=== PATIENT | male | born 1945 | race Caucasian/White ===

== ENCOUNTER 2016-05-05 16:33 | Emergency (ER) | payer MEDICARE ==
[2016-05-05 17:32] VITALS: RESP 18
[2016-05-05] MEDS ORDERED: HYDROcodone/APAP 5-325MG 1 EACH TAB PO STA (18:10)
--- NOTE | 2016-05-05 18:41 | ED ---
General Adult HPI - General Chief complaint: Recheck/Abnormal Lab/Rx Stated complaint: Fall - Rib Pain Time Seen by Provider: 05/05/16 17:38 Source: patient, RN notes reviewed Mode of arrival: wheelchair Limitations: no limitations - History of Present Illness Initial comments: Patient is a 70-year-old male presents emergency room for evaluation of right- sided rib pain. Patient states last night he tripped and fell into a table landing on right anterior lateral ribs. Patient states pain is worse today. Patient states pain is worse in her take a deep breath. Patient denies shortness of breath. Patient states he notes a little bit of bruising on the area where he is having pain. Patient denies smoking. Patient denies headache , dizziness. Patient denies any other injuries during incident. Patient does admit he is taking blood thinners. - Related Data Home Medications Medication Instructions Recorded Confirmed Allopurinol [Zyloprim] 100 mg PO DAILY 06/27/14 06/27/14 Aspirin 81 mg PO DAILY 06/27/14 06/27/14 Atorvastatin [Lipitor] 40 mg PO DAILY 06/27/14 06/27/14 Furosemide [Lasix] 20 mg PO DAILY 06/27/14 06/27/14 Ipratropium-Albuterol Nebulize 3 ml IH 06/27/14 06/27/14 [Duoneb 0.5 mg-3 mg/3 ml Soln] Lisinopril [Zestril] 5 mg PO DAILY 06/27/14 06/27/14 Metoprolol Tartrate [Lopressor] 50 mg PO BID 06/27/14 06/27/14 Nitroglycerin Sl Tabs [Nitrostat] 0.4 mg SUBLINGUAL DAILY 06/27/14 06/27/14 Potassium Chloride [K-Tab ER] 10 meq PO 06/27/14 06/27/14 glipiZIDE [Glucotrol] 10 mg PO BID 06/27/14 06/27/14 Apixaban [Eliquis] 5 mg PO BID 05/05/16 05/05/16 Previous Rx's Medication Instructions Recorded Colchicine 0.6 mg PO TID #3 capsule 06/27/14 Indomethacin [Indocin] 50 mg PO TID PRN #30 capsule 06/27/14 Colchicine 0.6 mg PO TID #3 tablet 07/26/14 Naproxen Sodium [Anaprox DS] 550 mg PO Q12HR #20 tab 07/26/14 HYDROcodone/APAP 5-325MG [[place] 1 tab PO Q6HR PRN #12 tab 05/05/16 5-325] Allergies Allergy/AdvReac Type Severity Reaction Status Date / Time erythromycin base Allergy Unknown Verified 05/05/16 19:10 silver sulfadiazine Allergy Unknown Verified 05/05/16 19:10 [From Silvadene] sulfamethoxazole Allergy Unknown Verified 05/05/16 19:10 [From Bactrim] Tetracyclines Allergy Unknown Verified 05/05/16 19:10 trimethoprim [From Bactrim] Allergy Unknown Verified 05/05/16 19:10 Review of Systems ROS Statement: Those systems with pertinent positive or pertinent negative responses have been documented in the HPI. ROS Other: All systems not noted in ROS Statement are negative. Past Medical History Past Medical History: Coronary Artery Disease (CAD), COPD, Hyperlipidemia, Hypertension, Myocardial Infarction ([place]) Additional Past Medical History / Comment(s): mi x 38 gout History of Any Multi-Drug Resistant Organisms: None Reported Past Surgical History: Coronary Bypass/CABG, Heart Catheterization, Heart Catheterization With Stent Past Psychological History: No Psychological Hx Reported Smoking Status: Former smoker Past Alcohol Use History: None Reported Past Drug Use History: None Reported General Exam - General Exam Comments Initial Comments: Sitting in exam room in no acute distress. Limitations: no limitations General appearance: alert, in no apparent distress Head exam: Present: atraumatic, normocephalic, normal inspection Eye exam: Present: normal appearance ENT exam: Present: normal exam Neck exam: Present: normal inspection Respiratory exam: Present: normal lung sounds bilaterally, chest wall tenderness (Tenderness on right anterior lateral ribs with ecchymosis noted). Absent: respiratory distress Cardiovascular Exam: Present: normal rhythm, tachycardia, normal heart sounds GI/Abdominal exam: Present: soft, normal bowel sounds. Absent: distended, tenderness, guarding, rebound, rigid Extremities exam: Present: normal inspection Back exam: Present: normal inspection Neurological exam: Present: alert, oriented X3, CN II-XII intact, normal gait Psychiatric exam: Present: normal affect, normal mood Skin exam: Present: warm, dry, intact, normal color. Absent: rash Course Vital Signs 05/05/16 17:26 Temperature 98.8 F Pulse Rate 121 H Respiratory 18 Rate Blood Pressure 114/65 O2 Sat by Pulse 96 Oximetry Medical Decision Making - Medical Decision Making Patient is 70-year-old male presents emergency room for evaluation of right- sided rib pain. Right rib/chest x-ray significant for a minimally displaced right anterior lateral eighth rib fracture. Results discussed with patient. Patient given education for incentive spirometer and sent home with pain medications. Advised patient to follow-up with his primary care provider for reevaluation in 24-48 hours. Patient states he understands everything that was discussed with him. Return parameters discussed. Case discussed with Dr. Rodríguez. - Radiology Data Radiology results: report reviewed, image reviewed Disposition Clinical Impression: Right rib fracture, Fall Disposition: HOME SELF-CARE Condition: Good Instructions: Rib Fracture (ED) Additional Instructions: Take ibuprofen as needed for pain. Take [place] as needed for severe pain. Apply ice over the area. Use incentive spirometer once every hour. Please follow-up with primary care provider in 24-48 hours for reevaluation. If any new symptom arises or symptoms worsen, return to ER as soon as possible. Prescriptions: HYDROcodone/APAP 5-325MG [[place] 5-325] 1 tab PO Q6HR PRN #12 tab PRN Reason: Pain Referrals: Bernabe Adamson DO [Primary Care Provider] - 1-2 days Time of Disposition: 19:00
--- NOTE | 2016-05-05 18:52 | XR ---
EXAMINATION TYPE: XR ribs RT w pa chest xray - total 5 views DATE OF EXAM: 05/05/2016 6:19 PM COMPARISON: July 26, 2014 HISTORY: Right-sided chest pain since fall TECHNIQUE: 5 views FINDINGS: There is no pneumothorax. No pleural effusion. However, there is a linear lucency consisten t with minimally displaced anterolateral right eighth rib fracture. There are scattered chronic appearing pleural parenchymal changes noted. Sternal sutures and mediasti nal clips noted. Cardiac silhouette is not enlarged. The lungs and soft tissues are unremarkable. IMPRESSION: Acute/subacute minimally-displaced right anterolateral eighth rib fracture.
[2016-05-05 19:38] VITALS: BP 110/71; PULSE 108; TEMP 98.2
== END 2016-05-05 19:38 | disposition home or self-care (01) ==
LOC: EC 16:33
DX: S22.31XA Fracture of one rib, right side, initial encounter for closed fracture (principal); I25.10 Atherosclerotic heart disease of native coronary artery without angina pectoris; J44.9 Chronic obstructive pulmonary disease, unspecified; E78.5 Hyperlipidemia, unspecified; I10 Essential (primary) hypertension; I25.2 Old myocardial infarction; Z87.891 Personal history of nicotine dependence; Z79.82 Long term (current) use of aspirin; Z79.84 Long term (current) use of oral hypoglycemic drugs; Z79.899 Other long term (current) drug therapy; Z88.1 Allergy status to other antibiotic agents; Z88.2 Allergy status to sulfonamides; Z88.8 Allergy status to other drugs, medicaments and biological substances; Z95.1 Presence of aortocoronary bypass graft; W18.09XA Striking against other object with subsequent fall, initial encounter; Y92.89 Other specified places as the place of occurrence of the external cause
CPT/HCPCS: 99284

== ENCOUNTER → 2016-05-27 | Outpatient (CLI) | payer MEDICARE ==
[2016-05-27 16:28] LABS: Anisocytosis Slight; CH 30.3; CHCM 33.4; HCT 34.7 % (39.0-53.0); HDW 3.24; HGB 11.8 gm/dL (13.0-17.5); MCH 31.1 pg (25.0-35.0); MCV 91.4 fL (80.0-100.0); Mean Platelet Volume 8.3; RDW 16.3 % (11.5-15.5); WBC 6.9 k/uL (3.8-10.6)
[2016-05-27 16:32] LABS: Calcium 8.8 mg/dL (8.4-10.2); Magnesium 1.9 mg/dL (1.6-2.3); Phosphorous 3.7 mg/dL (2.5-4.5); Potassium 5.2 mmol/L (3.5-5.1); Total Bilirubin 1.3 mg/dL (0.2-1.3); Total Protein 6.7 g/dL (6.3-8.2); Uric Acid 8.3 mg/dL (3.5-8.5)
[2016-05-27 16:41] LABS: % Iron Saturation 23.2 % (20-50)
[2016-05-27 17:14] LABS: Appearance,Urine Clear (Clear); Bilirubin,Urine Negative (Negative); Glucose,Urine (UA) Negative (Negative); Ketones,Urine Negative (Negative); Leukocyte Esterase,Urine Negative (Negative); Nitrite,Urine Negative (Negative); PH, Urine 7.5 (5.0-8.0); Protein,Urine Negative (Negative); Specific Gravity,Urine 1.009 (1.001-1.035); UA Billing (MACRO vs. MICRO) CHEM; Urobilinogen,Urine <2.0 mg/dL (<2.0)
== END | disposition home or self-care (01) ==
LOC: LABWHC1 15:48
PROVIDERS: ATTEND Internal Medicine
DX: N17.9 Acute kidney failure, unspecified (principal); D64.9 Anemia, unspecified; N39.0 Urinary tract infection, site not specified; R80.9 Proteinuria, unspecified; E21.3 Hyperparathyroidism, unspecified; E55.9 Vitamin D deficiency, unspecified; M10.9 Gout, unspecified
CPT/HCPCS: 36415; 80053; 81003; 82043; 82306; 82728; 83540; 83550; 83735; 83970; 84100; 84550; 85027

== ENCOUNTER → 2016-06-16 | Outpatient (CLI) | payer MEDICARE ==
--- NOTE | 2016-06-16 18:09 | US ---
EXAMINATION TYPE: US kidneys/renal and bladder DATE OF EXAM: 06/16/2016 4:47 PM COMPARISON: 07/27/2011 CLINICAL HISTORY: N18.3 CKD STAGE III. EXAM MEASUREMENTS: Right Kidney: 9.6 x 4.8 x 4.5 cm Left Kidney: 11.4 x 5.3 x 5.6 cm Right Kidney: No hydronephrosis or masses seen Left Kidney: No hydronephrosis or masses seen Bladder: wnl Bilateral Jets seen: YesThere is no evidence for hydronephrosis at this point in time. No nephroli thiasis is seen. No masses are identified. The urinary bladder is anechoic. Bilateral ureteral jet s are seen. IMPRESSION: There is no evidence of renal stone or obstruction. Kidneys show no significant change in size compar ed to last exam.
== END | disposition home or self-care (01) ==
LOC: RADUSWWP 15:42
PROVIDERS: ATTEND Internal Medicine
DX: N18.3 Chronic kidney disease, stage 3 (moderate) (principal)
CPT/HCPCS: 76770

== ENCOUNTER 2017-08-29 18:38 | Emergency (ER) | payer MEDICARE ==
[2017-08-29 18:53] LABS: Glucose,Whole Blood 91 mg/dL (75-99)
[2017-08-29] MEDS ORDERED: IPRATROPIUM-ALBUTEROL 3 ML NEB INHALATION STA (18:59)
--- NOTE | 2017-08-29 19:05 | ED ---
General Adult HPI - General Chief complaint: Shortness of Breath Stated complaint: Low blood sugar Time Seen by Provider: 08/29/17 18:47 Source: patient, EMS Mode of arrival: EMS Limitations: no limitations - History of Present Illness Initial comments: Boaz is a 71-year-old in sling dependent diabetic male was brought to the ED via EMS for evaluation of altered mental status and hypoglycemia. Patient reports that he's been in his usual state of health, he does have a chronic cough but this is unchanged recently. He states that he is an insulin- dependent diabetic. He takes long-acting insulin once daily with his supper meal. He states that he no longer checks his home blood glucose because he has developed calluses on his fingers and it hurts to check his blood glucose. He states that he took his usual dose of insulin today after eating and he feels somewhat weak. He then states that he walked to the restroom and became very weak, at which time his called the ambulance. EMS reports that they were initially dispatched for altered mental status and concern for strokelike symptoms. They found the patient in the restroom at his home and [id number] glucose revealed that his sugar was in the 50s. IV access was obtained and he was given an amp of D50 and subsequently had improvement in his mental status he was then transported to the ER for further management. - Related Data Home Medications Medication Instructions Recorded Confirmed Aspirin 81 mg PO DAILY 06/27/14 05/05/16 Atorvastatin [Lipitor] 40 mg PO DAILY 06/27/14 05/05/16 Ipratropium-Albuterol Nebulize 3 ml INHALATION RT-QID 06/27/14 05/05/16 [Duoneb 0.5 mg-3 mg/3 ml Soln] Lisinopril [Zestril] 5 mg PO DAILY 06/27/14 05/05/16 Metoprolol Tartrate [Lopressor] 50 mg PO BID 06/27/14 05/05/16 Nitroglycerin Sl Tabs [Nitrostat] 0.4 mg SUBLINGUAL Q5M PRN 06/27/14 05/05/16 Potassium Chloride [K-Tab ER] 10 meq PO BID 06/27/14 05/05/16 Apixaban [Eliquis] 5 mg PO BID 05/05/16 05/05/16 Clopidogrel Bisulfate [Plavix] 75 mg PO DAILY 05/05/16 05/05/16 Colchicine 0.6 mg PO DAILY 05/05/16 05/05/16 Furosemide [Lasix] 40 mg PO DAILY 05/05/16 05/05/16 Insulin Detemir [Levemir Flextouch] 12 unit SQ HS 05/05/16 05/05/16 glipiZIDE [Glipizide ER] 10 mg PO TID 05/05/16 05/05/16 Previous Rx's Medication Instructions Recorded HYDROcodone/APAP 5-325MG [[place] 1 tab PO Q6HR PRN #12 tab 05/05/16 5-325] Allergies Allergy/AdvReac Type Severity Reaction Status Date / Time erythromycin base Allergy Unknown Verified 08/29/17 18:47 silver sulfadiazine Allergy Unknown Verified 08/29/17 18:47 [From Silvadene] sulfamethoxazole Allergy Unknown Verified 08/29/17 18:47 [From Bactrim] Tetracyclines Allergy Unknown Verified 08/29/17 18:47 trimethoprim [From Bactrim] Allergy Unknown Verified 08/29/17 18:47 Review of Systems ROS Statement: Those systems with pertinent positive or pertinent negative responses have been documented in the HPI. ROS Other: All systems not noted in ROS Statement are negative. Constitutional: Denies: fever Respiratory: Reports: cough Cardiovascular: Denies: chest pain, palpitations Endocrine: Denies: fatigue Gastrointestinal: Denies: abdominal pain, nausea, vomiting Genitourinary: Denies: dysuria Neurological: Reports: weakness Psychiatric: Denies: anxiety, depression Hematological/Lymphatic: Denies: easy bleeding, easy bruising Past Medical History Past Medical History: Coronary Artery Disease (CAD), COPD, Hyperlipidemia, Hypertension, Myocardial Infarction ([place]) Additional Past Medical History / Comment(s): mi x 38 gout History of Any Multi-Drug Resistant Organisms: None Reported Past Surgical History: Coronary Bypass/CABG, Heart Catheterization, Heart Catheterization With Stent Past Psychological History: No Psychological Hx Reported Smoking Status: Former smoker Past Alcohol Use History: None Reported Past Drug Use History: None Reported General Exam Limitations: no limitations General appearance: alert, in no apparent distress Head exam: Present: atraumatic, normocephalic Eye exam: Present: normal appearance, PERRL ENT exam: Present: normal exam Neck exam: Present: normal inspection Respiratory exam: Present: wheezes Cardiovascular Exam: Present: regular rate, normal rhythm GI/Abdominal exam: Present: soft. Absent: distended Rectal exam: Present: deferred Extremities exam: Present: full ROM Back exam: Present: normal inspection, full ROM Neurological exam: Present: alert, oriented X3 Psychiatric exam: Present: normal affect, normal mood Skin exam: Present: warm, dry Course Vital Signs 08/29/17 08/29/17 08/29/17 18:43 19:24 19:31 Temperature 96.9 F L Pulse Rate 69 60 59 L Respiratory 22 Rate Blood Pressure 140/68 O2 Sat by Pulse 91 L Oximetry 08/29/17 08/29/17 19:36 21:48 Temperature 97.1 F L Pulse Rate 59 L 73 Respiratory 16 16 Rate Blood Pressure 131/63 119/56 O2 Sat by Pulse 99 95 Oximetry - Reevaluation(s) Reevaluation #1: reevaluated, at bedside. Patient resting comfortably. Advised the patient that if he is able to eat a sandwich and drink some juice he can be discharged home with his . is agreeable to this plan. 08/29/17 21:18 Medical Decision Making - Medical Decision Making Patient was seen and evaluated, history was obtained from the patient and EMS The arrived to bedside to provide further history Insulin-dependent diabetic male who does not check his glucose at home, he is on a long-acting insulin and reports that he used it this evening and subsequently developed some weakness and was noted to be hypoglycemic. He received D5 in route with resolution of his weakness. Reports he is feeling well. A basic workup was ordered and revealed chronic lab findings of recurrent kidney disease as well as anemia. There are no significant findings on evaluation. His EKG had no significant change from previous. At this time the patient feels he is stable for discharge home. I had a long conversation with the patient is regarding the importance of checking his blood glucose to prevent episodes like this. Patient admits that he does not check his blood glucose due to the pain it causes in his fingertips. Patient also expresses frustration that different doctors advise him differently on what to do. He states that some of his doctors told he can eat whatever he wants as long as he doesn't have excessive amounts of anything all other doctors tell him he needs to have a rather limited diet. I advised patient to follow with his primary care physician to discuss this. Patient was given a sandwich and juice which she tolerated. At this time the patient is blood glucose has been stable. He is resting comfortably. He is eating complex carbohydrates and would like to be discharged home. All questions pertaining to care were answered best my ability patient's discharged home in stable condition. - Lab Data Result diagrams: 08/29/17 18:55 08/29/17 18:55 Lab Results 08/29/17 08/29/17 08/29/17 Range/Units 18:42 18:55 18:55 WBC 6.3 (3.8-10.6) k/uL RBC 4.02 L (4.30-5.90) m/uL Hgb 12.3 L (13.0-17.5) gm/dL Hct 38.1 L (39.0-53.0) % MCV 94.8 (80.0-100.0) fL MCH 30.5 (25.0-35.0) pg MCHC 32.2 (31.0-37.0) g/dL RDW 17.4 H (11.5-15.5) % Plt Count 154 (150-450) k/uL Neutrophils % 79 % Lymphocytes % 11 % Monocytes % 7 % Eosinophils % 1 % Basophils % 0 % Neutrophils # 4.9 (1.3-7.7) k/uL Lymphocytes # 0.7 L (1.0-4.8) k/uL Monocytes # 0.5 (0-1.0) k/uL Eosinophils # 0.1 (0-0.7) k/uL Basophils # 0.0 (0-0.2) k/uL Manual Slide Review Performed Hypochromasia Slight Anisocytosis Slight PT (9.0-12.0) sec INR (<1.2) APTT (22.0-30.0) sec Sodium 139 (137-145) mmol/L Potassium 4.2 (3.5-5.1) mmol/L Chloride 104 (98-107) mmol/L Carbon Dioxide 27 (22-30) mmol/L Anion Gap 8 mmol/L BUN 40 H (9-20) mg/dL Creatinine 2.05 H (0.66-1.25) mg/dL Est GFR (CKD-EPI)AfAm 37 (>60 ml/min/1.73 sqM) Est GFR (CKD-EPI)NonAf 32 (>60 ml/min/1.73 sqM) Glucose 86 (74-99) mg/dL POC Glucose (mg/dL) 91 (75-99) mg/dL POC Glu [employer] ID Calcium 8.6 (8.4-10.2) mg/dL Magnesium 2.1 (1.6-2.3) mg/dL Total Bilirubin 2.3 H (0.2-1.3) mg/dL AST 33 (17-59) U/L ALT 27 (21-72) U/L Alkaline Phosphatase 215 H (38-126) U/L Troponin I (0.000-0.034) ng/mL NT-Pro-B Natriuret Pep pg/mL Total Protein 6.2 L (6.3-8.2) g/dL Albumin 3.3 L (3.5-5.0) g/dL 08/29/17 08/29/17 08/29/17 Range/Units 18:55 18:55 18:55 WBC (3.8-10.6) k/uL RBC (4.30-5.90) m/uL Hgb (13.0-17.5) gm/dL Hct (39.0-53.0) % MCV (80.0-100.0) fL MCH (25.0-35.0) pg MCHC (31.0-37.0) g/dL RDW (11.5-15.5) % Plt Count (150-450) k/uL Neutrophils % % Lymphocytes % % Monocytes % % Eosinophils % % Basophils % % Neutrophils # (1.3-7.7) k/uL Lymphocytes # (1.0-4.8) k/uL Monocytes # (0-1.0) k/uL Eosinophils # (0-0.7) k/uL Basophils # (0-0.2) k/uL Manual Slide Review Hypochromasia Anisocytosis PT 11.5 (9.0-12.0) sec INR 1.2 H (<1.2) APTT 26.8 (22.0-30.0) sec Sodium (137-145) mmol/L Potassium (3.5-5.1) mmol/L Chloride (98-107) mmol/L Carbon Dioxide (22-30) mmol/L Anion Gap mmol/L BUN (9-20) mg/dL Creatinine (0.66-1.25) mg/dL Est GFR (CKD-EPI)AfAm (>60 ml/min/1.73 sqM) Est GFR (CKD-EPI)NonAf (>60 ml/min/1.73 sqM) Glucose (74-99) mg/dL POC Glucose (mg/dL) (75-99) mg/dL POC Glu [employer] ID Calcium (8.4-10.2) mg/dL Magnesium (1.6-2.3) mg/dL Total Bilirubin (0.2-1.3) mg/dL AST (17-59) U/L ALT (21-72) U/L Alkaline Phosphatase (38-126) U/L Troponin I <0.012 (0.000-0.034) ng/mL NT-Pro-B Natriuret Pep 8870 pg/mL Total Protein (6.3-8.2) g/dL Albumin (3.5-5.0) g/dL 08/29/17 Range/Units 20:45 WBC (3.8-10.6) k/uL RBC (4.30-5.90) m/uL Hgb (13.0-17.5) gm/dL Hct (39.0-53.0) % MCV (80.0-100.0) fL MCH (25.0-35.0) pg MCHC (31.0-37.0) g/dL RDW (11.5-15.5) % Plt Count (150-450) k/uL Neutrophils % % Lymphocytes % % Monocytes % % Eosinophils % % Basophils % % Neutrophils # (1.3-7.7) k/uL Lymphocytes # (1.0-4.8) k/uL Monocytes # (0-1.0) k/uL Eosinophils # (0-0.7) k/uL Basophils # (0-0.2) k/uL Manual Slide Review Hypochromasia Anisocytosis PT (9.0-12.0) sec INR (<1.2) APTT (22.0-30.0) sec Sodium (137-145) mmol/L Potassium (3.5-5.1) mmol/L Chloride (98-107) mmol/L Carbon Dioxide (22-30) mmol/L Anion Gap mmol/L BUN (9-20) mg/dL Creatinine (0.66-1.25) mg/dL Est GFR (CKD-EPI)AfAm (>60 ml/min/1.73 sqM) Est GFR (CKD-EPI)NonAf (>60 ml/min/1.73 sqM) Glucose (74-99) mg/dL POC Glucose (mg/dL) 152 H (75-99) mg/dL POC Glu [employer] ID Ana Grayson Calcium (8.4-10.2) mg/dL Magnesium (1.6-2.3) mg/dL Total Bilirubin (0.2-1.3) mg/dL AST (17-59) U/L ALT (21-72) U/L Alkaline Phosphatase (38-126) U/L Troponin I (0.000-0.034) ng/mL NT-Pro-B Natriuret Pep pg/mL Total Protein (6.3-8.2) g/dL Albumin (3.5-5.0) g/dL Disposition Clinical Impression: Hypoglycemia Disposition: HOME SELF-CARE Condition: Fair Instructions: Hypoglycemia in a Person with Diabetes (ED) Is patient prescribed a controlled substance at d/c from ED?: No Referrals: Bernabe Adamson DO [Primary Care Provider] - 1-2 days Time of Disposition: 21:22
--- NOTE | 2017-08-29 19:24 | XR ---
EXAMINATION TYPE: XR chest 2V DATE OF EXAM: 08/29/2017 COMPARISON: 07/26/2014 HISTORY: Difficulty breathing TECHNIQUE: Frontal and lateral views of the chest are obtained. FINDINGS: There is moderate right pleural effusion. There are sternal wires. Left lung is clear. The re is mild pulmonary congestion.. Bony thorax is intact. IMPRESSION: Consolidation and pleural fluid on the right side. Small left posterior pleural effusion . Abnormalities are new compared to old exam. This could relate to mild chronic congestive heart fail ure. Right lower lobe pneumonia is possible.
[2017-08-29 19:29] LABS: Anisocytosis Slight; Hypochromasia Slight; MCV 94.8 fL (80.0-100.0)
[2017-08-29 19:30] LABS: Albumin 3.3 g/dL (3.5-5.0); Calcium 8.6 mg/dL (8.4-10.2); Magnesium 2.1 mg/dL (1.6-2.3); Potassium 4.2 mmol/L (3.5-5.1); Total Bilirubin 2.3 mg/dL (0.2-1.3); Total Protein 6.2 g/dL (6.3-8.2)
[2017-08-29 19:32] LABS: Basophils % (A) 0 %; Eosinophils # (A) 0.1 k/uL (0-0.7); Eosinophils % (A) 1 %; HCT 38.1 % (39.0-53.0); HGB 12.3 gm/dL (13.0-17.5); Lymphocytes # (A) 0.7 k/uL (1.0-4.8); Lymphocytes % (A) 11 %; MCH 30.5 pg (25.0-35.0); MCHC 32.2 g/dL (31.0-37.0); Mean Platelet Volume 8.1; Monocytes # (A) 0.5 k/uL (0-1.0); Monocytes % (A) 7 %; Neutrophils # (A) 4.9 k/uL (1.3-7.7); Neutrophils % (A) 79 %; Platelet Count 154 k/uL (150-450); RBC 4.02 m/uL (4.30-5.90); RDW 17.4 % (11.5-15.5); WBC 6.3 k/uL (3.8-10.6)
[2017-08-29 19:34] LABS: INR 1.2 (<1.2); Partial Thromboplastin Time 26.8 sec (22.0-30.0); Prothrombin Time 11.5 sec (9.0-12.0)
[2017-08-29 19:37] VITALS: RESP 16
[2017-08-29 19:39] VITALS: TEMP 97.1
[2017-08-29 20:49] LABS: Glucose,Whole Blood 152 mg/dL (75-99)
[2017-08-29 21:49] VITALS: BP 119/56; PULSE 73
== END 2017-08-29 21:49 | disposition home or self-care (01) ==
LOC: EC 18:38
DX: E11.649 Type 2 diabetes mellitus with hypoglycemia without coma (principal); D64.9 Anemia, unspecified; N28.9 Disorder of kidney and ureter, unspecified; R06.2 Wheezing; R05 Cough; R41.82 Altered mental status, unspecified; J44.9 Chronic obstructive pulmonary disease, unspecified; E78.5 Hyperlipidemia, unspecified; I10 Essential (primary) hypertension; I25.10 Atherosclerotic heart disease of native coronary artery without angina pectoris; M10.9 Gout, unspecified; I25.2 Old myocardial infarction; Z87.891 Personal history of nicotine dependence; Z79.01 Long term (current) use of anticoagulants; Z79.02 Long term (current) use of antithrombotics/antiplatelets; Z79.4 Long term (current) use of insulin; Z79.82 Long term (current) use of aspirin; Z79.899 Other long term (current) drug therapy; Z88.1 Allergy status to other antibiotic agents; Z88.8 Allergy status to other drugs, medicaments and biological substances
CPT/HCPCS: 36415; 71046; 80053; 83735; 83880; 84484; 85025; 85610; 85730; 93005; 94640; 99285

== ENCOUNTER 2017-12-09 13:24 | Inpatient (IN) | payer MEDICARE ==
--- NOTE | 2017-12-09 14:26 | ED ---
General Adult HPI - General Chief complaint: Wound/Laceration Stated complaint: left leg pain Time Seen by Provider: 12/09/17 13:35 Source: patient, RN notes reviewed Mode of arrival: wheelchair Limitations: no limitations - History of Present Illness Initial comments: This is a 72-year-old male who presents emergency department with past medical history significant for diabetes hypertension and chronic cellulitis on both legs. Patient states he comes in today because he has pain in the left posterior leg. Patient states that areas become more tender and he has had some open wounds over the last couple of weeks. Patient states there is also become more red. Patient states the pain is gotten to the point where he cannot stand it anymore so he decided come in to be evaluated. Patient states he has had similar symptoms in the past but they seemed to resolve on the road but this has not been resolving. Patient denies any difficulty breathing [place] of breath patient denies any chest pain. Patient denies any fever chills per patient denies any injury or trauma. Patient denies any abdominal pain patient denies nausea vomiting diarrhea. - Related Data Home Medications Medication Instructions Recorded Confirmed Ipratropium-Albuterol Nebulize 3 ml INHALATION RT-QID 06/27/14 12/09/17 [Duoneb 0.5 mg-3 mg/3 ml Soln] Lisinopril [Zestril] 5 mg PO BID 06/27/14 12/09/17 Metoprolol Tartrate [Lopressor] 50 mg PO BID 06/27/14 12/09/17 Nitroglycerin Sl Tabs [Nitrostat] 0.4 mg SUBLINGUAL Q5M PRN 06/27/14 12/09/17 Apixaban [Eliquis] 2.5 mg PO BID 05/05/16 12/09/17 Furosemide [Lasix] 40 mg PO BID 05/05/16 12/09/17 Insulin Detemir [Levemir Flextouch] 12 unit SQ HS 05/05/16 12/09/17 Albuterol Nebulized [Ventolin 2.5 mg INHALATION RT-Q6H PRN 12/09/17 12/09/17 Nebulized] Allopurinol [Zyloprim] 100 mg PO BID 12/09/17 12/09/17 Calcitriol 0.25 mcg PO DAILY 12/09/17 12/09/17 Cholecalciferol [Vitamin D3] 1,000 unit PO BID 12/09/17 12/09/17 Ferrous Sulfate [Feosol] 325 mg PO Q7D 12/09/17 12/09/17 Spironolactone 25 mg PO DAILY 12/09/17 12/09/17 Allergies Allergy/AdvReac Type Severity Reaction Status Date / Time erythromycin base Allergy Unknown Verified 12/09/17 14:51 silver sulfadiazine Allergy Unknown Verified 12/09/17 14:51 [From Silvadene] sulfamethoxazole Allergy Unknown Verified 12/09/17 14:51 [From Bactrim] Tetracyclines Allergy Unknown Verified 12/09/17 14:51 trimethoprim [From Bactrim] Allergy Unknown Verified 12/09/17 14:51 Review of Systems ROS Statement: Those systems with pertinent positive or pertinent negative responses have been documented in the HPI. ROS Other: All systems not noted in ROS Statement are negative. Past Medical History Past Medical History: Coronary Artery Disease (CAD), COPD, Hyperlipidemia, Hypertension, Myocardial Infarction ([place]) Additional Past Medical History / Comment(s): mi x 38 gout History of Any Multi-Drug Resistant Organisms: None Reported Past Surgical History: Cholecystectomy, Coronary Bypass/CABG, Heart Catheterization, Heart Catheterization With Stent Additional Past Surgical History / Comment(s): Angiography Past Psychological History: No Psychological Hx Reported Smoking Status: Former smoker Past Alcohol Use History: None Reported Past Drug Use History: None Reported General Exam - General Exam Comments Initial Comments: GENERAL: Patient is well-developed and well-nourished. Patient is nontoxic and well- hydrated and is in mild distress. ENT: Neck is soft and supple. No significant lymphadenopathy is noted. Oropharynx is clear. Moist mucous membranes. Neck has full range of motion without eliciting any pain. EYES: The sclera were anicteric and conjunctiva were pink and moist. Extraocular movements were intact and pupils were equal round and reactive to light. Eyelids were unremarkable. PULMONARY: Unlabored respirations. Good breath sounds bilaterally. No audible rales rhonchi or wheezing was noted. CARDIOVASCULAR: There is a regular rate and rhythm without any murmurs gallops or rubs. ABDOMEN: Soft and nontender with normal bowel sounds. No palpable organomegaly was noted. There is no palpable pulsatile mass. SKIN: Skin is clear with no lesions or rashes and otherwise unremarkable. NEUROLOGIC: Patient is alert and oriented x3. Cranial nerves II through XII are grossly intact. Motor and sensory are also intact. Normal speech, volume and content. Symmetrical smile. MUSCULOSKELETAL: Right leg has chronic cellulitis on the distal aspect of the right leg there is no areas of acute erythema. However the left leg in the posterior aspect has a large open wound on the back of the calf. Patient also has what appears to be acute erythema of the posterior leg it is very warm and tender to touch. LYMPHATICS: No significant lymphadenopathy is noted PSYCHIATRIC: Normal psychiatric evaluation. Limitations: no limitations Course Vital Signs 12/09/17 13:35 Temperature 98.2 F Pulse Rate 59 L Respiratory 18 Rate Blood Pressure 114/52 O2 Sat by Pulse 94 L Oximetry Medical Decision Making - Medical Decision Making EKG shows a junctional rhythm at 57 bpm QRS is under QT intervals 506 QTC is 492. Patient has some slight ST segment depression in precordial leads V3 45 and V6 these changes however were seen on an old EKG. Chest x-ray shows a right-sided pleural effusion that was seen in the past but increased venous congestion. I spoke with Dr. Adamson and I will admit the patient wrote admitting orders. I will start the patient antibiotics. - Lab Data Result diagrams: 12/09/17 14:40 12/09/17 14:40 Lab Results 12/09/17 12/09/17 12/09/17 Range/Units 14:40 14:40 14:40 WBC 8.2 (3.8-10.6) k/uL RBC 3.73 L (4.30-5.90) m/uL Hgb 11.7 L (13.0-17.5) gm/dL Hct 38.1 L (39.0-53.0) % MCV 102.1 H (80.0-100.0) fL MCH 31.4 (25.0-35.0) pg MCHC 30.7 L (31.0-37.0) g/dL RDW 17.3 H (11.5-15.5) % Plt Count 211 (150-450) k/uL Neutrophils % 81 % Lymphocytes % 11 % Monocytes % 5 % Eosinophils % 2 % Basophils % 0 % Neutrophils # 6.6 (1.3-7.7) k/uL Lymphocytes # 0.9 L (1.0-4.8) k/uL Monocytes # 0.4 (0-1.0) k/uL Eosinophils # 0.2 (0-0.7) k/uL Basophils # 0.0 (0-0.2) k/uL Hypochromasia Slight Anisocytosis Slight Macrocytosis Moderate Sodium 136 L (137-145) mmol/L Potassium 5.1 (3.5-5.1) mmol/L Chloride 101 (98-107) mmol/L Carbon Dioxide 24 (22-30) mmol/L Anion Gap 11 mmol/L BUN 90 H (9-20) mg/dL Creatinine 3.05 H (0.66-1.25) mg/dL Est GFR (CKD-EPI)AfAm 23 (>60 ml/min/1.73 sqM) Est GFR (CKD-EPI)NonAf 20 (>60 ml/min/1.73 sqM) Glucose 281 H (74-99) mg/dL Plasma Lactic Acid Carloz 1.4 (0.7-2.0) mmol/L Calcium 9.0 (8.4-10.2) mg/dL Total Bilirubin 1.9 H (0.2-1.3) mg/dL AST 68 H (17-59) U/L ALT 83 H (21-72) U/L Alkaline Phosphatase 209 H (38-126) U/L Troponin I (0.000-0.034) ng/mL NT-Pro-B Natriuret Pep pg/mL Total Protein 7.2 (6.3-8.2) g/dL Albumin 3.7 (3.5-5.0) g/dL 12/09/17 12/09/17 Range/Units 14:40 14:40 WBC (3.8-10.6) k/uL RBC (4.30-5.90) m/uL Hgb (13.0-17.5) gm/dL Hct (39.0-53.0) % MCV (80.0-100.0) fL MCH (25.0-35.0) pg MCHC (31.0-37.0) g/dL RDW (11.5-15.5) % Plt Count (150-450) k/uL Neutrophils % % Lymphocytes % % Monocytes % % Eosinophils % % Basophils % % Neutrophils # (1.3-7.7) k/uL Lymphocytes # (1.0-4.8) k/uL Monocytes # (0-1.0) k/uL Eosinophils # (0-0.7) k/uL Basophils # (0-0.2) k/uL Hypochromasia Anisocytosis Macrocytosis Sodium (137-145) mmol/L Potassium (3.5-5.1) mmol/L Chloride (98-107) mmol/L Carbon Dioxide (22-30) mmol/L Anion Gap mmol/L BUN (9-20) mg/dL Creatinine (0.66-1.25) mg/dL Est GFR (CKD-EPI)AfAm (>60 ml/min/1.73 sqM) Est GFR (CKD-EPI)NonAf (>60 ml/min/1.73 sqM) Glucose (74-99) mg/dL Plasma Lactic Acid Carloz (0.7-2.0) mmol/L Calcium (8.4-10.2) mg/dL Total Bilirubin (0.2-1.3) mg/dL AST (17-59) U/L ALT (21-72) U/L Alkaline Phosphatase (38-126) U/L Troponin I 0.014 (0.000-0.034) ng/mL NT-Pro-B Natriuret Pep 38343 pg/mL Total Protein (6.3-8.2) g/dL Albumin (3.5-5.0) g/dL Disposition Clinical Impression: Pulmonary edema, Pleural effusion, Pedal edema, Cellulitis of left leg Disposition: ADMITTED IP TO THIS HOSP Referrals: Bernabe Adamson DO [Primary Care Provider] - 1-2 days Time of Disposition: 16:31
[2017-12-09 15:06] LABS: Anisocytosis Slight; Basophils % (A) 0 %; Eosinophils # (A) 0.2 k/uL (0-0.7); Eosinophils % (A) 2 %; HCT 38.1 % (39.0-53.0); HGB 11.7 gm/dL (13.0-17.5); Hypochromasia Slight; Lymphocytes # (A) 0.9 k/uL (1.0-4.8); Lymphocytes % (A) 11 %; MCH 31.4 pg (25.0-35.0); MCHC 30.7 g/dL (31.0-37.0); MCV 102.1 fL (80.0-100.0); Macrocytosis Moderate; Mean Platelet Volume 8.5; Monocytes # (A) 0.4 k/uL (0-1.0); Monocytes % (A) 5 %; Neutrophils # (A) 6.6 k/uL (1.3-7.7); Neutrophils % (A) 81 %; Platelet Count 211 k/uL (150-450); RBC 3.73 m/uL (4.30-5.90); RDW 17.3 % (11.5-15.5); WBC 8.2 k/uL (3.8-10.6)
[2017-12-09 15:21] LABS: Albumin 3.7 g/dL (3.5-5.0); Potassium 5.1 mmol/L (3.5-5.1); Total Bilirubin 1.9 mg/dL (0.2-1.3); Total Protein 7.2 g/dL (6.3-8.2)
--- NOTE | 2017-12-09 16:07 | XR ---
EXAMINATION TYPE: XR chest 2V DATE OF EXAM: 12/09/2017 COMPARISON: 08/29/2017 INDICATION: Difficulty breathing, multiple MIs TECHNIQUE: Frontal and lateral views of the chest are obtained. FINDINGS: The heart size is normal. The pulmonary vasculature is prominent. There is a right lower lobe infiltrate. Small right pleural effusion may also be present. Sternotomy wires are present from prior CABG.. IMPRESSION: 1. Right middle lobe and right lower lobe infiltrate with small right pleural effusion. 2. Pulmonary vascular prominence. Correlate for failure.
[2017-12-09] MEDS ORDERED: AMPICILLIN-SULBACTAM 3 GM in SODIUM CHLORIDE 0.9% 100 ML IVPB STA (16:30)
[2017-12-09] MEDS ORDERED: FUROSEMIDE 10 MG/ML 4 ML VIAL IV STA (16:50)
[2017-12-10] MEDS: AMPICILLIN-SULBACTAM 3 GM in SODIUM CHLORIDE 0.9% 100 ML IVPB SCH ×4 (00:26→23:54)
[2017-12-10] MEDS: FUROSEMIDE 10 MG/ML 4 ML VIAL IV SCH ×3 (00:26→21:23)
[2017-12-10 05:34] LABS: Glucose,Whole Blood 149 mg/dL (75-99)
[2017-12-10 06:19] LABS: Glucose,Whole Blood 132 mg/dL (75-99)
[2017-12-10] MEDS ORDERED: NITROGLYCERIN SL TABS 0.4 MG TAB SUBLINGUAL PRN (09:35)
[2017-12-10 10:36] LABS: Anisocytosis Slight; Basophils % (A) 0 %; Eosinophils # (A) 0.2 k/uL (0-0.7); Eosinophils % (A) 3 %; HCT 35.2 % (39.0-53.0); HGB 10.9 gm/dL (13.0-17.5); Hypochromasia Slight; Lymphocytes # (A) 0.8 k/uL (1.0-4.8); Lymphocytes % (A) 12 %; MCH 31.3 pg (25.0-35.0); MCHC 31.1 g/dL (31.0-37.0); MCV 100.8 fL (80.0-100.0); Macrocytosis Slight; Mean Platelet Volume 9.4; Monocytes # (A) 0.4 k/uL (0-1.0); Monocytes % (A) 6 %; Neutrophils # (A) 5.2 k/uL (1.3-7.7); Neutrophils % (A) 77 %; Platelet Count 175 k/uL (150-450); RBC 3.49 m/uL (4.30-5.90); WBC 6.7 k/uL (3.8-10.6)
[2017-12-10 11:00] LABS: Calcium 8.8 mg/dL (8.4-10.2); Magnesium 2.5 mg/dL (1.6-2.3)
[2017-12-10] MEDS: IPRATROPIUM-ALBUTEROL 3 ML NEB INHALATION SCH ×3 (11:20→19:24)
[2017-12-10 11:25] LABS: Glucose,Whole Blood 270 mg/dL (75-99)
--- NOTE | 2017-12-10 11:45 | ECHOF ---
Referral Reason:lv function MEASUREMENTS -------- HEIGHT: 170.2 cm WEIGHT: 72.1 kg BP: 104/55 RVIDd: 3.0 cm (< 3.3) IVSd: 1.0 cm (0.6 - 1.1) LVIDd: 3.7 cm (3.9 - 5.3) LVPWd: 1.0 cm (0.6 - 1.1) IVSs: 1.3 cm LVIDs: 3.0 cm LVPWs: 1.3 cm LAESV Index (A-L): 43.44 ml/m Ao Diam: 3.2 cm (2.0 - 3.7) LA Diam: 3.9 cm (2.7 - 3.8) EPSS: 1.0 cm MV E Riaz: 1.21 m/s MV DecT: 123 ms MV A Riaz: 0.34 m/s MV E/A Ratio: 3.54 AV maxP.94 mmHg AV meanP.03 mmHg RAP: 15.00 mmHg RVSP: 40.43 mmHg MV EF SLOPE: 156.23 mm/s (70 - 150) MV EXCURSION: 1.87 cm (> 18.000) FINDINGS -------- Resting bradycardia (HR<60bpm). This was a technically adequate study. The left ventricular size is normal. Left ventricular wall thickness is normal. There is mild calli bal hypokinesis of LV . Overall left ventricular systolic function is mildly impaired with, an EF b etween 45 - 50 %. The right ventricle is normal in size and function. LA is severely dilated >40 ml/m2 RA appears enlarged. There is no evidence of aortic regurgitation. There is mild stenosis of the bioprosthetic aortic va lve. The mitral valve leaflets are mildly thickened. Moderate mitral regurgitation is present. Mitral ring annulloplasty is in place. Mild tricuspid regurgitation present. There is mild pulmonary hypertension. The right ventricular systolic pressure, as measured by Doppler, is 40.43mmHg. Trace/mild (physiologic) pulmonic regurgitation. The aortic root size is normal. The inferior vena cava is dilated with poor inspiratory collapse which is consistent with estimated r ight atrial pressure of 20 mmHg. There is no pericardial effusion. CONCLUSIONS -------- 1. Resting bradycardia (HR<60bpm). 2. This was a technically adequate study. 3. The left ventricular size is normal. 4. Left ventricular wall thickness is normal. 5. There is mild global hypokinesis of LV . 6. Overall left ventricular systolic function is mildly impaired with, an EF between 45 - 50 %. 7. LA is severely dilated >40 ml/m2 8. RA appears enlarged. 9. There is no evidence of aortic regurgitation. 10. 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 11. The mitral valve leaflets are mildly thickened. 12. Moderate mitral regurgitation is present. 13. Mitral ring annulloplasty is in place. 14. Mild tricuspid regurgitation present. 15. There is mild pulmonary hypertension. 16. The right ventricular systolic pressure, as measured by Doppler, is 40.43mmHg. 17. Trace/mild (physiologic) pulmonic regurgitation. 18. The aortic root size is normal. 19. The inferior vena cava is dilated with poor inspiratory collapse which is consistent with estimat ed right atrial pressure of 20 mmHg. 20. There is no pericardial effusion. WET [employer] BLOCKING OPERATOR: Won Silvestre RDCS
[2017-12-10] MEDS: CALCITRIOL 0.25 MCG CAP PO SCH (12:11)
[2017-12-10] MEDS: ALLOPURINOL 100 MG TAB PO SCH ×2 (12:11→21:28)
[2017-12-10] MEDS: APIXABAN 2.5 MG TABLET PO SCH ×2 (12:11→21:23)
[2017-12-10] MEDS: SPIRONOLACTONE 25 MG TAB PO SCH (12:11)
[2017-12-10] MEDS: CHOLECALCIFEROL 1,000 UNIT TAB PO SCH ×2 (12:11→21:28)
[2017-12-10] MEDS: INSULIN ASPART 100 UNIT/ML 1 ML 10 ML VIAL SQ SCH ×3 (12:12→21:24)
--- NOTE | 2017-12-10 15:31 | CONS ---
CONSULTATION Mr. Velasco is a 72-year-old male who is followed on a regular basis by Dr. Mar Perez. He presented to the emergency room with progressive weakness as well as worsening edema and discomfort in the lower extremities. He reports a history of prior myocardial infarction, most recently about 8 years ago. He has history of peripheral disease. He has peripheral edema, but much worse recently with worsening discomfort and appearance of his legs. He underwent percutaneous revascularization of his lower extremities over 10 years ago, but it does not appear that he had any recent workup. He has a history of chronic kidney disease, followed by Dr. Caputo, and he has lost quite a bit of weight recently. He has no clear PND or orthopnea. He has chronic dyspnea on exertion. No chest discomfort. No dizziness. No palpitation. No syncope. His coronary risk factors are remarkable for history of diabetes and hypertension. His lipid profile is not available. MEDICATIONS: Her medications at home include: 1. Eliquis 2.5 mg twice a day. 2. Lasix 40 mg twice a day. 3. Zestril 5 mg twice a day. 4. Lopressor 50 mg twice a day. 5. Spironolactone 25 mg daily. 6. Iron. 7. Levemir. He has a prior history of congestive heart failure, although his ejection fraction is not available to me. REVIEW OF SYSTEMS: RESPIRATORY SYSTEM: He has dyspnea on exertion, occasional cough. He has history of chronic obstructive lung disease. GI SYSTEM: No recent GI bleeding. No peptic ulcer disease. SYSTEM: He has a history of chronic kidney disease. No recent hematuria. NERVOUS SYSTEM: No history of stroke or seizure. PHYSICAL EXAMINATION: He is a 72-year-old male, alert, oriented, in no apparent distress. Appears older than stated age. Blood pressure 130/60 with a heart rate in the 60s. HEAD: Normocephalic. Eyes: Sclerae nonicteric. NECK: Good carotid upstroke. No bruit. LUNGS: Decreased air exchange. No wheezes. HEART: S1, S2. No S3, with systolic murmur 2/6, mid to late peaking. No diastolic murmur. No rub. ABDOMEN: Soft, nontender. Positive bowel sounds. No organomegaly. EXTREMITIES: Decreased distal pulses. Dressing noted on the lower extremities with erythema and chronic skin changes. EKG revealed poor baseline but what appears to be a junctional rhythm with right axis deviation, nonspecific ST-T wave changes. His chest x-ray raised the possibility of infiltrate. LABS: BUN and creatinine are 92 and 3.04, potassium 5.0. His NT proBNP is 13,500. ALT of 83, AST of 68. Troponin 0.014. Hemoglobin of 10.9, white blood cell count 6.7. IMPRESSION: 1. Cellulitis of lower extremities. 2. Elevated NT proBNP in a patient with known history of congestive heart failure. His breathing status according to him is unchanged. Some of the abnormalities and the BNP could be related to his renal functions. 3. History of coronary artery disease. 4. History of peripheral vascular disease. 5. Chronic kidney disease. 6. Hypertension. 7. Diabetes mellitus. 8. Junctional rhythm. Patient is anticoagulated. The possibility of atrial fibrillation cannot be totally excluded. I will try to obtain prior workup. RECOMMENDATIONS: From the cardiac standpoint, I will review the records from Dr. Perez. I will continue the rest of his medical regimen. I will obtain echocardiogram with Doppler. Will follow his lab data. Depending on his progress, further recommendations will be made. Thank you for this consult. Will follow with you. MMMOHAMUDL / TIPN: [id number] / [email or web address]
[2017-12-10 16:55] LABS: Glucose,Whole Blood 178 mg/dL (75-99)
[2017-12-10 17:35] LABS: Hemoglobin A1C 7.3 % (4.0-6.0)
--- NOTE | 2017-12-10 17:37 | CONS ---
CONSULTATION DATE OF SERVICE: 12/10/2017 REASON FOR CONSULTATION: Left leg wound and cellulitis. HISTORY OF PRESENT ILLNESS: The patient is a 72-year-old male presenting to the ER at [facility] yesterday afternoon with chief complaints of pain in his left leg. The patient apparently did have multiple wounds on his left leg that he has had for more than a week now. Apparently the patient has more swelling in the leg that has led to some blister formation that has opened up, ending up with these superficial ulcerations. Patient has been complaining of pain into the leg. The pain has been mostly throbbing, 6 to 7 out of 10, for the same duration with no radiation. There is no significant drainage from it. The patient did have some chills at home but no high- grade fever. With these symptoms, the patient was evaluated by the ER physician. On arrival in the ER, the patient was afebrile. His white count now is significantly elevated. He has slightly elevated liver enzymes and a creatinine of 3.05. The patient has been started on Unasyn. Infectious Disease was consulted for further recommendations regarding antibiotic therapy. The patient also had a chest x-ray showing right middle and lower lobe infiltrate with small right pleural effusion. Patient denies significant cough or sputum production, though. No nausea, vomiting or any diarrhea. REVIEW OF SYSTEMS: CONSTITUTIONAL: Positive for weakness and some chills. EYES: No complaint. ENT: No complaint. RESPIRATORY: As per HPI. CARDIOVASCULAR: No complaint. GENITOURINARY: No complaint. GASTROINTESTINAL: No complaint. MUSCULOSKELETAL: No complaint. INTEGUMENTARY: As per HPI. PSYCHOLOGICAL: No complaint. ENDOCRINE: No complaint. NEUROLOGICAL: No complaint. PAST MEDICAL HISTORY: 1. Coronary artery disease. 2. COPD. 3. Hyperlipidemia. 4. Hypertension. 5. AL. 6. Gout. PAST SURGICAL HISTORY: 1. Cholecystectomy. 2. Coronary artery bypass grafting. 3. Heart catheterization with stent. SOCIAL HISTORY: Remote history of smoking. No drinking or drug use. FAMILY HISTORY: No pertinent findings noticed. ALLERGIES: TO MULTIPLE MEDICATIONS, includin. TRIMETHOPRIM. 2. SULFAMETHOXAZOLE. 3. TETRACYCLINE. 4. SILVADENE. 5. ERYTHROMYCIN. MEDICATIONS: The patient is currently on: 1. Ventolin. 2. DuoNeb. 3. Zyloprim. 4. Unasyn 3 grams q.12 hours. 5. Eliquis. 6. Calcitriol. 7. Vitamin D3. 8. Iron sulfate. 9. Lasix. 10.NovoLog. 11.Levemir. 12.Nitrostat. 13.Protonix. 14.Aldactone. PHYSICAL EXAMINATION: Blood pressure is 126/58 with a pulse of 59, temperature 98. He is 98% on room air. General description is an elderly male lying in bed in no distress. No tachypnea or accessory muscle of respiration use. HEENT examination shows slight pallor. No scleral icterus. Oral mucosa membrane is dry. No pharyngeal erythema or thrush. NECK: Trachea is central. No thyromegaly. LUNGS: Unlabored breathing with decreased breath sounds in the bases. No wheeze or crackle. HEART: S1, S2. Regular rate and rhythm. No added sound. ABDOMEN: Soft. No tenderness. No guarding or rigidity. EXAMINATION OF THE LEFT LEG: The patient did have multiple superficial ulcerations. The one on the anterior leg did have some slough tissue; however, posterior leg wound is clean with no slough tissue. Minimal surrounding erythema. No foul-smelling drainage. Neurologically patient is awake, alert, oriented x3. Mood and affect normal. LABS: Hemoglobin is 10.9, white count 6.7, BUN of 92, creatinine 3.04. Electrolytes have been normal. Liver enzymes are slightly elevated. Blood culture was obtained which is currently pending. DIAGNOSTIC IMPRESSION AND PLAN: Patient with acute left lower extremity superficial wound from a ruptured blister with secondary cellulitis. The likely organism we need to cover will be the gram-positive skin enio and less likely a gram-negative infection, with no evidence of any abscess formation. PLAN: 1. Local wound care to the anterior leg wound with slough tissue with TheraHoney to be changed daily; however, for the wound on the posterior leg which is clean we will apply Aquacel Silver dressing followed by light Isacc wrap from just above wound to below the knee. These dressings should be changed daily. 2. Unasyn 3 grams q.12 to continue to cover for cellulitis. 3. We will follow on his clinical condition and culture to further adjust medication if needed. Thank you for this consultation. Will follow this patient along with you. MMODL / IJN: [id number] /
[2017-12-10 20:56] LABS: Glucose,Whole Blood 225 mg/dL (75-99)
[2017-12-10] MEDS: INSULIN DETEMIR 100 UNIT/ML 10 ML VIAL SQ SCH (21:24)
[2017-12-11 05:43] LABS: Glucose,Whole Blood 146 mg/dL (75-99)
[2017-12-11 06:34] LABS: Anisocytosis Slight; Basophils % (A) 0 %; Eosinophils # (A) 0.2 k/uL (0-0.7); Eosinophils % (A) 3 %; HCT 33.1 % (39.0-53.0); HGB 10.6 gm/dL (13.0-17.5); Lymphocytes # (A) 0.8 k/uL (1.0-4.8); Lymphocytes % (A) 11 %; MCH 31.7 pg (25.0-35.0); MCHC 31.9 g/dL (31.0-37.0); MCV 99.2 fL (80.0-100.0); Macrocytosis Slight; Mean Platelet Volume 8.3; Monocytes # (A) 0.5 k/uL (0-1.0); Monocytes % (A) 7 %; Neutrophils # (A) 5.5 k/uL (1.3-7.7); Neutrophils % (A) 77 %; Platelet Count 180 k/uL (150-450); RBC 3.34 m/uL (4.30-5.90); RDW 16.8 % (11.5-15.5); WBC 7.2 k/uL (3.8-10.6)
[2017-12-11 07:01] LABS: Calcium 8.8 mg/dL (8.4-10.2); Magnesium 2.5 mg/dL (1.6-2.3); Potassium 4.1 mmol/L (3.5-5.1)
[2017-12-11] MEDS: INSULIN ASPART 100 UNIT/ML 1 ML 10 ML VIAL SQ SCH ×4 (07:13→20:48)
[2017-12-11] MEDS ORDERED: PANTOPRAZOLE 40 MG TABLET PO SCH (07:30)
[2017-12-11] MEDS: CALCITRIOL 0.25 MCG CAP PO SCH (08:07)
[2017-12-11] MEDS: APIXABAN 2.5 MG TABLET PO SCH ×2 (08:07→20:48)
[2017-12-11] MEDS: ALLOPURINOL 100 MG TAB PO SCH ×2 (08:07→20:48)
[2017-12-11] MEDS: FUROSEMIDE 10 MG/ML 4 ML VIAL IV SCH (08:07)
[2017-12-11] MEDS: CHOLECALCIFEROL 1,000 UNIT TAB PO SCH ×2 (08:07→20:48)
[2017-12-11] MEDS: SPIRONOLACTONE 25 MG TAB PO SCH (08:07)
[2017-12-11] MEDS: IPRATROPIUM-ALBUTEROL 3 ML NEB INHALATION SCH ×4 (09:20→20:53)
--- NOTE | 2017-12-11 09:32 | P.HPIM ---
History of Present Illness H&P Date: 12/10/17 Chief Complaint: Left lower extremity wound and increased pain 72-year-old male with a past medical history significant for coronary artery disease, heart failure, COPD, diabetes, hypertension and hyperlipidemia who presented to the emergency room with a chief complaint of increased pain to the right lower extremities. The patient is somewhat of a poor historian. No family present at the bedside. The patient has had chronic chronic cellulitis to the bilateral lower extremities along with a wound to the posterior aspect of the left lower extremity. The patient states his legs were starting to improve but recently he has been experiencing more pain to the left leg. He decided to come to the emergency room for further evaluation. He patient states he has occasional shortness of breath, but states that is not the main reason he came to the emergency room. He denies chest pain or pressure. Denies nausea or vomiting. He denies fever or chills. Denies difficulty urinating or change in bowel habits. Chest x-ray completed in the emergency room reveals right middle lobe and right lower lobe infiltrates with small right pleural effusion. Pulmonary vascular prominence. Correlate for failure. Laboratory data upon admission reveals white count 8.2. Hemoglobin 11.7. Platelet count 211. Sodium 136. Potassium 5.1. BUN 90. Crit and 3.05. Glucose 281. Lactic acid 1.4. AST 60. ALT 83. Alkaline phosphatase 109. Troponin 0.014. BNP 13,500. The patient was started on IV diuretics and antibiotics and admitted to the hospital under the care of Dr. Adamson. Review of Systems Those systems with pertinent positive or pertinent negative responses have been documented in the HPI Past Medical History Past Medical History: Coronary Artery Disease (CAD), Heart Failure, COPD, Diabetes Mellitus, Hyperlipidemia, Hypertension, Myocardial Infarction (SD) Additional Past Medical History / Comment(s): "i lost track of how many heart attacks i've had i thinks it was like 38", gout, took meds for gerd in the past.cataracts, cellulitis elizabeth legs,"i was told 20 years ago i had parkinsons coming onn and was placed on meds,which i stopped taking after 3-4 months" Last Myocardial Infarction Date:: unk History of Any Multi-Drug Resistant Organisms: None Reported Past Surgical History: Cholecystectomy, Coronary Bypass/CABG, Heart Catheterization, Heart Catheterization With Stent Additional Past Surgical History / Comment(s): Angiography Past Anesthesia/Blood Transfusion Reactions: Previous Problems w/ Anesthesia Additional Past Anesthesia/Blood Transfusion Reaction / Comment(s): difficulty waking up after sx. pt stated he's not sure if ever recevied blood or not during his sx. Date of Last Stent Placement:: unk Smoking Status: Former smoker - Past Family History Mother History Unknown: Yes Additional Family Medical History / Comment(s): mom at age 60 unsure of the cause. Father Family Medical History: Myocardial Infarction (SD) Son(s) Family Medical History: AFIB Additional Family Medical History / Comment(s): aicd implanted Medications and Allergies Home Medications Medication Instructions Recorded Confirmed Type Ipratropium-Albuterol Nebulize 3 ml INHALATION RT-QID 06/27/14 12/09/17 History [Duoneb 0.5 mg-3 mg/3 ml Soln] Lisinopril [Zestril] 5 mg PO BID 06/27/14 12/09/17 History Metoprolol Tartrate [Lopressor] 50 mg PO BID 06/27/14 12/09/17 History Nitroglycerin Sl Tabs [Nitrostat] 0.4 mg SUBLINGUAL Q5M PRN 06/27/14 12/09/17 History Apixaban [Eliquis] 2.5 mg PO BID 05/05/16 12/09/17 History Furosemide [Lasix] 40 mg PO BID 05/05/16 12/09/17 History Insulin Detemir [Levemir Flextouch] 12 unit SQ HS 05/05/16 12/09/17 History Albuterol Nebulized [Ventolin 2.5 mg INHALATION RT-Q6H PRN 12/09/17 12/09/17 History Nebulized] Allopurinol [Zyloprim] 100 mg PO BID 12/09/17 12/09/17 History Calcitriol 0.25 mcg PO DAILY 12/09/17 12/09/17 History Cholecalciferol [Vitamin D3] 1,000 unit PO BID 12/09/17 12/09/17 History Ferrous Sulfate [Feosol] 325 mg PO Q7D 12/09/17 12/09/17 History Spironolactone 25 mg PO DAILY 12/09/17 12/09/17 History Allergies Allergy/AdvReac Type Severity Reaction Status Date / Time erythromycin base Allergy Unknown Verified 12/09/17 14:51 silver sulfadiazine Allergy Unknown Verified 12/09/17 14:51 [From Silvadene] sulfamethoxazole Allergy Unknown Verified 12/09/17 14:51 [From Bactrim] Tetracyclines Allergy Unknown Verified 12/09/17 14:51 trimethoprim [From Bactrim] Allergy Unknown Verified 12/09/17 14:51 Physical Exam Vitals: Vital Signs Temp Pulse Pulse Resp BP BP Pulse Ox 12/10/17 11:31 68 12/10/17 11:21 60 12/10/17 08:00 97.4 F L 56 L 16 130/60 99 12/10/17 04:00 56 L 20 104/55 97 12/10/17 00:00 97.8 F 57 L 20 118/55 98 12/09/17 21:48 98.0 F 75 16 119/55 97 12/09/17 17:36 98.3 F 51 L 18 127/52 99 12/09/17 13:35 98.2 F 59 L 18 114/52 94 L Intake and Output 12/09/17 12/10/17 12/10/17 22:59 06:59 14:59 Intake Total 130 Output Total 580 475 Balance -580 -475 130 Intake: IV 10 Invasive Line 1 10 Oral 120 Output: Urine 580 475 Other: Voiding Method Urinal # Voids 3 Weight 72.2 kg GENERAL: This is a 72-year-old male in no apparent distress at the time of examination. Pleasant and cooperative. HEENT: Head is atraumatic, normocephalic. Pupils are equal, round, and reactive to light. Sclerae anicteric. Conjunctivae are clear. Mucus membranes of the mouth are moist. Neck is supple. RESPIRATORY: Diminished with rales to bilateral bases. No wheezing or rhonchi auscultated. No use of accessory muscles. Patient maintaining oxygen saturation greater than 92%. No chest wall tenderness is noted on palpation or with deep breathing. CARDIOVASCULAR: Regular rate and rhythm. S1 and S2 noted. No JVD noted. No S3 or S4 noted. GASTROINTESTINAL: No distention noted. Abdomen soft and round. Normal active bowel sounds auscultated x 4 quadrants. No pain or tenderness noted upon palpation. INTEGUMENTARY: No cyanosis. No jaundice. Chronic discoloration noted to bilateral lower extremities. Large dressing noted to left lower extremity. Will defer wound assessment to infectious disease. EXTREMITIES: 1+ peripheral pulses. NEUROLOGIC: Cranial nerves II-XII intact. PSYCHIATRIC: Awake, alert, and oriented X 3. Appropriate affect. Intact judgement and insight. Results CBC & Chem 7: 12/11/17 05:46 12/11/17 05:46 Labs: Abnormal Lab Results - Last 24 Hours (Table) 12/09/17 12/09/17 12/10/17 Range/Units 14:40 14:40 05:32 RBC 3.73 L (4.30-5.90) m/uL Hgb 11.7 L (13.0-17.5) gm/dL Hct 38.1 L (39.0-53.0) % MCV 102.1 H (80.0-100.0) fL MCHC 30.7 L (31.0-37.0) g/dL RDW 17.3 H (11.5-15.5) % Lymphocytes # 0.9 L (1.0-4.8) k/uL Sodium 136 L (137-145) mmol/L BUN 90 H (9-20) mg/dL Creatinine 3.05 H (0.66-1.25) mg/dL Glucose 281 H (74-99) mg/dL POC Glucose (mg/dL) 149 H (75-99) mg/dL Magnesium (1.6-2.3) mg/dL Total Bilirubin 1.9 H (0.2-1.3) mg/dL AST 68 H (17-59) U/L ALT 83 H (21-72) U/L Alkaline Phosphatase 209 H (38-126) U/L 12/10/17 12/10/17 12/10/17 Range/Units 06:18 10:23 10:23 RBC 3.49 L (4.30-5.90) m/uL Hgb 10.9 L (13.0-17.5) gm/dL Hct 35.2 L (39.0-53.0) % MCV 100.8 H (80.0-100.0) fL MCHC (31.0-37.0) g/dL RDW 17.0 H (11.5-15.5) % Lymphocytes # 0.8 L (1.0-4.8) k/uL Sodium (137-145) mmol/L BUN 92 H (9-20) mg/dL Creatinine 3.04 H (0.66-1.25) mg/dL Glucose 224 H (74-99) mg/dL POC Glucose (mg/dL) 132 H (75-99) mg/dL Magnesium 2.5 H (1.6-2.3) mg/dL Total Bilirubin (0.2-1.3) mg/dL AST (17-59) U/L ALT (21-72) U/L Alkaline Phosphatase (38-126) U/L 12/10/17 Range/Units 11:23 RBC (4.30-5.90) m/uL Hgb (13.0-17.5) gm/dL Hct (39.0-53.0) % MCV (80.0-100.0) fL MCHC (31.0-37.0) g/dL RDW (11.5-15.5) % Lymphocytes # (1.0-4.8) k/uL Sodium (137-145) mmol/L BUN (9-20) mg/dL Creatinine (0.66-1.25) mg/dL Glucose (74-99) mg/dL POC Glucose (mg/dL) 270 H (75-99) mg/dL Magnesium (1.6-2.3) mg/dL Total Bilirubin (0.2-1.3) mg/dL AST (17-59) U/L ALT (21-72) U/L Alkaline Phosphatase (38-126) U/L Thrombosis Risk Factor Assmnt - Choose All That Apply Any of the Below Risk Factors Present?: Yes Each Factor Represents 1 point: Medical pt on bed rest, Swollen legs (current) Other Risk Factors: Yes Each Risk Factor Represents 2 Points: Age 61-74 years Other congenital or acquired thrombophilia - If yes, enter type in comment: No Thrombosis Risk Factor Assessment Total Risk Factor Score: 4 Thrombosis Risk Factor Assessment Level: Moderate Risk Assessment and Plan Plan: ASSESSMENT: Acute exacerbation of congestive heart failure, type unknown, BNP 13,500 Right middle and right lower lobe infiltrates, cannot rule out pneumonia Small right pleural effusion Cellulitis of left lower extremity, present on admission, with chronic wounds History of coronary artery disease with previous stent placement COPD, no evidence of acute exacerbation Chronic kidney disease, stage IV Diabetes mellitus, type II Hyperlipidemia Hypertension PLAN: Consult cardiology for evaluation Obtain echocardiogram Continue IV Lasix Daily weights. Monitor electrolytes. Accurate I&O Consult infectious disease for evaluation Antibiotics per ID. Wound care per ID. Home meds as appropriate Monitor labs GI prophylaxis: Protonix 40 mg PO Daily DVT prophylaxis: Eliquis 2.5mg BID Monitor vital signs and address as appropriate Further recommendations pending patient's course Nurse practitioner note has been reviewed by physician. Signing provider agrees with the documented findings, assessment, and plan of care.
--- NOTE | 2017-12-11 10:42 | P.PN ---
Subjective On-year-old admitted with infected ulcers of the right leg and patient is presently on Unasyn infectious disease evaluated the patient patient also has an pulmonary edema with right-sided pleural effusion patient is on IV Lasix will repeat the chest x-ray tomorrow if there is no significant improvement in pleural effusion patient may need the pleural fluid drainage patient clinically does not appear to have pneumonia. 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 Constitutional: Denied any fatigue denied any fever. Cardio vascular: denied any chest pain, palpitations Gastrointestinal denied any nausea vomiting Pulmonary: Denied any shortness of breath cough Neurologic denied any new focal deficits Objective - Vital Signs Vital signs: Vital Signs Temp 98.5 F 12/11/17 07:36 Pulse 67 12/11/17 09:32 Resp 17 12/11/17 08:00 BP 118/57 12/11/17 07:36 Pulse Ox 90 L 12/11/17 07:36 Intake & Output 12/10/17 12/11/17 12/11/17 18:59 06:59 18:59 Intake Total 650 360 Output Total 500 225 300 Balance 150 -225 60 Weight 72 kg Intake: IV 30 Invasive Line 1 30 Oral 620 360 Output: Urine 500 225 300 Other: Voiding Method Urinal Urinal Urinal - Exam PHYSICAL EXAMINATION: GENERAL: The patient is alert and oriented x3, not in any acute distress. Well developed, well nourished. HEENT: Pupils are round and equally reacting to light. EOMI. No scleral icterus. No conjunctival pallor. Normocephalic, atraumatic. No pharyngeal erythema. No thyromegaly. CARDIOVASCULAR: S1 and S2 present. No murmurs, rubs, or gallops. PULMONARY: Chest is clear to auscultation, no wheezing or crackles. ABDOMEN: Soft, nontender, nondistended, normoactive bowel sounds. No palpable organomegaly. MUSCULOSKELETAL: No joint swelling or deformity. EXTREMITIES: No cyanosis, clubbing, does have bilateral pedal edema, left leg covered with Isacc bandage and cellulitis of the left leg. NEUROLOGICAL: Gross neurological examination did not reveal any focal deficits. SKIN: No rashes. - Labs CBC & Chem 7: 12/11/17 05:46 12/11/17 05:46 Labs: Abnormal Lab Results - Last 24 Hours (Table) 12/10/17 12/10/17 12/10/17 Range/Units 10:23 10:23 10:23 RBC 3.49 L (4.30-5.90) m/uL Hgb 10.9 L (13.0-17.5) gm/dL Hct 35.2 L (39.0-53.0) % MCV 100.8 H (80.0-100.0) fL RDW 17.0 H (11.5-15.5) % Lymphocytes # 0.8 L (1.0-4.8) k/uL BUN 92 H (9-20) mg/dL Creatinine 3.04 H (0.66-1.25) mg/dL Glucose 224 H (74-99) mg/dL POC Glucose (mg/dL) (75-99) mg/dL Hemoglobin A1c 7.3 H (4.0-6.0) % Magnesium 2.5 H (1.6-2.3) mg/dL 12/10/17 12/10/17 12/10/17 Range/Units 11:23 16:53 20:53 RBC (4.30-5.90) m/uL Hgb (13.0-17.5) gm/dL Hct (39.0-53.0) % MCV (80.0-100.0) fL RDW (11.5-15.5) % Lymphocytes # (1.0-4.8) k/uL BUN (9-20) mg/dL Creatinine (0.66-1.25) mg/dL Glucose (74-99) mg/dL POC Glucose (mg/dL) 270 H 178 H 225 H (75-99) mg/dL Hemoglobin A1c (4.0-6.0) % Magnesium (1.6-2.3) mg/dL 12/11/17 12/11/17 12/11/17 Range/Units 05:41 05:46 05:46 RBC 3.34 L (4.30-5.90) m/uL Hgb 10.6 L (13.0-17.5) gm/dL Hct 33.1 L (39.0-53.0) % MCV (80.0-100.0) fL RDW 16.8 H (11.5-15.5) % Lymphocytes # 0.8 L (1.0-4.8) k/uL BUN 92 H (9-20) mg/dL Creatinine 3.29 H (0.66-1.25) mg/dL Glucose 119 H (74-99) mg/dL POC Glucose (mg/dL) 146 H (75-99) mg/dL Hemoglobin A1c (4.0-6.0) % Magnesium 2.5 H (1.6-2.3) mg/dL Microbiology - Last 24 Hours (Table) 12/09/17 14:40 Blood Culture - Preliminary Blood No Growth after 24 hours Assessment and Plan Plan: -Cellulitis of the left leg with infected ulcers which need to bride meant and patient is on Unasyn which will continued awaiting wound cultures. -Right-sided pleural effusion most probably secondary to congestive heart failure exacerbation. 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
[2017-12-11 10:46] LABS: Glucose,Whole Blood 159 mg/dL (75-99)
[2017-12-11] MEDS: AMPICILLIN-SULBACTAM 3 GM in SODIUM CHLORIDE 0.9% 100 ML IVPB SCH ×2 (11:14→23:09)
[2017-12-11] MEDS: FAMOTIDINE 20 MG TAB PO SCH (11:18)
--- NOTE | 2017-12-11 12:44 | PN ---
PROGRESS NOTE Mr. Velasco is a 72-year-old male who presented with symptoms of progressive weakness in the legs, edema as well as evidence of cellulitis. He has a known history coronary artery disease, peripheral artery disease, chronic kidney disease. He also has a history of atrial fibrillation. He is feeling better today. His breathing is better. He denies symptoms of chest pain. He denies any dizziness or palpitation. He is feeling stronger this morning. He has underwent an echocardiogram with Doppler revealed ejection fraction 45% to 50% with moderate mitral and mild tricuspid regurgitation. Patient has a prior history of coronary artery bypass grafting with occluded graft and percutaneous revascularization. He continues to be at this time on Eliquis 2.5 mg twice a day, iron, Lasix 40 mg IV q.12 hours, spironolactone 25 mg daily. PHYSICAL EXAMINATION: Blood pressure 135/60 with a heart rate in the 70s. LUNGS: Clear. Heart S1, S2. No S3 with systolic murmur. No diastolic murmur. ABDOMEN: Soft, nontender. Extremities: Dressing over the left lower extremity noted. Chronic skin changes on the left side. LAB DATA: BUN and creatinine 92, 3.29, potassium 4.1, hemoglobin of 10.6. On the telemetry, his heart rate is stable. Full with no significant pauses noted. IMPRESSION: 1. Peripheral edema with cellulitis, being treated. 2. History of cardiomyopathy. 3. History of coronary artery disease. 4. History of valvular disease. 5. History of peripheral vascular disease. 6. Chronic kidney disease. 7. Atrial fibrillation. RECOMMENDATION: From the cardiac standpoint, I will re-initiate treatment with low-dose beta manpreet. I will cut down the dose of his diuretic in view of the worsening renal function. We will hold the ROSELYN inhibitor at this time. Follow his blood pressure and depending on the trend, the patient may be a candidate for the use of hydralazine. MMODL / IJN: [id number] /
--- NOTE | 2017-12-11 13:57 | P.CNPUL ---
History of Present Illness Consult date: 12/11/17 Requesting physician: Herber Beasley Reason for consult: pleural effusion Chief complaint: Left lower extremity swelling and pain. History of present illness: This is a 72-year-old white male with history of multiple medical problems including chronic congestive heart failure, coronary artery disease, COPD, diabetes, previous [place], hypertension, patient presented to the ER with mostly increased swelling and pain in both lower extremities. However pain and swelling seems to be more in the left lower extremity. Patient is known to have history of chronic cellulitis of both lower extremities. Apparently the cellulitis has been getting worse, patient was admitted for IV antibiotics. Chest x-ray on admission showed good sized right-sided pleural effusion and pulmonary vasculature prominence, consistent with mild pulmonary edema. Considering the pleural effusion, I was asked to see him on consultation. His BNP level is over 13,000. Patient is already on diuretics, and he is already and antibiotics. I reviewed the chest x-ray, patient has no active pulmonary symptoms at present, hence I recommended we continue with diuretics, the pleural effusion is most likely cardiac in nature unless for otherwise, should respond to diuretics, however if it does not and it gets any larger, or if the patient becomes symptomatic, right-sided thoracentesis could be considered. Patient denies any shortness of breath at present, no chest pain. Denies any headaches, no blurred vision no dizziness, no nausea no vomiting no abdominal pain no melena no hematemesis. Patient used to see Dr. العراقي our office for his COPD, however his COPD presently seems to be stable Review of Systems 14 point review of systems were obtained, please refer to pertinent positives in HPI. Otherwise remaining systems are negative Past Medical History Past Medical History: Coronary Artery Disease (CAD), Heart Failure, COPD, Diabetes Mellitus, Hyperlipidemia, Hypertension, Myocardial Infarction ([place]) Additional Past Medical History / Comment(s): "i lost track of how many heart attacks i've had i thinks it was like 38", gout, took meds for gerd in the past.cataracts, cellulitis elizabeth legs,"i was told 20 years ago i had parkinsons coming onn and was placed on meds,which i stopped taking after 3-4 months" Last Myocardial Infarction Date:: unk History of Any Multi-Drug Resistant Organisms: None Reported Past Surgical History: Cholecystectomy, Coronary Bypass/CABG, Heart Catheterization, Heart Catheterization With Stent Additional Past Surgical History / Comment(s): Angiography Past Anesthesia/Blood Transfusion Reactions: Previous Problems w/ Anesthesia Additional Past Anesthesia/Blood Transfusion Reaction / Comment(s): difficulty waking up after sx. pt stated he's not sure if ever recevied blood or not during his sx. Date of Last Stent Placement:: unk Smoking Status: Former smoker - Past Family History Mother History Unknown: Yes Additional Family Medical History / Comment(s): mom at age 60 unsure of the cause. Father Family Medical History: Myocardial Infarction ([place]) Son(s) Family Medical History: AFIB Additional Family Medical History / Comment(s): aicd implanted Medications and Allergies Home Medications Medication Instructions Recorded Confirmed Type Ipratropium-Albuterol Nebulize 3 ml INHALATION RT-QID 06/27/14 12/09/17 History [Duoneb 0.5 mg-3 mg/3 ml Soln] Lisinopril [Zestril] 5 mg PO BID 06/27/14 12/09/17 History Metoprolol Tartrate [Lopressor] 50 mg PO BID 06/27/14 12/09/17 History Nitroglycerin Sl Tabs [Nitrostat] 0.4 mg SUBLINGUAL Q5M PRN 06/27/14 12/09/17 History Apixaban [Eliquis] 2.5 mg PO BID 05/05/16 12/09/17 History Furosemide [Lasix] 40 mg PO BID 05/05/16 12/09/17 History Insulin Detemir [Levemir Flextouch] 12 unit SQ HS 05/05/16 12/09/17 History Albuterol Nebulized [Ventolin 2.5 mg INHALATION RT-Q6H PRN 12/09/17 12/09/17 History Nebulized] Allopurinol [Zyloprim] 100 mg PO BID 12/09/17 12/09/17 History Calcitriol 0.25 mcg PO DAILY 12/09/17 12/09/17 History Cholecalciferol [Vitamin D3] 1,000 unit PO BID 12/09/17 12/09/17 History Ferrous Sulfate [Feosol] 325 mg PO Q7D 12/09/17 12/09/17 History Spironolactone 25 mg PO DAILY 12/09/17 12/09/17 History Allergies Allergy/AdvReac Type Severity Reaction Status Date / Time erythromycin base Allergy Unknown Verified 12/09/17 14:51 silver sulfadiazine Allergy Unknown Verified 12/09/17 14:51 [From Silvadene] sulfamethoxazole Allergy Unknown Verified 12/09/17 14:51 [From Bactrim] Tetracyclines Allergy Unknown Verified 12/09/17 14:51 trimethoprim [From Bactrim] Allergy Unknown Verified 12/09/17 14:51 Physical Exam Vitals: Vital Signs Temp Pulse Pulse Resp BP Pulse Ox 12/11/17 12:00 73 16 12/11/17 11:23 98.5 F 73 16 135/62 93 L 12/11/17 09:32 67 12/11/17 09:20 68 12/11/17 08:00 70 17 12/11/17 07:36 98.5 F 70 17 118/57 90 L 12/11/17 04:00 98.3 F 68 18 110/56 92 L 12/11/17 00:00 98.0 F 70 18 116/56 93 L 12/10/17 20:00 97.4 F L 60 18 144/62 95 12/10/17 19:35 64 12/10/17 19:26 60 12/10/17 16:36 66 12/10/17 16:23 60 12/10/17 16:00 59 L 17 12/10/17 15:08 98.0 F 59 L 17 126/58 98 Intake and Output 12/10/17 12/11/17 12/11/17 22:59 06:59 14:59 Intake Total 270 600 Output Total 125 100 300 Balance 145 -100 300 Intake: IV 10 Invasive Line 1 10 Oral 260 600 Output: Urine 125 100 300 Other: Voiding Method Urinal Urinal Urinal Weight 72 kg GENERAL: Revealed a 72-year-old white male, very pleasant, in no distress. HEENT: Head is atraumatic, normocephalic PERRLA, EOMI, neck is supple, no thyromegaly, no icterus. RESPIRATORY: Diminished breath sounds at the right base with dullness, minimal crackles at the left base, symmetrical chest expansion. CARDIOVASCULAR: Normal S1 and S2, no S3 gallop. 2/6 systolic murmur thought the precordium. GASTROINTESTINAL: Soft abdomen, nontender, no megaly, no rebound, no guarding. INTEGUMENTARY: No cyanosis. No jaundice. Chronic discoloration noted to bilateral lower extremities. Large dressing noted to left lower extremity. Will defer wound assessment to infectious disease. EXTREMITIES: 1+ peripheral pulses. NEUROLOGIC: Alert, oriented 3, no gross focal neurologic deficit. PSYCHIATRIC: Normal mood, affect, normal mental status examination. Lymphatics: No lymphadenopathy. Results - Laboratory Findings CBC and BMP: 12/11/17 05:46 12/11/17 05:46 Abnormal lab findings: Abnormal Labs 12/09/17 12/09/17 12/10/17 14:40 14:40 05:32 RBC 3.73 L Hgb 11.7 L Hct 38.1 L MCV 102.1 H MCHC 30.7 L RDW 17.3 H Lymphocytes # 0.9 L Sodium 136 L BUN 90 H Creatinine 3.05 H Glucose 281 H POC Glucose (mg/dL) 149 H Hemoglobin A1c Magnesium Total Bilirubin 1.9 H AST 68 H ALT 83 H Alkaline Phosphatase 209 H 12/10/17 12/10/17 12/10/17 06:18 10:23 10:23 RBC 3.49 L Hgb 10.9 L Hct 35.2 L MCV 100.8 H MCHC RDW 17.0 H Lymphocytes # 0.8 L Sodium BUN 92 H Creatinine 3.04 H Glucose 224 H POC Glucose (mg/dL) 132 H Hemoglobin A1c Magnesium 2.5 H Total Bilirubin AST ALT Alkaline Phosphatase 12/10/17 12/10/17 12/10/17 10:23 11:23 16:53 RBC Hgb Hct MCV MCHC RDW Lymphocytes # Sodium BUN Creatinine Glucose POC Glucose (mg/dL) 270 H 178 H Hemoglobin A1c 7.3 H Magnesium Total Bilirubin AST ALT Alkaline Phosphatase 12/10/17 12/11/17 12/11/17 20:53 05:41 05:46 RBC 3.34 L Hgb 10.6 L Hct 33.1 L MCV MCHC RDW 16.8 H Lymphocytes # 0.8 L Sodium BUN Creatinine Glucose POC Glucose (mg/dL) 225 H 146 H Hemoglobin A1c Magnesium Total Bilirubin AST ALT Alkaline Phosphatase 12/11/17 12/11/17 05:46 10:43 RBC Hgb Hct MCV MCHC RDW Lymphocytes # Sodium BUN 92 H Creatinine 3.29 H Glucose 119 H POC Glucose (mg/dL) 159 H Hemoglobin A1c Magnesium 2.5 H Total Bilirubin AST ALT Alkaline Phosphatase - Diagnostic Findings Chest x-ray: image reviewed (As noted in HPI) Assessment and Plan Assessment: Impression: 1 moderate sized right-sided pleural effusion, most likely cardiac in nature unless proven otherwise. 2 acute on chronic congestive heart failure, likely diastolic in nature considering his good LV function on the echocardiogram. 3 acute cellulitis of lower extremities, left more so than right. 4 history of underlying COPD, presently inactive. 5 multiple comorbidities including coronary artery disease and previous stent placement, chronic kidney disease stage IV, type 2 diabetes, hypertension, hyperlipidemia Recommendation: Clinically the patient does not have any clinical findings to suggest pneumonia, the findings on the chest x-ray are mostly cardiac in nature. Hence I would recommend continuing diuretics, and if the effusion does not improve right-sided thoracentesis could be considered. Continue antibiotics for cellulitis. Continue bronchodilators. We'll continue to follow. Ultrasound of the chest was ordered. Time with Patient: Greater than 30
[2017-12-11 16:24] LABS: Glucose,Whole Blood 138 mg/dL (75-99)
[2017-12-11] MEDS: METOPROLOL TARTRATE 25 MG TAB PO SCH ×2 (17:47→20:48)
[2017-12-11] MEDS: FUROSEMIDE 40 MG TAB PO SCH (17:47)
[2017-12-11 20:37] LABS: Glucose,Whole Blood 173 mg/dL (75-99)
[2017-12-11] MEDS: INSULIN DETEMIR 100 UNIT/ML 10 ML VIAL SQ SCH (20:48)
[2017-12-12] MEDS: INSULIN ASPART 100 UNIT/ML 1 ML 10 ML VIAL SQ SCH ×4 (06:23→21:13)
[2017-12-12 06:32] LABS: Glucose,Whole Blood 62 mg/dL (75-99)
[2017-12-12 06:35] LABS: Anisocytosis Slight; Basophils % (A) 0 %; Eosinophils # (A) 0.4 k/uL (0-0.7); Eosinophils % (A) 4 %; HCT 33.8 % (39.0-53.0); HGB 10.7 gm/dL (13.0-17.5); Lymphocytes # (A) 0.9 k/uL (1.0-4.8); Lymphocytes % (A) 10 %; MCH 31.6 pg (25.0-35.0); MCHC 31.7 g/dL (31.0-37.0); MCV 99.7 fL (80.0-100.0); Macrocytosis Slight; Mean Platelet Volume 8.5; Monocytes # (A) 0.6 k/uL (0-1.0); Monocytes % (A) 7 %; Neutrophils # (A) 6.8 k/uL (1.3-7.7); Neutrophils % (A) 78 %; Platelet Count 184 k/uL (150-450); RBC 3.39 m/uL (4.30-5.90); WBC 8.7 k/uL (3.8-10.6)
[2017-12-12 06:51] LABS: Potassium 4.5 mmol/L (3.5-5.1)
[2017-12-12 06:52] LABS: Glucose,Whole Blood 62 mg/dL (75-99)
[2017-12-12 07:01] LABS: Glucose,Whole Blood 95 mg/dL (75-99)
--- NOTE | 2017-12-12 07:29 | CONS ---
CONSULTATION REASON FOR CONSULT: Renal failure. HISTORY OF PRESENT ILLNESS: The patient is a 72-year-old male with a history of chronic kidney disease, who follows with us as outpatient. The patient has CKD stage IIIB with baseline creatinine around 1.7 to 2 mg/dL with previous creatinine at 2.0 on 08/27/2017. We also have a creatinine of 3.0 on 10/19/2017. Etiology is nephrosclerosis. The patient was admitted to the hospital with pain and open sores and wounds on left leg. The pain had become worse. The patient stated there was some drainage noted as well. He denied any fevers or chills. No history of trauma. PAST MEDICAL HISTORY: CKD stage IIIB, baseline creatinine about 1.7 to 2, coronary artery disease, COPD, hyperlipidemia, hypertension, history of CA. PAST SURGICAL HISTORY: Cholecystectomy, coronary artery bypass surgery. Cardiac catheterization, coronary stents. MEDICATIONS: Prior to admission included: Lisinopril, metoprolol, Nitrostat, Eliquis, Lasix, Zyloprim, calcitriol, vitamin D3, iron, spironolactone. ALLERGIES: Include ERYTHROMYCIN, BACTRIM, TETRACYCLINE, SILVADENE. REVIEW OF SYSTEMS: As per HPI. Other systems negative. EXAMINATION: Patient is currently comfortable, awake, not in any acute distress. [employer]IST exam is grossly intact. Examination of the heart: S1, S2. Examination of the lungs: Bilateral breath sounds are heard. Abdomen is soft, nontender. Examination lower extremities shows bilateral extremities to be currently wrapped. [employer]IST Exam: Patient is moving all 4 extremities. His vital signs show blood pressure 135/62, heart rate of 77 per minute. LABS: The lab reveals sodium 137, potassium 4.1, chloride 101, CO2 is 25, BUN 92, serum creatinine 3.29, hemoglobin 10.6 g/dL, magnesium 2.5. Echocardiogram shows on 12/10/2017, ejection fraction 45-50 percent with global hypokinesis. ASSESSMENT: 1. Acute kidney injury, mostly cardiorenal, currently maintained on Lasix, which was at 40 mg IV q.12 hours and has been changed to p.o. The patient states his shortness of breath has improved. 2. Chronic kidney disease secondary to nephrosclerosis, NKF stage IIIB with baseline creatinine 1.7-2 mg/dL. 3. CKD mineral bone disorder maintained on calcitriol. 4. Cardiomyopathy, ejection fraction 45-50 percent. 5. Congestive heart failure, acute on top of chronic mainly systolic. 6. Bilateral lower extremity wounds and cellulitis, maintained on antibiotics. 7. Chronic atrial fibrillation maintained on Eliquis and rate is controlled. PLAN: Continue to diurese the patient. Lasix was changed to p.o., which we can continue. Repeat labs in a.m. and check postvoid residual. I will also check a urinalysis. Patient was seen this morning at about 10:00 a.m. MMODL / IJN: [id number] /
[2017-12-12] MEDS: IPRATROPIUM-ALBUTEROL 3 ML NEB INHALATION SCH ×4 (07:49→21:13)
[2017-12-12] MEDS: FAMOTIDINE 20 MG TAB PO SCH (10:10)
[2017-12-12] MEDS: METOPROLOL TARTRATE 25 MG TAB PO SCH ×2 (10:10→20:30)
[2017-12-12] MEDS: CALCITRIOL 0.25 MCG CAP PO SCH (10:11)
[2017-12-12] MEDS: FERROUS SULFATE 325 MG TAB PO SCH (10:11)
[2017-12-12] MEDS: SPIRONOLACTONE 25 MG TAB PO SCH (10:11)
[2017-12-12] MEDS: CHOLECALCIFEROL 1,000 UNIT TAB PO SCH ×2 (10:11→20:30)
[2017-12-12] MEDS: ALLOPURINOL 100 MG TAB PO SCH ×2 (10:11→20:30)
[2017-12-12] MEDS: APIXABAN 2.5 MG TABLET PO SCH ×2 (10:11→20:30)
[2017-12-12] MEDS: FUROSEMIDE 40 MG TAB PO SCH (10:11)
--- NOTE | 2017-12-12 10:13 | P.PN ---
Subjective Progress Note Date: 12/12/17 Principal diagnosis: Moderate-sized right-sided pleural effusion, most likely cardiac in nature, acute on chronic congestive heart failure This is a 72-year-old white male with history of multiple medical problems including chronic congestive heart failure, coronary artery disease, COPD, diabetes, previous [place], hypertension, patient presented to the ER with mostly increased swelling and pain in both lower extremities. However pain and swelling seems to be more in the left lower extremity. Patient is known to have history of chronic cellulitis of both lower extremities. Apparently the cellulitis has been getting worse, patient was admitted for IV antibiotics. Chest x-ray on admission showed good sized right-sided pleural effusion and pulmonary vasculature prominence, consistent with mild pulmonary edema. Considering the pleural effusion, I was asked to see him on consultation. His BNP level is over 13,000. Patient is already on diuretics, and he is already and antibiotics. I reviewed the chest x-ray, patient has no active pulmonary symptoms at present, hence I recommended we continue with diuretics, the pleural effusion is most likely cardiac in nature unless for otherwise, should respond to diuretics, however if it does not and it gets any larger, or if the patient becomes symptomatic, right-sided thoracentesis could be considered. Patient denies any shortness of breath at present, no chest pain. Denies any headaches, no blurred vision no dizziness, no nausea no vomiting no abdominal pain no melena no hematemesis. Patient used to see Dr. العراقي our office for his COPD, however his COPD presently seems to be stable On 12/12/2017 patient seen in follow-up on selective care unit. He is awake and alert, oriented 3, denies any distress, no shortness of breath, no chest pain. Her pulse ox is 92%, he is afebrile, hemodynamically stable, he is diuresing, he is in negative 1240 ML balance over the last 24 hours, he is on oral Lasix, in view of his worsening renal function, lung sounds are positive for crackles at bilateral bases. Patient will have a chest ultrasound for evaluation of his right pleural effusion. The patient is asymptomatic, patient is ambulating in the room, and tolerating activity fairly well. Today's lab work has been noted, WBC is 8.7, hemoglobin is 10.7, sodium is 136, the rest of electrolytes are unremarkable, BUN is 96, creatinine is 3.53. No fever, no chills, blood cultures are negative. Left lower extremity is Isacc wrapped, patient is on Unasyn for his bilateral lower extremity cellulitis. Objective - Vital Signs Vital signs: Vital Signs Temp 98.3 F 12/12/17 04:00 Pulse 68 12/12/17 08:02 Resp 18 12/12/17 04:00 BP 125/59 12/12/17 04:00 Pulse Ox 92 L 12/12/17 04:00 Intake & Output 12/11/17 12/12/17 12/12/17 19:59 06:59 18:59 Intake Total 180 Output Total Balance 180 Weight Intake: Oral 180 Output: Urine Other: Voiding Method # Voids - Exam GENERAL: Revealed a 72-year-old white male, very pleasant, in no distress. HEENT: Head is atraumatic, normocephalic PERRLA, EOMI, neck is supple, no thyromegaly, no icterus. RESPIRATORY: Diminished breath sounds at the right base with dullness, minimal crackles at the left base, symmetrical chest expansion. CARDIOVASCULAR: Normal S1 and S2, no S3 gallop. 2/6 systolic murmur thought the precordium. GASTROINTESTINAL: Soft abdomen, nontender, no megaly, no rebound, no guarding. INTEGUMENTARY: No cyanosis. No jaundice. Chronic discoloration noted to bilateral lower extremities. Large dressing noted to left lower extremity. Will defer wound assessment to infectious disease. EXTREMITIES: 1+ peripheral pulses. NEUROLOGIC: Alert, oriented 3, no gross focal neurologic deficit. PSYCHIATRIC: Normal mood, affect, normal mental status examination. Lymphatics: No lymphadenopathy. - Labs CBC & Chem 7: 12/12/17 05:50 12/12/17 05:50 Labs: Abnormal Lab Results - Last 24 Hours (Table) 12/11/17 12/11/17 12/12/17 Range/Units 16:22 20:11 05:50 RBC 3.39 L (4.30-5.90) m/uL Hgb 10.7 L (13.0-17.5) gm/dL Hct 33.8 L (39.0-53.0) % RDW 17.0 H (11.5-15.5) % Lymphocytes # 0.9 L (1.0-4.8) k/uL Sodium (137-145) mmol/L BUN (9-20) mg/dL Creatinine (0.66-1.25) mg/dL Glucose (74-99) mg/dL POC Glucose (mg/dL) 138 H 173 H (75-99) mg/dL 12/12/17 12/12/17 12/12/17 Range/Units 05:50 06:15 06:32 RBC (4.30-5.90) m/uL Hgb (13.0-17.5) gm/dL Hct (39.0-53.0) % RDW (11.5-15.5) % Lymphocytes # (1.0-4.8) k/uL Sodium 136 L (137-145) mmol/L BUN 96 H (9-20) mg/dL Creatinine 3.53 H (0.66-1.25) mg/dL Glucose 53 L (74-99) mg/dL POC Glucose (mg/dL) 62 L 62 L (75-99) mg/dL Microbiology - Last 24 Hours (Table) 12/09/17 14:40 Blood Culture - Preliminary Blood No Growth after 48 hours Assessment and Plan Plan: 1 moderate sized right-sided pleural effusion, most likely cardiac in nature unless proven otherwise. 2 acute on chronic congestive heart failure, likely diastolic in nature considering his good LV function on the echocardiogram. 3 acute cellulitis of lower extremities, left more so than right. 4 history of underlying COPD, presently inactive. 5 multiple comorbidities including coronary artery disease and previous stent placement, chronic kidney disease stage IV, type 2 diabetes, hypertension, hyperlipidemia Plan: Continue current plan of treatment, continue to oral diuretics, patient is diuresing well, he is in negative fluid balance, clinically patient denies any shortness of breath, not requiring any supplemental oxygen, we'll review the results of the ultrasound of the chest. Continue with antibiotics for cellulitis, and bronchodilators. I performed a history & physical examination of the patient and discussed their management with my nurse practitioner, Steffanie Vera. I reviewed the nurse practitioner's note and agree with the documented findings and plan of care. Lung sounds are positive for crackles and bilateral bases. The findings and the impression was discussed with the patient. I attest to the documentation by the nurse practitioner. Time with Patient: Less than 30
--- NOTE | 2017-12-12 10:31 | US ---
EXAMINATION TYPE: US chest DATE OF EXAM: 12/12/2017 COMPARISON: NONE CLINICAL HISTORY: Markings for thoracentesis by pulmonary staff. sob TECHNIQUE: Targeted ultrasound of the posterior lower bilateral EXAM MEASUREMENTS: Right Pleural Effusion pocket size: 1.7 cm Left Pleural Effusion pocket size: 0 cm Right side NOT marked for possible thoracentesis outside the dept. Left side NOT marked for possible thoracentesis outside the dept. Pulmonologists are able to review the images in the patient?s EMR. IMPRESSIONS: RIGHT-SIDED PLEURAL EFFUSION.
--- NOTE | 2017-12-12 10:32 | US ---
EXAMINATION TYPE: US kidneys/renal and bladder DATE OF EXAM: 12/12/2017 COMPARISON: NONE CLINICAL HISTORY: RF. Increased urination last night, swelling, renal failure EXAM MEASUREMENTS: Right Kidney: 9.8 x 4.5 x 4.8 cm Left Kidney: 11.6 x 3.9 x 4.2 cm Right Kidney: No hydronephrosis or masses seen Left Kidney: No hydronephrosis or masses seen Bladder: not distended IMPRESSION: NORMAL RENAL ULTRASOUND.
--- NOTE | 2017-12-12 10:36 | P.PN ---
Subjective 72-year-old admitted with infected ulcers of the right leg and patient is presently on Unasyn infectious disease evaluated the patient patient also has an pulmonary edema with right-sided pleural effusion patient is on IV Lasix will repeat the chest x-ray tomorrow if there is no significant improvement in pleural effusion patient may need the pleural fluid drainage patient clinically does not appear to have pneumonia. 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 12/12/2017 Patient is doing much better and patient is on oral Lasix at this time creatinine mild worsening nephrology evaluated the patient patient is getting an ultrasound of the chest for pleural effusion for possible drainage. His blood sugars are bit low we'll cut down the Lantus as patient is on very low- dose of Lantus probably can be held just use sliding scale insulin. Constitutional: Denied any fatigue denied any fever. Cardio vascular: denied any chest pain, palpitations Gastrointestinal denied any nausea vomiting Pulmonary: Denied any shortness of breath cough Neurologic denied any new focal deficits Objective - Vital Signs Vital signs: Vital Signs Temp 97.2 F L 12/12/17 08:00 Pulse 68 12/12/17 08:02 Resp 20 12/12/17 08:00 BP 125/60 12/12/17 08:00 Pulse Ox 92 L 12/12/17 08:00 Intake & Output 12/11/17 12/12/17 12/12/17 19:59 06:59 18:59 Intake Total 180 Output Total Balance 180 Weight Intake: Oral 180 Output: Urine Other: Voiding Method # Voids - Exam PHYSICAL EXAMINATION: GENERAL: The patient is alert and oriented x3, not in any acute distress. Well developed, well nourished. HEENT: Pupils are round and equally reacting to light. EOMI. No scleral icterus. No conjunctival pallor. Normocephalic, atraumatic. No pharyngeal erythema. No thyromegaly. CARDIOVASCULAR: S1 and S2 present. No murmurs, rubs, or gallops. PULMONARY: Chest is clear to auscultation, no wheezing or crackles. ABDOMEN: Soft, nontender, nondistended, normoactive bowel sounds. No palpable organomegaly. MUSCULOSKELETAL: No joint swelling or deformity. EXTREMITIES: No cyanosis, clubbing, does have bilateral pedal edema, left leg covered with Isacc bandage and cellulitis of the left leg. NEUROLOGICAL: Gross neurological examination did not reveal any focal deficits. SKIN: No rashes. - Labs CBC & Chem 7: 12/12/17 05:50 12/12/17 05:50 Labs: Abnormal Lab Results - Last 24 Hours (Table) 12/11/17 12/11/17 12/12/17 Range/Units 16:22 20:11 05:50 RBC 3.39 L (4.30-5.90) m/uL Hgb 10.7 L (13.0-17.5) gm/dL Hct 33.8 L (39.0-53.0) % RDW 17.0 H (11.5-15.5) % Lymphocytes # 0.9 L (1.0-4.8) k/uL Sodium (137-145) mmol/L BUN (9-20) mg/dL Creatinine (0.66-1.25) mg/dL Glucose (74-99) mg/dL POC Glucose (mg/dL) 138 H 173 H (75-99) mg/dL 12/12/17 12/12/17 12/12/17 Range/Units 05:50 06:15 06:32 RBC (4.30-5.90) m/uL Hgb (13.0-17.5) gm/dL Hct (39.0-53.0) % RDW (11.5-15.5) % Lymphocytes # (1.0-4.8) k/uL Sodium 136 L (137-145) mmol/L BUN 96 H (9-20) mg/dL Creatinine 3.53 H (0.66-1.25) mg/dL Glucose 53 L (74-99) mg/dL POC Glucose (mg/dL) 62 L 62 L (75-99) mg/dL Microbiology - Last 24 Hours (Table) 12/09/17 14:40 Blood Culture - Preliminary Blood No Growth after 48 hours Assessment and Plan Plan: -Cellulitis of the left leg with infected ulcers which need to debridement and patient is on Unasyn which will continued awaiting wound cultures. -Right-sided pleural effusion most probably secondary to congestive heart failure exacerbation. 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
[2017-12-12 11:16] LABS: Glucose,Whole Blood 148 mg/dL (75-99)
[2017-12-12 12:38] LABS: Appearance,Urine Clear (Clear); Bilirubin,Urine Negative (Negative); Blood,Urine Negative (Negative); Color,Urine Yellow; Glucose,Urine (UA) Negative (Negative); Ketones,Urine Negative (Negative); Leukocyte Esterase,Urine Negative (Negative); Nitrite,Urine Negative (Negative); Protein,Urine Negative (Negative); Specific Gravity,Urine 1.012 (1.001-1.035); Urobilinogen,Urine <2.0 mg/dL (<2.0)
--- NOTE | 2017-12-12 12:51 | P.PN ---
Subjective Progress Note Date: 12/12/17 Physical pleasant 72-year-old gentleman who presented with symptoms of progressive weakness in his lower extremities, edema as well as evidence of cellulitis. He has a known history of CAD, peripheral artery disease, chronic kidney disease and atrial fibrillation. Echocardiogram with Doppler revealed ejection fraction of 45-50% with moderate mitral and mild tricuspid regurgitation. Upon examination, patient is feeling quite a bit better. Continues to complain of some discomfort in his lower extremities. He is feeling stronger this morning. He continues on Eliquis 2.5mg BID, Metoprolol tartrate 25mg BID, Aldactone 25mg daily, and Lasix 40mg PO BID. Laboratory values showed a BUN of 96 and creatinine of 3.53, up from 92 and 3.29 yesterday. Patient is being followed by nephrology. Ultrasound of the chest showed 1.7 cm right pleural effusion pocket. Ultrasound of the kidneys and bladder was normal. Objective - Vital Signs Vital signs: Vital Signs Temp 97.2 F L 12/12/17 11:58 Pulse 65 12/12/17 11:58 Resp 16 12/12/17 11:58 BP 127/56 12/12/17 11:58 Pulse Ox 95 12/12/17 11:58 Intake & Output 12/11/17 12/12/17 12/12/17 19:59 06:59 18:59 Intake Total 280 Output Total 250 Balance 30 Weight Intake: IV 100 Ampicillin-Sulbactam 3 gm 100 In Sodium Chloride 0.9% 100 ml @ 200 mls/hr IVPB Q12H [facility] Rx#:[id number] Oral 180 Output: Urine 250 Other: Voiding Method Urinal # Voids - Exam PHYSICAL EXAMINATION: HEENT: Head is atraumatic, normocephalic. Pupils equal, round. Neck is supple. There is no elevated jugular venous pressure. HEART EXAMINATION: Heart sounds regular, S1 and S2 with a systolic murmur. CHEST EXAMINATION: Lungs are clear to auscultation and precussion. No chest wall tenderness is noted on palpation or with deep breathing. ABDOMEN: Soft, nontender. Bowel sounds are heard. No organomegaly noted. EXTREMITIES: Left lower extremity with dressing and Isacc wrap, chronic skin changes noted on the right side. NEUROLOGIC patient is awake, alert and oriented x3. . - Labs CBC & Chem 7: 12/12/17 05:50 12/12/17 05:50 Labs: Abnormal Lab Results - Last 24 Hours (Table) 12/11/17 12/11/17 12/12/17 Range/Units 16:22 20:11 05:50 RBC 3.39 L (4.30-5.90) m/uL Hgb 10.7 L (13.0-17.5) gm/dL Hct 33.8 L (39.0-53.0) % RDW 17.0 H (11.5-15.5) % Lymphocytes # 0.9 L (1.0-4.8) k/uL Sodium (137-145) mmol/L BUN (9-20) mg/dL Creatinine (0.66-1.25) mg/dL Glucose (74-99) mg/dL POC Glucose (mg/dL) 138 H 173 H (75-99) mg/dL 12/12/17 12/12/17 12/12/17 Range/Units 05:50 06:15 06:32 RBC (4.30-5.90) m/uL Hgb (13.0-17.5) gm/dL Hct (39.0-53.0) % RDW (11.5-15.5) % Lymphocytes # (1.0-4.8) k/uL Sodium 136 L (137-145) mmol/L BUN 96 H (9-20) mg/dL Creatinine 3.53 H (0.66-1.25) mg/dL Glucose 53 L (74-99) mg/dL POC Glucose (mg/dL) 62 L 62 L (75-99) mg/dL 12/12/17 Range/Units 11:14 RBC (4.30-5.90) m/uL Hgb (13.0-17.5) gm/dL Hct (39.0-53.0) % RDW (11.5-15.5) % Lymphocytes # (1.0-4.8) k/uL Sodium (137-145) mmol/L BUN (9-20) mg/dL Creatinine (0.66-1.25) mg/dL Glucose (74-99) mg/dL POC Glucose (mg/dL) 148 H (75-99) mg/dL Microbiology - Last 24 Hours (Table) 11/01/18 14:40 Blood Culture - Preliminary Blood No Growth after 48 hours Assessment and Plan Assessment: #1 peripheral edema with cellulitis #2 history of cardiomyopathy #3 history of coronary artery disease #4 Mitral regurgitation #5 PVD #6 CKD #7 Paroxysmal Atrial Fibrillation Plan: From Cardiology's perspective, we will continue current medications. We will continue to follow the patient and provide further recommendations accordingly. 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 Patient was seen and examined.
--- NOTE | 2017-12-12 15:53 | PN ---
PROGRESS NOTE Patient is seen for followup for chronic kidney disease and acute kidney injury. He was being diuresed for volume overload. Serum creatinine has gone up to 3.5 mg/dL today. Lasix was switched to p.o. yesterday. Patient states he is feeling much better. He is not complaining of any shortness of breath currently. Blood pressure has not been low. Patient has been voiding well. He is not on any nephrotoxic medications currently. PHYSICAL EXAMINATION: Blood pressure was 127/56, heart rate 65 per minute. He is afebrile. Examination of the heart S1, S2. Examination of lungs bilateral breath sounds are heard. Abdomen is soft, nontender. Examination of lower extremities shows no evidence of edema. Erythema is noted. There is wrinkling of the skin noted suggesting recent diuresis as well. Left foot is currently wrapped. LABS: Revealed sodium 136, potassium 4.5, chloride 100, BUN 96, serum creatinine 3.53, hemoglobin of 10.7 g/dL. ASSESSMENT: 1. Acute kidney injury, currently worsening. This may be related to recent diuresis. I will decrease the Lasix further and we will hold the evening dose for now. Check urinalysis and check an ultrasound of the kidneys as well. 2. Cardiomyopathy, ejection fraction about 45-50 percent. 3. Chronic kidney disease and NKF stage IIIB secondary to nephrosclerosis with previous creatinine 1.7-2 mg/dL and another creatinine of about 3 in October of 2017. 4. CKD mineral bone disorder maintained on calcitriol. 5. Bilateral lower extremity wound and cellulitis, worse on left leg, maintained on antibiotics. 6. Chronic atrial fibrillation, currently on Eliquis with controlled rate. PLAN: Hold Lasix for now. Check UA and check ultrasound of the kidneys. Repeat labs in a.m. Avoid hypotension. MMODL / IJN: [id number] /
[2017-12-12] MEDS: AMPICILLIN-SULBACTAM 3 GM in SODIUM CHLORIDE 0.9% 100 ML IVPB SCH ×2 (16:02→23:23)
[2017-12-12 16:49] LABS: Glucose,Whole Blood 131 mg/dL (75-99)
[2017-12-12] MEDS ORDERED: SILVER NITRATE APPLICATOR 1 EACH STICK..EA. TOPICAL STA (19:42)
[2017-12-12 20:48] LABS: Glucose,Whole Blood 160 mg/dL (75-99)
[2017-12-12] MEDS: INSULIN DETEMIR 100 UNIT/ML 10 ML VIAL SQ SCH (21:13)
[2017-12-12] MEDS: HYDROcodone/APAP 5-325MG 1 EACH TAB PO PRN (21:14)
--- NOTE | 2017-12-12 23:31 | PN ---
PROGRESS NOTE DATE OF SERVICE: 12/12/2017. REASON FOR FOLLOWUP: Left leg venous stasis ulcers and secondary cellulitis. INTERVAL HISTORY: The patient is currently afebrile. He has been breathing comfortably. Denies having any chest pain, shortness of breath or cough. No abdominal pain or any worsening pain to the left leg area. EXAMINATION: Blood pressure 124/57 with a pulse of 64, temperature 97.5, he is 97% on room air. GENERAL DESCRIPTION: An elderly male lying in bed in no distress. RESPIRATORY SYSTEM: Unlabored breathing. Clear to auscultation anteriorly. HEART: S1, S2. Regular rate and rhythm. ABDOMEN: Soft, no tenderness. EXTREMITIES: Left leg wound clean. No slough tissue. Did have some bleeding on the lower end of the wound control with direct pressure. LABS: Hemoglobin is 10.7, white count 8.7, BUN of 96, creatinine 3.53. DIAGNOSTIC IMPRESSION AND PLAN: Patient with acute left leg venous stasis ulcer with secondary cellulitis. Plan at this time is to continue with Unasyn. Local wound care with Aquacel Silver dressing followed by Isacc wrap. Continue supportive care. MMODL / IJN: [id number] /
[2017-12-13 06:16] LABS: Glucose,Whole Blood 107 mg/dL (75-99)
[2017-12-13] MEDS: INSULIN ASPART 100 UNIT/ML 1 ML 10 ML VIAL SQ SCH ×4 (06:24→20:35)
[2017-12-13 07:12] LABS: Anisocytosis Slight; Basophils % (A) 0 %; Eosinophils # (A) 0.4 k/uL (0-0.7); Eosinophils % (A) 4 %; HGB 10.4 gm/dL (13.0-17.5); Lymphocytes # (A) 0.9 k/uL (1.0-4.8); Lymphocytes % (A) 10 %; MCH 30.7 pg (25.0-35.0); MCHC 30.6 g/dL (31.0-37.0); Macrocytosis Slight; Mean Platelet Volume 8.7; Monocytes # (A) 0.6 k/uL (0-1.0); Monocytes % (A) 6 %; Neutrophils # (A) 7.2 k/uL (1.3-7.7); Neutrophils % (A) 78 %; Platelet Count 185 k/uL (150-450); RDW 17.3 % (11.5-15.5); WBC 9.2 k/uL (3.8-10.6)
[2017-12-13 07:30] LABS: Calcium 8.8 mg/dL (8.4-10.2); Potassium 4.7 mmol/L (3.5-5.1)
[2017-12-13] MEDS: IPRATROPIUM-ALBUTEROL 3 ML NEB INHALATION SCH ×5 (07:55→20:21)
[2017-12-13] MEDS: ALLOPURINOL 100 MG TAB PO SCH ×2 (08:50→20:35)
[2017-12-13] MEDS: CALCITRIOL 0.25 MCG CAP PO SCH (08:50)
[2017-12-13] MEDS: APIXABAN 2.5 MG TABLET PO SCH ×2 (08:50→20:35)
[2017-12-13] MEDS: FAMOTIDINE 20 MG TAB PO SCH (08:50)
[2017-12-13] MEDS: METOPROLOL TARTRATE 25 MG TAB PO SCH ×2 (08:50→20:35)
[2017-12-13] MEDS: CHOLECALCIFEROL 1,000 UNIT TAB PO SCH ×2 (08:50→20:35)
[2017-12-13] MEDS: SPIRONOLACTONE 25 MG TAB PO SCH (08:50)
[2017-12-13] MEDS: HYDROcodone/APAP 5-325MG 1 EACH TAB PO PRN (08:54)
--- NOTE | 2017-12-13 10:41 | P.PN ---
Subjective Progress Note Date: 12/13/17 Elia is a pleasant 72-year-old gentleman who presented with symptoms of progressive weakness in his lower extremities, edema as well as evidence of cellulitis. He has a known history of CAD, peripheral artery disease, chronic kidney disease and atrial fibrillation. Echocardiogram with Doppler revealed ejection fraction of 45-50% with moderate mitral and mild tricuspid regurgitation. Patient was seen and examined this morning, he states that he did not sleep well through the night last night. He did have a repeat chest x- ray performed this morning which is yet pending. Blood pressure 115/60, heart rate in the 60s, 93% on room air. White blood cell count 9.2, hemoglobin 10.4, platelet count 185. Sodium 137, potassium 4.7, BUN 91 and creatinine 4.0. Objective - Vital Signs Vital signs: Vital Signs Temp 97.5 F L 12/12/17 20:00 Pulse 68 12/13/17 08:06 Resp 22 12/13/17 03:19 BP 115/59 12/13/17 03:18 Pulse Ox 93 L 12/13/17 03:18 Intake & Output 12/12/17 12/13/17 12/13/17 18:59 06:59 18:59 Intake Total 460 240 Output Total 250 675 Balance 210 -675 240 Weight 73.5 kg Intake: IV 100 Ampicillin-Sulbactam 3 gm 100 In Sodium Chloride 0.9% 100 ml @ 200 mls/hr IVPB Q12H [facility] Rx#:[id number] Oral 360 240 Output: Urine 250 675 Other: Voiding Method Urinal Urinal # Voids 3 - Exam PHYSICAL EXAMINATION: HEENT: Head is atraumatic, normocephalic. Pupils equal, round. Neck is supple. There is no elevated jugular venous pressure. HEART EXAMINATION: Heart sounds regular, S1 and S2 with a systolic murmur. CHEST EXAMINATION: Lungs are clear to auscultation and precussion. No chest wall tenderness is noted on palpation or with deep breathing. ABDOMEN: Soft, nontender. Bowel sounds are heard. No organomegaly noted. EXTREMITIES: Left lower extremity with dressing and Isacc wrap, chronic skin changes noted on the right side. NEUROLOGIC patient is awake, alert and oriented x3. - Labs CBC & Chem 7: 12/13/17 06:17 12/13/17 06:17 Labs: Abnormal Lab Results - Last 24 Hours (Table) 12/12/17 12/12/17 12/12/17 Range/Units 11:14 16:46 20:47 RBC (4.30-5.90) m/uL Hgb (13.0-17.5) gm/dL Hct (39.0-53.0) % MCHC (31.0-37.0) g/dL RDW (11.5-15.5) % Lymphocytes # (1.0-4.8) k/uL BUN (9-20) mg/dL Creatinine (0.66-1.25) mg/dL Glucose (74-99) mg/dL POC Glucose (mg/dL) 148 H 131 H 160 H (75-99) mg/dL 12/13/17 12/13/17 12/13/17 Range/Units 06:06 06:17 06:17 RBC 3.40 L (4.30-5.90) m/uL Hgb 10.4 L (13.0-17.5) gm/dL Hct 34.0 L (39.0-53.0) % MCHC 30.6 L (31.0-37.0) g/dL RDW 17.3 H (11.5-15.5) % Lymphocytes # 0.9 L (1.0-4.8) k/uL BUN 91 H (9-20) mg/dL Creatinine 4.05 H (0.66-1.25) mg/dL Glucose 108 H (74-99) mg/dL POC Glucose (mg/dL) 107 H (75-99) mg/dL Microbiology - Last 24 Hours (Table) 12/09/17 14:40 Blood Culture - Preliminary Blood No Growth after 72 hours Assessment and Plan Plan: Assessment: #1 peripheral edema with cellulitis #2 history of cardiomyopathy #3 history of coronary artery disease #4 Mitral regurgitation #5 PVD #6 CKD #7 Paroxysmal Atrial Fibrillation Plan From cardiology's perspective, we'll recommend to continue the patient on his current medications. We will follow the patient with you now on an as-needed basis only, please don't hesitate to call with any questions. DNP note has been reviewed, I agree with a documented findings and plan of care. Patient was seen and examined.
--- NOTE | 2017-12-13 10:54 | XR ---
EXAMINATION TYPE: XR chest 1V DATE OF EXAM: 12/13/2017 COMPARISON: Prior chest x-ray 12/09/2017 and 08/29/2017 HISTORY: Congestive heart failure TECHNIQUE: Single frontal view of the chest is obtained. FINDINGS: Patient is post median sternotomy. Heart is enlarged and stable. Basilar increased density persists on the right, right hemidiaphragm and heart border are obscured. No evident pneumothorax. I nterstitium is increased. There are overlying cardiac leads. IMPRESSION: Findings are similar to prior exams, chronic. There may be lower lobe pneumonia, effusio n, edema or atelectasis. Correlate to exclude interstitial edema. Follow-up suggested.
[2017-12-13] MEDS: AMPICILLIN-SULBACTAM 3 GM in SODIUM CHLORIDE 0.9% 100 ML IVPB SCH ×2 (11:01→23:07)
[2017-12-13 11:43] LABS: Glucose,Whole Blood 138 mg/dL (75-99)
--- NOTE | 2017-12-13 13:11 | PN ---
PROGRESS NOTE Patient is seen for followup for acute kidney injury on top of chronic kidney disease. His renal function has been slowly worsening. The patient was being diuresed. His Lasix was switched from IV to p.o. and yesterday I held his evening dose of Lasix. Serum creatinine has again risen to about 4.05 mg/dL from 3.5 yesterday. The patient states he has had good urine output. His UA was completely benign. An ultrasound of the kidneys did not reveal any significant abnormalities. Patient currently denies any shortness of breath. Overall, he states he is just feeling weak and wants to sleep. He had a lot of pain with I believe dressing change on his left foot. PHYSICAL EXAMINATION: On examination today, blood pressure 121/68, heart rate 80 per minute. He is afebrile. EXAMINATION OF THE HEART: S1 and S2. EXAMINATION OF THE LUNGS: Bilateral breath sounds are heard. No crackles or wheezing is heard. Abdomen is soft, nontender. Examination of lower extremities shows no evidence of edema. Erythema is noted in lower extremities. Left foot is currently wrapped. LABS: Labs show sodium 137, potassium 4.7, BUN 91, serum creatinine 4.05, calcium 8.8, hemoglobin 10.4 g/dL. ASSESSMENT: 1. Acute kidney injury mainly cardiorenal with renal function currently continuing to worsen. His diuretics are on hold. Patient is advised to maintain adequate oral intake. He has had good urine output and again the UA and ultrasound are normal. There are no nephrotoxic agents on board and patient is not significantly hypotensive. 2. Cardiomyopathy, ejection fraction about 45% to 50%. 3. Chronic kidney disease stage IIIB with baseline creatinine 1.7 to 2 mg/dL with serum creatinine of about 3 in October of 2017. 4. Chronic kidney disease mineral bone disorder maintained on calcitriol. 5. Chronic atrial fibrillation. 6. Bilateral lower extremity wounds and cellulitis, worse on the left leg, maintained on antibiotics. PLAN: Continue to hold off on Lasix. Repeat labs in a.m. and patient is advised to maintain good oral hydration. MMODL / IJN: [id number] /
--- NOTE | 2017-12-13 13:38 | P.PN ---
Subjective Progress Note Date: 12/13/17 Principal diagnosis: Moderate-sized right-sided pleural effusion, most likely cardiac in nature, acute on chronic congestive heart failure This is a 72-year-old white male with history of multiple medical problems including chronic congestive heart failure, coronary artery disease, COPD, diabetes, previous [place], hypertension, patient presented to the ER with mostly increased swelling and pain in both lower extremities. However pain and swelling seems to be more in the left lower extremity. Patient is known to have history of chronic cellulitis of both lower extremities. Apparently the cellulitis has been getting worse, patient was admitted for IV antibiotics. Chest x-ray on admission showed good sized right-sided pleural effusion and pulmonary vasculature prominence, consistent with mild pulmonary edema. Considering the pleural effusion, I was asked to see him on consultation. His BNP level is over 13,000. Patient is already on diuretics, and he is already and antibiotics. I reviewed the chest x-ray, patient has no active pulmonary symptoms at present, hence I recommended we continue with diuretics, the pleural effusion is most likely cardiac in nature unless for otherwise, should respond to diuretics, however if it does not and it gets any larger, or if the patient becomes symptomatic, right-sided thoracentesis could be considered. Patient denies any shortness of breath at present, no chest pain. Denies any headaches, no blurred vision no dizziness, no nausea no vomiting no abdominal pain no melena no hematemesis. Patient used to see Dr. العراقي our office for his COPD, however his COPD presently seems to be stable On 12/12/2017 patient seen in follow-up on selective care unit. He is awake and alert, oriented 3, denies any distress, no shortness of breath, no chest pain. Her pulse ox is 92%, he is afebrile, hemodynamically stable, he is diuresing, he is in negative 1240 ML balance over the last 24 hours, he is on oral Lasix, in view of his worsening renal function, lung sounds are positive for crackles at bilateral bases. Patient will have a chest ultrasound for evaluation of his right pleural effusion. The patient is asymptomatic, patient is ambulating in the room, and tolerating activity fairly well. Today's lab work has been noted, WBC is 8.7, hemoglobin is 10.7, sodium is 136, the rest of electrolytes are unremarkable, BUN is 96, creatinine is 3.53. No fever, no chills, blood cultures are negative. Left lower extremity is Isacc wrapped, patient is on Unasyn for his bilateral lower extremity cellulitis. On 12/13/2017 patient seen in follow-up on selective care unit. He is calm and comfortable, adhesive up in the chair, in no acute distress. Ultrasound of the chest did not reveal sizable pleural fluid pocket, 1.7 cm on the right, and nothing on the left. Room air pulse ox is 92%, patient is afebrile, lung sounds reveal coarse inspiratory crackles over right posterior mid and lower lung. Only a few crackles on the left base. No chest pain, no worsening dyspnea. No cough, no phlegm production. Patient is currently on Unasyn, primarily for cellulitis in his lower extremities. Chest x-ray has been reviewed by Dr. Bolanos, and shows increased density in the right, with obscuration of the right hemidiaphragm and heart border. Increased interstitium. Today's labs have been noted, WBCs 9.2, hemoglobin is 10.4, electrolytes are within normal limits, B1 is 91, creatinine is 4.05. Nephrology is following. Objective - Vital Signs Vital signs: Vital Signs Temp 98.0 F 12/13/17 11:22 Pulse 70 12/13/17 13:03 Resp 16 12/13/17 11:22 BP 121/68 12/13/17 11:22 Pulse Ox 92 L 12/13/17 11:22 Intake & Output 12/12/17 12/13/17 12/13/17 18:59 06:59 18:59 Intake Total 460 1020 Output Total 250 675 400 Balance 210 -675 620 Weight 73.5 kg Intake: IV 100 100 Ampicillin-Sulbactam 3 gm 100 100 In Sodium Chloride 0.9% 100 ml @ 200 mls/hr IVPB Q12H [facility] Rx#:[id number] Oral 360 920 Output: Urine 250 675 400 Other: Voiding Method Urinal Urinal Urinal # Voids 3 - Exam GENERAL: Revealed a 72-year-old white male, very pleasant, in no distress. HEENT: Head is atraumatic, normocephalic PERRLA, EOMI, neck is supple, no thyromegaly, no icterus. RESPIRATORY: Diminished breath sounds coarse inspiratory crackles over right mid and lower base, minimal crackles over left base symmetrical chest expansion. CARDIOVASCULAR: Normal S1 and S2, no S3 gallop. 2/6 systolic murmur thought the precordium. GASTROINTESTINAL: Soft abdomen, nontender, no megaly, no rebound, no guarding. INTEGUMENTARY: No cyanosis. No jaundice. Chronic discoloration noted to bilateral lower extremities. Large dressing noted to left lower extremity. Will defer wound assessment to infectious disease. EXTREMITIES: 1+ peripheral pulses. NEUROLOGIC: Alert, oriented 3, no gross focal neurologic deficit. PSYCHIATRIC: Normal mood, affect, normal mental status examination. Lymphatics: No lymphadenopathy. - Labs CBC & Chem 7: 12/13/17 06:17 12/13/17 06:17 Labs: Abnormal Lab Results - Last 24 Hours (Table) 12/12/17 12/12/17 12/13/17 Range/Units 16:46 20:47 06:06 RBC (4.30-5.90) m/uL Hgb (13.0-17.5) gm/dL Hct (39.0-53.0) % MCHC (31.0-37.0) g/dL RDW (11.5-15.5) % Lymphocytes # (1.0-4.8) k/uL BUN (9-20) mg/dL Creatinine (0.66-1.25) mg/dL Glucose (74-99) mg/dL POC Glucose (mg/dL) 131 H 160 H 107 H (75-99) mg/dL 12/13/17 12/13/17 12/13/17 Range/Units 06:17 06:17 11:29 RBC 3.40 L (4.30-5.90) m/uL Hgb 10.4 L (13.0-17.5) gm/dL Hct 34.0 L (39.0-53.0) % MCHC 30.6 L (31.0-37.0) g/dL RDW 17.3 H (11.5-15.5) % Lymphocytes # 0.9 L (1.0-4.8) k/uL BUN 91 H (9-20) mg/dL Creatinine 4.05 H (0.66-1.25) mg/dL Glucose 108 H (74-99) mg/dL POC Glucose (mg/dL) 138 H (75-99) mg/dL Microbiology - Last 24 Hours (Table) 12/09/17 14:40 Blood Culture - Preliminary Blood No Growth after 72 hours Assessment and Plan Plan: 1 moderate sized right-sided pleural effusion, most likely cardiac in nature unless proven otherwise. Today's chest x-ray on 12/13/2017 shows increased density in the right middle lower lobe, more consistent with pneumonia, community-acquired 2 acute on chronic congestive heart failure, likely diastolic in nature considering his good LV function on the echocardiogram. 3 acute cellulitis of lower extremities, left more so than right. 4 history of underlying COPD, presently inactive. 5 multiple comorbidities including coronary artery disease and previous stent placement, chronic kidney disease stage IV, type 2 diabetes, hypertension, hyperlipidemia Plan: We will continue current medical treatment, diuretics are on hold, there has been worsening of patient's renal status, nephrology is following, no fever, no chills, no worsening dyspnea, ultrasound the chest did not show ascites or pleural effusion pocket, the findings on the chest x-ray is more consistent with pneumonia in the right mid and lower lobe. We'll keep the current antibiotic coverage, patient is negative for any fever, chills, no cough, no chest congestion, collect a sputum specimen. Continue with nebulized bronchodilators. Continue to follow I performed a history & physical examination of the patient and discussed their management with my nurse practitioner, Steffanie Vera. I reviewed the nurse practitioner's note and agree with the documented findings and plan of care. Lung sounds are positive for coarse inspiratory crackles in the right lung. The findings and the impression was discussed with the patient. I attest to the documentation by the nurse practitioner. Time with Patient: Less than 30
--- NOTE | 2017-12-13 13:50 | P.PN ---
Subjective Progress Note Date: 12/13/17 12/10/2017 72-year-old male with a past medical history significant for coronary artery disease, heart failure, COPD, diabetes, hypertension and hyperlipidemia who presented to the emergency room with a chief complaint of increased pain to the right lower extremities. The patient is somewhat of a poor historian. No family present at the bedside. The patient has had chronic chronic cellulitis to the bilateral lower extremities along with a wound to the posterior aspect of the left lower extremity. The patient states his legs were starting to improve but recently he has been experiencing more pain to the left leg. He decided to come to the emergency room for further evaluation. He patient states he has occasional shortness of breath, but states that is not the main reason he came to the emergency room. He denies chest pain or pressure. Denies nausea or vomiting. He denies fever or chills. Denies difficulty urinating or change in bowel habits. Chest x-ray completed in the emergency room reveals right middle lobe and right lower lobe infiltrates with small right pleural effusion. Pulmonary vascular prominence. Correlate for failure. Laboratory data upon admission reveals white count 8.2. Hemoglobin 11.7. Platelet count 211. Sodium 136. Potassium 5.1. BUN 90. Crit and 3.05. Glucose 281. Lactic acid 1.4. AST 60. ALT 83. Alkaline phosphatase 109. Troponin 0.014. BNP 13,500. The patient was started on IV diuretics and antibiotics and admitted to the hospital under the care of Dr. Adamson. 12/11/2017-Note per Dr. Beasley On-year-old admitted with infected ulcers of the right leg and patient is presently on Unasyn infectious disease evaluated the patient patient also has an pulmonary edema with right-sided pleural effusion patient is on IV Lasix will repeat the chest x-ray tomorrow if there is no significant improvement in pleural effusion patient may need the pleural fluid drainage patient clinically does not appear to have pneumonia. 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 12/12/2017-Note per Dr. Beasley Patient is doing much better and patient is on oral Lasix at this time creatinine mild worsening nephrology evaluated the patient patient is getting an ultrasound of the chest for pleural effusion for possible drainage. His blood sugars are bit low we'll cut down the Lantus as patient is on very low- dose of Lantus probably can be held just use sliding scale insulin. 12/13/2017 Patient seen and examined at the bedside. Patient states he is having some pain in his left lower extremity, although improved. He denies shortness of breath or chest pain. He states he is tired and did not sleep well last night. Patient 's creatinine is 4.05 today up from 3.53 yesterday. His Lasix was discontinued per nephrology. Patient underwent an ultrasound of the kidneys which was unremarkable. Chest x-ray from this morning reveals findings similar to prior exams, chronic. There may be lower lobe pneumonia, effusion, edema or atelectasis. Correlate to exclude interstitial edema. Ultrasound of the chest was completed yesterday revealing right pleural effusion pocket size of 1.7 cm. Patient is being followed by pulmonary during hospitalization. Patient's blood pressure is stable with a recent reading of 121/68. He is afebrile. He is on room air with oxygen saturations greater than 92%. He is being followed by infectious disease. He is currently receiving Unasyn with wound care with Aquacel Silver dressing and ROSELYN bandage. Objective - Vital Signs Vital signs: Vital Signs Temp 98.0 F 12/13/17 11:22 Pulse 82 12/13/17 11:22 Resp 16 12/13/17 11:22 BP 121/68 12/13/17 11:22 Pulse Ox 92 L 12/13/17 11:22 Intake & Output 12/12/17 12/13/17 12/13/17 18:59 06:59 18:59 Intake Total 460 540 Output Total 250 675 400 Balance 210 -675 140 Weight 73.5 kg Intake: IV 100 100 Ampicillin-Sulbactam 3 gm 100 100 In Sodium Chloride 0.9% 100 ml @ 200 mls/hr IVPB Q12H [facility] Rx#:[id number] Oral 360 440 Output: Urine 250 675 400 Other: Voiding Method Urinal Urinal Urinal # Voids 3 - Exam GENERAL: This is a 72-year-old male in no apparent distress at the time of examination. Pleasant and cooperative. HEENT: Head is atraumatic, normocephalic. Pupils are equal, round, and reactive to light. Sclerae anicteric. Conjunctivae are clear. Mucus membranes of the mouth are moist. Neck is supple. RESPIRATORY: Diminished. No wheezing or rhonchi auscultated. No use of accessory muscles. Patient maintaining oxygen saturation greater than 92%. No chest wall tenderness is noted on palpation or with deep breathing. CARDIOVASCULAR: Regular rate and rhythm. S1 and S2 noted. No JVD noted. No S3 or S4 noted. GASTROINTESTINAL: No distention noted. Abdomen soft and round. Normal active bowel sounds auscultated x 4 quadrants. No pain or tenderness noted upon palpation. INTEGUMENTARY: No cyanosis. No jaundice. Chronic discoloration noted to bilateral lower extremities. Large dressing noted to left lower extremity. Will defer wound assessment to infectious disease. EXTREMITIES: 1+ peripheral pulses. NEUROLOGIC: Cranial nerves II-XII intact. PSYCHIATRIC: Awake, alert, and oriented X 3. Appropriate affect. Intact judgement and insight. - Labs CBC & Chem 7: 12/13/17 06:17 12/13/17 06:17 Labs: Abnormal Lab Results - Last 24 Hours (Table) 12/12/17 12/12/17 12/13/17 Range/Units 16:46 20:47 06:06 RBC (4.30-5.90) m/uL Hgb (13.0-17.5) gm/dL Hct (39.0-53.0) % MCHC (31.0-37.0) g/dL RDW (11.5-15.5) % Lymphocytes # (1.0-4.8) k/uL BUN (9-20) mg/dL Creatinine (0.66-1.25) mg/dL Glucose (74-99) mg/dL POC Glucose (mg/dL) 131 H 160 H 107 H (75-99) mg/dL 12/13/17 12/13/17 Range/Units 06:17 06:17 RBC 3.40 L (4.30-5.90) m/uL Hgb 10.4 L (13.0-17.5) gm/dL Hct 34.0 L (39.0-53.0) % MCHC 30.6 L (31.0-37.0) g/dL RDW 17.3 H (11.5-15.5) % Lymphocytes # 0.9 L (1.0-4.8) k/uL BUN 91 H (9-20) mg/dL Creatinine 4.05 H (0.66-1.25) mg/dL Glucose 108 H (74-99) mg/dL POC Glucose (mg/dL) (75-99) mg/dL Microbiology - Last 24 Hours (Table) 12/09/17 14:40 Blood Culture - Preliminary Blood No Growth after 72 hours Assessment and Plan Plan: ASSESSMENT: Acute exacerbation of congestive heart failure, diastolic, EF 45-50%, BNP 13,500 Right middle and right lower lobe infiltrates, pneumonia ruled out, patient without clinical s/s of pneumonia Right pleural effusion, suspect cardiac in nature Cellulitis of left lower extremity, present on admission, with chronic wounds History of coronary artery disease with previous stent placement COPD, no evidence of acute exacerbation Acute kidney injury, secondary to diuresis, worsening Chronic kidney disease, stage IV Diabetes mellitus, type II Hyperlipidemia Hypertension Paroxysmal atrial fibrillation, on long-term anticoagulation with Eliquis PLAN: Infectious disease, nephrology, cardiology, and pulmonary on consult. Appreciate recommendations and input Antibiotics per ID. Currently on Unasyn Continue wound care with Aquacel silver and roselyn wrap per ID recommendations Continue to hold Lasix due to worsening creatinine per nephrology. Home meds as appropriate Monitor labs GI prophylaxis: Protonix 40 mg PO Daily DVT prophylaxis: Eliquis 2.5mg BID Discharge plan: Patient to return home when stable with home care Monitor vital signs and address as appropriate Further recommendations pending patient's course Nurse practitioner note has been reviewed by physician. Signing provider agrees with the documented findings, assessment, and plan of care.
[2017-12-13 16:34] LABS: Glucose,Whole Blood 131 mg/dL (75-99)
[2017-12-13 19:51] LABS: Glucose,Whole Blood 135 mg/dL (75-99)
[2017-12-13] MEDS: INSULIN DETEMIR 100 UNIT/ML 10 ML VIAL SQ SCH (20:35)
--- NOTE | 2017-12-13 22:02 | PN ---
PROGRESS NOTE DATE OF SERVICE: 12/13/2017. REASON FOR FOLLOWUP: Left leg venous stasis ulcer with secondary cellulitis. INTERVAL HISTORY: The patient is currently afebrile, has been breathing comfortably denies significant chest pain, cough, no abdominal pain, no worsening pain in the left leg area. EXAMINATION: Blood pressure 118/55 with a pulse of 73, temperature 97.9. He is 93% on room air. General description is an elderly male lying in the bed in no distress. Respiratory system: Unlabored breathing. Clear to auscultation anteriorly. Heart S1, S2. Regular rate and rhythm. Abdomen soft. No tenderness. the dressing. LABS: Hemoglobin is 10.4, white count 9.2, BUN of 91, creatinine 4.05. Blood culture has been negative. DIAGNOSTIC IMPRESSION AND PLAN: Patient with left leg venous stasis ulcer with secondary cellulitis. Local wound care to continue with Aquacel dressing. Antibiotic in the form of Unasyn that will be transitioned to of oral antibiotic on discharge. Continue supportive care. MMODL / IJN: [id number] /
[2017-12-13] MEDS: ONDANSETRON 4 MG/2 ML VIAL IVP PRN (23:07)
[2017-12-14] MEDS: ONDANSETRON 4 MG/2 ML VIAL IVP PRN ×2 (04:55→10:49)
[2017-12-14 06:03] LABS: Glucose,Whole Blood 156 mg/dL (75-99)
[2017-12-14] MEDS: INSULIN ASPART 100 UNIT/ML 1 ML 10 ML VIAL SQ SCH ×4 (06:28→20:16)
[2017-12-14] MEDS: IPRATROPIUM-ALBUTEROL 3 ML NEB INHALATION SCH ×4 (10:22→20:13)
[2017-12-14] MEDS: AMPICILLIN-SULBACTAM 3 GM in SODIUM CHLORIDE 0.9% 100 ML IVPB SCH ×2 (10:55→22:27)
[2017-12-14 11:04] LABS: Glucose,Whole Blood 106 mg/dL (75-99)
[2017-12-14 11:25] LABS: Potassium 5.3 mmol/L (3.5-5.1)
[2017-12-14] MEDS: CHOLECALCIFEROL 1,000 UNIT TAB PO SCH ×2 (12:29→20:26)
[2017-12-14] MEDS: CALCITRIOL 0.25 MCG CAP PO SCH (12:29)
[2017-12-14] MEDS: APIXABAN 2.5 MG TABLET PO SCH ×2 (12:30→20:26)
[2017-12-14] MEDS: FAMOTIDINE 20 MG TAB PO SCH (12:30)
[2017-12-14] MEDS: METOPROLOL TARTRATE 25 MG TAB PO SCH ×2 (12:31→20:17)
[2017-12-14] MEDS: ALLOPURINOL 100 MG TAB PO SCH ×2 (12:31→20:26)
[2017-12-14] MEDS: SPIRONOLACTONE 25 MG TAB PO SCH (12:33)
--- NOTE | 2017-12-14 13:24 | P.PN ---
Subjective Progress Note Date: 12/14/17 Principal diagnosis: Moderate-sized right-sided pleural effusion, most likely cardiac in nature, acute on chronic congestive heart failure This is a 72-year-old white male with history of multiple medical problems including chronic congestive heart failure, coronary artery disease, COPD, diabetes, previous UT, hypertension, patient presented to the ER with mostly increased swelling and pain in both lower extremities. However pain and swelling seems to be more in the left lower extremity. Patient is known to have history of chronic cellulitis of both lower extremities. Apparently the cellulitis has been getting worse, patient was admitted for IV antibiotics. Chest x-ray on admission showed good sized right-sided pleural effusion and pulmonary vasculature prominence, consistent with mild pulmonary edema. Considering the pleural effusion, I was asked to see him on consultation. His BNP level is over 13,000. Patient is already on diuretics, and he is already and antibiotics. I reviewed the chest x-ray, patient has no active pulmonary symptoms at present, hence I recommended we continue with diuretics, the pleural effusion is most likely cardiac in nature unless for otherwise, should respond to diuretics, however if it does not and it gets any larger, or if the patient becomes symptomatic, right-sided thoracentesis could be considered. Patient denies any shortness of breath at present, no chest pain. Denies any headaches, no blurred vision no dizziness, no nausea no vomiting no abdominal pain no melena no hematemesis. Patient used to see Dr. العراقي our office for his COPD, however his COPD presently seems to be stable On 12/12/2017 patient seen in follow-up on selective care unit. He is awake and alert, oriented 3, denies any distress, no shortness of breath, no chest pain. Her pulse ox is 92%, he is afebrile, hemodynamically stable, he is diuresing, he is in negative 1240 ML balance over the last 24 hours, he is on oral Lasix, in view of his worsening renal function, lung sounds are positive for crackles at bilateral bases. Patient will have a chest ultrasound for evaluation of his right pleural effusion. The patient is asymptomatic, patient is ambulating in the room, and tolerating activity fairly well. Today's lab work has been noted, WBC is 8.7, hemoglobin is 10.7, sodium is 136, the rest of electrolytes are unremarkable, BUN is 96, creatinine is 3.53. No fever, no chills, blood cultures are negative. Left lower extremity is Isacc wrapped, patient is on Unasyn for his bilateral lower extremity cellulitis. On 12/13/2017 patient seen in follow-up on selective care unit. He is calm and comfortable, adhesive up in the chair, in no acute distress. Ultrasound of the chest did not reveal sizable pleural fluid pocket, 1.7 cm on the right, and nothing on the left. Room air pulse ox is 92%, patient is afebrile, lung sounds reveal coarse inspiratory crackles over right posterior mid and lower lung. Only a few crackles on the left base. No chest pain, no worsening dyspnea. No cough, no phlegm production. Patient is currently on Unasyn, primarily for cellulitis in his lower extremities. Chest x-ray has been reviewed by Dr. Bolanos, and shows increased density in the right, with obscuration of the right hemidiaphragm and heart border. Increased interstitium. Today's labs have been noted, WBCs 9.2, hemoglobin is 10.4, electrolytes are within normal limits, B1 is 91, creatinine is 4.05. Nephrology is following. On 12/14/2017 patient seen in follow-up on selective care unit. He is nauseated today, he is having episodes of vomiting. Denies denies any respiratory difficulty, he is 93% on room air, patient is afebrile, hemodynamically stable, lung sounds reveal coarse crackles over right mid and lower lung, relatively clear on the left. Blood cultures are negative, no fever , no chills, diuretics remain on hold, and patient's renal profile continues to worsen. Nephrology is following. Patient continues on Unasyn for his bilateral extremity cellulitis, and probable pneumonia in the right lung. No cough, no sputum production. Objective - Vital Signs Vital signs: Vital Signs Temp 97.8 F 12/14/17 12:00 Pulse 57 L 12/14/17 12:00 Resp 18 12/14/17 12:00 BP 102/54 12/14/17 12:00 Pulse Ox 93 L 12/14/17 12:00 Intake & Output 12/13/17 12/14/17 12/14/17 18:59 06:59 18:59 Intake Total 1020 300 Output Total 400 450 500 Balance 620 -450 -200 Weight 73.5 kg Intake: IV 100 100 Ampicillin-Sulbactam 3 gm 100 100 In Sodium Chloride 0.9% 100 ml @ 200 mls/hr IVPB Q12H [facility] Rx#:[id number] Oral 920 200 Output: Urine 400 450 100 Emesis 400 Other: Voiding Method Urinal Urinal Urinal # Voids 1 - Exam GENERAL: Revealed a 72-year-old white male, very pleasant, in no distress. HEENT: Head is atraumatic, normocephalic PERRLA, EOMI, neck is supple, no thyromegaly, no icterus. RESPIRATORY: Diminished breath sounds coarse inspiratory crackles over right mid and lower base, minimal crackles over left base symmetrical chest expansion. CARDIOVASCULAR: Normal S1 and S2, no S3 gallop. 2/6 systolic murmur thought the precordium. GASTROINTESTINAL: Soft abdomen, nontender, no megaly, no rebound, no guarding. INTEGUMENTARY: No cyanosis. No jaundice. Chronic discoloration noted to bilateral lower extremities. Large dressing noted to left lower extremity. Will defer wound assessment to infectious disease. EXTREMITIES: 1+ peripheral pulses. NEUROLOGIC: Alert, oriented 3, no gross focal neurologic deficit. PSYCHIATRIC: Normal mood, affect, normal mental status examination. Lymphatics: No lymphadenopathy. - Labs CBC & Chem 7: 12/13/17 06:17 12/14/17 10:29 Labs: Abnormal Lab Results - Last 24 Hours (Table) 12/13/17 12/13/17 12/14/17 Range/Units 16:30 19:21 06:00 Potassium (3.5-5.1) mmol/L BUN (9-20) mg/dL Creatinine (0.66-1.25) mg/dL POC Glucose (mg/dL) 131 H 135 H 156 H (75-99) mg/dL 12/14/17 12/14/17 Range/Units 10:29 11:01 Potassium 5.3 H (3.5-5.1) mmol/L BUN 108 H* (9-20) mg/dL Creatinine 4.41 H (0.66-1.25) mg/dL POC Glucose (mg/dL) 106 H (75-99) mg/dL Microbiology - Last 24 Hours (Table) 12/09/17 14:40 Blood Culture - Preliminary Blood No Growth after 96 hours Assessment and Plan Plan: 1 moderate sized right-sided pleural effusion, most likely cardiac in nature unless proven otherwise. Today's chest x-ray on 12/13/2017 shows increased density in the right middle lower lobe, more consistent with pneumonia, community-acquired 2 acute on chronic congestive heart failure, likely diastolic in nature considering his good LV function on the echocardiogram. 3 acute cellulitis of lower extremities, left more so than right. 4 history of underlying COPD, presently inactive. 5 multiple comorbidities including coronary artery disease and previous stent placement, chronic kidney disease stage IV, type 2 diabetes, hypertension, hyperlipidemia Plan: Continue current antibiotic coverage, continue advise bronchodilators, diuretics remain on hold, patient's kidney profile continues to worsen. No fever, no chills, no cough or sputum production. Blood cultures remain negative. We'll continue to follow I performed a history & physical examination of the patient and discussed their management with my nurse practitioner, Steffanie Vera. I reviewed the nurse practitioner's note and agree with the documented findings and plan of care. Lung sounds are positive for coarse inspiratory crackles in the right lung. The findings and the impression was discussed with the patient. I attest to the documentation by the nurse practitioner. Time with Patient: Less than 30
[2017-12-14] MEDS: HYDROcodone/APAP 5-325MG 1 EACH TAB PO PRN (15:37)
[2017-12-14 16:33] LABS: Glucose,Whole Blood 116 mg/dL (75-99)
[2017-12-14 20:11] LABS: Glucose,Whole Blood 130 mg/dL (75-99)
[2017-12-14] MEDS: INSULIN DETEMIR 100 UNIT/ML 10 ML VIAL SQ SCH (20:26)
[2017-12-14] MEDS: SODIUM CHLORIDE 0.9% 1,000 ML IV SCH (20:26)
--- NOTE | 2017-12-14 20:48 | PN ---
PROGRESS NOTE Patient states that he is not feeling well today. He continues to feel weak and wants to sleep. Renal function continues to worsen and diuretics are on hold and his creatinine today was up to 4.4 mg/dL. The patient states he has been voiding. We have a 24 hour urine output off about 925 mL. The UA was completely benign and there was no evidence of hydronephrosis noted on the ultrasound. PHYSICAL EXAMINATION: On examination today, blood pressure was 113/54, heart rate 58 per minute. Patient is afebrile. Examination of the heart: S1, S2. Examination of the lungs: Bilateral breath sounds are heard. Decreased breath sounds at bases. Abdomen is soft, nontender. Examination of the lower extremities shows no significant edema. There is some erythema noted and both feet are currently wrapped. LABS: Show sodium 137, potassium 5.3, BUN 108, serum creatinine at 4.4 mg/dL. ASSESSMENT: 1. Acute kidney injury with progressive worsening of renal function, currently off of all diuretics. I will start gentle IV hydration and repeat labs in a.m. The patient's UA is completely benign and there is no evidence of hydronephrosis noted on the ultrasound. We will check a postvoid residual as well tonight. The patient is not on any nephrotoxic medications. The this is most likely ATN. 2. Mild hyperkalemia associated with progressive renal failure. Maintain patient on low-potassium foods and control blood sugars, which are currently not high. 3. Chronic kidney disease and NKF stage III, with baseline creatinine about 1.7-2 mg/dL. 4. Cardiomyopathy, ejection fraction 45-50 percent. 5. Chronic atrial fibrillation. 6. Bilateral lower extremity wounds and cellulitis, worse on left leg, maintained on Unasyn. 7. Congestive heart failure, currently compensated, status post diuresis. PLAN: Start gentle IV hydration. Maintain patient on low-potassium diet. Repeat labs in a.m. MMODL / IJN: [id number] /
--- NOTE | 2017-12-14 22:54 | PN ---
PROGRESS NOTE DATE OF SERVICE: 12/14/2017. REASON FOR FOLLOWUP: Left leg venous stasis ulcer, skin cellulitis. INTERVAL HISTORY: The patient is currently afebrile. He is complaining of feeling slightly nauseous and complaining of not having any bowel movement since he has been here. He denies having any chest pain, shortness of breath, cough. No worsening pain in the left leg area. EXAMINATION: Blood pressure 106/56, pulse 55, temperature 98, he is 92% on room air. GENERAL DESCRIPTION: An elderly male, lying in bed in no distress. RESPIRATORY SYSTEM: Unlabored breathing. Clear to auscultation anteriorly. HEART: S1, S2. Regular rate and rhythm. EXTREMITIES: Left leg wounds are currently dressed up, no obvious drainage on the dressing. LABS: BUN 108, with creatinine 4.41. DIAGNOSTIC IMPRESSION AND PLAN: 1. Patient with left leg venous stasis ulcer with skin cellulitis. Patient currently on the Unasyn. Continue local wound care with Aquacel Silver dressing. Transition to oral Augmentin. Continue wound care. Follow [facility] with [facility]. 2. The patient is complaining of some constipation, requesting for stool softener. This has been ordered. MMODL / IJN: [id number] /
[2017-12-15 02:09] LABS: Glucose,Whole Blood 125 mg/dL (75-99)
[2017-12-15] MEDS: INSULIN ASPART 100 UNIT/ML 1 ML 10 ML VIAL SQ SCH ×4 (05:47→21:44)
[2017-12-15 05:51] LABS: Glucose,Whole Blood 126 mg/dL (75-99)
[2017-12-15 05:52] LABS: Glucose,Whole Blood 122 mg/dL (75-99)
[2017-12-15 06:45] LABS: Calcium 8.7 mg/dL (8.4-10.2)
[2017-12-15] MEDS: IPRATROPIUM-ALBUTEROL 3 ML NEB INHALATION SCH ×4 (07:52→20:23)
[2017-12-15] MEDS: CHOLECALCIFEROL 1,000 UNIT TAB PO SCH ×2 (08:09→21:29)
[2017-12-15] MEDS: APIXABAN 2.5 MG TABLET PO SCH ×2 (08:09→21:29)
[2017-12-15] MEDS: FAMOTIDINE 20 MG TAB PO SCH (08:09)
[2017-12-15] MEDS: DOCUSATE 100 MG CAP PO SCH ×2 (08:10→21:30)
[2017-12-15] MEDS: ALLOPURINOL 100 MG TAB PO SCH ×2 (08:10→21:29)
[2017-12-15] MEDS: CALCITRIOL 0.25 MCG CAP PO SCH (08:10)
[2017-12-15] MEDS: AMPICILLIN-SULBACTAM 3 GM in SODIUM CHLORIDE 0.9% 100 ML IVPB SCH (08:14)
[2017-12-15] MEDS: ONDANSETRON 4 MG/2 ML VIAL IVP PRN (08:23)
--- NOTE | 2017-12-15 09:25 | P.PN ---
Subjective Progress Note Date: 12/14/17 12/10/2017 72-year-old male with a past medical history significant for coronary artery disease, heart failure, COPD, diabetes, hypertension and hyperlipidemia who presented to the emergency room with a chief complaint of increased pain to the right lower extremities. The patient is somewhat of a poor historian. No family present at the bedside. The patient has had chronic chronic cellulitis to the bilateral lower extremities along with a wound to the posterior aspect of the left lower extremity. The patient states his legs were starting to improve but recently he has been experiencing more pain to the left leg. He decided to come to the emergency room for further evaluation. He patient states he has occasional shortness of breath, but states that is not the main reason he came to the emergency room. He denies chest pain or pressure. Denies nausea or vomiting. He denies fever or chills. Denies difficulty urinating or change in bowel habits. Chest x-ray completed in the emergency room reveals right middle lobe and right lower lobe infiltrates with small right pleural effusion. Pulmonary vascular prominence. Correlate for failure. Laboratory data upon admission reveals white count 8.2. Hemoglobin 11.7. Platelet count 211. Sodium 136. Potassium 5.1. BUN 90. Crit and 3.05. Glucose 281. Lactic acid 1.4. AST 60. ALT 83. Alkaline phosphatase 109. Troponin 0.014. BNP 13,500. The patient was started on IV diuretics and antibiotics and admitted to the hospital under the care of Dr. Adamson. 12/11/2017-Note per Dr. Beasley On-year-old admitted with infected ulcers of the right leg and patient is presently on Unasyn infectious disease evaluated the patient patient also has an pulmonary edema with right-sided pleural effusion patient is on IV Lasix will repeat the chest x-ray tomorrow if there is no significant improvement in pleural effusion patient may need the pleural fluid drainage patient clinically does not appear to have pneumonia. 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 12/12/2017-Note per Dr. Beasley Patient is doing much better and patient is on oral Lasix at this time creatinine mild worsening nephrology evaluated the patient patient is getting an ultrasound of the chest for pleural effusion for possible drainage. His blood sugars are bit low we'll cut down the Lantus as patient is on very low- dose of Lantus probably can be held just use sliding scale insulin. 12/13/2017 Patient seen and examined at the bedside. Patient states he is having some pain in his left lower extremity, although improved. He denies shortness of breath or chest pain. He states he is tired and did not sleep well last night. Patient 's creatinine is 4.05 today up from 3.53 yesterday. His Lasix was discontinued per nephrology. Patient underwent an ultrasound of the kidneys which was unremarkable. Chest x-ray from this morning reveals findings similar to prior exams, chronic. There may be lower lobe pneumonia, effusion, edema or atelectasis. Correlate to exclude interstitial edema. Ultrasound of the chest was completed yesterday revealing right pleural effusion pocket size of 1.7 cm. Patient is being followed by pulmonary during hospitalization. Patient's blood pressure is stable with a recent reading of 121/68. He is afebrile. He is on room air with oxygen saturations greater than 92%. He is being followed by infectious disease. He is currently receiving Unasyn with wound care with Aquacel Silver dressing and ROSELYN bandage. 12/14/2017 Patient seen and examined at the bedside with Dr. Adamson. Patient states he did not sleep well last night. He reports nausea overnight and an episode of emesis. Patient states he still has some nausea this morning, although improved. Potassium is 5.3. BUN 108. Creatinine 4.41, which is elevated from 4.05 yesterday. Lasix remains on hold per nephrology. Pulmonary believes xray is consistent with right mid and lower lobe pneumonia. Infectious disease is following. He remains on Unasyn. Objective - Vital Signs Vital signs: Vital Signs Temp 97.8 F 12/14/17 12:00 Pulse 57 L 12/14/17 12:00 Resp 18 12/14/17 12:00 BP 102/54 12/14/17 12:00 Pulse Ox 93 L 12/14/17 12:00 Intake & Output 12/13/17 12/14/17 12/14/17 18:59 06:59 18:59 Intake Total 1020 300 Output Total 400 450 500 Balance 620 -450 -200 Weight 73.5 kg Intake: IV 100 100 Ampicillin-Sulbactam 3 gm 100 100 In Sodium Chloride 0.9% 100 ml @ 200 mls/hr IVPB Q12H [facility] Rx#:[id number] Oral 920 200 Output: Urine 400 450 100 Emesis 400 Other: Voiding Method Urinal Urinal Urinal # Voids 1 - Exam GENERAL: This is a 72-year-old male in no apparent distress at the time of examination. Pleasant and cooperative. HEENT: Head is atraumatic, normocephalic. Pupils are equal, round, and reactive to light. Sclerae anicteric. Conjunctivae are clear. Mucus membranes of the mouth are moist. Neck is supple. RESPIRATORY: Diminished, some fine rales to right lower lobe. No wheezing or rhonchi auscultated. No use of accessory muscles. Patient maintaining oxygen saturation greater than 92%. No chest wall tenderness is noted on palpation or with deep breathing. CARDIOVASCULAR: Regular rate and rhythm. S1 and S2 noted. No JVD noted. No S3 or S4 noted. GASTROINTESTINAL: No distention noted. Abdomen soft and round. Normal active bowel sounds auscultated x 4 quadrants. No pain or tenderness noted upon palpation. INTEGUMENTARY: No cyanosis. No jaundice. Chronic discoloration noted to bilateral lower extremities. Large dressing noted to left lower extremity. Will defer wound assessment to infectious disease. EXTREMITIES: 1+ peripheral pulses. NEUROLOGIC: Cranial nerves II-XII intact. PSYCHIATRIC: Awake, alert, and oriented X 3. Appropriate affect. Intact judgement and insight. - Labs CBC & Chem 7: 12/13/17 06:17 12/14/17 10:29 Labs: Abnormal Lab Results - Last 24 Hours (Table) 12/13/17 12/13/17 12/14/17 Range/Units 16:30 19:21 06:00 Potassium (3.5-5.1) mmol/L BUN (9-20) mg/dL Creatinine (0.66-1.25) mg/dL POC Glucose (mg/dL) 131 H 135 H 156 H (75-99) mg/dL 12/14/17 12/14/17 Range/Units 10:29 11:01 Potassium 5.3 H (3.5-5.1) mmol/L BUN 108 H* (9-20) mg/dL Creatinine 4.41 H (0.66-1.25) mg/dL POC Glucose (mg/dL) 106 H (75-99) mg/dL Microbiology - Last 24 Hours (Table) 12/09/17 14:40 Blood Culture - Preliminary Blood No Growth after 96 hours Assessment and Plan Plan: ASSESSMENT: Acute exacerbation of congestive heart failure, diastolic, EF 45-50%, BNP 13,500 Right middle and right lower lobe infiltrates, pneumonia ruled in per pulmonary , community-acquired Right pleural effusion, suspect cardiac in nature Cellulitis of left lower extremity, present on admission, with chronic wounds History of coronary artery disease with previous stent placement COPD, no evidence of acute exacerbation Acute kidney injury, secondary to diuresis, worsening Chronic kidney disease, stage IV Diabetes mellitus, type II Hyperlipidemia Hypertension Paroxysmal atrial fibrillation, on long-term anticoagulation with Eliquis Nausea, etiology unclear, improving PLAN: Infectious disease, nephrology, cardiology, and pulmonary on consult. Appreciate recommendations and input Antibiotics per ID. Currently on Unasyn Continue wound care with Aquacel silver and roselyn wrap per ID recommendations Continue to hold Lasix due to worsening creatinine per nephrology Home meds as appropriate Monitor labs GI prophylaxis: Protonix 40 mg PO Daily DVT prophylaxis: Eliquis 2.5mg BID Discharge plan: Patient to return home when stable with home care Monitor vital signs and address as appropriate Further recommendations pending patient's course Nurse practitioner note has been reviewed by physician. Signing provider agrees with the documented findings, assessment, and plan of care.
[2017-12-15] MEDS: METOPROLOL TARTRATE 25 MG TAB PO SCH ×2 (10:26→21:30)
--- NOTE | 2017-12-15 11:07 | P.PN ---
Subjective Progress Note Date: 12/15/17 12/10/2017 72-year-old male with a past medical history significant for coronary artery disease, heart failure, COPD, diabetes, hypertension and hyperlipidemia who presented to the emergency room with a chief complaint of increased pain to the right lower extremities. The patient is somewhat of a poor historian. No family present at the bedside. The patient has had chronic chronic cellulitis to the bilateral lower extremities along with a wound to the posterior aspect of the left lower extremity. The patient states his legs were starting to improve but recently he has been experiencing more pain to the left leg. He decided to come to the emergency room for further evaluation. He patient states he has occasional shortness of breath, but states that is not the main reason he came to the emergency room. He denies chest pain or pressure. Denies nausea or vomiting. He denies fever or chills. Denies difficulty urinating or change in bowel habits. Chest x-ray completed in the emergency room reveals right middle lobe and right lower lobe infiltrates with small right pleural effusion. Pulmonary vascular prominence. Correlate for failure. Laboratory data upon admission reveals white count 8.2. Hemoglobin 11.7. Platelet count 211. Sodium 136. Potassium 5.1. BUN 90. Crit and 3.05. Glucose 281. Lactic acid 1.4. AST 60. ALT 83. Alkaline phosphatase 109. Troponin 0.014. BNP 13,500. The patient was started on IV diuretics and antibiotics and admitted to the hospital under the care of Dr. Adamson. 12/11/2017-Note per Dr. Beasley On-year-old admitted with infected ulcers of the right leg and patient is presently on Unasyn infectious disease evaluated the patient patient also has an pulmonary edema with right-sided pleural effusion patient is on IV Lasix will repeat the chest x-ray tomorrow if there is no significant improvement in pleural effusion patient may need the pleural fluid drainage patient clinically does not appear to have pneumonia. 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 12/12/2017-Note per Dr. Beasley Patient is doing much better and patient is on oral Lasix at this time creatinine mild worsening nephrology evaluated the patient patient is getting an ultrasound of the chest for pleural effusion for possible drainage. His blood sugars are bit low we'll cut down the Lantus as patient is on very low- dose of Lantus probably can be held just use sliding scale insulin. 12/13/2017 Patient seen and examined at the bedside. Patient states he is having some pain in his left lower extremity, although improved. He denies shortness of breath or chest pain. He states he is tired and did not sleep well last night. Patient 's creatinine is 4.05 today up from 3.53 yesterday. His Lasix was discontinued per nephrology. Patient underwent an ultrasound of the kidneys which was unremarkable. Chest x-ray from this morning reveals findings similar to prior exams, chronic. There may be lower lobe pneumonia, effusion, edema or atelectasis. Correlate to exclude interstitial edema. Ultrasound of the chest was completed yesterday revealing right pleural effusion pocket size of 1.7 cm. Patient is being followed by pulmonary during hospitalization. Patient's blood pressure is stable with a recent reading of 121/68. He is afebrile. He is on room air with oxygen saturations greater than 92%. He is being followed by infectious disease. He is currently receiving Unasyn with wound care with Aquacel Silver dressing and ISACC bandage. 12/14/2017 Patient seen and examined at the bedside with Dr. Adamson. Patient states he did not sleep well last night. He reports nausea overnight and an episode of emesis. Patient states he still has some nausea this morning, although improved. Potassium is 5.3. BUN 108. Creatinine 4.41, which is elevated from 4.05 yesterday. Lasix remains on hold per nephrology. Pulmonary believes xray is consistent with right mid and lower lobe pneumonia. Infectious disease is following. He remains on Unasyn. 12/15/2017 Patient seen and examined the bedside with Dr. Adamson. Patient was started on IV fluids yesterday for worsening kidney function. His creatinine today is 5.24. BUN 111. patient does report decreased urine output. Testing for influenza A and B was completed yesterday and was negative. Patient currently denies shortness of breath or chest pain. He reports some nausea still this morning, but no episodes of emesis. He is upset that he can not be discharged home today. Objective - Vital Signs Vital signs: Vital Signs Temp 97.7 F 12/15/17 08:00 Pulse 54 L 12/15/17 08:00 Resp 18 12/15/17 08:00 BP 94/53 12/15/17 08:00 Pulse Ox 94 L 12/15/17 08:00 Intake & Output 12/14/17 12/15/17 12/15/17 18:59 06:59 18:59 Intake Total 540 180 Output Total 500 90 50 Balance 40 -90 130 Weight 74.2 kg Intake: IV 100 Ampicillin-Sulbactam 3 gm 100 In Sodium Chloride 0.9% 100 ml @ 200 mls/hr IVPB Q12H [facility] Rx#:[id number] Oral 440 180 Output: Urine 100 90 50 Emesis 400 Other: Voiding Method Urinal Urinal Urinal - Exam GENERAL: This is a 72-year-old male in no apparent distress at the time of examination. Pleasant and cooperative. HEENT: Head is atraumatic, normocephalic. Pupils are equal, round, and reactive to light. Sclerae anicteric. Conjunctivae are clear. Mucus membranes of the mouth are moist. Neck is supple. RESPIRATORY: Diminished, some fine rales to right lower lobe. No wheezing or rhonchi auscultated. No use of accessory muscles. Patient maintaining oxygen saturation greater than 92%. No chest wall tenderness is noted on palpation or with deep breathing. CARDIOVASCULAR: Regular rate and rhythm. S1 and S2 noted. No JVD noted. No S3 or S4 noted. GASTROINTESTINAL: No distention noted. Abdomen soft and round. Normal active bowel sounds auscultated x 4 quadrants. No pain or tenderness noted upon palpation. INTEGUMENTARY: No cyanosis. No jaundice. Chronic discoloration noted to bilateral lower extremities. Isacc wrap with dressing to left lower extremity. Will defer wound assessment to infectious disease. EXTREMITIES: 1+ peripheral pulses. NEUROLOGIC: Cranial nerves II-XII intact. PSYCHIATRIC: Awake, alert, and oriented X 3. Appropriate affect. Intact judgement and insight. - Labs CBC & Chem 7: 12/13/17 06:17 12/15/17 05:40 Labs: Abnormal Lab Results - Last 24 Hours (Table) 12/14/17 12/14/17 12/14/17 Range/Units 10:29 11:01 16:31 Potassium 5.3 H (3.5-5.1) mmol/L BUN 108 H* (9-20) mg/dL Creatinine 4.41 H (0.66-1.25) mg/dL Glucose (74-99) mg/dL POC Glucose (mg/dL) 106 H 116 H (75-99) mg/dL 12/14/17 12/15/17 12/15/17 Range/Units 20:09 02:07 05:40 Potassium (3.5-5.1) mmol/L BUN 111 H* (9-20) mg/dL Creatinine 5.24 H (0.66-1.25) mg/dL Glucose 113 H (74-99) mg/dL POC Glucose (mg/dL) 130 H 125 H (75-99) mg/dL 12/15/17 12/15/17 Range/Units 05:47 05:49 Potassium (3.5-5.1) mmol/L BUN (9-20) mg/dL Creatinine (0.66-1.25) mg/dL Glucose (74-99) mg/dL POC Glucose (mg/dL) 126 H 122 H (75-99) mg/dL Microbiology - Last 24 Hours (Table) 12/09/17 14:40 Blood Culture - Preliminary Blood No Growth after 120 hours Assessment and Plan Plan: ASSESSMENT: Acute exacerbation of congestive heart failure, diastolic, EF 45-50%, BNP 13,500 Right middle and right lower lobe infiltrates, pneumonia ruled in per pulmonary , community-acquired Right pleural effusion, suspect cardiac in nature Cellulitis of left lower extremity, present on admission, with chronic wounds History of coronary artery disease with previous stent placement COPD, no evidence of acute exacerbation Acute kidney injury, secondary to diuresis, worsening Chronic kidney disease, stage IV Diabetes mellitus, type II Hyperlipidemia Hypertension Paroxysmal atrial fibrillation, on long-term anticoagulation with Eliquis Nausea due to worsening renal function PLAN: Patient may transfer to general medical floor Infectious disease, nephrology, cardiology, and pulmonary on consult. Appreciate recommendations and input Antibiotics per ID. Currently on Unasyn Continue wound care with Aquacel silver and isacc wrap per ID recommendations Continue to hold Lasix due to worsening creatinine per nephrology Recommend continuing IV fluids due to worsening DIA and nausea. Await further recommendations from Nephrology regarding worsening renal function. Continue Zofran PRN Home meds as appropriate Monitor labs GI prophylaxis: Protonix 40 mg PO Daily DVT prophylaxis: Eliquis 2.5mg BID Discharge plan: Patient to return home when stable with home care Monitor vital signs and address as appropriate Further recommendations pending patient's course Nurse practitioner note has been reviewed by physician. Signing provider agrees with the documented findings, assessment, and plan of care.
[2017-12-15 11:17] LABS: Glucose,Whole Blood 121 mg/dL (75-99)
[2017-12-15] MEDS: POLYETHYLENE GLYCOL 3350 17 GM POWD.PACK PO SCH (12:08)
[2017-12-15 12:15] LABS: INR 1.6 (<1.2); Prothrombin Time 14.5 sec (9.0-12.0)
--- NOTE | 2017-12-15 14:12 | P.PN ---
Subjective Progress Note Date: 12/15/17 Principal diagnosis: Moderate-sized right-sided pleural effusion, most likely cardiac in nature, acute on chronic congestive heart failure This is a 72-year-old white male with history of multiple medical problems including chronic congestive heart failure, coronary artery disease, COPD, diabetes, previous [place], hypertension, patient presented to the ER with mostly increased swelling and pain in both lower extremities. However pain and swelling seems to be more in the left lower extremity. Patient is known to have history of chronic cellulitis of both lower extremities. Apparently the cellulitis has been getting worse, patient was admitted for IV antibiotics. Chest x-ray on admission showed good sized right-sided pleural effusion and pulmonary vasculature prominence, consistent with mild pulmonary edema. Considering the pleural effusion, I was asked to see him on consultation. His BNP level is over 13,000. Patient is already on diuretics, and he is already and antibiotics. I reviewed the chest x-ray, patient has no active pulmonary symptoms at present, hence I recommended we continue with diuretics, the pleural effusion is most likely cardiac in nature unless for otherwise, should respond to diuretics, however if it does not and it gets any larger, or if the patient becomes symptomatic, right-sided thoracentesis could be considered. Patient denies any shortness of breath at present, no chest pain. Denies any headaches, no blurred vision no dizziness, no nausea no vomiting no abdominal pain no melena no hematemesis. Patient used to see Dr. العراقي our office for his COPD, however his COPD presently seems to be stable On 12/12/2017 patient seen in follow-up on selective care unit. He is awake and alert, oriented 3, denies any distress, no shortness of breath, no chest pain. Her pulse ox is 92%, he is afebrile, hemodynamically stable, he is diuresing, he is in negative 1240 ML balance over the last 24 hours, he is on oral Lasix, in view of his worsening renal function, lung sounds are positive for crackles at bilateral bases. Patient will have a chest ultrasound for evaluation of his right pleural effusion. The patient is asymptomatic, patient is ambulating in the room, and tolerating activity fairly well. Today's lab work has been noted, WBC is 8.7, hemoglobin is 10.7, sodium is 136, the rest of electrolytes are unremarkable, BUN is 96, creatinine is 3.53. No fever, no chills, blood cultures are negative. Left lower extremity is Isacc wrapped, patient is on Unasyn for his bilateral lower extremity cellulitis. On 12/13/2017 patient seen in follow-up on selective care unit. He is calm and comfortable, adhesive up in the chair, in no acute distress. Ultrasound of the chest did not reveal sizable pleural fluid pocket, 1.7 cm on the right, and nothing on the left. Room air pulse ox is 92%, patient is afebrile, lung sounds reveal coarse inspiratory crackles over right posterior mid and lower lung. Only a few crackles on the left base. No chest pain, no worsening dyspnea. No cough, no phlegm production. Patient is currently on Unasyn, primarily for cellulitis in his lower extremities. Chest x-ray has been reviewed by Dr. Bolanos, and shows increased density in the right, with obscuration of the right hemidiaphragm and heart border. Increased interstitium. Today's labs have been noted, WBCs 9.2, hemoglobin is 10.4, electrolytes are within normal limits, B1 is 91, creatinine is 4.05. Nephrology is following. On 12/14/2017 patient seen in follow-up on selective care unit. He is nauseated today, he is having episodes of vomiting. Denies denies any respiratory difficulty, he is 93% on room air, patient is afebrile, hemodynamically stable, lung sounds reveal coarse crackles over right mid and lower lung, relatively clear on the left. Blood cultures are negative, no fever , no chills, diuretics remain on hold, and patient's renal profile continues to worsen. Nephrology is following. Patient continues on Unasyn for his bilateral extremity cellulitis, and probable pneumonia in the right lung. No cough, no sputum production. On 12/15/2017 patient seen in follow-up on the selective care unit. Today he still feels nauseous, he has been dry heaving, but he denies any shortness of breath, denies any cough or phlegm production. There has been further worsening of his renal function, his BUN is 111, and creatinine is 5.24. CBC electrolytes are within normal limits, potassium is 5.0. Patient is afebrile, hemodynamically stable, on 2 L his pulse ox is 95%, lung sounds positive for some crackles over right mid and lower lung. Remains on Unasyn, he is on nebulized bronchodilators. Nephrology is following the patient in regards to his acute kidney injury, his diuretics remain on hold, patient has been receiving gentle IV hydration. From pulmonary perspective no acute complaints. Objective - Vital Signs Vital signs: Vital Signs Temp 98.1 F 12/15/17 12:00 Pulse 55 L 12/15/17 12:00 Resp 18 12/15/17 12:00 BP 96/49 12/15/17 12:00 Pulse Ox 95 12/15/17 12:00 Intake & Output 12/14/17 12/15/17 12/15/17 18:59 06:59 18:59 Intake Total 540 420 Output Total 500 90 50 Balance 40 -90 370 Weight 74.2 kg Intake: IV 100 Ampicillin-Sulbactam 3 gm 100 In Sodium Chloride 0.9% 100 ml @ 200 mls/hr IVPB Q12H [facility] Rx#:[id number] Oral 440 420 Output: Urine 100 90 50 Emesis 400 Other: Voiding Method Urinal Urinal Urinal - Exam GENERAL: Revealed a 72-year-old white male, very pleasant, in no distress. HEENT: Head is atraumatic, normocephalic PERRLA, EOMI, neck is supple, no thyromegaly, no icterus. RESPIRATORY: Diminished breath sounds coarse inspiratory crackles over right mid and lower base, minimal crackles over left base symmetrical chest expansion. CARDIOVASCULAR: Normal S1 and S2, no S3 gallop. 2/6 systolic murmur thought the precordium. GASTROINTESTINAL: Soft abdomen, nontender, no megaly, no rebound, no guarding. INTEGUMENTARY: No cyanosis. No jaundice. Chronic discoloration noted to bilateral lower extremities. Large dressing noted to left lower extremity. Will defer wound assessment to infectious disease. EXTREMITIES: 1+ peripheral pulses. NEUROLOGIC: Alert, oriented 3, no gross focal neurologic deficit. PSYCHIATRIC: Normal mood, affect, normal mental status examination. Lymphatics: No lymphadenopathy. - Labs CBC & Chem 7: 12/13/17 06:17 12/15/17 05:40 Labs: Abnormal Lab Results - Last 24 Hours (Table) 12/14/17 12/14/17 12/15/17 Range/Units 16:31 20:09 02:07 PT (9.0-12.0) sec INR (<1.2) BUN (9-20) mg/dL Creatinine (0.66-1.25) mg/dL Glucose (74-99) mg/dL POC Glucose (mg/dL) 116 H 130 H 125 H (75-99) mg/dL 12/15/17 12/15/17 12/15/17 Range/Units 05:40 05:47 05:49 PT (9.0-12.0) sec INR (<1.2) BUN 111 H* (9-20) mg/dL Creatinine 5.24 H (0.66-1.25) mg/dL Glucose 113 H (74-99) mg/dL POC Glucose (mg/dL) 126 H 122 H (75-99) mg/dL 12/15/17 12/15/17 Range/Units 11:15 11:44 PT 14.5 H (9.0-12.0) sec INR 1.6 H (<1.2) BUN (9-20) mg/dL Creatinine (0.66-1.25) mg/dL Glucose (74-99) mg/dL POC Glucose (mg/dL) 121 H (75-99) mg/dL Microbiology - Last 24 Hours (Table) 12/09/17 14:40 Blood Culture - Preliminary Blood No Growth after 120 hours Assessment and Plan Plan: 1 moderate sized right-sided pleural effusion, most likely cardiac in nature unless proven otherwise. Today's chest x-ray on 12/13/2017 shows increased density in the right middle lower lobe, more consistent with pneumonia, community-acquired 2 acute on chronic congestive heart failure, likely diastolic in nature considering his good LV function on the echocardiogram. 3 acute cellulitis of lower extremities, left more so than right. 4 history of underlying COPD, presently inactive. 5 multiple comorbidities including coronary artery disease and previous stent placement, chronic kidney disease stage IV, type 2 diabetes, hypertension, hyperlipidemia Plan: From pulmonary perspective patient denies any shortness of breath, cough, wheezing, or phlegm production, no chest pain, no hemoptysis. He is afebrile, continue with current antibiotics, there has been progressively worsening of patient's renal profile, and nephrology is following, diuretics remain on hold, patient is receiving gentle hydration. We'll continue current medical treatment , and continue nebulized bronchodilators. We'll continue to follow I performed a history & physical examination of the patient and discussed their management with my nurse practitioner, Steffanie Vera. I reviewed the nurse practitioner's note and agree with the documented findings and plan of care. Lung sounds are positive for coarse inspiratory crackles in the right lung. The findings and the impression was discussed with the patient. I attest to the documentation by the nurse practitioner. Time with Patient: Less than 30
[2017-12-15] MEDS: SODIUM CHLORIDE 0.9% 1,000 ML IV SCH (14:55)
--- NOTE | 2017-12-15 15:06 | PN ---
PROGRESS NOTE Patient is seen for followup for acute kidney injury. His renal function continues to worsen. Patient is also feeling poorly. He is complaining of nausea. He denies any significant shortness of breath. However, he feels weak and fatigued. Creatinine is up to 5.2 mg/dL today. Patient has been advised regarding possibility of needing renal replacement therapy given his worsening renal function. His is present at bedside and at this time they are agreeable to start dialysis. Urine output seems to have dropped as well. For 24 hours, the patient had about 850 mL of urine output. He is maintained on normal saline at about 50 mL an hour. Patient has not been eating much. PHYSICAL EXAMINATION: Blood pressure is 96/49, heart rate 55 per minute. He is afebrile. Examination of the, heart S1, S2. Examination of the lungs, bilateral breath sounds are heard. Abdomen is soft, nontender. Examination of the lower extremities shows both feet currently rapped. There is mild edema noted in the right leg. There is 1+ edema noted bilaterally. LABS: Show sodium 137, potassium 5.0, chloride 100, BUN of 111, serum creatinine 5.2, INR was 1.6. ASSESSMENT: 1. Acute kidney injury with progressive renal failure. The UA remains benign with no evidence of blood, protein, or cells and there is no evidence of obstruction on the ultrasound. Patient has uremic symptoms and he also has asterixis and therefore we will proceed with dialysis. At this time patient and his are agreeable. 2. Anemia. Expect improvement with renal replacement therapy. 3. Congestive heart failure, currently not in significant heart failure. Continue with the normal saline for now. 4. Cardiomyopathy, ejection fraction 45%-50%. 5. Chronic kidney disease stage III with baseline creatinine about 1.7-2 mg/dL. 6. Bilateral lower extremity wound and cellulitis, worse on the left leg, maintained on Unasyn. 7. Chronic atrial fibrillation. PLAN: Consult Vascular Surgery for dialysis catheter placement. Patient is on Eliquis. We will check an INR and we may need to place a temporary dialysis catheter given his coagulopathy and this could be switched to the PermCath down the road. MMODL / IJN: [id number] /
[2017-12-15] MEDS ORDERED: fentaNYL (PF) 50 MCG/ML 2 ML AMP IVP ONE (15:40)
[2017-12-15] MEDS ORDERED: LIDOCAINE 1% (PF) 10MG/ML VIAL SQ ONE (15:44)
[2017-12-15] MEDS ORDERED: IV FLUID CONTINUATION 1,000 ML IV ONE (15:52)
--- NOTE | 2017-12-15 16:16 | PCN ---
PROCEDURE NOTE PREOP DIAGNOSE: Acute on chronic renal failure. DESCRIPTION OF PROCEDURE: Under local and IV sedation, ultrasound-guided 20 cm dialysis catheter placed right femoral approach. The patient brought to the label designer with IV sedation 15 minutes sedation time and 1% lidocaine for the groin area. Micropuncture introduced into the right femoral vein micropuncture guidewire was passed and 4 German dilator advanced on top of the guidewire. Then we passed a regular guidewire and the dilator and sheath were advanced on top of the guidewire. Then we place a 20 cm dialysis catheter on the top of the guidewire. The guidewire was removed, flushed with heparin saline and hep- locked, secured with 3-0 nylon. Patient tolerated the procedure well. MMODL / IJN: [id number] /
[2017-12-15 17:08] LABS: Glucose,Whole Blood 110 mg/dL (75-99)
[2017-12-15 20:22] LABS: Glucose,Whole Blood 111 mg/dL (75-99)
[2017-12-15] MEDS: HYDROcodone/APAP 5-325MG 1 EACH TAB PO PRN (21:26)
[2017-12-15] MEDS: INSULIN DETEMIR 100 UNIT/ML 10 ML VIAL SQ SCH (21:44)
[2017-12-16] MEDS: AMPICILLIN-SULBACTAM 3 GM in SODIUM CHLORIDE 0.9% 100 ML IVPB SCH ×2 (00:40→13:55)
[2017-12-16 02:50] LABS: Hepatitis B Surface AB- Quant 3.5 mIU/mL
[2017-12-16] MEDS: HYDROcodone/APAP 5-325MG 1 EACH TAB PO PRN (03:22)
--- NOTE | 2017-12-16 05:10 | PN ---
PROGRESS NOTE DATE OF SERVICE: 12/15/2017 REASON FOR FOLLOWUP: Left leg venous stasis ulcer with secondary cellulitis. INTERVAL HISTORY: The patient is afebrile. Has been breathing comfortably. Denies any significant chest pain or cough. No abdominal pain or any worsening pain to the left leg area. PHYSICAL EXAMINATION: On examination, blood pressure 107/56, pulse of 64, temperature 97.6. He is 100% on 4 L nasal cannula. General description is an elderly male up in the bed in no distress. RESPIRATORY SYSTEM: Unlabored breathing, clear to auscultation. HEART: S1, S2. Regular rate and rhythm. ABDOMEN: Soft, no tenderness. Left leg is currently dressed up. No obvious drainage on the dressing. LABS: No CBC was done today. His BUN is 111, creatinine is up to 5.24. DIAGNOSTIC IMPRESSION AND PLAN: Patient with left leg venous stasis ulcer with secondary cellulitis. The patient at this time to continue local wound care with Aquacel Silver dressing and an Isacc wrap to keep the swelling down and is currently on Unasyn. Will be to short course of oral Augmentin on discharge. Continue supportive care. MMODL / IJN: [id number] /
[2017-12-16] MEDS: SODIUM CHLORIDE 0.9% 1,000 ML IV SCH (05:40)
[2017-12-16 07:08] LABS: Glucose,Whole Blood 129 mg/dL (75-99)
[2017-12-16 07:14] LABS: Anisocytosis Slight; Basophils % (A) 0 %; Eosinophils # (A) 0.2 k/uL (0-0.7); Eosinophils % (A) 2 %; HCT 33.5 % (39.0-53.0); HGB 10.2 gm/dL (13.0-17.5); Hypochromasia Slight; Lymphocytes # (A) 0.7 k/uL (1.0-4.8); Lymphocytes % (A) 7 %; MCH 31.1 pg (25.0-35.0); MCHC 30.4 g/dL (31.0-37.0); MCV 102.2 fL (80.0-100.0); Macrocytosis Moderate; Mean Platelet Volume 9.4; Monocytes # (A) 0.6 k/uL (0-1.0); Monocytes % (A) 6 %; Neutrophils # (A) 8.2 k/uL (1.3-7.7); Neutrophils % (A) 83 %; Platelet Count 187 k/uL (150-450); RBC 3.28 m/uL (4.30-5.90); RDW 17.4 % (11.5-15.5); WBC 9.8 k/uL (3.8-10.6)
[2017-12-16 07:31] LABS: Calcium 8.5 mg/dL (8.4-10.2); Potassium 4.6 mmol/L (3.5-5.1)
[2017-12-16] MEDS: IPRATROPIUM-ALBUTEROL 3 ML NEB INHALATION SCH ×4 (07:54→20:40)
[2017-12-16] MEDS: INSULIN ASPART 100 UNIT/ML 1 ML 10 ML VIAL SQ SCH ×4 (08:26→22:06)
--- NOTE | 2017-12-16 10:15 | P.PN ---
Subjective Progress Note Date: 12/16/17 12/10/2017 72-year-old male with a past medical history significant for coronary artery disease, heart failure, COPD, diabetes, hypertension and hyperlipidemia who presented to the emergency room with a chief complaint of increased pain to the right lower extremities. The patient is somewhat of a poor historian. No family present at the bedside. The patient has had chronic chronic cellulitis to the bilateral lower extremities along with a wound to the posterior aspect of the left lower extremity. The patient states his legs were starting to improve but recently he has been experiencing more pain to the left leg. He decided to come to the emergency room for further evaluation. He patient states he has occasional shortness of breath, but states that is not the main reason he came to the emergency room. He denies chest pain or pressure. Denies nausea or vomiting. He denies fever or chills. Denies difficulty urinating or change in bowel habits. Chest x-ray completed in the emergency room reveals right middle lobe and right lower lobe infiltrates with small right pleural effusion. Pulmonary vascular prominence. Correlate for failure. Laboratory data upon admission reveals white count 8.2. Hemoglobin 11.7. Platelet count 211. Sodium 136. Potassium 5.1. BUN 90. Crit and 3.05. Glucose 281. Lactic acid 1.4. AST 60. ALT 83. Alkaline phosphatase 109. Troponin 0.014. BNP 13,500. The patient was started on IV diuretics and antibiotics and admitted to the hospital under the care of Dr. Adamson. 12/11/2017-Note per Dr. Beasley On-year-old admitted with infected ulcers of the right leg and patient is presently on Unasyn infectious disease evaluated the patient patient also has an pulmonary edema with right-sided pleural effusion patient is on IV Lasix will repeat the chest x-ray tomorrow if there is no significant improvement in pleural effusion patient may need the pleural fluid drainage patient clinically does not appear to have pneumonia. 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 12/12/2017-Note per Dr. Beasley Patient is doing much better and patient is on oral Lasix at this time creatinine mild worsening nephrology evaluated the patient patient is getting an ultrasound of the chest for pleural effusion for possible drainage. His blood sugars are bit low we'll cut down the Lantus as patient is on very low- dose of Lantus probably can be held just use sliding scale insulin. 12/13/2017 Patient seen and examined at the bedside. Patient states he is having some pain in his left lower extremity, although improved. He denies shortness of breath or chest pain. He states he is tired and did not sleep well last night. Patient 's creatinine is 4.05 today up from 3.53 yesterday. His Lasix was discontinued per nephrology. Patient underwent an ultrasound of the kidneys which was unremarkable. Chest x-ray from this morning reveals findings similar to prior exams, chronic. There may be lower lobe pneumonia, effusion, edema or atelectasis. Correlate to exclude interstitial edema. Ultrasound of the chest was completed yesterday revealing right pleural effusion pocket size of 1.7 cm. Patient is being followed by pulmonary during hospitalization. Patient's blood pressure is stable with a recent reading of 121/68. He is afebrile. He is on room air with oxygen saturations greater than 92%. He is being followed by infectious disease. He is currently receiving Unasyn with wound care with Aquacel Silver dressing and ISACC bandage. 12/14/2017 Patient seen and examined at the bedside with Dr. Adamson. Patient states he did not sleep well last night. He reports nausea overnight and an episode of emesis. Patient states he still has some nausea this morning, although improved. Potassium is 5.3. BUN 108. Creatinine 4.41, which is elevated from 4.05 yesterday. Lasix remains on hold per nephrology. Pulmonary believes xray is consistent with right mid and lower lobe pneumonia. Infectious disease is following. He remains on Unasyn. 12/15/2017 Patient seen and examined the bedside with Dr. Adamson. Patient was started on IV fluids yesterday for worsening kidney function. His creatinine today is 5.24. BUN 111. patient does report decreased urine output. Testing for influenza A and B was completed yesterday and was negative. Patient currently denies shortness of breath or chest pain. He reports some nausea still this morning, but no episodes of emesis. He is upset that he can not be discharged home today. 12/16/2017 Patient seen and examined at the bedside. Patient had right femoral dialysis catheter placed yesterday due to worsening kidney function. He received dialysis yesterday evening and is scheduled to have dialysis again this morning. Unsure if patient will require fdc dialysis. If so, patient will need permacath placed and eliquis will need to be held. He reports he feels much after getting dialysis yesterday. Creatinine is 4.07 today. Denies further episodes of nausea or dry heaves. Denies chest pain or pressure. Denies shortness of breath. Vital signs are stable. Objective - Vital Signs Vital signs: Vital Signs Temp 98.0 F 12/16/17 08:00 Pulse 60 12/16/17 08:00 Resp 18 12/16/17 00:14 BP 109/58 12/16/17 08:00 Pulse Ox 98 12/16/17 08:00 Intake & Output 12/15/17 12/16/17 12/16/17 18:59 06:59 18:59 Intake Total 450 150 Output Total 50 70 Balance 400 80 Weight 66 kg Intake: IV 30 Intake, IV Titration 150 Amount Sodium Chloride 0.9% 1, 150 000 ml @ 75 mls/hr IV . [id number] [facility] Rx#:[id number] Oral 420 Output: Urine 50 70 Other: Voiding Method Urinal - Exam GENERAL: This is a 72-year-old male in no apparent distress at the time of examination. Pleasant and cooperative. HEENT: Head is atraumatic, normocephalic. Pupils are equal, round, and reactive to light. Sclerae anicteric. Conjunctivae are clear. Mucus membranes of the mouth are moist. Neck is supple. RESPIRATORY: Diminished, some fine rales to right lower lobe. No wheezing or rhonchi auscultated. No use of accessory muscles. Patient maintaining oxygen saturation greater than 92%. No chest wall tenderness is noted on palpation or with deep breathing. CARDIOVASCULAR: Regular rate and rhythm. S1 and S2 noted. No JVD noted. No S3 or S4 noted. GASTROINTESTINAL: No distention noted. Abdomen soft and round. Normal active bowel sounds auscultated x 4 quadrants. No pain or tenderness noted upon palpation. INTEGUMENTARY: No cyanosis. No jaundice. Chronic discoloration noted to bilateral lower extremities. Isacc wrap with dressing to left lower extremity. Will defer wound assessment to infectious disease. EXTREMITIES: 1+ peripheral pulses. NEUROLOGIC: Cranial nerves II-XII intact. PSYCHIATRIC: Awake, alert, and oriented X 3. Appropriate affect. Intact judgement and insight. - Labs CBC & Chem 7: 12/16/17 06:46 12/16/17 06:46 Labs: Abnormal Lab Results - Last 24 Hours (Table) 12/15/17 12/15/17 12/15/17 Range/Units 11:15 11:44 17:06 RBC (4.30-5.90) m/uL Hgb (13.0-17.5) gm/dL Hct (39.0-53.0) % MCV (80.0-100.0) fL MCHC (31.0-37.0) g/dL RDW (11.5-15.5) % Neutrophils # (1.3-7.7) k/uL Lymphocytes # (1.0-4.8) k/uL PT 14.5 H (9.0-12.0) sec INR 1.6 H (<1.2) BUN (9-20) mg/dL Creatinine (0.66-1.25) mg/dL Glucose (74-99) mg/dL POC Glucose (mg/dL) 121 H 110 H (75-99) mg/dL 12/15/17 12/16/17 12/16/17 Range/Units 20:11 06:46 06:46 RBC 3.28 L (4.30-5.90) m/uL Hgb 10.2 L (13.0-17.5) gm/dL Hct 33.5 L (39.0-53.0) % MCV 102.2 H (80.0-100.0) fL MCHC 30.4 L (31.0-37.0) g/dL RDW 17.4 H (11.5-15.5) % Neutrophils # 8.2 H (1.3-7.7) k/uL Lymphocytes # 0.7 L (1.0-4.8) k/uL PT (9.0-12.0) sec INR (<1.2) BUN 84 H (9-20) mg/dL Creatinine 4.07 H (0.66-1.25) mg/dL Glucose 121 H (74-99) mg/dL POC Glucose (mg/dL) 111 H (75-99) mg/dL 12/16/17 Range/Units 06:57 RBC (4.30-5.90) m/uL Hgb (13.0-17.5) gm/dL Hct (39.0-53.0) % MCV (80.0-100.0) fL MCHC (31.0-37.0) g/dL RDW (11.5-15.5) % Neutrophils # (1.3-7.7) k/uL Lymphocytes # (1.0-4.8) k/uL PT (9.0-12.0) sec INR (<1.2) BUN (9-20) mg/dL Creatinine (0.66-1.25) mg/dL Glucose (74-99) mg/dL POC Glucose (mg/dL) 129 H (75-99) mg/dL Microbiology - Last 24 Hours (Table) 12/09/17 14:40 Blood Culture - Final Blood No Growth after 144 hours Assessment and Plan Plan: ASSESSMENT: Acute exacerbation of congestive heart failure, diastolic, EF 45-50%, BNP 13,500 Right middle and right lower lobe infiltrates, pneumonia ruled in per pulmonary , community-acquired Right pleural effusion, suspect cardiac in nature Cellulitis of left lower extremity, present on admission, with chronic wounds History of coronary artery disease with previous stent placement COPD, no evidence of acute exacerbation Acute kidney injury, secondary to diuresis, worsening, started on hemodialysis 11/14/2017 Chronic kidney disease, stage IV Diabetes mellitus, type II Hyperlipidemia Hypertension Paroxysmal atrial fibrillation, on long-term anticoagulation with Eliquis Nausea due to worsening renal function, improved PLAN: Infectious disease, nephrology, cardiology, and pulmonary on consult. Appreciate recommendations and input Antibiotics per ID. Currently on Unasyn Continue wound care with Aquacel silver and isacc wrap per ID recommendations Continue to hold Lasix Dialysis per nephrology If adjunct faculty for medical terminology dialysis is needed, recommend permacath in near future due to femoral dialysis catheter and risk for infection. Patient is on Eliquis which would need to be held. Await further input from nephrology. Home meds as appropriate Monitor labs GI prophylaxis: Protonix 40 mg PO Daily DVT prophylaxis: Eliquis 2.5mg BID Discharge plan: Patient to return home when stable with home care Monitor vital signs and address as appropriate Further recommendations pending patient's course Nurse practitioner note has been reviewed by physician. Signing provider agrees with the documented findings, assessment, and plan of care.
[2017-12-16 11:20] VITALS: BMI 22.8
--- NOTE | 2017-12-16 11:36 | P.PN ---
Subjective Progress Note Date: 12/16/17 Principal diagnosis: Moderate right-sided pleural effusion, most likely cardiac in nature, acute on chronic congestive heart failure. This is a 72-year-old white male with history of multiple medical problems including chronic congestive heart failure, coronary artery disease, COPD, diabetes, previous UT, hypertension, patient presented to the ER with mostly increased swelling and pain in both lower extremities. However pain and swelling seems to be more in the left lower extremity. Patient is known to have history of chronic cellulitis of both lower extremities. Apparently the cellulitis has been getting worse, patient was admitted for IV antibiotics. Chest x-ray on admission showed good sized right-sided pleural effusion and pulmonary vasculature prominence, consistent with mild pulmonary edema. Considering the pleural effusion, I was asked to see him on consultation. His BNP level is over 13,000. Patient is already on diuretics, and he is already and antibiotics. I reviewed the chest x-ray, patient has no active pulmonary symptoms at present, hence I recommended we continue with diuretics, the pleural effusion is most likely cardiac in nature unless for otherwise, should respond to diuretics, however if it does not and it gets any larger, or if the patient becomes symptomatic, right-sided thoracentesis could be considered. Patient denies any shortness of breath at present, no chest pain. Denies any headaches, no blurred vision no dizziness, no nausea no vomiting no abdominal pain no melena no hematemesis. Patient used to see Dr. العراقي our office for his COPD, however his COPD presently seems to be stable On 12/12/2017 patient seen in follow-up on selective care unit. He is awake and alert, oriented 3, denies any distress, no shortness of breath, no chest pain. Her pulse ox is 92%, he is afebrile, hemodynamically stable, he is diuresing, he is in negative 1240 ML balance over the last 24 hours, he is on oral Lasix, in view of his worsening renal function, lung sounds are positive for crackles at bilateral bases. Patient will have a chest ultrasound for evaluation of his right pleural effusion. The patient is asymptomatic, patient is ambulating in the room, and tolerating activity fairly well. Today's lab work has been noted, WBC is 8.7, hemoglobin is 10.7, sodium is 136, the rest of electrolytes are unremarkable, BUN is 96, creatinine is 3.53. No fever, no chills, blood cultures are negative. Left lower extremity is Isacc wrapped, patient is on Unasyn for his bilateral lower extremity cellulitis. On 12/13/2017 patient seen in follow-up on selective care unit. He is calm and comfortable, adhesive up in the chair, in no acute distress. Ultrasound of the chest did not reveal sizable pleural fluid pocket, 1.7 cm on the right, and nothing on the left. Room air pulse ox is 92%, patient is afebrile, lung sounds reveal coarse inspiratory crackles over right posterior mid and lower lung. Only a few crackles on the left base. No chest pain, no worsening dyspnea. No cough, no phlegm production. Patient is currently on Unasyn, primarily for cellulitis in his lower extremities. Chest x-ray has been reviewed by Dr. Bolanos, and shows increased density in the right, with obscuration of the right hemidiaphragm and heart border. Increased interstitium. Today's labs have been noted, WBCs 9.2, hemoglobin is 10.4, electrolytes are within normal limits, B1 is 91, creatinine is 4.05. Nephrology is following. On 12/14/2017 patient seen in follow-up on selective care unit. He is nauseated today, he is having episodes of vomiting. Denies denies any respiratory difficulty, he is 93% on room air, patient is afebrile, hemodynamically stable, lung sounds reveal coarse crackles over right mid and lower lung, relatively clear on the left. Blood cultures are negative, no fever , no chills, diuretics remain on hold, and patient's renal profile continues to worsen. Nephrology is following. Patient continues on Unasyn for his bilateral extremity cellulitis, and probable pneumonia in the right lung. No cough, no sputum production. On 12/15/2017 patient seen in follow-up on the selective care unit. Today he still feels nauseous, he has been dry heaving, but he denies any shortness of breath, denies any cough or phlegm production. There has been further worsening of his renal function, his BUN is 111, and creatinine is 5.24. CBC electrolytes are within normal limits, potassium is 5.0. Patient is afebrile, hemodynamically stable, on 2 L his pulse ox is 95%, lung sounds positive for some crackles over right mid and lower lung. Remains on Unasyn, he is on nebulized bronchodilators. Nephrology is following the patient in regards to his acute kidney injury, his diuretics remain on hold, patient has been receiving gentle IV hydration. From pulmonary perspective no acute complaints. The patient is seen again today 12/16/2017 in follow-up on the selective care unit. He is awake and alert in no acute distress. His nausea has settled down. He is receiving ultrafiltration currently. He did receive hemodialysis yesterday. He is maintaining good O2 saturations in the upper 90s on 3 L/m nasal cannula. He's been afebrile. Hemodynamically stable. White count 9.8. Hemoglobin 10.2. Creatinine 4.07. He remains on DuoNeb inhalations, Unasyn. Anticoagulated with Eliquis. Objective - Vital Signs Vital signs: Vital Signs Temp 98.0 F 12/16/17 08:00 Pulse 60 12/16/17 08:00 Resp 18 12/16/17 00:14 BP 109/58 12/16/17 08:00 Pulse Ox 98 12/16/17 08:00 Intake & Output 12/15/17 12/16/17 12/16/17 18:59 06:59 18:59 Intake Total 450 150 Output Total 50 70 Balance 400 80 Weight 66 kg 66 kg Intake: IV 30 Intake, IV Titration 150 Amount Sodium Chloride 0.9% 1, 150 000 ml @ 75 mls/hr IV . [id number] [facility] Rx#:[id number] Oral 420 Output: Urine 50 70 Other: Voiding Method Urinal - Exam GENERAL: Revealed a 72-year-old white male, very pleasant, in no distress. Nasal cannula in place. HEENT: Head is atraumatic, normocephalic PERRLA, EOMI, neck is supple, no thyromegaly, no icterus. RESPIRATORY: Diminished breath sounds coarse inspiratory crackles over right mid and lower base, minimal crackles over left base symmetrical chest expansion. CARDIOVASCULAR: Normal S1 and S2, no S3 gallop. 2/6 systolic murmur thought the precordium. GASTROINTESTINAL: Soft abdomen, nontender, no megaly, no rebound, no guarding. INTEGUMENTARY: No cyanosis. No jaundice. Chronic discoloration noted to bilateral lower extremities. Large dressing noted to left lower extremity. Will defer wound assessment to infectious disease. EXTREMITIES: 1+ peripheral pulses. NEUROLOGIC: Alert, oriented 3, no gross focal neurologic deficit. PSYCHIATRIC: Normal mood, affect, normal mental status examination. Lymphatics: No lymphadenopathy. - Labs CBC & Chem 7: 12/16/17 06:46 12/16/17 06:46 Labs: Abnormal Lab Results - Last 24 Hours (Table) 12/15/17 12/15/17 12/15/17 Range/Units 11:44 17:06 20:11 RBC (4.30-5.90) m/uL Hgb (13.0-17.5) gm/dL Hct (39.0-53.0) % MCV (80.0-100.0) fL MCHC (31.0-37.0) g/dL RDW (11.5-15.5) % Neutrophils # (1.3-7.7) k/uL Lymphocytes # (1.0-4.8) k/uL PT 14.5 H (9.0-12.0) sec INR 1.6 H (<1.2) BUN (9-20) mg/dL Creatinine (0.66-1.25) mg/dL Glucose (74-99) mg/dL POC Glucose (mg/dL) 110 H 111 H (75-99) mg/dL 12/16/17 12/16/17 12/16/17 Range/Units 06:46 06:46 06:57 RBC 3.28 L (4.30-5.90) m/uL Hgb 10.2 L (13.0-17.5) gm/dL Hct 33.5 L (39.0-53.0) % MCV 102.2 H (80.0-100.0) fL MCHC 30.4 L (31.0-37.0) g/dL RDW 17.4 H (11.5-15.5) % Neutrophils # 8.2 H (1.3-7.7) k/uL Lymphocytes # 0.7 L (1.0-4.8) k/uL PT (9.0-12.0) sec INR (<1.2) BUN 84 H (9-20) mg/dL Creatinine 4.07 H (0.66-1.25) mg/dL Glucose 121 H (74-99) mg/dL POC Glucose (mg/dL) 129 H (75-99) mg/dL Microbiology - Last 24 Hours (Table) 12/09/17 14:40 Blood Culture - Final Blood No Growth after 144 hours Assessment and Plan Assessment: 1 moderate sized right-sided pleural effusion, most likely cardiac in nature unless proven otherwise. Repeat chest x-ray today. He did receive hemodialysis yesterday and today. 2 acute on chronic congestive heart failure, likely diastolic in nature considering his good LV function on the echocardiogram. 3 acute cellulitis of lower extremities, left more so than right. 4 history of underlying COPD, presently inactive. 5 coronary artery disease and previous stent placement 6 chronic kidney disease stage IV, status post temporary catheter placement and now on hemodialysis. 7 type 2 diabetes 8 hypertension 9 hyperlipidemia Plan: The patient was seen and evaluated by Dr. Cotter. We'll repeat a chest x-ray today after dialysis. He remains stable from the pulmonary standpoint. We'll continue with his current treatment plan. We'll continue to follow. I, the cosigning physician, performed a history & physical examination of the patient. Lungs sounds with scattered rhonchi more so in the right lung base. Maintaining good O2 saturations in the 90s on 3 L/m per nasal cannula.. I discussed the assessment and plan of care with my nurse practitioner, Rosa Boyce. I attest to the above note as dictated by her.
[2017-12-16] MEDS: POLYETHYLENE GLYCOL 3350 17 GM POWD.PACK PO SCH (11:57)
[2017-12-16] MEDS: METOPROLOL TARTRATE 25 MG TAB PO SCH ×2 (11:57→22:07)
[2017-12-16] MEDS: DOCUSATE 100 MG CAP PO SCH ×2 (11:57→22:06)
[2017-12-16 12:02] LABS: Glucose,Whole Blood 97 mg/dL (75-99)
[2017-12-16] MEDS: ALLOPURINOL 100 MG TAB PO SCH ×2 (12:26→22:06)
[2017-12-16] MEDS: CALCITRIOL 0.25 MCG CAP PO SCH (12:26)
[2017-12-16] MEDS: APIXABAN 2.5 MG TABLET PO SCH ×2 (12:26→22:06)
[2017-12-16] MEDS: CHOLECALCIFEROL 1,000 UNIT TAB PO SCH ×2 (12:26→22:06)
[2017-12-16] MEDS: FAMOTIDINE 20 MG TAB PO SCH (12:26)
--- NOTE | 2017-12-16 12:31 | CONS ---
CONSULTATION This is a 72-year-old gentleman who has past medical history of coronary artery disease, COPD, hypertension, congestive heart failure. Patient has been admitted to [facility]. I was called in by the Nephrology. Patient has a acute chronic renal failure. The patient needed an urgent dialysis catheter. MEDICAL HISTORY: History of hypertension, coronary artery disease, COPD, and cellulitis of the lower extremity. Neck is supple, trachea central. Chest clear to auscultation. Abdomen is soft. Femoral pulses are present. PLAN: Placement of the dialysis catheter. Since patient has been on Eliquis, we will decide to go to the femoral approach and then if the patient needs permanent, then we have to stop the Eliquis for 48 hours, placed into the right IJ. MMODL / IJN: [id number] /
--- NOTE | 2017-12-16 12:31 | XR ---
EXAMINATION TYPE: XR chest 1V portable DATE OF EXAM: 12/16/2017 COMPARISON: 12/13/2017 HISTORY: Pneumonia TECHNIQUE: Single frontal view of the chest is obtained. FINDINGS: Right-sided consolidation and pleural effusion are stable given differences in technique. Left lung clear. Postsurgical changes overlying the mediastinum. Atherosclerotic change aorta. Heart size stable. Diffuse osteopenia and arthropathy of the shoulders. IMPRESSION: 1. Stable right-sided infiltrate and pleural effusion.
--- NOTE | 2017-12-16 16:35 | PN ---
PROGRESS NOTE Patient is seen for followup for acute kidney injury. He was started on dialysis yesterday for uremia and progressive worsening of renal function. Patient's urine output had dropped. He had his first treatment yesterday. He states he is feeling slightly better. Nausea had improved to some degree. This morning patient is seen on dialysis. He is maintained on IV fluids. He had a femoral catheter placed, as patient was on Eliquis. Urine output for 24 hours was 850 mL. PHYSICAL EXAMINATION: Blood pressure is 109/58, heart rate 60 per minute. Patient is afebrile. EXAMINATION OF THE HEART: S1, S2. EXAMINATION OF LUNGS: Bilateral breath sounds are heard. ABDOMEN: Soft, non-tender. Examination of lower extremities shows bilateral feet to be wrapped. There is redness noted in his right lower extremity. [employer] exam is grossly intact. LABS: Labs from this morning show sodium 139, potassium 4.6, BUN 84, serum creatinine 4.07, hemoglobin 10.2 g/dL. ASSESSMENT: 1. Acute kidney injury with progressive renal failure, most likely acute tubular necrosis. UA is quite benign and there is no evidence of obstructive uropathy noted on ultrasound. Urine output is maintained; however, it is quite low. Patient was started on IV fluids. I will keep him on IV fluids at about 50 mL/hour. His chest x-ray shows left lung is clear and there is some infiltrate noted on the right lung. 2. Uremia with asterixis, currently improved. Expect further improvement with another 2 to 3 treatments. 3. Chronic kidney disease, stage IIIB, secondary to nephrosclerosis. Baseline creatinine about 1.7 to 2 mg/dL. 4. Bilateral lower extremity wounds and cellulitis, maintained on Unasyn. 5. Chronic atrial fibrillation, on Eliquis. 6. Cardiomyopathy, ejection fraction 45% to 50%. 7. Congestive heart failure on admission, currently not in significant failure. PLAN: Repeat dialysis tomorrow and maintain patient on gentle IV hydration. Continue to monitor urine output. MMODL / IJN: [id number] /
--- NOTE | 2017-12-16 17:05 | PN ---
PROGRESS NOTE DATE OF SERVICE: 12/16/2017 REASON FOR FOLLOWUP: Left leg venostasis ulcer with secondary cellulitis. INTERVAL HISTORY: The patient did get a femoral Yovani catheter for dialysis and was undergoing dialysis. Patient seemed to be slightly sleepy, lethargic, and did not answer any questions. No nausea or vomiting has been reported or any diarrhea. PHYSICAL EXAMINATION: Blood pressure is 104/56, pulse of 70, temperature 98.1. He is 90% on 3 L nasal cannula. General description is an elderly male lying in bed in no distress. RESPIRATORY SYSTEM: Unlabored breathing. Clear to auscultation anteriorly. HEART: S1, S2. Regular rate and rhythm. ABDOMEN: Soft. No tenderness. Left leg is currently dressed up. No obvious drainage on the dressing. LABS: Hemoglobin is 10.2, white count 9.8. BUN of 84, creatinine 4.7. DIAGNOSTIC IMPRESSION AND PLAN: Patient with left leg venostasis ulcer and secondary cellulitis. Continue local wound care with an Aquacel Silver dressing. Currently on Unasyn short course of oral Augmentin at discharge. Continue with supportive care. MMODL / IJN: [id number] /
[2017-12-16 17:27] LABS: Glucose,Whole Blood 138 mg/dL (75-99)
[2017-12-16 20:41] LABS: Glucose,Whole Blood 187 mg/dL (75-99)
[2017-12-16] MEDS: INSULIN DETEMIR 100 UNIT/ML 10 ML VIAL SQ SCH (22:06)
[2017-12-17 07:37] LABS: Glucose,Whole Blood 79 mg/dL (75-99)
--- NOTE | 2017-12-17 08:01 | P.PN ---
Subjective Patient is seen in follow-up for acute kidney injury on chronic kidney disease. He is currently being treated for left lower extremity cellulitis. Patient has chronic kidney disease stage III with baseline creatinine in the range of 1.7-2. Renal function was progressively worsening and he was also uremic and subsequently started on hemodialysis on Wednesday. He has undergone 2 treatments so far. Denies chest pain or shortness of breath. He is currently awake and alert. Vital signs are stable. General: The patient appeared well nourished and normally developed. HEENT: Head exam is unremarkable. Neck is without jugular venous distension. LUNGS: Lungs are clear to auscultation and percussion. Breath sounds decreased. HEART: Rate and Rhythm are regular. First and second heart sounds normal. No murmurs, rubs or gallops. ABDOMEN: Abdominal exam reveals normal bowel sounds. Non-tender and non- distended. No evidence of peritonitis. EXTREMITITES: Trace edema. Objective - Vital Signs Vital signs: Vital Signs Temp 98.8 F 12/16/17 23:00 Pulse 58 L 12/16/17 23:00 Resp 16 12/16/17 23:00 BP 118/57 12/16/17 23:00 Pulse Ox 99 12/16/17 23:00 Intake & Output 12/16/17 12/17/17 12/17/17 18:59 06:59 18:59 Intake Total 786 Output Total 200 150 Balance 586 -150 Weight 66 kg Intake: IV 100 Ampicillin-Sulbactam 3 gm 100 In Sodium Chloride 0.9% 100 ml @ 200 mls/hr IVPB Q12H [facility] Rx#:[id number] Intake, IV Titration 450 Amount Sodium Chloride 0.9% 1, 450 000 ml @ 75 mls/hr IV . [id number] [facility] Rx#:[id number] Oral 236 Output: Urine 200 150 Other: Voiding Method Urinal # Voids 1 - Labs CBC & Chem 7: 12/16/17 06:46 12/16/17 06:46 Labs: Abnormal Lab Results - Last 24 Hours (Table) 12/16/17 12/16/17 Range/Units 17:15 20:29 POC Glucose (mg/dL) 138 H 187 H (75-99) mg/dL Assessment and Plan Plan: Assessment: 1. Acute kidney injury secondary to ATN secondary to infection. Urinalysis is benign. No evidence of hydronephrosis noted on imaging. Creatinine peaked at 5.2 this admission and he was subsequently started on hemodialysis for uremia. 2. Uremia with asterixis improving with hemodialysis. 3. Left lower extremity cellulitis maintained on antibiotics per infectious disease. 4. Systolic CHF with ejection fraction of 45-50%. Currently compensated. 5. 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 6. Chronic kidney disease mineral bone disease maintained on calcitriol. 7. Insulin-dependent diabetes mellitus. Plan: Third treatment of hemodialysis today. Strict I's and O's. Monitor over the weekend without hemodialysis unless urgency arises. Maintain normal saline at 50 mL an hour for now. Encourage oral intake.
[2017-12-17] MEDS: IPRATROPIUM-ALBUTEROL 3 ML NEB INHALATION SCH ×4 (08:21→19:53)
--- NOTE | 2017-12-17 08:53 | P.PN ---
Subjective Progress Note Date: 12/17/17 12/10/2017 72-year-old male with a past medical history significant for coronary artery disease, heart failure, COPD, diabetes, hypertension and hyperlipidemia who presented to the emergency room with a chief complaint of increased pain to the right lower extremities. The patient is somewhat of a poor historian. No family present at the bedside. The patient has had chronic chronic cellulitis to the bilateral lower extremities along with a wound to the posterior aspect of the left lower extremity. The patient states his legs were starting to improve but recently he has been experiencing more pain to the left leg. He decided to come to the emergency room for further evaluation. He patient states he has occasional shortness of breath, but states that is not the main reason he came to the emergency room. He denies chest pain or pressure. Denies nausea or vomiting. He denies fever or chills. Denies difficulty urinating or change in bowel habits. Chest x-ray completed in the emergency room reveals right middle lobe and right lower lobe infiltrates with small right pleural effusion. Pulmonary vascular prominence. Correlate for failure. Laboratory data upon admission reveals white count 8.2. Hemoglobin 11.7. Platelet count 211. Sodium 136. Potassium 5.1. BUN 90. Crit and 3.05. Glucose 281. Lactic acid 1.4. AST 60. ALT 83. Alkaline phosphatase 109. Troponin 0.014. BNP 13,500. The patient was started on IV diuretics and antibiotics and admitted to the hospital under the care of Dr. Adamson. 12/11/2017-Note per Dr. Beasley On-year-old admitted with infected ulcers of the right leg and patient is presently on Unasyn infectious disease evaluated the patient patient also has an pulmonary edema with right-sided pleural effusion patient is on IV Lasix will repeat the chest x-ray tomorrow if there is no significant improvement in pleural effusion patient may need the pleural fluid drainage patient clinically does not appear to have pneumonia. 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 12/12/2017-Note per Dr. Beasley Patient is doing much better and patient is on oral Lasix at this time creatinine mild worsening nephrology evaluated the patient patient is getting an ultrasound of the chest for pleural effusion for possible drainage. His blood sugars are bit low we'll cut down the Lantus as patient is on very low- dose of Lantus probably can be held just use sliding scale insulin. 12/13/2017 Patient seen and examined at the bedside. Patient states he is having some pain in his left lower extremity, although improved. He denies shortness of breath or chest pain. He states he is tired and did not sleep well last night. Patient 's creatinine is 4.05 today up from 3.53 yesterday. His Lasix was discontinued per nephrology. Patient underwent an ultrasound of the kidneys which was unremarkable. Chest x-ray from this morning reveals findings similar to prior exams, chronic. There may be lower lobe pneumonia, effusion, edema or atelectasis. Correlate to exclude interstitial edema. Ultrasound of the chest was completed yesterday revealing right pleural effusion pocket size of 1.7 cm. Patient is being followed by pulmonary during hospitalization. Patient's blood pressure is stable with a recent reading of 121/68. He is afebrile. He is on room air with oxygen saturations greater than 92%. He is being followed by infectious disease. He is currently receiving Unasyn with wound care with Aquacel Silver dressing and ISACC bandage. 12/14/2017 Patient seen and examined at the bedside with Dr. Adamson. Patient states he did not sleep well last night. He reports nausea overnight and an episode of emesis. Patient states he still has some nausea this morning, although improved. Potassium is 5.3. BUN 108. Creatinine 4.41, which is elevated from 4.05 yesterday. Lasix remains on hold per nephrology. Pulmonary believes xray is consistent with right mid and lower lobe pneumonia. Infectious disease is following. He remains on Unasyn. 12/15/2017 Patient seen and examined the bedside with Dr. Adamson. Patient was started on IV fluids yesterday for worsening kidney function. His creatinine today is 5.24. BUN 111. patient does report decreased urine output. Testing for influenza A and B was completed yesterday and was negative. Patient currently denies shortness of breath or chest pain. He reports some nausea still this morning, but no episodes of emesis. He is upset that he can not be discharged home today. 12/16/2017 Patient seen and examined at the bedside. Patient had right femoral dialysis catheter placed yesterday due to worsening kidney function. He received dialysis yesterday evening and is scheduled to have dialysis again this morning. Unsure if patient will require senior living dialysis. If so, patient will need permacath placed and eliquis will need to be held. He reports he feels much after getting dialysis yesterday. Creatinine is 4.07 today. Denies further episodes of nausea or dry heaves. Denies chest pain or pressure. Denies shortness of breath. Vital signs are stable. 12/17/2017 Patient seen and examined at the bedside. Patient has completed two dialysis treatments. Case discussed with Dr. Caputo. Patient will receive dialysis again today and then will remain off dialysis for the weekend. A decision will then be made early next week if patient will be able to come off dialysis or if he will require senior living dialysis and permacath placement. Will continue Eliquis for now. Patient denies shortness of breath. Denies chest pain or pressure. Denies nausea or vomiting. Vital signs are stable. He is afebrile. Lab work from this morning is pending. Objective - Vital Signs Vital signs: Vital Signs Temp 98.8 F 12/16/17 23:00 Pulse 58 L 12/16/17 23:00 Resp 16 12/16/17 23:00 BP 118/57 12/16/17 23:00 Pulse Ox 99 12/16/17 23:00 Intake & Output 12/16/17 12/17/17 12/17/17 18:59 06:59 18:59 Intake Total 786 Output Total 200 150 Balance 586 -150 Weight 66 kg Intake: IV 100 Ampicillin-Sulbactam 3 gm 100 In Sodium Chloride 0.9% 100 ml @ 200 mls/hr IVPB Q12H [facility] Rx#:[id number] Intake, IV Titration 450 Amount Sodium Chloride 0.9% 1, 450 000 ml @ 75 mls/hr IV . [id number] [facility] Rx#:[id number] Oral 236 Output: Urine 200 150 Other: Voiding Method Urinal # Voids 1 - Exam GENERAL: This is a 72-year-old male in no apparent distress at the time of examination. Pleasant and cooperative. HEENT: Head is atraumatic, normocephalic. Pupils are equal, round, and reactive to light. Sclerae anicteric. Conjunctivae are clear. Mucus membranes of the mouth are moist. Neck is supple. RESPIRATORY: Diminished. No wheezing or rhonchi auscultated. No use of accessory muscles. Patient maintaining oxygen saturation greater than 92%. No chest wall tenderness is noted on palpation or with deep breathing. CARDIOVASCULAR: Regular rate and rhythm. S1 and S2 noted. No JVD noted. No S3 or S4 noted. GASTROINTESTINAL: No distention noted. Abdomen soft and round. Normal active bowel sounds auscultated x 4 quadrants. No pain or tenderness noted upon palpation. INTEGUMENTARY: No cyanosis. No jaundice. Chronic discoloration noted to bilateral lower extremities. Isacc wrap with dressing to left lower extremity. Will defer wound assessment to infectious disease. EXTREMITIES: 1+ peripheral pulses. NEUROLOGIC: Cranial nerves II-XII intact. PSYCHIATRIC: Awake, alert, and oriented X 3. Appropriate affect. Intact judgement and insight. - Labs CBC & Chem 7: 12/16/17 06:46 12/16/17 06:46 Labs: Abnormal Lab Results - Last 24 Hours (Table) 12/16/17 12/16/17 Range/Units 17:15 20:29 POC Glucose (mg/dL) 138 H 187 H (75-99) mg/dL Assessment and Plan Plan: ASSESSMENT: Acute exacerbation of congestive heart failure, diastolic, EF 45-50%, BNP 13,500 Right middle and right lower lobe infiltrates, pneumonia ruled in per pulmonary progess note 12/15/17, community-acquired Right pleural effusion, suspect cardiac in nature Cellulitis of left lower extremity, present on admission, with chronic wounds History of coronary artery disease with previous stent placement COPD, no evidence of acute exacerbation Acute kidney injury, secondary to diuresis, although worsening off diuretics, started on hemodialysis 11/14/2017 Chronic kidney disease, stage IV Diabetes mellitus, type II Hyperlipidemia Hypertension Paroxysmal atrial fibrillation, on long-term anticoagulation with Eliquis Nausea due to worsening renal function, improved PLAN: Infectious disease, nephrology, cardiology, and pulmonary on consult. Appreciate recommendations and input Antibiotics per ID. Currently on Unasyn Continue wound care with Aquacel silver and isacc wrap per ID recommendations Continue to hold Lasix Patient will receive dialysis again today and then will remain off dialysis for the weekend. A decision will then be made early next week if patient will be able to come off dialysis or if he will require senior living dialysis and permacath placement. Will continue Eliquis for now. Home meds as appropriate Monitor labs GI prophylaxis: Protonix 40 mg PO Daily DVT prophylaxis: Eliquis 2.5mg BID Discharge plan: Patient to return home when stable with home care Monitor vital signs and address as appropriate Further recommendations pending patient's course Nurse practitioner note has been reviewed by physician. Signing provider agrees with the documented findings, assessment, and plan of care.
[2017-12-17] MEDS: INSULIN ASPART 100 UNIT/ML 1 ML 10 ML VIAL SQ SCH ×4 (08:55→21:40)
[2017-12-17] MEDS ORDERED: AMPICILLIN-SULBACTAM 3 GM in SODIUM CHLORIDE 0.9% 100 ML IVPB SCH (09:00)
[2017-12-17] MEDS: METOPROLOL TARTRATE 25 MG TAB PO SCH ×2 (09:05→21:39)
[2017-12-17] MEDS: SODIUM CHLORIDE 0.9% 1,000 ML IV SCH (09:10)
[2017-12-17] MEDS: CALCITRIOL 0.25 MCG CAP PO SCH (09:11)
[2017-12-17] MEDS: DOCUSATE 100 MG CAP PO SCH ×2 (09:11→21:39)
[2017-12-17] MEDS: ALLOPURINOL 100 MG TAB PO SCH ×2 (09:11→21:39)
[2017-12-17] MEDS: CHOLECALCIFEROL 1,000 UNIT TAB PO SCH ×2 (09:11→21:39)
[2017-12-17] MEDS: FAMOTIDINE 20 MG TAB PO SCH (09:11)
[2017-12-17] MEDS: POLYETHYLENE GLYCOL 3350 17 GM POWD.PACK PO SCH (09:11)
[2017-12-17] MEDS: APIXABAN 2.5 MG TABLET PO SCH ×2 (09:11→21:39)
[2017-12-17 10:07] LABS: Calcium 8.6 mg/dL (8.4-10.2); Potassium 4.5 mmol/L (3.5-5.1)
[2017-12-17 11:59] LABS: Glucose,Whole Blood 70 mg/dL (75-99)
--- NOTE | 2017-12-17 13:35 | P.PN ---
Subjective Progress Note Date: 12/17/17 Principal diagnosis: Moderate right-sided pleural effusion, most likely cardiac in nature, acute on chronic congestive heart failure. This is a 72-year-old white male with history of multiple medical problems including chronic congestive heart failure, coronary artery disease, COPD, diabetes, previous [place], hypertension, patient presented to the ER with mostly increased swelling and pain in both lower extremities. However pain and swelling seems to be more in the left lower extremity. Patient is known to have history of chronic cellulitis of both lower extremities. Apparently the cellulitis has been getting worse, patient was admitted for IV antibiotics. Chest x-ray on admission showed good sized right-sided pleural effusion and pulmonary vasculature prominence, consistent with mild pulmonary edema. Considering the pleural effusion, I was asked to see him on consultation. His BNP level is over 13,000. Patient is already on diuretics, and he is already and antibiotics. I reviewed the chest x-ray, patient has no active pulmonary symptoms at present, hence I recommended we continue with diuretics, the pleural effusion is most likely cardiac in nature unless for otherwise, should respond to diuretics, however if it does not and it gets any larger, or if the patient becomes symptomatic, right-sided thoracentesis could be considered. Patient denies any shortness of breath at present, no chest pain. Denies any headaches, no blurred vision no dizziness, no nausea no vomiting no abdominal pain no melena no hematemesis. Patient used to see Dr. العراقي our office for his COPD, however his COPD presently seems to be stable On 12/12/2017 patient seen in follow-up on selective care unit. He is awake and alert, oriented 3, denies any distress, no shortness of breath, no chest pain. Her pulse ox is 92%, he is afebrile, hemodynamically stable, he is diuresing, he is in negative 1240 ML balance over the last 24 hours, he is on oral Lasix, in view of his worsening renal function, lung sounds are positive for crackles at bilateral bases. Patient will have a chest ultrasound for evaluation of his right pleural effusion. The patient is asymptomatic, patient is ambulating in the room, and tolerating activity fairly well. Today's lab work has been noted, WBC is 8.7, hemoglobin is 10.7, sodium is 136, the rest of electrolytes are unremarkable, BUN is 96, creatinine is 3.53. No fever, no chills, blood cultures are negative. Left lower extremity is Isacc wrapped, patient is on Unasyn for his bilateral lower extremity cellulitis. On 12/13/2017 patient seen in follow-up on selective care unit. He is calm and comfortable, adhesive up in the chair, in no acute distress. Ultrasound of the chest did not reveal sizable pleural fluid pocket, 1.7 cm on the right, and nothing on the left. Room air pulse ox is 92%, patient is afebrile, lung sounds reveal coarse inspiratory crackles over right posterior mid and lower lung. Only a few crackles on the left base. No chest pain, no worsening dyspnea. No cough, no phlegm production. Patient is currently on Unasyn, primarily for cellulitis in his lower extremities. Chest x-ray has been reviewed by Dr. Bolanos, and shows increased density in the right, with obscuration of the right hemidiaphragm and heart border. Increased interstitium. Today's labs have been noted, WBCs 9.2, hemoglobin is 10.4, electrolytes are within normal limits, B1 is 91, creatinine is 4.05. Nephrology is following. On 12/14/2017 patient seen in follow-up on selective care unit. He is nauseated today, he is having episodes of vomiting. Denies denies any respiratory difficulty, he is 93% on room air, patient is afebrile, hemodynamically stable, lung sounds reveal coarse crackles over right mid and lower lung, relatively clear on the left. Blood cultures are negative, no fever , no chills, diuretics remain on hold, and patient's renal profile continues to worsen. Nephrology is following. Patient continues on Unasyn for his bilateral extremity cellulitis, and probable pneumonia in the right lung. No cough, no sputum production. On 12/15/2017 patient seen in follow-up on the selective care unit. Today he still feels nauseous, he has been dry heaving, but he denies any shortness of breath, denies any cough or phlegm production. There has been further worsening of his renal function, his BUN is 111, and creatinine is 5.24. CBC electrolytes are within normal limits, potassium is 5.0. Patient is afebrile, hemodynamically stable, on 2 L his pulse ox is 95%, lung sounds positive for some crackles over right mid and lower lung. Remains on Unasyn, he is on nebulized bronchodilators. Nephrology is following the patient in regards to his acute kidney injury, his diuretics remain on hold, patient has been receiving gentle IV hydration. From pulmonary perspective no acute complaints. The patient is seen again today 12/16/2017 in follow-up on the selective care unit. He is awake and alert in no acute distress. His nausea has settled down. He is receiving ultrafiltration currently. He did receive hemodialysis yesterday. He is maintaining good O2 saturations in the upper 90s on 3 L/m nasal cannula. He's been afebrile. Hemodynamically stable. White count 9.8. Hemoglobin 10.2. Creatinine 4.07. He remains on DuoNeb inhalations, Unasyn. Anticoagulated with Eliquis. Patient seen again today 12/17/2017 in follow-up on the selective care unit. He is currently receiving a another round of ultrafiltration. His chest x-ray continues to show improvement. He is currently afebrile. Maintaining O2 saturations in the 90s on 3 L/m per nasal cannula. Creatinine 3.95. He remains on DuoNeb inhalations, Unasyn, Eliquis. Objective - Vital Signs Vital signs: Vital Signs Temp 98.1 F 12/17/17 07:37 Pulse 64 12/17/17 13:15 Resp 16 12/17/17 07:37 BP 86/49 12/17/17 07:37 Pulse Ox 96 12/17/17 07:37 Intake & Output 12/16/17 12/17/17 12/17/17 18:59 06:59 18:59 Intake Total 786 Output Total 200 150 Balance 586 -150 Weight 66 kg Intake: IV 100 Ampicillin-Sulbactam 3 gm 100 In Sodium Chloride 0.9% 100 ml @ 200 mls/hr IVPB Q12H [facility] Rx#:[id number] Intake, IV Titration 450 Amount Sodium Chloride 0.9% 1, 450 000 ml @ 75 mls/hr IV . [id number] [facility] Rx#:[id number] Oral 236 Output: Urine 200 150 Other: Voiding Method Urinal # Voids 1 - Exam GENERAL: Revealed a 72-year-old white male, very pleasant, in no distress. Nasal cannula in place. HEENT: Head is atraumatic, normocephalic PERRLA, EOMI, neck is supple, no thyromegaly, no icterus. RESPIRATORY: Diminished breath sounds coarse inspiratory crackles over right mid and lower base, minimal crackles over left base symmetrical chest expansion. CARDIOVASCULAR: Normal S1 and S2, no S3 gallop. 2/6 systolic murmur thought the precordium. GASTROINTESTINAL: Soft abdomen, nontender, no megaly, no rebound, no guarding. INTEGUMENTARY: No cyanosis. No jaundice. Chronic discoloration noted to bilateral lower extremities. Large dressing noted to left lower extremity. Will defer wound assessment to infectious disease. EXTREMITIES: 1+ peripheral pulses. NEUROLOGIC: Alert, oriented 3, no gross focal neurologic deficit. PSYCHIATRIC: Normal mood, affect, normal mental status examination. Lymphatics: No lymphadenopathy. - Labs CBC & Chem 7: 12/16/17 06:46 12/17/17 08:20 Labs: Abnormal Lab Results - Last 24 Hours (Table) 12/16/17 12/16/17 12/17/17 Range/Units 17:15 20:29 08:20 BUN 71 H (9-20) mg/dL Creatinine 3.95 H (0.66-1.25) mg/dL Glucose 70 L (74-99) mg/dL POC Glucose (mg/dL) 138 H 187 H (75-99) mg/dL 12/17/17 Range/Units 11:46 BUN (9-20) mg/dL Creatinine (0.66-1.25) mg/dL Glucose (74-99) mg/dL POC Glucose (mg/dL) 70 L (75-99) mg/dL Assessment and Plan Assessment: Impression: 1 moderate sized right-sided pleural effusion, most likely cardiac in nature unless proven otherwise. Chest x-ray improving especially in the right He did receive ultrafiltration again today. 2 acute on chronic congestive heart failure, likely diastolic in nature considering his good LV function on the echocardiogram. 3 acute cellulitis of lower extremities, left more so than right. 4 history of underlying COPD, presently inactive. 5 coronary artery disease and previous stent placement 6 chronic kidney disease stage IV, status post temporary catheter placement and now on hemodialysis. 7 type 2 diabetes 8 hypertension 9 hyperlipidemia Plan: The patient was seen and evaluated by Dr. Cotter. Chest x-ray reviewed and improved. He remains stable from the pulmonary standpoint. Creatinine improving. We'll continue to follow. I, the cosigning physician, performed a history & physical examination of the patient. Lungs sounds with scattered rhonchi more so in the right lung base. Maintaining good O2 saturations in the 90s on 3 L/m per nasal cannula.. I discussed the assessment and plan of care with my nurse practitioner, Rosa Boyce. I attest to the above note as dictated by her.
[2017-12-17 17:08] LABS: Glucose,Whole Blood 169 mg/dL (75-99)
[2017-12-17 20:12] LABS: Glucose,Whole Blood 212 mg/dL (75-99)
[2017-12-17] MEDS: INSULIN DETEMIR 100 UNIT/ML 10 ML VIAL SQ SCH (21:40)
[2017-12-17] MEDS: AMPICILLIN-SULBACTAM 3 GM in SODIUM CHLORIDE 0.9% 100 ML IVPB SCH (21:48)
[2017-12-18] MEDS: SODIUM CHLORIDE 0.9% 1,000 ML IV SCH (05:30)
[2017-12-18 07:18] LABS: Glucose,Whole Blood 68 mg/dL (75-99)
[2017-12-18 07:33] LABS: Calcium 8.4 mg/dL (8.4-10.2); Phosphorus 4.2 mg/dL (2.5-4.5); Potassium 3.9 mmol/L (3.5-5.1)
[2017-12-18 07:55] LABS: Glucose,Whole Blood 72 mg/dL (75-99)
[2017-12-18] MEDS: IPRATROPIUM-ALBUTEROL 3 ML NEB INHALATION SCH ×4 (08:10→20:23)
--- NOTE | 2017-12-18 08:13 | PN ---
PROGRESS NOTE DATE OF SERVICE: 12/17/2017. REASON FOR FOLLOWUP: Left leg venostasis ulcer with skin cellulitis. INTERVAL HISTORY: The patient is currently afebrile. He is breathing comfortably. He was undergoing dialysis and he was seen on rounds this morning. No chest pain, cough. No abdominal pain. No diarrhea. EXAMINATION: Blood pressure 111/64 with a pulse of 54, temperature of 98.3. He is 98% on 2 L nasal cannula. General description is a an elderly male lying in bed in no distress. RESPIRATORY SYSTEM: Unlabored breathing. Clear to auscultation anteriorly. HEART: S1, S2. Regular rate and rhythm. ABDOMEN: Soft. No tenderness. LABS: BUN 7 1, creatinine 0.95. DIAGNOSTIC IMPRESSION AND PLAN: Patient with a left leg venostasis ulcer with secondary cellulitis. The patient is currently covered with Unasyn. Local wound care with Aquacel Silver dressing. Continue supportive care. MMODL / IJN: [id number] /
[2017-12-18] MEDS: INSULIN ASPART 100 UNIT/ML 1 ML 10 ML VIAL SQ SCH ×4 (08:19→21:55)
[2017-12-18] MEDS: POLYETHYLENE GLYCOL 3350 17 GM POWD.PACK PO SCH (08:34)
[2017-12-18] MEDS: METOPROLOL TARTRATE 25 MG TAB PO SCH ×2 (08:34→21:54)
[2017-12-18] MEDS: APIXABAN 2.5 MG TABLET PO SCH ×2 (08:34→21:54)
[2017-12-18] MEDS: CHOLECALCIFEROL 1,000 UNIT TAB PO SCH ×2 (08:34→21:54)
[2017-12-18] MEDS: FAMOTIDINE 20 MG TAB PO SCH (08:35)
[2017-12-18] MEDS: ALLOPURINOL 100 MG TAB PO SCH ×2 (08:35→21:54)
[2017-12-18] MEDS: DOCUSATE 100 MG CAP PO SCH ×2 (08:35→21:54)
[2017-12-18] MEDS: AMPICILLIN-SULBACTAM 3 GM in SODIUM CHLORIDE 0.9% 100 ML IVPB SCH ×2 (09:55→21:54)
[2017-12-18] MEDS: CALCITRIOL 0.25 MCG CAP PO SCH (09:55)
--- NOTE | 2017-12-18 11:25 | P.PN ---
Subjective Progress Note Date: 12/18/17 Principal diagnosis: This is a 72-year-old seen in consultation because of ATN, hemodialysis dependent. Acute kidney injury is related to cellulitis and his legs both are involved and the left leg is worse than the right. Patient denies any fever chills has a good appetite. Is somewhat sleepy at the time of this exam. But the nursing staff tells me that he is awake and alert and oriented. I asked him on the right questions and uterine cancers. He looks tired and weak. Is known with COPD diabetes, coronary artery disease bypass graft, stent. Objective - Vital Signs Vital signs: Vital Signs Temp 98.2 F 12/18/17 07:30 Pulse 78 12/18/17 08:20 Resp 20 12/18/17 07:30 BP 104/53 12/18/17 07:30 Pulse Ox 100 12/18/17 07:30 Intake & Output 12/17/17 12/18/17 12/18/17 18:59 06:59 18:59 Intake Total 1200 940 Output Total 150 150 Balance 1050 790 Intake: Intake, IV Titration 550 Amount Sodium Chloride 0.9% 1, 550 000 ml @ 50 mls/hr IV . Q20H [facility] Rx#:[id number] Oral 1200 390 Output: Urine 150 150 Other: Voiding Method Urinal # Voids 1 1 On examination is sleepy but arousable and answers all the questions. Has mild asterixis HEENT exam no JVP neck is supple no facial asymmetry Lungs are clear to auscultation fair air entry bilaterally Heart sounds are grade 1-2 systolic ejection murmur Abdomen soft nontender no organomegaly status masses Extremity exam reveals Isacc wrap on the left leg and some minimal oozing at the top of this dressing just below his knee The right leg has moderate edema with some cellulitis in the lower third and a small scabbed area about an inch Neurologically sleepy but arousable and answers all the questions. Weak and tired though. - Labs CBC & Chem 7: 12/16/17 06:46 12/18/17 06:43 Labs: Abnormal Lab Results - Last 24 Hours (Table) 12/17/17 12/17/17 12/17/17 Range/Units 11:46 16:40 20:00 BUN (9-20) mg/dL Creatinine (0.66-1.25) mg/dL Glucose (74-99) mg/dL POC Glucose (mg/dL) 70 L 169 H 212 H (75-99) mg/dL 12/18/17 12/18/17 12/18/17 Range/Units 06:43 07:07 07:43 BUN 49 H (9-20) mg/dL Creatinine 2.91 H (0.66-1.25) mg/dL Glucose 66 L (74-99) mg/dL POC Glucose (mg/dL) 68 L 72 L (75-99) mg/dL Assessment and Plan Plan: 1 acute kidney injury with ATN dialysis dependent he had dialysis yesterday with the groin Yovani in the right side. 2. Chronic kidney disease with a baseline creatinine off 3. Cardiomyopathy ejection fraction 45-50% with coronary artery disease status post bypass graft and stent. 4. Diabetes mellitus. 5. Bilateral cellulitis of both lower legs. 6. Anemia hemoglobin at target at 10.2. Recommendation. 1. Will hold off dialysis and see how he does. 2. Monitor labs daily. 3. If she needs dialysis the next scheduled dialysis on Wednesday day after tomorrow 12/20/2017.
[2017-12-18 11:59] LABS: Glucose,Whole Blood 139 mg/dL (75-99)
--- NOTE | 2017-12-18 12:53 | P.PN ---
Subjective Progress Note Date: 12/18/17 Principal diagnosis: Moderate right-sided pleural effusion, most likely cardiac in nature, acute on chronic congestive heart failure. This is a 72-year-old white male with history of multiple medical problems including chronic congestive heart failure, coronary artery disease, COPD, diabetes, previous AR, hypertension, patient presented to the ER with mostly increased swelling and pain in both lower extremities. However pain and swelling seems to be more in the left lower extremity. Patient is known to have history of chronic cellulitis of both lower extremities. Apparently the cellulitis has been getting worse, patient was admitted for IV antibiotics. Chest x-ray on admission showed good sized right-sided pleural effusion and pulmonary vasculature prominence, consistent with mild pulmonary edema. Considering the pleural effusion, I was asked to see him on consultation. His BNP level is over 13,000. Patient is already on diuretics, and he is already and antibiotics. I reviewed the chest x-ray, patient has no active pulmonary symptoms at present, hence I recommended we continue with diuretics, the pleural effusion is most likely cardiac in nature unless for otherwise, should respond to diuretics, however if it does not and it gets any larger, or if the patient becomes symptomatic, right-sided thoracentesis could be considered. Patient denies any shortness of breath at present, no chest pain. Denies any headaches, no blurred vision no dizziness, no nausea no vomiting no abdominal pain no melena no hematemesis. Patient used to see Dr. العراقي our office for his COPD, however his COPD presently seems to be stable On 12/12/2017 patient seen in follow-up on selective care unit. He is awake and alert, oriented 3, denies any distress, no shortness of breath, no chest pain. Her pulse ox is 92%, he is afebrile, hemodynamically stable, he is diuresing, he is in negative 1240 ML balance over the last 24 hours, he is on oral Lasix, in view of his worsening renal function, lung sounds are positive for crackles at bilateral bases. Patient will have a chest ultrasound for evaluation of his right pleural effusion. The patient is asymptomatic, patient is ambulating in the room, and tolerating activity fairly well. Today's lab work has been noted, WBC is 8.7, hemoglobin is 10.7, sodium is 136, the rest of electrolytes are unremarkable, BUN is 96, creatinine is 3.53. No fever, no chills, blood cultures are negative. Left lower extremity is Isacc wrapped, patient is on Unasyn for his bilateral lower extremity cellulitis. On 12/13/2017 patient seen in follow-up on selective care unit. He is calm and comfortable, adhesive up in the chair, in no acute distress. Ultrasound of the chest did not reveal sizable pleural fluid pocket, 1.7 cm on the right, and nothing on the left. Room air pulse ox is 92%, patient is afebrile, lung sounds reveal coarse inspiratory crackles over right posterior mid and lower lung. Only a few crackles on the left base. No chest pain, no worsening dyspnea. No cough, no phlegm production. Patient is currently on Unasyn, primarily for cellulitis in his lower extremities. Chest x-ray has been reviewed by Dr. Bolanos, and shows increased density in the right, with obscuration of the right hemidiaphragm and heart border. Increased interstitium. Today's labs have been noted, WBCs 9.2, hemoglobin is 10.4, electrolytes are within normal limits, B1 is 91, creatinine is 4.05. Nephrology is following. On 12/14/2017 patient seen in follow-up on selective care unit. He is nauseated today, he is having episodes of vomiting. Denies denies any respiratory difficulty, he is 93% on room air, patient is afebrile, hemodynamically stable, lung sounds reveal coarse crackles over right mid and lower lung, relatively clear on the left. Blood cultures are negative, no fever , no chills, diuretics remain on hold, and patient's renal profile continues to worsen. Nephrology is following. Patient continues on Unasyn for his bilateral extremity cellulitis, and probable pneumonia in the right lung. No cough, no sputum production. On 12/15/2017 patient seen in follow-up on the selective care unit. Today he still feels nauseous, he has been dry heaving, but he denies any shortness of breath, denies any cough or phlegm production. There has been further worsening of his renal function, his BUN is 111, and creatinine is 5.24. CBC electrolytes are within normal limits, potassium is 5.0. Patient is afebrile, hemodynamically stable, on 2 L his pulse ox is 95%, lung sounds positive for some crackles over right mid and lower lung. Remains on Unasyn, he is on nebulized bronchodilators. Nephrology is following the patient in regards to his acute kidney injury, his diuretics remain on hold, patient has been receiving gentle IV hydration. From pulmonary perspective no acute complaints. The patient is seen again today 12/16/2017 in follow-up on the selective care unit. He is awake and alert in no acute distress. His nausea has settled down. He is receiving ultrafiltration currently. He did receive hemodialysis yesterday. He is maintaining good O2 saturations in the upper 90s on 3 L/m nasal cannula. He's been afebrile. Hemodynamically stable. White count 9.8. Hemoglobin 10.2. Creatinine 4.07. He remains on DuoNeb inhalations, Unasyn. Anticoagulated with Eliquis. Patient seen again today 12/17/2017 in follow-up on the selective care unit. He is currently receiving a another round of ultrafiltration. His chest x-ray continues to show improvement. He is currently afebrile. Maintaining O2 saturations in the 90s on 3 L/m per nasal cannula. Creatinine 3.95. He remains on DuoNeb inhalations, Unasyn, Eliquis. The patient is seen today 12/18/2017 in follow-up on the selective care unit. He is currently resting comfortably in bed. Awake and alert in no acute distress. Maintaining good O2 saturations up to 100% on 3 L/m per nasal cannula. He's been afebrile. Hemodynamically stable. Blood cultures reveal no growth. Creatinine 2.91. No dialysis plan for today. Objective - Vital Signs Vital signs: Vital Signs Temp 98.2 F 12/18/17 07:30 Pulse 80 12/18/17 11:29 Resp 20 12/18/17 07:30 BP 104/53 12/18/17 07:30 Pulse Ox 100 12/18/17 07:30 Intake & Output 12/17/17 12/18/17 12/18/17 18:59 06:59 18:59 Intake Total 1200 940 Output Total 150 150 Balance 1050 790 Intake: Intake, IV Titration 550 Amount Sodium Chloride 0.9% 1, 550 000 ml @ 50 mls/hr IV . Q20H [facility] Rx#:[id number] Oral 1200 390 Output: Urine 150 150 Other: Voiding Method Urinal # Voids 1 1 - Exam GENERAL: Revealed a 72-year-old white male, very pleasant, in no distress. Nasal cannula in place. HEENT: Head is atraumatic, normocephalic PERRLA, EOMI, neck is supple, no thyromegaly, no icterus. RESPIRATORY: Diminished breath sounds coarse inspiratory crackles over right mid and lower base, minimal crackles over left base symmetrical chest expansion. CARDIOVASCULAR: Normal S1 and S2, no S3 gallop. 2/6 systolic murmur thought the precordium. GASTROINTESTINAL: Soft abdomen, nontender, no megaly, no rebound, no guarding. INTEGUMENTARY: No cyanosis. No jaundice. Chronic discoloration noted to bilateral lower extremities. Large dressing noted to left lower extremity. Will defer wound assessment to infectious disease. EXTREMITIES: 1+ peripheral pulses. NEUROLOGIC: Alert, oriented 3, no gross focal neurologic deficit. PSYCHIATRIC: Normal mood, affect, normal mental status examination. Lymphatics: No lymphadenopathy. - Labs CBC & Chem 7: 12/16/17 06:46 12/18/17 06:43 Labs: Abnormal Lab Results - Last 24 Hours (Table) 12/17/17 12/17/17 12/18/17 Range/Units 16:40 20:00 06:43 BUN 49 H (9-20) mg/dL Creatinine 2.91 H (0.66-1.25) mg/dL Glucose 66 L (74-99) mg/dL POC Glucose (mg/dL) 169 H 212 H (75-99) mg/dL 12/18/17 12/18/17 12/18/17 Range/Units 07:07 07:43 11:48 BUN (9-20) mg/dL Creatinine (0.66-1.25) mg/dL Glucose (74-99) mg/dL POC Glucose (mg/dL) 68 L 72 L 139 H (75-99) mg/dL Assessment and Plan Assessment: Impression: 1 moderate sized right-sided pleural effusion, most likely cardiac in nature unless proven otherwise. Chest x-ray improving especially in the right he has received several days of hemodialysis. 2 acute on chronic congestive heart failure, likely diastolic in nature considering his good LV function on the echocardiogram. 3 acute cellulitis of lower extremities, left more so than right. 4 history of underlying COPD, presently inactive. 5 coronary artery disease and previous stent placement 6 chronic kidney disease stage IV, status post temporary catheter placement and now on hemodialysis. 7 type 2 diabetes 8 hypertension 9 hyperlipidemia Plan: The patient was seen and evaluated by Dr. Cotter. He remains stable from the pulmonary standpoint. We will follow the patient on an as-needed basis. I, the cosigning physician, performed a history & physical examination of the patient. Lungs sounds with scattered rhonchi more so in the right lung base. Maintaining good O2 saturations in the 90s on 3 L/m per nasal cannula.. I discussed the assessment and plan of care with my nurse practitioner, Rosa Boyce. I attest to the above note as dictated by her.
[2017-12-18] MEDS: HYDROcodone/APAP 5-325MG 1 EACH TAB PO PRN (17:19)
[2017-12-18 17:20] LABS: Glucose,Whole Blood 172 mg/dL (75-99)
[2017-12-18] MEDS ORDERED: HYDROcodone/APAP 5-325MG 1 EACH TAB PO PRN (18:23)
--- NOTE | 2017-12-18 18:40 | P.PN ---
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 pt is afebrile and other vitals are stable, pt was lying in bed , no in distress , feeling cold ramesh in his hands and feet with no chest pain , and no dyspena , he has tenderness in both lower ext Left more than right. he is on eliquis and norco 5-325 mg who dose is lowered to twice a day prn , he has low sugar reading this morning at 68-72 , and his levemir dose is lowered from 8 to 5 U. pt got worsened renal function and nephrology are seeing the pt and evaluting him for the need for dialysis. pt has pulmonary and cardiology service consult as well. his chest x-ray showing right pleural effusion . his Na 137, K: 3.9 and cr 2.9. ebc 9.8K, Hb 10.2 and plt 187 Objective - Vital Signs Vital signs: Vital Signs Temp 97.9 F 12/18/17 15:00 Pulse 74 12/18/17 16:36 Resp 16 12/18/17 15:00 BP 96/63 12/18/17 15:00 Pulse Ox 94 L 12/18/17 15:00 Intake & Output 12/17/17 12/18/17 12/18/17 18:59 06:59 18:59 Intake Total 1200 940 690 Output Total 150 150 75 Balance 1050 790 615 Intake: Intake, IV Titration 550 500 Amount Ampicillin-Sulbactam 3 gm 100 In Sodium Chloride 0.9% 100 ml @ 200 mls/hr IVPB Q12HR [facility] Rx#:[id number] Sodium Chloride 0.9% 1, 550 400 000 ml @ 50 mls/hr IV . Q20H [facility] Rx#:[id number] Oral 1200 390 190 Output: Urine 150 150 75 Other: Voiding Method Urinal # Voids 1 1 - Exam GENERAL: The patient is alert and oriented x3, not in any acute distress. Well developed, well nourished. HEENT: Pupils are round and equally reacting to light. EOMI. No scleral icterus. No conjunctival pallor. Normocephalic, atraumatic. No pharyngeal erythema. No thyromegaly. CARDIOVASCULAR: S1 and S2 present. No murmurs, rubs, or gallops. PULMONARY: Chest is clear to auscultation, no wheezing or crackles. ABDOMEN: Soft, nontender, nondistended, normoactive bowel sounds. No palpable organomegaly. MUSCULOSKELETAL: No joint swelling or deformity. -EXTREMITIES: No cyanosis, clubbing,. both lower ext are in dressing and pt refuses to expose them to me NEUROLOGICAL: Gross neurological examination did not reveal any focal deficits. SKIN: No rashes. - Labs CBC & Chem 7: 12/16/17 06:46 12/18/17 06:43 Labs: Abnormal Lab Results - Last 24 Hours (Table) 12/17/17 12/18/17 12/18/17 Range/Units 20:00 06:43 07:07 BUN 49 H (9-20) mg/dL Creatinine 2.91 H (0.66-1.25) mg/dL Glucose 66 L (74-99) mg/dL POC Glucose (mg/dL) 212 H 68 L (75-99) mg/dL 12/18/17 12/18/17 12/18/17 Range/Units 07:43 11:48 17:06 BUN (9-20) mg/dL Creatinine (0.66-1.25) mg/dL Glucose (74-99) mg/dL POC Glucose (mg/dL) 72 L 139 H 172 H (75-99) mg/dL Assessment and Plan Assessment: Bilateral lower extermity cellutlits acute on chronic kid injury, congestive Heart failure with ef 45-50% , when i saw the pt he does not look in exacerbation currently right side pleural effusion Diabetes Mellitus Hypertension COPD h/o coronary art disease Plan: continue with the same treatment , continue with symptomatic treatment , resume home medication , monitor lytes and vitals including glucose , , cardiology consult is appreciated. infectious disease consult is appreciated . c/w same antibioitc . pulmonary and nephrology team. GI and DVT prophylaxis , further recommendation based upon pt clinical course and progress DVT prophylaxis eliquis GI prophylaxis Pepcid Prognosis is guarded
[2017-12-18 20:37] LABS: Glucose,Whole Blood 216 mg/dL (75-99)
[2017-12-18] MEDS: INSULIN DETEMIR 100 UNIT/ML 10 ML VIAL SQ SCH (21:55)
[2017-12-19] MEDS: SODIUM CHLORIDE 0.9% 1,000 ML IV SCH (06:59)
[2017-12-19 07:07] LABS: Glucose,Whole Blood 94 mg/dL (75-99)
[2017-12-19] MEDS: INSULIN ASPART 100 UNIT/ML 1 ML 10 ML VIAL SQ SCH ×4 (07:30→21:34)
[2017-12-19 07:45] LABS: Albumin 2.9 g/dL (3.5-5.0); Bilirubin, Conjugated 0.4 mg/dL (0.0-0.3); Bilirubin, Delta 1.6 mg/dL (0.0-0.2); Bilirubin,Unconjugated 0.5 mg/dL (0.0-1.1); Calcium 8.5 mg/dL (8.4-10.2); Potassium 4.2 mmol/L (3.5-5.1); Total Bilirubin 2.5 mg/dL (0.2-1.3); Total Protein 6.2 g/dL (6.3-8.2)
[2017-12-19] MEDS: IPRATROPIUM-ALBUTEROL 3 ML NEB INHALATION SCH ×4 (08:05→19:48)
[2017-12-19] MEDS: APIXABAN 2.5 MG TABLET PO SCH ×2 (08:54→21:34)
[2017-12-19] MEDS: AMPICILLIN-SULBACTAM 3 GM in SODIUM CHLORIDE 0.9% 100 ML IVPB SCH ×2 (08:54→21:35)
[2017-12-19] MEDS: DOCUSATE 100 MG CAP PO SCH ×2 (08:54→21:34)
[2017-12-19] MEDS: POLYETHYLENE GLYCOL 3350 17 GM POWD.PACK PO SCH (08:54)
[2017-12-19] MEDS: ALLOPURINOL 100 MG TAB PO SCH ×2 (08:54→21:34)
[2017-12-19] MEDS: METOPROLOL TARTRATE 25 MG TAB PO SCH ×2 (08:54→21:34)
[2017-12-19] MEDS: CALCITRIOL 0.25 MCG CAP PO SCH (08:54)
[2017-12-19] MEDS: FAMOTIDINE 20 MG TAB PO SCH (08:54)
[2017-12-19] MEDS: CHOLECALCIFEROL 1,000 UNIT TAB PO SCH ×2 (08:54→21:34)
[2017-12-19] MEDS: FERROUS SULFATE 325 MG TAB PO SCH (08:55)
--- NOTE | 2017-12-19 09:32 | P.PN ---
Subjective Progress Note Date: 12/19/17 Principal diagnosis: This is a 72-year-old seen in consultation because of ATN, hemodialysis dependent. Acute kidney injury is related to cellulitis and his legs both are involved and the left leg is worse than the right. This morning he complains of right knee pain. Is also worried about the swelling in his legs which is mild to moderate. He is making small amounts of urine. No signs of recovery yet. Patient denies any fever chills has a good appetite. He looks tired and weak. Additionally his bilirubin has gone up and over the last few months it has been up. Bilirubin was up at 1.4 in 2013, went down and subsequently came up to 1.4 again on 01/20/2016. And on February of this year was 1.6 and subsequently has been high multiple times. His hepatitis B surface antigen is negative. Liver function tests are mildly elevated Is known with COPD diabetes, coronary artery disease bypass graft, stent. Objective - Vital Signs Vital signs: Vital Signs Temp 97.4 F L 12/19/17 07:35 Pulse 78 12/19/17 08:15 Resp 16 12/19/17 07:35 BP 113/58 12/19/17 07:35 Pulse Ox 94 L 12/19/17 07:35 Intake & Output 12/18/17 12/19/17 12/19/17 18:59 06:59 18:59 Intake Total 690 222 220 Output Total 75 100 Balance 615 122 220 Intake: Intake, IV Titration 500 Amount Ampicillin-Sulbactam 3 gm 100 In Sodium Chloride 0.9% 100 ml @ 200 mls/hr IVPB Q12HR [facility] Rx#:[id number] Sodium Chloride 0.9% 1, 400 000 ml @ 50 mls/hr IV . Q20H [facility] Rx#:[id number] Oral 190 222 220 Output: Urine 75 100 Other: Voiding Method Urinal # Voids 2 On examination is awake alert oriented Anxious. HEENT exam no JVP noted neck is supple no facial asymmetry Lungs clear to auscultation good air entry bilaterally Heart sounds are remarkable for grade 1-2 systolic ejection murmur at the aortic area Abdomen soft nontender no masses felt Extremity exam reveals left leg is Isacc wrapped. There is swelling of the left leg above the Isacc wrap 1-2+ edema the right leg is somewhat less edema at this. There are areas of erythema on the right leg as well. Neurologically awake alert oriented. The right knee is swollen as well as the left knee but there is no redness noted - Labs CBC & Chem 7: 12/16/17 06:46 12/19/17 06:44 Labs: Abnormal Lab Results - Last 24 Hours (Table) 12/18/17 12/18/17 12/18/17 Range/Units 11:48 17:06 20:25 Sodium (137-145) mmol/L BUN (9-20) mg/dL Creatinine (0.66-1.25) mg/dL POC Glucose (mg/dL) 139 H 172 H 216 H (75-99) mg/dL Total Bilirubin (0.2-1.3) mg/dL Conjugated Bilirubin (0.0-0.3) mg/dL Delta Bilirubin (0.0-0.2) mg/dL AST (17-59) U/L ALT (21-72) U/L Alkaline Phosphatase (38-126) U/L Total Protein (6.3-8.2) g/dL Albumin (3.5-5.0) g/dL 12/19/17 Range/Units 06:44 Sodium 136 L (137-145) mmol/L BUN 57 H (9-20) mg/dL Creatinine 3.23 H (0.66-1.25) mg/dL POC Glucose (mg/dL) (75-99) mg/dL Total Bilirubin 2.5 H (0.2-1.3) mg/dL Conjugated Bilirubin 0.4 H (0.0-0.3) mg/dL Delta Bilirubin 1.6 H (0.0-0.2) mg/dL AST 77 H (17-59) U/L ALT 87 H (21-72) U/L Alkaline Phosphatase 213 H (38-126) U/L Total Protein 6.2 L (6.3-8.2) g/dL Albumin 2.9 L (3.5-5.0) g/dL Assessment and Plan Plan: 1. Acute kidney injury with ATN dialysis dependent he had dialysis day before yesterday with the groin Yovani in the right side. No signs of recovery at 2. Chronic kidney disease stage III, stage IV. with a baseline creatinine of 2.0-3 in July and October 2017. It was 1.7 in April 2017 and 2.5 in February 2017. 3. Cardiomyopathy ejection fraction 45-50% with coronary artery disease status post bypass graft and stent. 4. Diabetes mellitus. 5. Bilateral cellulitis of both lower legs. 6. Anemia hemoglobin at target at 10.2. 7. Elevated liver function tests and bilirubin since 2014 on and off. Etiology not clear Recommendation. 1. Next dialysis is tomorrow Wednesday. 2. Monitor labs daily. 3. Watch liver function tests may need further workup including ultrasound of the liver or CAT scan.
--- NOTE | 2017-12-19 10:17 | PN ---
PROGRESS NOTE DATE OF SERVICE: 12/18/2017. REASON FOR FOLLOWUP: Left leg venostasis ulcer with secondary cellulitis. INTERVAL HISTORY: The patient is afebrile. He has been breathing comfortably. Denies having any chest pain, shortness of breath, cough. No abdominal pain. He is complaining of his leg being sore, but unable to quantify it further. No drainage on the dressing and no diarrhea. EXAMINATION: Blood pressure is 112/71 with a pulse of 58, temperature of 98.6. He is 96% on room air. General description is an elderly male up in the chair in no distress. RESPIRATORY SYSTEM: Unlabored breathing. Clear to auscultation. HEART: S1, S2. Regular rate and rhythm. ABDOMEN: Soft, no tenderness. Left leg is currently dressed up. No obvious drainage on the dressing. LABS: BUN of 49, creatinine is 2.91. DIAGNOSTIC IMPRESSION AND PLAN: Patient with the left leg venostasis ulcer with secondary cellulitis. Patient currently covered with to continue along with local wound care with Aquacel Silver dressing. Continue supportive care. MMODL / IJN: [id number] /
--- NOTE | 2017-12-19 11:57 | P.PN ---
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 pt is afebrile and other vitals are stable, pt was lying in bed , no in distress , feeling cold ramesh in his hands and feet with no chest pain , and no dyspena , he has tenderness in both lower ext Left more than right. he is on eliquis and norco 5-325 mg who dose is lowered to twice a day prn , he has low sugar reading this morning at 68-72 , and his levemir dose is lowered from 8 to 5 U. pt got worsened renal function and nephrology are seeing the pt and evaluting him for the need for dialysis. pt has pulmonary and cardiology service consult as well. his chest x-ray showing right pleural effusion . his Na 137, K: 3.9 and cr 2.9. ebc 9.8K, Hb 10.2 and plt 187 12/19/2017 Patient today while sitting operating chair taking his Plavix past. Fully Awake and oriented. He still complains from bilateral lower extremity cellulitis. Patient is on Unasyn as per ID recommendation. Patient denies chest pain, no dyspnea. No fever. His sugar yesterday was on the low side and his Levemir was lowered from 8 to 5 units at bedtime. His glucose is better today ranging between 94 and 216. And his pain medication are lowered today in view of his kidney disease. [employer] Consultant team are following the patient and evaluating him for the need for further dialysis. Liver enzymes were up on admission and we will check him today placed on the high side, we're going to order workup like liver ultrasound and acute hepatitis panel. Objective - Vital Signs Vital signs: Vital Signs Temp 97.4 F L 12/19/17 07:35 Pulse 84 12/19/17 11:26 Resp 16 12/19/17 07:35 BP 113/58 12/19/17 07:35 Pulse Ox 94 L 12/19/17 07:35 Intake & Output 12/18/17 12/19/17 12/19/17 18:59 06:59 18:59 Intake Total 690 222 220 Output Total 75 100 Balance 615 122 220 Intake: Intake, IV Titration 500 Amount Ampicillin-Sulbactam 3 gm 100 In Sodium Chloride 0.9% 100 ml @ 200 mls/hr IVPB Q12HR [facility] Rx#:[id number] Sodium Chloride 0.9% 1, 400 000 ml @ 50 mls/hr IV . Q20H [facility] Rx#:[id number] Oral 190 222 220 Output: Urine 75 100 Other: Voiding Method Urinal Urinal # Voids 2 - Exam GENERAL: The patient is alert and oriented x3, not in any acute distress. Well developed, well nourished. HEENT: Pupils are round and equally reacting to light. EOMI. No scleral icterus. No conjunctival pallor. Normocephalic, atraumatic. No pharyngeal erythema. No thyromegaly. CARDIOVASCULAR: S1 and S2 present. No murmurs, rubs, or gallops. PULMONARY: Chest is clear to auscultation, no wheezing or crackles. ABDOMEN: Soft, nontender, nondistended, normoactive bowel sounds. No palpable organomegaly. MUSCULOSKELETAL: No joint swelling or deformity. -EXTREMITIES: No cyanosis, clubbing,. both lower ext are in dressing and pt refuses to expose them to me NEUROLOGICAL: Gross neurological examination did not reveal any focal deficits. SKIN: No rashes. - Labs CBC & Chem 7: 12/16/17 06:46 12/19/17 06:44 Labs: Abnormal Lab Results - Last 24 Hours (Table) 12/18/17 12/18/17 12/18/17 Range/Units 11:48 17:06 20:25 Sodium (137-145) mmol/L BUN (9-20) mg/dL Creatinine (0.66-1.25) mg/dL POC Glucose (mg/dL) 139 H 172 H 216 H (75-99) mg/dL Total Bilirubin (0.2-1.3) mg/dL Conjugated Bilirubin (0.0-0.3) mg/dL Delta Bilirubin (0.0-0.2) mg/dL AST (17-59) U/L ALT (21-72) U/L Alkaline Phosphatase (38-126) U/L Total Protein (6.3-8.2) g/dL Albumin (3.5-5.0) g/dL 12/19/17 Range/Units 06:44 Sodium 136 L (137-145) mmol/L BUN 57 H (9-20) mg/dL Creatinine 3.23 H (0.66-1.25) mg/dL POC Glucose (mg/dL) (75-99) mg/dL Total Bilirubin 2.5 H (0.2-1.3) mg/dL Conjugated Bilirubin 0.4 H (0.0-0.3) mg/dL Delta Bilirubin 1.6 H (0.0-0.2) mg/dL AST 77 H (17-59) U/L ALT 87 H (21-72) U/L Alkaline Phosphatase 213 H (38-126) U/L Total Protein 6.2 L (6.3-8.2) g/dL Albumin 2.9 L (3.5-5.0) g/dL Assessment and Plan Assessment: Bilateral lower extermity cellutlits, on the top of venous ulcer acute on chronic kid injury, nephrology following the case Elevated liver enzymes and bilirubin, follow-up workup congestive Heart failure with ef 45-50% , when i saw the pt he does not look in exacerbation currently right side pleural effusion Diabetes Mellitus Hypertension COPD h/o coronary art disease Plan: continue with the same treatment , continue with symptomatic treatment , resume home medication , monitor lytes and vitals including glucose , , cardiology consult is appreciated. infectious disease consult is appreciated . c/w same antibioitc . pulmonary and nephrology team. GI and DVT prophylaxis , further recommendation based upon pt clinical course and progress DVT prophylaxis eliquis GI prophylaxis Pepcid Prognosis is guarded Dr. Adamson resume the care of patient tomorrow
[2017-12-19 12:27] LABS: Glucose,Whole Blood 147 mg/dL (75-99)
--- NOTE | 2017-12-19 16:20 | US ---
EXAMINATION TYPE: US liver DATE OF EXAM: 12/19/2017 COMPARISON: NONE CLINICAL HISTORY: elevated liver enzymes. Elevated liver enzymes, cholecystectomy EXAM MEASUREMENTS: Liver Length: 18.3 cm Gallbladder Wall: Surgically absent CBD: 0.5 cm Right Kidney: 9.6 x 4.1 x 4.6 cm Pancreas: Obscured by bowel gas Liver: enlarged Gallbladder: Surgically absent Evidence for sonographic Draper's sign: no CBD: appears wnl as visualized Right Kidney: no evidence of hydronephrosis or mass Right pleural effusion Free fluid adjacent to liver IMPRESSION: There is small amount of ascites fluid. No dilated ducts. No focal liver defect.
[2017-12-19 17:15] LABS: Glucose,Whole Blood 162 mg/dL (75-99)
[2017-12-19 20:30] LABS: Glucose,Whole Blood 137 mg/dL (75-99)
[2017-12-19] MEDS: INSULIN DETEMIR 100 UNIT/ML 10 ML VIAL SQ SCH (21:34)
--- NOTE | 2017-12-20 00:59 | PN ---
PROGRESS NOTE DATE OF SERVICE: 12/19/2017. REASON FOR FOLLOWUP: Left leg venostasis ulcer with secondary cellulitis. INTERVAL HISTORY: The patient is currently afebrile, breathing comfortably. Denies having any chest pain, shortness of breath or, cough. No abdominal pain. No worsening pain in the left leg area. EXAMINATION: Blood pressure is 103/55 with a pulse of 67, temperature 96.9, he is 97% on room air. GENERAL DESCRIPTION: An elderly male lying in bed in no distress. RESPIRATORY SYSTEM: Unlabored breathing. Clear to auscultation anteriorly. HEART: S1, S2. Regular rate and rhythm. ABDOMEN: Soft, nontender. EXTREMITIES: Left leg swelling is improved. Still has some superficial ulceration. DIAGNOSTIC IMPRESSION AND PLAN: Patient with left leg venostasis ulcer with secondary cellulitis. Underlying cellulitis has been adequately treated. At this point we have a discontinue the Unasyn and give a short course of oral Keflex. Local care to continue with Aquacel Silver dressing, to be changed every 48 hours and mild compression dressing. Continue supportive care. MMODL / IJN: [id number] /
[2017-12-20 07:07] LABS: Glucose,Whole Blood 98 mg/dL (75-99)
[2017-12-20] MEDS: SODIUM CHLORIDE 0.9% 1,000 ML IV SCH (07:34)
[2017-12-20] MEDS: INSULIN ASPART 100 UNIT/ML 1 ML 10 ML VIAL SQ SCH ×4 (07:35→22:11)
[2017-12-20] MEDS: IPRATROPIUM-ALBUTEROL 3 ML NEB INHALATION SCH ×4 (08:20→20:43)
[2017-12-20] MEDS: POLYETHYLENE GLYCOL 3350 17 GM POWD.PACK PO SCH (08:53)
[2017-12-20] MEDS: ALLOPURINOL 100 MG TAB PO SCH ×2 (08:53→22:10)
[2017-12-20] MEDS: APIXABAN 2.5 MG TABLET PO SCH (08:54)
[2017-12-20] MEDS: DOCUSATE 100 MG CAP PO SCH ×2 (08:54→22:10)
[2017-12-20] MEDS: FAMOTIDINE 20 MG TAB PO SCH (08:54)
[2017-12-20] MEDS: CHOLECALCIFEROL 1,000 UNIT TAB PO SCH ×2 (08:54→22:09)
[2017-12-20] MEDS: METOPROLOL TARTRATE 25 MG TAB PO SCH ×2 (08:54→22:09)
[2017-12-20] MEDS: CALCITRIOL 0.25 MCG CAP PO SCH (08:57)
[2017-12-20] MEDS: CEPHALEXIN 250 MG CAP PO SCH (08:57)
[2017-12-20 09:06] LABS: Albumin 2.9 g/dL (3.5-5.0); Bilirubin, Conjugated 0.8 mg/dL (0.0-0.3); Bilirubin, Delta 1.8 mg/dL (0.0-0.2); Bilirubin,Unconjugated 0.6 mg/dL (0.0-1.1); Calcium 8.7 mg/dL (8.4-10.2); Potassium 4.2 mmol/L (3.5-5.1); Total Bilirubin 3.2 mg/dL (0.2-1.3); Total Protein 6.1 g/dL (6.3-8.2)
[2017-12-20] MEDS ORDERED: BISACODYL 10 MG SUPP RECTAL STA (09:13)
[2017-12-20 10:22] LABS: Hepatitis A Antibody IgM Non-Reactive (Non-Reactive); Hepatitis B Core IgM Non-Reactive (Non-Reactive)
--- NOTE | 2017-12-20 11:13 | P.PN ---
Subjective Progress Note Date: 12/20/17 12/10/2017 72-year-old male with a past medical history significant for coronary artery disease, heart failure, COPD, diabetes, hypertension and hyperlipidemia who presented to the emergency room with a chief complaint of increased pain to the right lower extremities. The patient is somewhat of a poor historian. No family present at the bedside. The patient has had chronic chronic cellulitis to the bilateral lower extremities along with a wound to the posterior aspect of the left lower extremity. The patient states his legs were starting to improve but recently he has been experiencing more pain to the left leg. He decided to come to the emergency room for further evaluation. He patient states he has occasional shortness of breath, but states that is not the main reason he came to the emergency room. He denies chest pain or pressure. Denies nausea or vomiting. He denies fever or chills. Denies difficulty urinating or change in bowel habits. Chest x-ray completed in the emergency room reveals right middle lobe and right lower lobe infiltrates with small right pleural effusion. Pulmonary vascular prominence. Correlate for failure. Laboratory data upon admission reveals white count 8.2. Hemoglobin 11.7. Platelet count 211. Sodium 136. Potassium 5.1. BUN 90. Crit and 3.05. Glucose 281. Lactic acid 1.4. AST 60. ALT 83. Alkaline phosphatase 109. Troponin 0.014. BNP 13,500. The patient was started on IV diuretics and antibiotics and admitted to the hospital under the care of Dr. Adamson. 12/11/2017-Note per Dr. Beasley On-year-old admitted with infected ulcers of the right leg and patient is presently on Unasyn infectious disease evaluated the patient patient also has an pulmonary edema with right-sided pleural effusion patient is on IV Lasix will repeat the chest x-ray tomorrow if there is no significant improvement in pleural effusion patient may need the pleural fluid drainage patient clinically does not appear to have pneumonia. 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 12/12/2017-Note per Dr. Beasley Patient is doing much better and patient is on oral Lasix at this time creatinine mild worsening nephrology evaluated the patient patient is getting an ultrasound of the chest for pleural effusion for possible drainage. His blood sugars are bit low we'll cut down the Lantus as patient is on very low- dose of Lantus probably can be held just use sliding scale insulin. 12/13/2017 Patient seen and examined at the bedside. Patient states he is having some pain in his left lower extremity, although improved. He denies shortness of breath or chest pain. He states he is tired and did not sleep well last night. Patient 's creatinine is 4.05 today up from 3.53 yesterday. His Lasix was discontinued per nephrology. Patient underwent an ultrasound of the kidneys which was unremarkable. Chest x-ray from this morning reveals findings similar to prior exams, chronic. There may be lower lobe pneumonia, effusion, edema or atelectasis. Correlate to exclude interstitial edema. Ultrasound of the chest was completed yesterday revealing right pleural effusion pocket size of 1.7 cm. Patient is being followed by pulmonary during hospitalization. Patient's blood pressure is stable with a recent reading of 121/68. He is afebrile. He is on room air with oxygen saturations greater than 92%. He is being followed by infectious disease. He is currently receiving Unasyn with wound care with Aquacel Silver dressing and ISACC bandage. 12/14/2017 Patient seen and examined at the bedside with Dr. Adamson. Patient states he did not sleep well last night. He reports nausea overnight and an episode of emesis. Patient states he still has some nausea this morning, although improved. Potassium is 5.3. BUN 108. Creatinine 4.41, which is elevated from 4.05 yesterday. Lasix remains on hold per nephrology. Pulmonary believes xray is consistent with right mid and lower lobe pneumonia. Infectious disease is following. He remains on Unasyn. 12/15/2017 Patient seen and examined the bedside with Dr. Adamson. Patient was started on IV fluids yesterday for worsening kidney function. His creatinine today is 5.24. BUN 111. patient does report decreased urine output. Testing for influenza A and B was completed yesterday and was negative. Patient currently denies shortness of breath or chest pain. He reports some nausea still this morning, but no episodes of emesis. He is upset that he can not be discharged home today. 12/16/2017 Patient seen and examined at the bedside. Patient had right femoral dialysis catheter placed yesterday due to worsening kidney function. He received dialysis yesterday evening and is scheduled to have dialysis again this morning. Unsure if patient will require longterm dialysis. If so, patient will need permacath placed and eliquis will need to be held. He reports he feels much after getting dialysis yesterday. Creatinine is 4.07 today. Denies further episodes of nausea or dry heaves. Denies chest pain or pressure. Denies shortness of breath. Vital signs are stable. 12/17/2017 Patient seen and examined at the bedside. Patient has completed two dialysis treatments. Case discussed with Dr. Caputo. Patient will receive dialysis again today and then will remain off dialysis for the weekend. A decision will then be made early next week if patient will be able to come off dialysis or if he will require longterm dialysis and permacath placement. Will continue Eliquis for now. Patient denies shortness of breath. Denies chest pain or pressure. Denies nausea or vomiting. Vital signs are stable. He is afebrile. Lab work from this morning is pending. 12/18/2017 - 12/19/2017: Notes per covering provider 12/20/2017 Patient examined at the bedside with Dr. Adamson. Patient is awake and alert. Patient complains of constipation and reports no bowel movement for the last 3- 4 days. Patients creatinine today is 3.52. BUN 61. Awaiting further recommendations from nephrology regarding whether or not patient will require longterm access. Patient will need to be off Eliquis if permacath is planned. Patients liver enzymes and bilirubin remain elevated. US of the liver was ordered which revealed small amount of ascites fluid. Enlarged liver. No focal liver defects. No dilated ducts. Patient reports increased weakness and states he is having difficulty ambulating by himself. Patient may require NIKHIL at the time of discharge. Objective - Vital Signs Vital signs: Vital Signs Temp 97.9 F 12/20/17 07:25 Pulse 60 12/20/17 08:31 Resp 14 12/20/17 09:35 BP 115/68 12/20/17 07:25 Pulse Ox 98 12/20/17 07:25 Intake & Output 12/19/17 12/20/17 12/20/17 18:59 06:59 18:59 Intake Total 400 1980 Output Total 50 100 Balance 350 1880 Intake: Intake, IV Titration 1000 Amount Ampicillin-Sulbactam 3 gm 200 In Sodium Chloride 0.9% 100 ml @ 200 mls/hr IVPB Q12HR [facility] Rx#:[id number] Sodium Chloride 0.9% 1, 800 000 ml @ 50 mls/hr IV . Q20H [facility] Rx#:[id number] Oral 400 980 Output: Urine 50 100 Other: Voiding Method Urinal Urinal Urinal # Voids 2 - Exam GENERAL: This is a 72-year-old male in no apparent distress at the time of examination. Pleasant and cooperative. HEENT: Head is atraumatic, normocephalic. Pupils are equal, round, and reactive to light. Sclerae anicteric. Conjunctivae are clear. Mucus membranes of the mouth are moist. Neck is supple. RESPIRATORY: Diminished. No wheezing or rhonchi auscultated. No use of accessory muscles. Patient maintaining oxygen saturation greater than 92%. No chest wall tenderness is noted on palpation or with deep breathing. CARDIOVASCULAR: Regular rate and rhythm. S1 and S2 noted. No JVD noted. No S3 or S4 noted. GASTROINTESTINAL: No distention noted. Abdomen soft and round. Normal active bowel sounds auscultated x 4 quadrants. No pain or tenderness noted upon palpation. INTEGUMENTARY: No cyanosis. No jaundice. Chronic discoloration noted to bilateral lower extremities. Isacc wrap with dressing to left lower extremity. Will defer wound assessment to infectious disease. EXTREMITIES: 1+ peripheral pulses. NEUROLOGIC: Cranial nerves II-XII intact. PSYCHIATRIC: Awake, alert, and oriented X 3. Appropriate affect. Intact judgement and insight. - Labs CBC & Chem 7: 12/16/17 06:46 12/20/17 07:36 Labs: Abnormal Lab Results - Last 24 Hours (Table) 12/19/17 12/19/17 12/19/17 Range/Units 12:16 17:04 20:29 BUN (9-20) mg/dL Creatinine (0.66-1.25) mg/dL POC Glucose (mg/dL) 147 H 162 H 137 H (75-99) mg/dL Total Bilirubin (0.2-1.3) mg/dL Conjugated Bilirubin (0.0-0.3) mg/dL Delta Bilirubin (0.0-0.2) mg/dL AST (17-59) U/L ALT (21-72) U/L Alkaline Phosphatase (38-126) U/L Total Protein (6.3-8.2) g/dL Albumin (3.5-5.0) g/dL 12/20/17 Range/Units 07:36 BUN 61 H (9-20) mg/dL Creatinine 3.52 H (0.66-1.25) mg/dL POC Glucose (mg/dL) (75-99) mg/dL Total Bilirubin 3.2 H (0.2-1.3) mg/dL Conjugated Bilirubin 0.8 H (0.0-0.3) mg/dL Delta Bilirubin 1.8 H (0.0-0.2) mg/dL AST 69 H (17-59) U/L ALT 73 H (21-72) U/L Alkaline Phosphatase 208 H (38-126) U/L Total Protein 6.1 L (6.3-8.2) g/dL Albumin 2.9 L (3.5-5.0) g/dL Assessment and Plan Plan: ASSESSMENT: Acute exacerbation of congestive heart failure, diastolic, EF 45-50%, BNP 13,500 , resolved Right middle and right lower lobe infiltrates, pneumonia ruled in per pulmonary progess note 12/15/17, community-acquired Right pleural effusion, suspect cardiac in nature Cellulitis of left lower extremity, present on admission, with chronic wounds History of coronary artery disease with previous stent placement COPD, no evidence of acute exacerbation Acute kidney injury, secondary to diuresis, although worsening off diuretics, started on hemodialysis 11/14/2017 Chronic kidney disease, stage IV Diabetes mellitus, type II Hyperlipidemia Hypertension Paroxysmal atrial fibrillation, on long-term anticoagulation with Eliquis Nausea due to worsening renal function, improved Elevated liver enzymes and bilirubin PLAN: Infectious disease, nephrology, cardiology, and pulmonary on consult. Appreciate recommendations and input Antibiotics per ID. Currently on Unasyn Continue wound care with Aquacel silver and isacc wrap per ID recommendations Continue to hold Lasix Await input from nephrology re: possible permacath placement. Will continue Eliquis for now. Dulcolax rectally x 1 now. Continue colace BID Continue GI to evaluate elevated liver enzymes and bilirubin Home meds as appropriate Monitor labs GI prophylaxis: Protonix 40 mg PO Daily DVT prophylaxis: Eliquis 2.5mg BID Discharge plan: Patient continues to get weaker and requires more help with ambulation. Re-consult PT to evaluate patient for possible NIKHIL at discharge. Monitor vital signs and address as appropriate Further recommendations pending patient's course Nurse practitioner note has been reviewed by physician. Signing provider agrees with the documented findings, assessment, and plan of care.
[2017-12-20 11:23] LABS: Glucose,Whole Blood 161 mg/dL (75-99)
[2017-12-20] MEDS ORDERED: BISACODYL 5 MG TABLET.DR PO STA (14:06)
[2017-12-20 17:39] LABS: Glucose,Whole Blood 108 mg/dL (75-99)
--- NOTE | 2017-12-20 18:14 | PN ---
PROGRESS NOTE The patient is seen for followup for acute kidney injury on top of chronic kidney disease. The patient states he is voiding. He is complaining of feeling weak. He is scheduled for hemodialysis today. Serum creatinine remains elevated at about 3.52 from 3.2 yesterday. At this time, patient is hemodialysis dependent. He will need to continue with outpatient dialysis and we will continue to monitor for recovery of renal function. The patient has had his dose of Eliquis today and he needs to have a PermCath placed prior to discharge. He currently has a temporary dialysis catheter. EXAMINATION: This morning, when patient was seen, blood pressure was 115/68, heart rate 64 per minute. Patient is afebrile. Examination of the heart S1, S2. Examination of the lungs bilateral breath sounds are heard. Abdomen is soft, nontender. Examination of lower extremities shows bilateral feet to be wrapped. Trace edema is noted. LABS: Show sodium 137, potassium 4.2, chloride 102, BUN 61, serum creatinine 3.52. Total bilirubin was 3.2. Albumin 2.9. ASSESSMENT: 1. Acute kidney injury, acute tubular necrosis, currently nonoliguric. However, patient remains hemodialysis dependent. His serum creatinine did go up over the weekend and he has had a fair amount of urine output, but the patient will need to continue with outpatient dialysis and we will continue to monitor for recovery of renal function. 2. Bilateral lower extremity cellulitis and wounds. 3. Chronic kidney disease, stage IIIB to IV with baseline creatinine about 2 and it was 2.5 in February of 2012. 4. Cardiomyopathy, EF 45-50 percent. 5. Elevated and bilirubin, etiology unclear. PLAN: Hemodialysis today. Hold Eliquis for placement of PermCath. Continue with calcitriol. Continue with oral Keflex. The patient will need to be set up for outpatient dialysis. I will discontinue the IV fluids and patient is encouraged to increase his oral intake. MMODL / IJN: [id number] /
[2017-12-20 20:37] LABS: Glucose,Whole Blood 166 mg/dL (75-99)
--- NOTE | 2017-12-20 21:32 | P.CONS ---
History of Present Illness - Reason for Consult Consult date: 12/20/17 Elevated liver enzymes Requesting physician: Stephon E Sheet - Chief Complaint Lower extremity pain - History of Present Illness The patient is a 72-year-old male with multiple medical comorbidities including coronary artery disease, hypertension, COPD, heart failure, and lower extremity cellulitis who presented to the hospital with complaints of pain in his right lower extremity. Currently the patient is being treated for a right pleural effusion, cellulitis and congestive heart failure. During his hospitalization the patient has had liver enzymes drawn which were significant for an elevation with a predominantly cholestatic picture. The patient had a total bilirubin 3.2 , direct bilirubin 0.8, alkaline phosphatase 208, AST 69, and ALT 73. Evaluation was performed with a viral hepatitis panel checked which was negative. Ultrasound showed a prior cholecystectomy with the common bile duct within normal limits and a small amount of ascites. The patient denies any prior history of liver disease. He denies any knowledge of prior elevation of liver enzymes. He denies any high risk behavior including IV drug use. He denies any right quadrant or other abdominal pain at this time. He reports that he has had some constipation for which she is taking a laxative. He denies any nausea, vomiting, hematemesis, hematochezia or melena. Review of Systems REVIEW OF SYSTEMS: CARDIO: Denies any chest pain or palpitations. PULMONARY: Denies any shortness of breath or wheezing. GENITOURINARY: No dysuria or hematuria. MUSCULOSKELETAL: No weakness reported. SKIN: Denies any new rashes or lesions, jaundice or pallor, is being treated for cellulitis. PSYCHIATRIC: Denies any depression or anxiety. NEUROLOGY: Denies headache, denies any new focal deficits. EARS: No tinnitus, discharge or new hearing loss. NOSE: No discharge or congestion. EYES: No pain in eyes or change in vision. CONSTITUTIONAL: No recent weight loss. No fever, chills, night sweats. Past Medical History Past Medical History: Coronary Artery Disease (CAD), Heart Failure, COPD, Diabetes Mellitus, Hyperlipidemia, Hypertension, Myocardial Infarction ([place]) Additional Past Medical History / Comment(s): "i lost track of how many heart attacks i've had i thinks it was like 38", gout, took meds for gerd in the past.cataracts, cellulitis elizabeth legs,"i was told 20 years ago i had parkinsons coming onn and was placed on meds,which i stopped taking after 3-4 months" Last Myocardial Infarction Date:: unk History of Any Multi-Drug Resistant Organisms: None Reported Past Surgical History: Cholecystectomy, Coronary Bypass/CABG, Heart Catheterization, Heart Catheterization With Stent Additional Past Surgical History / Comment(s): Angiography Past Anesthesia/Blood Transfusion Reactions: Previous Problems w/ Anesthesia Additional Past Anesthesia/Blood Transfusion Reaction / Comm: difficulty waking up after sx. pt stated he's not sure if ever recevied blood or not during his sx. Date of Last Stent Placement:: unk Smoking Status: Former smoker - Past Family History Mother History Unknown: Yes Additional Family Medical History / Comment(s): mom at age 60 unsure of the cause. Father Family Medical History: Myocardial Infarction ([place]) Son(s) Family Medical History: AFIB Additional Family Medical History / Comment(s): aicd implanted Medications and Allergies Home Medications Medication Instructions Recorded Confirmed Type Ipratropium-Albuterol Nebulize 3 ml INHALATION RT-QID 06/27/14 12/09/17 History [Duoneb 0.5 mg-3 mg/3 ml Soln] Lisinopril [Zestril] 5 mg PO BID 06/27/14 12/09/17 History Metoprolol Tartrate [Lopressor] 50 mg PO BID 06/27/14 12/09/17 History Nitroglycerin Sl Tabs [Nitrostat] 0.4 mg SUBLINGUAL Q5M PRN 06/27/14 12/09/17 History Apixaban [Eliquis] 2.5 mg PO BID 05/05/16 12/09/17 History Furosemide [Lasix] 40 mg PO BID 05/05/16 12/09/17 History Insulin Detemir [Levemir Flextouch] 12 unit SQ HS 05/05/16 12/09/17 History Albuterol Nebulized [Ventolin 2.5 mg INHALATION RT-Q6H PRN 12/09/17 12/09/17 History Nebulized] Allopurinol [Zyloprim] 100 mg PO BID 12/09/17 12/09/17 History Calcitriol 0.25 mcg PO DAILY 12/09/17 12/09/17 History Cholecalciferol [Vitamin D3] 1,000 unit PO BID 12/09/17 12/09/17 History Ferrous Sulfate [Feosol] 325 mg PO Q7D 12/09/17 12/09/17 History Spironolactone 25 mg PO DAILY 12/09/17 12/09/17 History Amoxicillin/Potassium Clav 1 tab PO Q12HR #14 tab 12/14/17 Rx [Augmentin 500-125 Tablet] Allergies Allergy/AdvReac Type Severity Reaction Status Date / Time erythromycin base Allergy Unknown Verified 12/09/17 14:51 silver sulfadiazine Allergy Unknown Verified 12/09/17 14:51 [From Silvadene] sulfamethoxazole Allergy Unknown Verified 12/09/17 14:51 [From Bactrim] Tetracyclines Allergy Unknown Verified 12/09/17 14:51 trimethoprim [From Bactrim] Allergy Unknown Verified 12/09/17 14:51 Physical Exam Vitals: Vital Signs Temp Pulse Pulse Pulse Resp BP Pulse Ox 12/20/17 20:54 64 12/20/17 20:44 60 12/20/17 19:15 97.4 F L 67 111/57 94 L 12/20/17 16:00 14 12/20/17 12:43 64 12/20/17 12:31 64 12/20/17 09:35 14 12/20/17 08:31 60 12/20/17 08:20 64 12/20/17 07:25 97.9 F 59 L 14 115/68 98 12/20/17 01:00 97.8 F 66 16 95/58 94 L 12/19/17 23:40 16 Intake and Output 12/20/17 12/20/17 12/20/17 06:59 14:59 22:59 Intake Total 800 500 540 Output Total 100 Balance 700 500 540 Intake: Intake, IV Titration 500 500 Amount Ampicillin-Sulbactam 3 gm 100 In Sodium Chloride 0.9% 100 ml @ 200 mls/hr IVPB Q12HR [facility] Rx#:[id number] Sodium Chloride 0.9% 1, 400 500 000 ml @ 50 mls/hr IV . Q20H [facility] Rx#:[id number] Oral 300 540 Output: Urine 100 Other: Voiding Method Urinal Urinal # Voids 2 Weight 66 kg On physical examination, patient appears comfortable in no apparent distress. HEAD: Normocephalic, atraumatic. EYES: Some scleral icterus. No conjunctival injection. MOUTH: No lesions, tongue midline. NECK: Trachea midline, no gross abnormalities. CHEST: No wheezing or difficulty breathing. HEART: Regular rate and rhythm. ABDOMEN: Soft, obese. Bowel sounds are positive. No organomegaly. No guarding or rigidity. EXTREMITIES: No pedal edema. SKIN: No rashes, mild jaundice. NEUROLOGIC: Alert and oriented. No focal deficits. Results CBC & Chem 7: 12/16/17 06:46 12/20/17 07:36 Labs: Abnormal Lab Results - Last 24 Hours (Table) 12/20/17 12/20/17 12/20/17 Range/Units 07:36 11:12 17:26 BUN 61 H (9-20) mg/dL Creatinine 3.52 H (0.66-1.25) mg/dL POC Glucose (mg/dL) 161 H 108 H (75-99) mg/dL Total Bilirubin 3.2 H (0.2-1.3) mg/dL Conjugated Bilirubin 0.8 H (0.0-0.3) mg/dL Delta Bilirubin 1.8 H (0.0-0.2) mg/dL AST 69 H (17-59) U/L ALT 73 H (21-72) U/L Alkaline Phosphatase 208 H (38-126) U/L Total Protein 6.1 L (6.3-8.2) g/dL Albumin 2.9 L (3.5-5.0) g/dL 12/20/17 Range/Units 20:35 BUN (9-20) mg/dL Creatinine (0.66-1.25) mg/dL POC Glucose (mg/dL) 166 H (75-99) mg/dL Total Bilirubin (0.2-1.3) mg/dL Conjugated Bilirubin (0.0-0.3) mg/dL Delta Bilirubin (0.0-0.2) mg/dL AST (17-59) U/L ALT (21-72) U/L Alkaline Phosphatase (38-126) U/L Total Protein (6.3-8.2) g/dL Albumin (3.5-5.0) g/dL US - abdomen: report reviewed (Ultrasound showed a prior cholecystectomy with the common bile duct within normal limits and a small amount of ascites.) Assessment and Plan (1) Elevated liver enzymes Narrative/Plan: Elevated liver enzymes of unknown etiology with predominantly a cholestatic pattern. Likely secondary to antibiotic therapy which the patient is receiving for infection. We'll repeat liver enzymes. At this time ultrasound of the abdomen was negative for any evidence of biliary dilation or suspicion of choledocholithiasis. Viral hepatitis panel was also negative. Current Visit: Yes Status: Acute Code(s): R74.8 - ABNORMAL LEVELS OF OTHER SERUM ENZYMES SNOMED Code(s): 078261036 Plan: Supportive care Okay for diet Repeat liver enzymes If liver enzymes continue to trend up will order a full serology, however at this time suspicious for medication related elevation in liver enzymes Thank you for allowing us to dissipate in the care of this patient we will continue to follow
[2017-12-20] MEDS: INSULIN DETEMIR 100 UNIT/ML 10 ML VIAL SQ SCH (22:10)
--- NOTE | 2017-12-20 22:59 | PN ---
PROGRESS NOTE DATE OF SERVICE: 12/20/2017. REASON FOR FOLLOWUP: Left leg pain, cellulitis. INTERVAL HISTORY: The patient is afebrile. He has been breathing more comfortably. Denies significant chest pain. Occasional cough. No abdominal pain or any worsening pain to the left leg area. EXAMINATION: Blood pressure is 111/57 with a pulse of 56, temperature 97.4. He is 94% on 2 L nasal cannula. GENERAL DESCRIPTION: An elderly male lying in bed in no distress. RESPIRATORY: Unlabored breathing. Clear to auscultation anteriorly. HEART: S1, S2. Regular rate and rhythm. EXTREMITIES: Left leg covered with drainage on the dressing. LABS: BUN of 51, creatinine 3.52. DIAGNOSTIC IMPRESSION AND PLAN: Patient with left leg venostasis ulcer with skin cellulitis, currently on oral Keflex, dose to be adjusted by the pharmacy. Local care to continue with Aquacel Silver dressing. Continue supportive care. MMODL / IJN: [id number] /
--- NOTE | 2017-12-21 06:51 | P.CONS ---
History of Present Illness - Chief Complaint Medical debility - History of Present Illness I had the opportunity to see patient for inpatient rehab consultation regarding medical debility. He is admitted to [facility] December 09 with left lower extremity cellulitis. Seen by Dr. Rankin for COPD and Dr. leon for elevated liver enzymes. Liver ultrasound demonstrates a sideways. Chest x-ray stable right pleural effusion. PT reports supervision to minimal assistance for bed mobility and scooting. PT and OT sessions have been hampered by dialysis. Previous functional history as elicited patient: 72-year-old left-handed white male who is lives in one floor home with and 2 boys. One boy is helpful. Patient retired. Reports they share the cooking. Patient doesn't participate and laundry or driving. Receives assistance for a weekly bath and dressing. Gait without device previously. Dr. Adamson is regular doctor. Denies tobacco or alcohol. Review of Systems Review of systems: ENT: Denies sneezes or discharge. Eyes: Denies discharge or photophobia. Cardiac: Denies chest pain or palpitation. Pulmonary: Denies cough or shortness of breath. Gastrointestinal: Denies nausea, emesis, constipation, diarrhea. Genitourinary: Denies discharge or frequency. Musculoskeletal: Left leg discomfort due to cellulitis. Bilateral lower extremity edema. Neurologic: Denies motor or sensory change. Endocrine: Denies shakes or sweats. Oncology: Denies cancers. Dermatologic: Denies rash, itching, pruritus. ALLERGY/immunology: Denies sneezes, rashes. Past Medical History Past Medical History: Coronary Artery Disease (CAD), Heart Failure, COPD, Diabetes Mellitus, Hyperlipidemia, Hypertension, Myocardial Infarction (AL) Additional Past Medical History / Comment(s): "i lost track of how many heart attacks i've had i thinks it was like 38", gout, took meds for gerd in the past.cataracts, cellulitis elizabeth legs,"i was told 20 years ago i had parkinsons coming onn and was placed on meds,which i stopped taking after 3-4 months" Last Myocardial Infarction Date:: unk History of Any Multi-Drug Resistant Organisms: None Reported Past Surgical History: Cholecystectomy, Coronary Bypass/CABG, Heart Catheterization, Heart Catheterization With Stent Additional Past Surgical History / Comment(s): Angiography Past Anesthesia/Blood Transfusion Reactions: Previous Problems w/ Anesthesia Additional Past Anesthesia/Blood Transfusion Reaction / Comm: difficulty waking up after sx. pt stated he's not sure if ever recevied blood or not during his sx. Date of Last Stent Placement:: unk Smoking Status: Former smoker - Past Family History Mother History Unknown: Yes Additional Family Medical History / Comment(s): mom at age 60 unsure of the cause. Father Family Medical History: Myocardial Infarction (AL) Son(s) Family Medical History: AFIB Additional Family Medical History / Comment(s): aicd implanted Medications and Allergies Home Medications Medication Instructions Recorded Confirmed Type Ipratropium-Albuterol Nebulize 3 ml INHALATION RT-QID 06/27/14 12/09/17 History [Duoneb 0.5 mg-3 mg/3 ml Soln] Lisinopril [Zestril] 5 mg PO BID 06/27/14 12/09/17 History Metoprolol Tartrate [Lopressor] 50 mg PO BID 06/27/14 12/09/17 History Nitroglycerin Sl Tabs [Nitrostat] 0.4 mg SUBLINGUAL Q5M PRN 06/27/14 12/09/17 History Apixaban [Eliquis] 2.5 mg PO BID 05/05/16 12/09/17 History Furosemide [Lasix] 40 mg PO BID 05/05/16 12/09/17 History Insulin Detemir [Levemir Flextouch] 12 unit SQ HS 05/05/16 12/09/17 History Albuterol Nebulized [Ventolin 2.5 mg INHALATION RT-Q6H PRN 12/09/17 12/09/17 History Nebulized] Allopurinol [Zyloprim] 100 mg PO BID 12/09/17 12/09/17 History Calcitriol 0.25 mcg PO DAILY 12/09/17 12/09/17 History Cholecalciferol [Vitamin D3] 1,000 unit PO BID 12/09/17 12/09/17 History Ferrous Sulfate [Feosol] 325 mg PO Q7D 12/09/17 12/09/17 History Spironolactone 25 mg PO DAILY 12/09/17 12/09/17 History Amoxicillin/Potassium Clav 1 tab PO Q12HR #14 tab 12/14/17 Rx [Augmentin 500-125 Tablet] Allergies Allergy/AdvReac Type Severity Reaction Status Date / Time erythromycin base Allergy Unknown Verified 12/09/17 14:51 silver sulfadiazine Allergy Unknown Verified 12/09/17 14:51 [From Silvadene] sulfamethoxazole Allergy Unknown Verified 12/09/17 14:51 [From Bactrim] Tetracyclines Allergy Unknown Verified 12/09/17 14:51 trimethoprim [From Bactrim] Allergy Unknown Verified 12/09/17 14:51 Physical Exam Vitals: Vital Signs Temp Pulse Pulse Pulse Resp BP Pulse Ox 12/21/17 00:05 16 12/20/17 23:06 97.5 F L 66 117/54 92 L 12/20/17 20:54 64 12/20/17 20:44 60 12/20/17 20:00 66 59 L 16 12/20/17 19:15 97.4 F L 67 111/57 94 L 12/20/17 16:00 14 12/20/17 12:43 64 12/20/17 12:31 64 12/20/17 09:35 14 12/20/17 08:31 60 12/20/17 08:20 64 12/20/17 07:25 97.9 F 59 L 14 115/68 98 Intake and Output 12/20/17 12/20/17 12/21/17 14:59 22:59 06:59 Intake Total 500 540 525 Balance 500 540 525 Intake: Intake, IV Titration 500 Amount Sodium Chloride 0.9% 1, 500 000 ml @ 50 mls/hr IV . Q20H [facility] Rx#:[id number] Oral 540 525 Other: Voiding Method Urinal Urinal # Voids 1 2 # Bowel Movements 1 Weight 66 kg Skin: Atrophy and discoloration lower extremities. General: Medium build and comfortable appearance. Head: Normocephalic, atraumatic. Eyes: Symmetric. Pupils equal round. Ears: Symmetric. Hearing within normal limits. Mouth: Clear. Neck: Supple. Carotid without bruit. Cardiac: Regular rate and rhythm. Lungs: Clear anteriorly and posteriorly. Abdomen: Soft active nontender. Extremities: Normal tone. Left leg wrapped in Isacc. Bilateral lower extremity edema. Neurological: Mental status: Alert, cooperative, pleasant. Cranial nerves: Symmetric facial tone and trapezius. Motor: Actively move all limbs but legs are at best antigravity. Sensation: Intact throughout. DTRs: Symmetric and equal throughout. Mobility: Requires assistance for bed mobility. Results CBC & Chem 7: 12/16/17 06:46 12/20/17 07:36 Labs: Abnormal Lab Results - Last 24 Hours (Table) 12/20/17 12/20/17 12/20/17 Range/Units 07:36 11:12 17:26 BUN 61 H (9-20) mg/dL Creatinine 3.52 H (0.66-1.25) mg/dL POC Glucose (mg/dL) 161 H 108 H (75-99) mg/dL Total Bilirubin 3.2 H (0.2-1.3) mg/dL Conjugated Bilirubin 0.8 H (0.0-0.3) mg/dL Delta Bilirubin 1.8 H (0.0-0.2) mg/dL AST 69 H (17-59) U/L ALT 73 H (21-72) U/L Alkaline Phosphatase 208 H (38-126) U/L Total Protein 6.1 L (6.3-8.2) g/dL Albumin 2.9 L (3.5-5.0) g/dL 12/20/17 Range/Units 20:35 BUN (9-20) mg/dL Creatinine (0.66-1.25) mg/dL POC Glucose (mg/dL) 166 H (75-99) mg/dL Total Bilirubin (0.2-1.3) mg/dL Conjugated Bilirubin (0.0-0.3) mg/dL Delta Bilirubin (0.0-0.2) mg/dL AST (17-59) U/L ALT (21-72) U/L Alkaline Phosphatase (38-126) U/L Total Protein (6.3-8.2) g/dL Albumin (3.5-5.0) g/dL Assessment and Plan (1) Cellulitis of left leg Current Visit: Yes Status: Acute Code(s): L03.116 - CELLULITIS OF LEFT LOWER LIMB SNOMED Code(s): 446478931 Plan: Depression: 1. Medical debility. 2. Left lower extremity cellulitis. 3. Lower extremity edema. 4. Pulmonary fluid, CHF. 5. Hypertension. 6. Dyslipidemia. 7. Coronary artery disease with history of AL. 8. Diabetes. 9. COPD. Comments and plan: At this time PT and OT are prescribed. They're having difficulty treating patient however because of dialysis times. Rehab prognosis currently tied to ability to perform therapy and patient's ability participate with therapy out of bed, thus rehab prognosis guarded.
[2017-12-21 07:04] LABS: Glucose,Whole Blood 172 mg/dL (75-99)
[2017-12-21 07:19] LABS: Albumin 2.8 g/dL (3.5-5.0); Bilirubin, Conjugated 0.5 mg/dL (0.0-0.3); Bilirubin, Delta 1.4 mg/dL (0.0-0.2); Bilirubin,Unconjugated 0.5 mg/dL (0.0-1.1); Total Bilirubin 2.4 mg/dL (0.2-1.3); Total Protein 5.9 g/dL (6.3-8.2)
[2017-12-21] MEDS: INSULIN ASPART 100 UNIT/ML 1 ML 10 ML VIAL SQ SCH ×4 (07:49→23:04)
[2017-12-21] MEDS: IPRATROPIUM-ALBUTEROL 3 ML NEB INHALATION SCH ×4 (09:15→20:59)
--- NOTE | 2017-12-21 09:39 | P.PN ---
Subjective Progress Note Date: 12/21/17 12/10/2017 72-year-old male with a past medical history significant for coronary artery disease, heart failure, COPD, diabetes, hypertension and hyperlipidemia who presented to the emergency room with a chief complaint of increased pain to the right lower extremities. The patient is somewhat of a poor historian. No family present at the bedside. The patient has had chronic chronic cellulitis to the bilateral lower extremities along with a wound to the posterior aspect of the left lower extremity. The patient states his legs were starting to improve but recently he has been experiencing more pain to the left leg. He decided to come to the emergency room for further evaluation. He patient states he has occasional shortness of breath, but states that is not the main reason he came to the emergency room. He denies chest pain or pressure. Denies nausea or vomiting. He denies fever or chills. Denies difficulty urinating or change in bowel habits. Chest x-ray completed in the emergency room reveals right middle lobe and right lower lobe infiltrates with small right pleural effusion. Pulmonary vascular prominence. Correlate for failure. Laboratory data upon admission reveals white count 8.2. Hemoglobin 11.7. Platelet count 211. Sodium 136. Potassium 5.1. BUN 90. Crit and 3.05. Glucose 281. Lactic acid 1.4. AST 60. ALT 83. Alkaline phosphatase 109. Troponin 0.014. BNP 13,500. The patient was started on IV diuretics and antibiotics and admitted to the hospital under the care of Dr. Adamson. 12/11/2017-Note per Dr. Beasley On-year-old admitted with infected ulcers of the right leg and patient is presently on Unasyn infectious disease evaluated the patient patient also has an pulmonary edema with right-sided pleural effusion patient is on IV Lasix will repeat the chest x-ray tomorrow if there is no significant improvement in pleural effusion patient may need the pleural fluid drainage patient clinically does not appear to have pneumonia. 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 12/12/2017-Note per Dr. Beasley Patient is doing much better and patient is on oral Lasix at this time creatinine mild worsening nephrology evaluated the patient patient is getting an ultrasound of the chest for pleural effusion for possible drainage. His blood sugars are bit low we'll cut down the Lantus as patient is on very low- dose of Lantus probably can be held just use sliding scale insulin. 12/13/2017 Patient seen and examined at the bedside. Patient states he is having some pain in his left lower extremity, although improved. He denies shortness of breath or chest pain. He states he is tired and did not sleep well last night. Patient 's creatinine is 4.05 today up from 3.53 yesterday. His Lasix was discontinued per nephrology. Patient underwent an ultrasound of the kidneys which was unremarkable. Chest x-ray from this morning reveals findings similar to prior exams, chronic. There may be lower lobe pneumonia, effusion, edema or atelectasis. Correlate to exclude interstitial edema. Ultrasound of the chest was completed yesterday revealing right pleural effusion pocket size of 1.7 cm. Patient is being followed by pulmonary during hospitalization. Patient's blood pressure is stable with a recent reading of 121/68. He is afebrile. He is on room air with oxygen saturations greater than 92%. He is being followed by infectious disease. He is currently receiving Unasyn with wound care with Aquacel Silver dressing and ISACC bandage. 12/14/2017 Patient seen and examined at the bedside with Dr. Adamson. Patient states he did not sleep well last night. He reports nausea overnight and an episode of emesis. Patient states he still has some nausea this morning, although improved. Potassium is 5.3. BUN 108. Creatinine 4.41, which is elevated from 4.05 yesterday. Lasix remains on hold per nephrology. Pulmonary believes xray is consistent with right mid and lower lobe pneumonia. Infectious disease is following. He remains on Unasyn. 12/15/2017 Patient seen and examined the bedside with Dr. Adamson. Patient was started on IV fluids yesterday for worsening kidney function. His creatinine today is 5.24. BUN 111. patient does report decreased urine output. Testing for influenza A and B was completed yesterday and was negative. Patient currently denies shortness of breath or chest pain. He reports some nausea still this morning, but no episodes of emesis. He is upset that he can not be discharged home today. 12/16/2017 Patient seen and examined at the bedside. Patient had right femoral dialysis catheter placed yesterday due to worsening kidney function. He received dialysis yesterday evening and is scheduled to have dialysis again this morning. Unsure if patient will require jail dialysis. If so, patient will need permacath placed and eliquis will need to be held. He reports he feels much after getting dialysis yesterday. Creatinine is 4.07 today. Denies further episodes of nausea or dry heaves. Denies chest pain or pressure. Denies shortness of breath. Vital signs are stable. 12/17/2017 Patient seen and examined at the bedside. Patient has completed two dialysis treatments. Case discussed with Dr. Caputo. Patient will receive dialysis again today and then will remain off dialysis for the weekend. A decision will then be made early next week if patient will be able to come off dialysis or if he will require jail dialysis and permacath placement. Will continue Eliquis for now. Patient denies shortness of breath. Denies chest pain or pressure. Denies nausea or vomiting. Vital signs are stable. He is afebrile. Lab work from this morning is pending. 12/18/2017 - 12/19/2017: Notes per covering provider 12/20/2017 Patient examined at the bedside with Dr. Adamson. Patient is awake and alert. Patient complains of constipation and reports no bowel movement for the last 3- 4 days. Patients creatinine today is 3.52. BUN 61. Awaiting further recommendations from nephrology regarding whether or not patient will require jail access. Patient will need to be off Eliquis if permacath is planned. Patients liver enzymes and bilirubin remain elevated. US of the liver was ordered which revealed small amount of ascites fluid. Enlarged liver. No focal liver defects. No dilated ducts. Patient reports increased weakness and states he is having difficulty ambulating by himself. Patient may require NIKHIL at the time of discharge. 12/21/2017 Patient examined at the bedside with Dr. Adamson. Patient is awake and alert. Patient underwent dialysis yesterday. Vascular has been reconsulted for permacath insertion. His Eliquis has been placed on hold. His last dose was at 9 AM. GI was consulted to evaluate patient's elevated liver function. GI feels that may be medication related. AST 55. ALT 68. Total bilirubin 2.4. Alkaline phosphatase 210. Patient reports he had a large bowel movement yesterday. Voiding without difficulty. Dr. Hall was consulted for inpatient rehab placement. Objective - Vital Signs Vital signs: Vital Signs Temp 97.9 F 12/21/17 07:00 Pulse 63 12/21/17 07:00 Resp 16 12/21/17 08:18 BP 101/58 12/21/17 07:00 Pulse Ox 94 L 12/21/17 07:00 Intake & Output 12/20/17 12/21/17 12/21/17 18:59 06:59 18:59 Intake Total 500 1065 Balance 500 1065 Weight 66 kg 66 kg Intake: Intake, IV Titration 500 Amount Sodium Chloride 0.9% 1, 500 000 ml @ 50 mls/hr IV . Q20H [facility] Rx#:[id number] Oral 1065 Other: Voiding Method Urinal Urinal Urinal # Voids 2 # Bowel Movements 1 - Exam GENERAL: This is a 72-year-old male in no apparent distress at the time of examination. Pleasant and cooperative. HEENT: Head is atraumatic, normocephalic. Pupils are equal, round, and reactive to light. Sclerae anicteric. Conjunctivae are clear. Mucus membranes of the mouth are moist. Neck is supple. RESPIRATORY: Diminished. No wheezing or rhonchi auscultated. No use of accessory muscles. Patient maintaining oxygen saturation greater than 92%. No chest wall tenderness is noted on palpation or with deep breathing. CARDIOVASCULAR: Regular rate and rhythm. S1 and S2 noted. No JVD noted. No S3 or S4 noted. GASTROINTESTINAL: No distention noted. Abdomen soft and round. Normal active bowel sounds auscultated x 4 quadrants. No pain or tenderness noted upon palpation. INTEGUMENTARY: No cyanosis. No jaundice. Chronic discoloration noted to bilateral lower extremities. Isacc wrap with dressing to left lower extremity. Will defer wound assessment to infectious disease. EXTREMITIES: 1+ peripheral pulses. NEUROLOGIC: Cranial nerves II-XII intact. PSYCHIATRIC: Awake, alert, and oriented X 3. Appropriate affect. Intact judgement and insight. - Labs CBC & Chem 7: 12/16/17 06:46 12/20/17 07:36 Labs: Abnormal Lab Results - Last 24 Hours (Table) 12/20/17 12/20/17 12/20/17 Range/Units 11:12 17:26 20:35 POC Glucose (mg/dL) 161 H 108 H 166 H (75-99) mg/dL Total Bilirubin (0.2-1.3) mg/dL Conjugated Bilirubin (0.0-0.3) mg/dL Delta Bilirubin (0.0-0.2) mg/dL Alkaline Phosphatase (38-126) U/L Total Protein (6.3-8.2) g/dL Albumin (3.5-5.0) g/dL 12/21/17 12/21/17 Range/Units 06:05 07:02 POC Glucose (mg/dL) 172 H (75-99) mg/dL Total Bilirubin 2.4 H (0.2-1.3) mg/dL Conjugated Bilirubin 0.5 H (0.0-0.3) mg/dL Delta Bilirubin 1.4 H (0.0-0.2) mg/dL Alkaline Phosphatase 210 H (38-126) U/L Total Protein 5.9 L (6.3-8.2) g/dL Albumin 2.8 L (3.5-5.0) g/dL Assessment and Plan Plan: ASSESSMENT: Acute exacerbation of congestive heart failure, diastolic, EF 45-50%, BNP 13,500 , resolved Right middle and right lower lobe infiltrates, pneumonia ruled in per pulmonary progess note 12/15/17, community-acquired Right pleural effusion, suspect cardiac in nature Cellulitis of left lower extremity, present on admission, with chronic wounds History of coronary artery disease with previous stent placement COPD, no evidence of acute exacerbation Acute kidney injury, secondary to diuresis, although worsening off diuretics, started on hemodialysis 11/14/2017 Chronic kidney disease, stage IV Diabetes mellitus, type II Hyperlipidemia Hypertension Paroxysmal atrial fibrillation, on long-term anticoagulation with Eliquis Nausea due to worsening renal function, improved Elevated liver enzymes and bilirubin PLAN: Infectious disease, nephrology, cardiology, and pulmonary on consult. Appreciate recommendations and input Antibiotics per ID. Currently on Unasyn Continue wound care with Aquacel silver and isacc wrap per ID recommendations Continue to hold Shawna De Paz on consult for permacath placement. Patient needs to be off Eliquis for 48 hours prior. Last dose 12/20/2017 at 0900. Home meds as appropriate Monitor labs GI prophylaxis: Protonix 40 mg PO Daily DVT prophylaxis: On hold for permacath placement Discharge plan: Possible inpatient rehab at [facility] at the time of discharge Monitor vital signs and address as appropriate Further recommendations pending patient's course Nurse practitioner note has been reviewed by physician. Signing provider agrees with the documented findings, assessment, and plan of care.
[2017-12-21] MEDS: METOPROLOL TARTRATE 25 MG TAB PO SCH ×2 (09:45→23:04)
[2017-12-21] MEDS: CEPHALEXIN 250 MG CAP PO SCH (09:45)
[2017-12-21] MEDS: POLYETHYLENE GLYCOL 3350 17 GM POWD.PACK PO SCH (09:45)
[2017-12-21] MEDS: CALCITRIOL 0.25 MCG CAP PO SCH (09:45)
[2017-12-21] MEDS: DOCUSATE 100 MG CAP PO SCH ×2 (09:45→23:04)
[2017-12-21] MEDS: FAMOTIDINE 20 MG TAB PO SCH (09:46)
[2017-12-21] MEDS: CHOLECALCIFEROL 1,000 UNIT TAB PO SCH ×2 (09:46→23:04)
[2017-12-21] MEDS: ALLOPURINOL 100 MG TAB PO SCH ×2 (09:46→23:04)
[2017-12-21] MEDS ORDERED: FUROSEMIDE 10 MG/ML 4 ML VIAL IV STA (10:34)
[2017-12-21 11:43] LABS: Glucose,Whole Blood 86 mg/dL (75-99)
--- NOTE | 2017-12-21 12:41 | P.PN ---
Subjective Progress Note Date: 12/21/17 Principal diagnosis: elevated liver enzymes 72-year-old male admitted with lower extremity cellulitis right pleural effusion congestive heart failure. Seen in consultation secondary to elevated liver enzymes suspect cholestatic picture medication related. LFTs have improved total bilirubin 2.4. AST 55. ALT 60. AP to 10. Objective - Vital Signs Vital signs: Vital Signs Temp 97.9 F 12/21/17 07:00 Pulse 63 12/21/17 07:00 Resp 16 12/21/17 08:18 BP 101/58 12/21/17 07:00 Pulse Ox 94 L 12/21/17 07:00 Intake & Output 12/20/17 12/21/17 12/21/17 18:59 06:59 18:59 Intake Total 500 1065 120 Balance 500 1065 120 Weight 66 kg 66 kg Intake: Intake, IV Titration 500 Amount Sodium Chloride 0.9% 1, 500 000 ml @ 50 mls/hr IV . Q20H [facility] Rx#:[id number] Oral 1065 120 Other: Voiding Method Urinal Urinal Urinal # Voids 2 # Bowel Movements 1 - Exam General appearance: The patient is alert, oriented x 3, in no acute distress. HET: Head is normocephalic and atraumatic. Pupils are equal and reactive. Oropharynx is clear without lesions. Neck: Supple without lymphadenopathy. Trachea midline. Heart: S1 S2. Regular rate and rhythm. Lungs: No crackles or wheezes are heard. Abdomen: Soft, nontender, nondistended with bowel sounds. No peritoneal signs. No palpable organomegaly or masses. - Labs CBC & Chem 7: 12/16/17 06:46 12/20/17 07:36 Labs: Abnormal Lab Results - Last 24 Hours (Table) 12/20/17 12/20/17 12/21/17 Range/Units 17:26 20:35 06:05 POC Glucose (mg/dL) 108 H 166 H (75-99) mg/dL Total Bilirubin 2.4 H (0.2-1.3) mg/dL Conjugated Bilirubin 0.5 H (0.0-0.3) mg/dL Delta Bilirubin 1.4 H (0.0-0.2) mg/dL Alkaline Phosphatase 210 H (38-126) U/L Total Protein 5.9 L (6.3-8.2) g/dL Albumin 2.8 L (3.5-5.0) g/dL 12/21/17 Range/Units 07:02 POC Glucose (mg/dL) 172 H (75-99) mg/dL Total Bilirubin (0.2-1.3) mg/dL Conjugated Bilirubin (0.0-0.3) mg/dL Delta Bilirubin (0.0-0.2) mg/dL Alkaline Phosphatase (38-126) U/L Total Protein (6.3-8.2) g/dL Albumin (3.5-5.0) g/dL Assessment and Plan (1) Elevated liver enzymes Narrative/Plan: predominantly cholestatic pattern likely secondary to antibiotic therapy with biochemical improvement. Current Visit: Yes Status: Acute Code(s): R74.8 - ABNORMAL LEVELS OF OTHER SERUM ENZYMES SNOMED Code(s): 972843219 Plan: 1. Continue symptomatic measures. No further workup at this time. We'll follow as needed. Assessment and plan of care discussed with Dr. Dunn
[2017-12-21 16:54] LABS: Glucose,Whole Blood 178 mg/dL (75-99)
--- NOTE | 2017-12-21 22:25 | PN ---
PROGRESS NOTE HISTORY: The patient is seen for followup for acute kidney injury. This morning he is complaining of weakness. He is tired after therapy and wants to sleep. The patient will likely have his PermCath placed tomorrow. He is also scheduled for hemodialysis tomorrow. He states he has been voiding well, although the urine output is not accurately charted. PHYSICAL EXAMINATION: Blood pressure this morning was 108/65, heart rate 65 per minute. Patient is afebrile. Examination of the heart S1, S2. Examination of the lungs, decreased breath sounds bases. Minimal basal crackles are heard. Abdomen is soft, nontender. Examination of lower extremities shows bilateral feet to be wrapped. DIRECTOR OF SLEEP exam is grossly intact. LABS: Reveal sodium of 137, potassium 4.2 from yesterday, creatinine was 3.5 yesterday. We do not have a serum creatinine from today. ASSESSMENT: 1. Acute kidney injury, acute tubular necrosis, currently hemodialysis dependent. We will arrange for hemodialysis in a.m. 2. Hypervolemia. Continue off of IV fluids. I will give 1 dose of Lasix today. We will try to remove about a L of fluid tomorrow with dialysis. 3. Bilateral lower extremity wounds and ulcers. Maintained on Keflex. 4. Chronic kidney disease mineral bone disorder. 5. Chronic kidney disease, NKF stage 3B with baseline creatinine about 1.7 to 2 mg/dL secondary to nephrosclerosis. 6. Cardiomyopathy, ejection fraction 45 to 50 percent. PLAN: Lasix x1. Continue off of IV fluids. Hemodialysis tomorrow. Possible PermCath placement tomorrow. The [facility] has been on hold. MMODL / IJN: [id number] /
--- NOTE | 2017-12-21 22:52 | PN ---
PROGRESS NOTE DATE OF SERVICE: 12/21/2017. REASON FOR FOLLOWUP: Left leg venostasis ulcer, cellulitis. INTERVAL HISTORY: The patient is currently afebrile. He is breathing comfortably. Denies significant chest pain, cough, abdominal pain. Pain in the left leg area. EXAMINATION: Blood pressure 101/59 with a pulse of 64, temperature 97.7, he is 99% on room air. GENERAL DESCRIPTION: An elderly male lying in bed in no distress. RESPIRATORY SYSTEM: Unlabored breathing with decreased breath sounds. HEART: S1, S2. Regular rate and rhythm. ABDOMEN: Soft. EXTREMITIES: Left leg is currently dressed, no obvious drainage on the dressing. LABS: No CBC was done today. DIAGNOSTIC IMPRESSION AND PLAN: Patient with left leg venostasis ulcer with skin cellulitis. has been adequately treated. Local wound care to continue with Aquacel silver dressing. Continue supportive care. MMODL / IJN: [id number] /
[2017-12-21 22:57] LABS: Glucose,Whole Blood 161 mg/dL (75-99)
[2017-12-21] MEDS: INSULIN DETEMIR 100 UNIT/ML 10 ML VIAL SQ SCH (23:05)
[2017-12-22 06:59] LABS: Glucose,Whole Blood 138 mg/dL (75-99)
[2017-12-22] MEDS: IPRATROPIUM-ALBUTEROL 3 ML NEB INHALATION SCH ×4 (07:50→19:56)
--- NOTE | 2017-12-22 08:27 | P.PN ---
Subjective Progress Note Date: 12/22/17 12/10/2017 72-year-old male with a past medical history significant for coronary artery disease, heart failure, COPD, diabetes, hypertension and hyperlipidemia who presented to the emergency room with a chief complaint of increased pain to the right lower extremities. The patient is somewhat of a poor historian. No family present at the bedside. The patient has had chronic chronic cellulitis to the bilateral lower extremities along with a wound to the posterior aspect of the left lower extremity. The patient states his legs were starting to improve but recently he has been experiencing more pain to the left leg. He decided to come to the emergency room for further evaluation. He patient states he has occasional shortness of breath, but states that is not the main reason he came to the emergency room. He denies chest pain or pressure. Denies nausea or vomiting. He denies fever or chills. Denies difficulty urinating or change in bowel habits. Chest x-ray completed in the emergency room reveals right middle lobe and right lower lobe infiltrates with small right pleural effusion. Pulmonary vascular prominence. Correlate for failure. Laboratory data upon admission reveals white count 8.2. Hemoglobin 11.7. Platelet count 211. Sodium 136. Potassium 5.1. BUN 90. Crit and 3.05. Glucose 281. Lactic acid 1.4. AST 60. ALT 83. Alkaline phosphatase 109. Troponin 0.014. BNP 13,500. The patient was started on IV diuretics and antibiotics and admitted to the hospital under the care of Dr. Adamson. 12/11/2017-Note per Dr. Beasley On-year-old admitted with infected ulcers of the right leg and patient is presently on Unasyn infectious disease evaluated the patient patient also has an pulmonary edema with right-sided pleural effusion patient is on IV Lasix will repeat the chest x-ray tomorrow if there is no significant improvement in pleural effusion patient may need the pleural fluid drainage patient clinically does not appear to have pneumonia. 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 12/12/2017-Note per Dr. Beasley Patient is doing much better and patient is on oral Lasix at this time creatinine mild worsening nephrology evaluated the patient patient is getting an ultrasound of the chest for pleural effusion for possible drainage. His blood sugars are bit low we'll cut down the Lantus as patient is on very low- dose of Lantus probably can be held just use sliding scale insulin. 12/13/2017 Patient seen and examined at the bedside. Patient states he is having some pain in his left lower extremity, although improved. He denies shortness of breath or chest pain. He states he is tired and did not sleep well last night. Patient 's creatinine is 4.05 today up from 3.53 yesterday. His Lasix was discontinued per nephrology. Patient underwent an ultrasound of the kidneys which was unremarkable. Chest x-ray from this morning reveals findings similar to prior exams, chronic. There may be lower lobe pneumonia, effusion, edema or atelectasis. Correlate to exclude interstitial edema. Ultrasound of the chest was completed yesterday revealing right pleural effusion pocket size of 1.7 cm. Patient is being followed by pulmonary during hospitalization. Patient's blood pressure is stable with a recent reading of 121/68. He is afebrile. He is on room air with oxygen saturations greater than 92%. He is being followed by infectious disease. He is currently receiving Unasyn with wound care with Aquacel Silver dressing and ISACC bandage. 12/14/2017 Patient seen and examined at the bedside with Dr. Adamson. Patient states he did not sleep well last night. He reports nausea overnight and an episode of emesis. Patient states he still has some nausea this morning, although improved. Potassium is 5.3. BUN 108. Creatinine 4.41, which is elevated from 4.05 yesterday. Lasix remains on hold per nephrology. Pulmonary believes xray is consistent with right mid and lower lobe pneumonia. Infectious disease is following. He remains on Unasyn. 12/15/2017 Patient seen and examined the bedside with Dr. Adamson. Patient was started on IV fluids yesterday for worsening kidney function. His creatinine today is 5.24. BUN 111. patient does report decreased urine output. Testing for influenza A and B was completed yesterday and was negative. Patient currently denies shortness of breath or chest pain. He reports some nausea still this morning, but no episodes of emesis. He is upset that he can not be discharged home today. 12/16/2017 Patient seen and examined at the bedside. Patient had right femoral dialysis catheter placed yesterday due to worsening kidney function. He received dialysis yesterday evening and is scheduled to have dialysis again this morning. Unsure if patient will require longterm dialysis. If so, patient will need permacath placed and eliquis will need to be held. He reports he feels much after getting dialysis yesterday. Creatinine is 4.07 today. Denies further episodes of nausea or dry heaves. Denies chest pain or pressure. Denies shortness of breath. Vital signs are stable. 12/17/2017 Patient seen and examined at the bedside. Patient has completed two dialysis treatments. Case discussed with Dr. Caputo. Patient will receive dialysis again today and then will remain off dialysis for the weekend. A decision will then be made early next week if patient will be able to come off dialysis or if he will require longterm dialysis and permacath placement. Will continue Eliquis for now. Patient denies shortness of breath. Denies chest pain or pressure. Denies nausea or vomiting. Vital signs are stable. He is afebrile. Lab work from this morning is pending. 12/18/2017 - 12/19/2017: Notes per covering provider 12/20/2017 Patient examined at the bedside with Dr. Adamson. Patient is awake and alert. Patient complains of constipation and reports no bowel movement for the last 3- 4 days. Patients creatinine today is 3.52. BUN 61. Awaiting further recommendations from nephrology regarding whether or not patient will require longterm access. Patient will need to be off Eliquis if permacath is planned. Patients liver enzymes and bilirubin remain elevated. US of the liver was ordered which revealed small amount of ascites fluid. Enlarged liver. No focal liver defects. No dilated ducts. Patient reports increased weakness and states he is having difficulty ambulating by himself. Patient may require NIKHIL at the time of discharge. 12/21/2017 Patient examined at the bedside with Dr. Adamson. Patient is awake and alert. Patient underwent dialysis yesterday. Vascular has been reconsulted for permacath insertion. His Eliquis has been placed on hold. His last dose was at 9 AM. GI was consulted to evaluate patient's elevated liver function. GI feels that may be medication related. AST 55. ALT 68. Total bilirubin 2.4. Alkaline phosphatase 210. Patient reports he had a large bowel movement yesterday. Voiding without difficulty. Dr. Hall was consulted for inpatient rehab placement. 12/22/2017 Patient examined at the bedside with Dr. Adamson. Patient is awake and alert. Patient denies chest pain, shortness of breath, nausea, vomiting, or pain. He reports continued weakness and difficulty ambulating. He is scheduled for hemodialysis today. He remains off Eliquis. He is scheduled for permacath placement tomorrow. Objective - Vital Signs Vital signs: Vital Signs Temp 98 F 12/22/17 07:00 Pulse 65 12/22/17 08:01 Resp 16 12/22/17 07:00 BP 113/64 12/22/17 07:00 Pulse Ox 92 L 12/22/17 07:00 Intake & Output 12/21/17 12/22/17 12/22/17 18:59 06:59 18:59 Intake Total 840 Output Total 150 Balance 840 -150 Weight 66 kg Intake: Intake, IV Titration 400 Amount Sodium Chloride 0.9% 1, 400 000 ml @ 50 mls/hr IV . Q20H MILAGROS Rx#:[id number] Oral 440 Output: Urine 150 Other: Voiding Method Urinal Urinal - Exam GENERAL: This is a 72-year-old male in no apparent distress at the time of examination. Pleasant and cooperative. HEENT: Head is atraumatic, normocephalic. Pupils are equal, round, and reactive to light. Sclerae anicteric. Conjunctivae are clear. Mucus membranes of the mouth are moist. Neck is supple. RESPIRATORY: Diminished. No wheezing or rhonchi auscultated. No use of accessory muscles. Patient maintaining oxygen saturation greater than 92%. No chest wall tenderness is noted on palpation or with deep breathing. CARDIOVASCULAR: Regular rate and rhythm. S1 and S2 noted. No JVD noted. No S3 or S4 noted. GASTROINTESTINAL: No distention noted. Abdomen soft and round. Normal active bowel sounds auscultated x 4 quadrants. No pain or tenderness noted upon palpation. INTEGUMENTARY: No cyanosis. No jaundice. Chronic discoloration noted to bilateral lower extremities. Isacc wrap with dressing to left lower extremity. Will defer wound assessment to infectious disease. EXTREMITIES: 1+ peripheral pulses. NEUROLOGIC: Cranial nerves II-XII intact. PSYCHIATRIC: Awake, alert, and oriented X 3. Appropriate affect. Intact judgement and insight. - Labs CBC & Chem 7: 11/08/18 06:46 12/20/17 07:36 Labs: Abnormal Lab Results - Last 24 Hours (Table) 12/21/17 12/21/17 12/22/17 Range/Units 16:42 22:37 06:44 POC Glucose (mg/dL) 178 H 161 H 138 H (75-99) mg/dL Assessment and Plan Plan: ASSESSMENT: Acute exacerbation of congestive heart failure, diastolic, EF 45-50%, BNP 13,500 , resolved Right middle and right lower lobe infiltrates, pneumonia ruled in per pulmonary progess note 12/15/17, community-acquired Right pleural effusion, suspect cardiac in nature Cellulitis of left lower extremity, present on admission, with chronic wounds History of coronary artery disease with previous stent placement COPD, no evidence of acute exacerbation Acute kidney injury, secondary to diuresis, although worsening off diuretics, started on hemodialysis 11/14/2017 Chronic kidney disease, stage IV Diabetes mellitus, type II Hyperlipidemia Hypertension Paroxysmal atrial fibrillation, on long-term anticoagulation with Eliquis Nausea due to worsening renal function, improved Elevated liver enzymes and bilirubin PLAN: Infectious disease, nephrology, cardiology, and pulmonary on consult. Appreciate recommendations and input Antibiotics per ID. Currently on Keflex Continue wound care with Aquacel silver and isacc wrap per ID recommendations Dr. De Paz on consult for permacath placement. Patient needs to be off Eliquis for 48 hours prior. Last dose 12/20/2017 at 0900. Patient scheduled for permacath insertion tomorrow Home meds as appropriate Monitor labs GI prophylaxis: Protonix 40 mg PO Daily DVT prophylaxis: On hold for permacath placement Discharge plan: Inpatient rehab at [facility] at the time of discharge Monitor vital signs and address as appropriate Further recommendations pending patient's course Anticipate discharge to [facility] for inpatient rehab on Wednesday. If not accepted at [facility], then discharge plan will be [facility] Please note Dr. Edmondson group will be covering for Dr. Adamson beginning on 12/23/2017 Nurse practitioner note has been reviewed by physician. Signing provider agrees with the documented findings, assessment, and plan of care.
[2017-12-22] MEDS: CEPHALEXIN 250 MG CAP PO SCH (09:00)
[2017-12-22] MEDS: METOPROLOL TARTRATE 25 MG TAB PO SCH ×2 (09:29→20:47)
[2017-12-22] MEDS: INSULIN ASPART 100 UNIT/ML 1 ML 10 ML VIAL SQ SCH ×4 (09:54→20:47)
[2017-12-22 11:12] LABS: Calcium 8.3 mg/dL (8.4-10.2)
[2017-12-22 11:54] LABS: Glucose,Whole Blood 104 mg/dL (75-99)
[2017-12-22] MEDS: ALLOPURINOL 100 MG TAB PO SCH ×2 (12:09→20:47)
[2017-12-22] MEDS: CHOLECALCIFEROL 1,000 UNIT TAB PO SCH ×2 (12:09→20:47)
[2017-12-22] MEDS: DOCUSATE 100 MG CAP PO SCH ×2 (12:09→20:47)
--- NOTE | 2017-12-22 12:50 | PN ---
PROGRESS NOTE DATE OF SERVICE: 12/22/2017 REASON FOR FOLLOWUP: Left leg venostasis ulcer and cellulitis. INTERVAL HISTORY: The patient is afebrile. He is sleepy and slightly lethargic. No nausea, vomiting or any diarrhea has been reported. No chest pain, no cough, or any pain. PHYSICAL EXAMINATION: Blood pressure 113/64, pulse of 53, temperature 98, he is 92% on room air. General description is an elderly male lying in bed in no distress. RESPIRATORY SYSTEM: Unlabored breathing. Clear to auscultation anteriorly. HEART: S1, S2. Regular rate and rhythm. ABDOMEN: Soft, no tenderness. Left leg is currently dressed up, no obvious drainage on the dressing. LABS: BUN of 23, creatinine 1.73. DIAGNOSTIC IMPRESSION AND PLAN: Patient with left leg venostasis ulcer and underlying cellulitis has been adequately treated. Will discontinue the Keflex. Current local wound care with Aquacel Silver dressing and an Isacc wrap to keep the swelling down. Continue supportive care. MMODL / IJN: [id number] /
[2017-12-22] MEDS: CALCITRIOL 0.25 MCG CAP PO SCH (15:35)
[2017-12-22] MEDS: FAMOTIDINE 20 MG TAB PO SCH (15:35)
[2017-12-22] MEDS: POLYETHYLENE GLYCOL 3350 17 GM POWD.PACK PO SCH (15:35)
[2017-12-22 17:11] LABS: Glucose,Whole Blood 166 mg/dL (75-99)
[2017-12-22 19:34] LABS: Glucose,Whole Blood 238 mg/dL (75-99)
[2017-12-22] MEDS: INSULIN DETEMIR 100 UNIT/ML 10 ML VIAL SQ SCH (20:47)
--- NOTE | 2017-12-22 22:05 | PN ---
PROGRESS NOTE The patient is seen for followup for acute kidney injury. Patient was seen this morning. He was laying in bed and denies any significant complaints. On examination, his blood pressure was 101/58. He is afebrile. Heart rate about 68 per minute. Examination of the heart S1, S2. Examination lungs bilateral breath sounds are heard. Decreased breath sounds at bases. Abdomen is soft, nontender. Examination of lower extremity shows edema 1+. Bilateral extremities are wrapped. LAB: Show sodium 136, potassium 3.0, BUN 23, serum creatinine 1.73, not sure if these labs were done after dialysis. ASSESSMENT: 1. Acute kidney injury. acute tubular necrosis, nonoliguric. The 24 hour urine output only documented at about 150 mL. However, I feel the patient has had much more urine output. He is maintained on dialysis. Creatinine this morning was noted to be 1.73. I am not sure of this was done post dialysis. If this is predialysis, then there is significant improvement in his renal function. However, I doubt that, since his creatinine was 3.52 on 12/20/2017. We will repeat labs again tomorrow and monitor his urine output more accurately. 2. Bilateral lower extremity wounds. Maintained on oral Keflex. 3. Gout, hyperuricemia, maintained on allopurinol. 4. CKD mineral bone disorder. 5. Mild volume overload, currently improved. 6. Cardiomyopathy, EF about 40-45 percent. PLAN: Hemodialysis today. Repeat labs in a.m. Measure urine output more accurately and monitor for renal recovery. MMODL / IJN: [id number] /
[2017-12-23] MEDS: ALBUTEROL NEBULIZED 2.5 MG/3 ML INHALATION PRN (00:14)
[2017-12-23 06:14] LABS: Glucose,Whole Blood 227 mg/dL (75-99)
[2017-12-23] MEDS: IPRATROPIUM-ALBUTEROL 3 ML NEB INHALATION SCH ×4 (07:28→19:16)
[2017-12-23] MEDS: METOPROLOL TARTRATE 25 MG TAB PO SCH ×2 (07:56→21:03)
[2017-12-23] MEDS: CHOLECALCIFEROL 1,000 UNIT TAB PO SCH ×2 (08:45→21:02)
[2017-12-23] MEDS: ALLOPURINOL 100 MG TAB PO SCH ×2 (08:45→21:02)
[2017-12-23] MEDS: CALCITRIOL 0.25 MCG CAP PO SCH (08:45)
[2017-12-23] MEDS: DOCUSATE 100 MG CAP PO SCH ×2 (08:45→21:02)
[2017-12-23] MEDS: FAMOTIDINE 20 MG TAB PO SCH (08:45)
[2017-12-23] MEDS: POLYETHYLENE GLYCOL 3350 17 GM POWD.PACK PO SCH (08:45)
[2017-12-23] MEDS: INSULIN ASPART 100 UNIT/ML 1 ML 10 ML VIAL SQ SCH ×4 (08:45→21:03)
[2017-12-23 11:38] LABS: Calcium 8.7 mg/dL (8.4-10.2); Potassium 4.1 mmol/L (3.5-5.1)
[2017-12-23 11:40] LABS: Glucose,Whole Blood 223 mg/dL (75-99)
[2017-12-23] MEDS ORDERED: LIDOCAINE 1% INJ 10MG/ML (20 ML MDV) ONE ×2 (15:43→15:56)
[2017-12-23] MEDS ORDERED: fentaNYL (PF) 50 MCG/ML 2 ML AMP ONE (15:43)
[2017-12-23] MEDS ORDERED: fentaNYL (PF) 50 MCG/ML 2 ML AMP IV ONE (15:50)
[2017-12-23] MEDS ORDERED: LIDOCAINE 1% INJ 10MG/ML (20 ML MDV) SQ ONE ×2 (15:53→15:59)
[2017-12-23] MEDS ORDERED: HEPARIN SODIUM 1,000 UN/ML (10ML VL) ONE (15:57)
[2017-12-23] MEDS ORDERED: IV FLUID CONTINUATION 400 ML IV ONE (16:00)
--- NOTE | 2017-12-23 16:58 | XR ---
EXAMINATION TYPE: XR chest 1V portable DATE OF EXAM: 12/23/2017 COMPARISON: NONE HISTORY: Catheter placement TECHNIQUE: Single frontal view of the chest is obtained. FINDINGS: There is moderate right pleural effusion. There is dual lumen right central venous cathete r with the tip in the lower superior vena cava. No pneumothorax. There are sternal wires. There are c hest leads. There is no gross heart failure. There is coarse interstitial density in the left lung. IMPRESSION: There is increasing right pleural effusion and right pulmonary consolidation compared to last exam. No gross heart failure.
[2017-12-23 17:21] LABS: Glucose,Whole Blood 202 mg/dL (75-99)
[2017-12-23 20:17] LABS: Glucose,Whole Blood 184 mg/dL (75-99)
[2017-12-23] MEDS: INSULIN DETEMIR 100 UNIT/ML 10 ML VIAL SQ SCH (21:42)
--- NOTE | 2017-12-23 23:27 | PN ---
PROGRESS NOTE Patient is seen for followup for acute kidney injury on top of chronic kidney disease. Patient currently has poor urine output. He remains dialysis-dependent. His creatinine was significantly low yesterday. However, I feel it was done after dialysis. Today it is up to 2.7, and urine output remains low. Overall patient states he is feeling better. He will be dialyzed again tomorrow and he will have a PermCath placed today. There are plans for possible discharge to rehab and outpatient dialysis tomorrow. On examination, blood pressure was this morning 101/55, heart rate of 68 per minute. Patient is afebrile. EXAMINATION OF THE HEART: S1, S2. EXAMINATION OF LUNGS: Bilateral breath sounds are heard. ABDOMEN: Soft, non-tender. Examination of lower extremities shows bilateral extremities to be wrapped. Edema is noted, 1+ bilaterally. BUCKET WASH OPERATOR exam is grossly intact. Labs show sodium 137, potassium 4.1, chloride 104, BUN 40, serum creatinine 2.7. ASSESSMENT: 1. Acute kidney injury, acute tubular necrosis, currently dialysis-dependent. Continue to monitor for recovery of renal function down the road. Urine output remains low currently. Patient's UA was completely benign and his ultrasound was unremarkable. At this time we will continue with outpatient dialysis. He will be discharged to the [facility] unit in [place]. 2. Bilateral lower extremity wounds and ulcers, maintained on antibiotics. 3. Cardiomyopathy. 4. Congestive heart failure, acute on top of chronic, mainly systolic, currently improved. 5. Hypervolemia, somewhat improved. PLAN: Hemodialysis in a.m. The PermCath will be placed today and patient can be discharged tomorrow after dialysis. He will follow up as outpatient at the [place] unit for dialysis. MMODL / IJN: [id number] /
--- NOTE | 2017-12-24 00:38 | PN ---
PROGRESS NOTE DATE OF SERVICE: 12/23/2017. REASON FOR FOLLOWUP: Left leg venous stasis ulcer and cellulitis. INTERVAL HISTORY: The patient is afebrile, has been breathing comfortably. Denies having any chest pain or cough. No abdominal pain. No diarrhea or worsening pain to the left leg area. EXAMINATION: Blood pressure 104/68, pulse of 71, temperature 98.1. General description is a an elderly male lying in bed in no distress. Respiratory system: Unlabored breathing. Clear to auscultation anteriorly. Heart S1, S2. Regular rate and rhythm. The left leg has evidence superficial wound. No slough tissue and redness has decreased. LABS: BUN of 14, creatinine is 2.71. DIAGNOSTIC IMPRESSION AND PLAN: Patient with left leg venous stasis ulcer and secondary cellulitis of the leg cellulitis has been adequately treated. Local wound care to continue with Aquacel Silver dressing and mild compression. Recently discontinued the Medihoney. The plan of care discussed with the nurse taking care of the patient. MMODL / IJN: [id number] /
[2017-12-24] MEDS: ALBUTEROL NEBULIZED 2.5 MG/3 ML INHALATION PRN (01:58)
[2017-12-24 07:25] LABS: Glucose,Whole Blood 183 mg/dL (75-99)
[2017-12-24] MEDS: INSULIN ASPART 100 UNIT/ML 1 ML 10 ML VIAL SQ SCH ×4 (08:38→21:42)
[2017-12-24] MEDS: ALLOPURINOL 100 MG TAB PO SCH ×2 (08:39→21:42)
[2017-12-24] MEDS: POLYETHYLENE GLYCOL 3350 17 GM POWD.PACK PO SCH (08:39)
[2017-12-24] MEDS: METOPROLOL TARTRATE 25 MG TAB PO SCH ×2 (08:39→21:42)
[2017-12-24] MEDS: FAMOTIDINE 20 MG TAB PO SCH (08:39)
[2017-12-24] MEDS: CHOLECALCIFEROL 1,000 UNIT TAB PO SCH ×2 (08:39→21:42)
[2017-12-24] MEDS: DOCUSATE 100 MG CAP PO SCH ×2 (08:39→21:42)
[2017-12-24] MEDS: CALCITRIOL 0.25 MCG CAP PO SCH (08:41)
--- NOTE | 2017-12-24 08:46 | PCN ---
PROCEDURE NOTE PREOPERATIVE DIAGNOSE: Acute renal failure. PROCEDURE: 1. Ultrasound-guided 23 cm dialysis catheter placed in the right jugular vein. 2. Removal of a temporary catheter right femoral approach. Sedation time is 24 minutes. 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 Right side of the neck and chest was prepped and draped in sterile manner; 1% lidocaine plain infiltrated in the neck area. Micropuncture introduced into right jugular vein. After that, we passed a guidewire and then 4-Kazakh dilator on the top of the guidewire and then we passed a regular guidewire which was parked in the inferior vena cava. After that incision made of the chest wall and 23 cm dialysis catheter brought to the neck incision area. After that, dilator was advanced on the top of the guidewire. The guidewire and sheath was advanced on the top of the guidewire and then through the sheath we introduced the dialysis catheter. Tip of the catheter at the superior vena cava and atrium. The sheath was removed. Incision was closed with Vicryl and nylon. Dressing applied. After that, we proceed to the right groin right groin; 1% lidocaine infiltrated, stitches was removed and dialysis catheter removed. Pressure was held. Patient tolerated the procedure well. . MMODL / IJN: [id number] /
[2017-12-24] MEDS: IPRATROPIUM-ALBUTEROL 3 ML NEB INHALATION SCH ×4 (08:47→19:31)
--- NOTE | 2017-12-24 11:01 | P.PN ---
Subjective Patient is seen in follow-up for acute kidney injury on chronic kidney disease. He is currently being treated for left lower extremity cellulitis. Patient has chronic kidney disease stage III with baseline creatinine in the range of 1.7-2. Renal function was progressively worsening and he was also uremic and subsequently started on hemodialysis since admission. Feels weak. He is scheduled to go to inpatient rehab. Vital signs are stable. General: The patient appeared well nourished and normally developed. HEENT: Head exam is unremarkable. Neck is without jugular venous distension. LUNGS: Lungs are clear to auscultation and percussion. Breath sounds decreased. HEART: Rate and Rhythm are regular. First and second heart sounds normal. No murmurs, rubs or gallops. ABDOMEN: Abdominal exam reveals normal bowel sounds. Non-tender and non- distended. No evidence of peritonitis. EXTREMITITES: Trace edema. No obvious drainage. Objective - Vital Signs Vital signs: Vital Signs Temp 98.2 F 12/24/17 07:00 Pulse 72 12/24/17 07:00 Resp 16 12/24/17 08:00 BP 111/65 12/24/17 07:00 Pulse Ox 92 L 12/24/17 07:00 Intake & Output 12/23/17 12/24/17 12/24/17 18:59 06:59 18:59 Intake Total 150 Output Total 50 200 Balance 100 -200 Weight 66 kg 66 kg Intake: IV 50 Oral 100 Output: Urine 50 200 Other: Voiding Method Urinal Urinal Urinal # Voids 4 - Labs CBC & Chem 7: 12/16/17 06:46 12/23/17 11:00 Labs: Abnormal Lab Results - Last 24 Hours (Table) 12/23/17 12/23/17 12/23/17 Range/Units 11:00 11:28 17:10 BUN 40 H (9-20) mg/dL Creatinine 2.71 H (0.66-1.25) mg/dL Glucose 165 H (74-99) mg/dL POC Glucose (mg/dL) 223 H 202 H (75-99) mg/dL 12/23/17 12/24/17 Range/Units 20:05 07:14 BUN (9-20) mg/dL Creatinine (0.66-1.25) mg/dL Glucose (74-99) mg/dL POC Glucose (mg/dL) 184 H 183 H (75-99) mg/dL Assessment and Plan Plan: Assessment: 1. Acute kidney injury secondary to ATN secondary to infection. Urinalysis is benign. No evidence of hydronephrosis noted on imaging. Creatinine peaked at 5.2 this admission and he was subsequently started on hemodialysis for uremia. Urine output remains low. 2. Uremia with asterixis improved with hemodialysis. 3. Left lower extremity cellulitis maintained on antibiotics per infectious disease. 4. Systolic CHF with ejection fraction of 45-50%. Currently compensated. 5. 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 6. Chronic kidney disease mineral bone disease maintained on calcitriol. Phosphorus level at goal. 7. Insulin-dependent diabetes mellitus. Plan: Hemodialysis today. Encourage oral intake. Plan for IPR, possibly today.
--- NOTE | 2017-12-24 11:02 | IR ---
EXAMINATION TYPE: IR cvc insert central tunneled DATE OF EXAM: 12/23/2017 COMPARISON: NONE HISTORY: Line placement. Fluoroscopy was provided to the referring clinician. 1.1 minutes of fluoroscopy provided.
[2017-12-24 11:43] LABS: Glucose,Whole Blood 143 mg/dL (75-99)
--- NOTE | 2017-12-24 15:06 | P.PN ---
Subjective Progress Note Date: 12/23/17 Principal diagnosis: Acute on chronic kidney disease stage III. Currently initiated on hemodialysis Left lower extremities venous stasis ulcer and cellulitis Elevated liver enzymes likely medication induced. Improving now. 72-year-old male with a past medical history significant for coronary artery disease, heart failure, COPD, diabetes, hypertension and hyperlipidemia who presented to the emergency room with a chief complaint of increased pain to the right lower extremities. The patient is somewhat of a poor historian. No family present at the bedside. The patient has had chronic chronic cellulitis to the bilateral lower extremities along with a wound to the posterior aspect of the left lower extremity. The patient states his legs were starting to improve but recently he has been experiencing more pain to the left leg. He decided to come to the emergency room for further evaluation. He patient states he has occasional shortness of breath, but states that is not the main reason he came to the emergency room. He denies chest pain or pressure. Denies nausea or vomiting. He denies fever or chills. Denies difficulty urinating or change in bowel habits. Chest x-ray completed in the emergency room reveals right middle lobe and right lower lobe infiltrates with small right pleural effusion. Pulmonary vascular prominence. Correlate for failure. Laboratory data upon admission reveals white count 8.2. Hemoglobin 11.7. Platelet count 211. Sodium 136. Potassium 5.1. BUN 90. Crit and 3.05. Glucose 281. Lactic acid 1.4. AST 60. ALT 83. Alkaline phosphatase 109. Troponin 0.014. BNP 13,500. The patient was started on IV diuretics and antibiotics and admitted to the hospital under the care of Dr. Adamson. 12/11/2017-Note per Dr. Beasley On-year-old admitted with infected ulcers of the right leg and patient is presently on Unasyn infectious disease evaluated the patient patient also has an pulmonary edema with right-sided pleural effusion patient is on IV Lasix will repeat the chest x-ray tomorrow if there is no significant improvement in pleural effusion patient may need the pleural fluid drainage patient clinically does not appear to have pneumonia. 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 12/12/2017-Note per Dr. Beasley Patient is doing much better and patient is on oral Lasix at this time creatinine mild worsening nephrology evaluated the patient patient is getting an ultrasound of the chest for pleural effusion for possible drainage. His blood sugars are bit low we'll cut down the Lantus as patient is on very low- dose of Lantus probably can be held just use sliding scale insulin. 12/13/2017 Patient seen and examined at the bedside. Patient states he is having some pain in his left lower extremity, although improved. He denies shortness of breath or chest pain. He states he is tired and did not sleep well last night. Patient 's creatinine is 4.05 today up from 3.53 yesterday. His Lasix was discontinued per nephrology. Patient underwent an ultrasound of the kidneys which was unremarkable. Chest x-ray from this morning reveals findings similar to prior exams, chronic. There may be lower lobe pneumonia, effusion, edema or atelectasis. Correlate to exclude interstitial edema. Ultrasound of the chest was completed yesterday revealing right pleural effusion pocket size of 1.7 cm. Patient is being followed by pulmonary during hospitalization. Patient's blood pressure is stable with a recent reading of 121/68. He is afebrile. He is on room air with oxygen saturations greater than 92%. He is being followed by infectious disease. He is currently receiving Unasyn with wound care with Aquacel Silver dressing and ISACC bandage. 12/14/2017 Patient seen and examined at the bedside with Dr. Adamson. Patient states he did not sleep well last night. He reports nausea overnight and an episode of emesis. Patient states he still has some nausea this morning, although improved. Potassium is 5.3. BUN 108. Creatinine 4.41, which is elevated from 4.05 yesterday. Lasix remains on hold per nephrology. Pulmonary believes xray is consistent with right mid and lower lobe pneumonia. Infectious disease is following. He remains on Unasyn. 12/15/2017 Patient seen and examined the bedside with Dr. Adamson. Patient was started on IV fluids yesterday for worsening kidney function. His creatinine today is 5.24. BUN 111. patient does report decreased urine output. Testing for influenza A and B was completed yesterday and was negative. Patient currently denies shortness of breath or chest pain. He reports some nausea still this morning, but no episodes of emesis. He is upset that he can not be discharged home today. 12/16/2017 Patient seen and examined at the bedside. Patient had right femoral dialysis catheter placed yesterday due to worsening kidney function. He received dialysis yesterday evening and is scheduled to have dialysis again this morning. 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 If so, patient will need permacath placed and eliquis will need to be held. He reports he feels much after getting dialysis yesterday. Creatinine is 4.07 today. Denies further episodes of nausea or dry heaves. Denies chest pain or pressure. Denies shortness of breath. Vital signs are stable. 12/17/2017 Patient seen and examined at the bedside. Patient has completed two dialysis treatments. Case discussed with Dr. Caputo. Patient will receive dialysis again today and then will remain off dialysis for the weekend. A decision will then be made early next week if patient will be able to come off dialysis or if he will require penitentiary dialysis and permacath placement. Will continue Eliquis for now. Patient denies shortness of breath. Denies chest pain or pressure. Denies nausea or vomiting. Vital signs are stable. He is afebrile. Lab work from this morning is pending. 12/18/2017 - 12/19/2017: Notes per covering provider 12/20/2017 Patient examined at the bedside with Dr. Adamson. Patient is awake and alert. Patient complains of constipation and reports no bowel movement for the last 3- 4 days. Patients creatinine today is 3.52. BUN 61. Awaiting further recommendations from nephrology regarding whether or not patient will require penitentiary access. Patient will need to be off Eliquis if permacath is planned. Patients liver enzymes and bilirubin remain elevated. US of the liver was ordered which revealed small amount of ascites fluid. Enlarged liver. No focal liver defects. No dilated ducts. Patient reports increased weakness and states he is having difficulty ambulating by himself. Patient may require NIKHIL at the time of discharge. 12/21/2017 Patient examined at the bedside with Dr. Adamson. Patient is awake and alert. Patient underwent dialysis yesterday. Vascular has been reconsulted for permacath insertion. His Eliquis has been placed on hold. His last dose was at 9 AM. GI was consulted to evaluate patient's elevated liver function. GI feels that may be medication related. AST 55. ALT 68. Total bilirubin 2.4. Alkaline phosphatase 210. Patient reports he had a large bowel movement yesterday. Voiding without difficulty. Dr. Hall was consulted for inpatient rehab placement. 12/22/2017 Patient examined at the bedside with Dr. Adamson. Patient is awake and alert. Patient denies chest pain, shortness of breath, nausea, vomiting, or pain. He reports continued weakness and difficulty ambulating. He is scheduled for hemodialysis today. He remains off Eliquis. He is scheduled for permacath placement tomorrow. 12/23/2017 Patient denied any complains of chest pain or shortness of breath.. Permacath we will replace her today. Hemodialysis is scheduled for tomorrow. Continue with local wound care as per ID recommendations for the lower extremities venous stasis ulcer and antibiotics were discontinued. nephrology is following. No fever no chills. No nausea vomiting or abdominal pain. Tolerating oral diet. No other acute overnight issues. Current medications reviewed. Objective - Vital Signs Vital signs: Vital Signs Temp 97.9 F 12/23/17 07:20 Pulse 70 12/23/17 11:14 Resp 18 12/23/17 07:20 BP 101/55 12/23/17 07:20 Pulse Ox 95 12/23/17 07:20 Intake & Output 12/22/17 12/23/17 12/23/17 18:59 06:59 18:59 Intake Total 150 100 Output Total 50 Balance 150 100 -50 Intake: Oral 150 100 Output: Urine 50 Other: Voiding Method Urinal Urinal Urinal # Voids 1 - Exam GENERAL: This is a 72-year-old male in no apparent distress at the time of examination. Pleasant and cooperative. HEENT: Head is atraumatic, normocephalic. Pupils are equal, round, and reactive to light. Sclerae anicteric. Conjunctivae are clear. Mucus membranes of the mouth are moist. Neck is supple. RESPIRATORY: Diminished. No wheezing or rhonchi auscultated. No use of accessory muscles. Patient maintaining oxygen saturation greater than 92%. No chest wall tenderness is noted on palpation or with deep breathing. CARDIOVASCULAR: Regular rate and rhythm. S1 and S2 noted. No JVD noted. No S3 or S4 noted. GASTROINTESTINAL: No distention noted. Abdomen soft and round. Normal active bowel sounds auscultated x 4 quadrants. No pain or tenderness noted upon palpation. INTEGUMENTARY: No cyanosis. No jaundice. Chronic discoloration noted to bilateral lower extremities. Isacc wrap with dressing to left lower extremity. Will defer wound assessment to infectious disease. EXTREMITIES: 1+ peripheral pulses. NEUROLOGIC: Cranial nerves II-XII intact. PSYCHIATRIC: Awake, alert, and oriented X 3. Appropriate affect. Intact judgement and insight. - Labs CBC & Chem 7: 12/16/17 06:46 12/23/17 11:00 Labs: Abnormal Lab Results - Last 24 Hours (Table) 12/22/17 12/22/17 12/23/17 Range/Units 16:59 19:21 06:03 BUN (9-20) mg/dL Creatinine (0.66-1.25) mg/dL Glucose (74-99) mg/dL POC Glucose (mg/dL) 166 H 238 H 227 H (75-99) mg/dL 12/23/17 12/23/17 Range/Units 11:00 11:28 BUN 40 H (9-20) mg/dL Creatinine 2.71 H (0.66-1.25) mg/dL Glucose 165 H (74-99) mg/dL POC Glucose (mg/dL) 223 H (75-99) mg/dL Assessment and Plan Assessment: Acute exacerbation of congestive heart failure, diastolic, EF 45-50%, BNP 13,500 , resolved Right middle and right lower lobe infiltrates, pneumonia ruled in per pulmonary progess note 12/15/17, community-acquired Right pleural effusion, suspect cardiac in nature Cellulitis of left lower extremity and venous stasis ulcer, present on admission , with chronic wounds History of coronary artery disease with previous stent placement COPD, no evidence of acute exacerbation Acute kidney injury, secondary to diuresis, although worsening off diuretics, started on hemodialysis 11/14/2017 Chronic kidney disease, stage IV Diabetes mellitus, type II Hyperlipidemia Hypertension Paroxysmal atrial fibrillation, on long-term anticoagulation with Eliquis Nausea due to worsening renal function, improved Elevated liver enzymes and bilirubin PLAN: Infectious disease, nephrology, cardiology, and pulmonary on consult. Appreciate recommendations and input Continue wound care with Aquacel silver and isacc wrap per ID recommendations Dr. De Paz on consult for permacath placement. Patient needs to be off Eliquis for 48 hours prior. Last dose 12/20/2017 at 0900. Patient scheduled for permacath insertion today Home meds as appropriate Monitor labs GI prophylaxis: Protonix 40 mg PO Daily DVT prophylaxis: On hold for permacath placement Discharge plan: Inpatient rehab at [facility] at the time of discharge Monitor vital signs and address as appropriate Further recommendations pending patient's course Anticipate discharge to [facility] for inpatient rehab on Wednesday. If not accepted at [facility], then discharge plan will be [facility] Time with Patient: Greater than 30
--- NOTE | 2017-12-24 15:49 | PN ---
PROGRESS NOTE DATE OF SERVICE: 12/24/2017 REASON FOR FOLLOWUP: Left leg venostasis ulcer and cellulitis. INTERVAL HISTORY: The patient is afebrile; has been breathing comfortably. Denies having any chest pain or cough. No abdominal pain or worsening pain to the left leg area. PHYSICAL EXAMINATION: Blood pressure 111/65, pulse of 72, temperature 98.2. He is 92% on 3 L nasal cannula. General description is an elderly male lying in bed in no distress. RESPIRATORY SYSTEM: Unlabored breathing. Clear to auscultation anteriorly. HEART: S1, S2. Regular rate and rhythm. ABDOMEN: Soft. No tenderness. LABS: Hemoglobin 10.2 with a white count of 9.8. DIAGNOSTIC IMPRESSION AND PLAN: Patient with a left leg venostasis ulcer with secondary cellulitis. Underlying cellulitis has been adequately treated. No need for any further antibiotic therapy on discharge. Local care to continue with an Aquacel Silver dressing and Isacc wrap to keep some of the swelling down. Continue with supportive care. MMODL / IJN: [id number] /
[2017-12-24 17:20] LABS: Glucose,Whole Blood 157 mg/dL (75-99)
[2017-12-24 20:40] LABS: Glucose,Whole Blood 185 mg/dL (75-99)
[2017-12-24] MEDS: INSULIN DETEMIR 100 UNIT/ML 10 ML VIAL SQ SCH (21:43)
[2017-12-25 07:30] LABS: Glucose,Whole Blood 126 mg/dL (75-99)
[2017-12-25] MEDS: IPRATROPIUM-ALBUTEROL 3 ML NEB INHALATION SCH ×4 (08:31→20:01)
[2017-12-25] MEDS: INSULIN ASPART 100 UNIT/ML 1 ML 10 ML VIAL SQ SCH ×4 (08:40→21:49)
[2017-12-25] MEDS ORDERED: LIDOCAINE 1% INJ 10MG/ML (20 ML MDV) ONE (09:26)
[2017-12-25] MEDS ORDERED: fentaNYL (PF) 50 MCG/ML 2 ML AMP ONE (09:27)
[2017-12-25] MEDS ORDERED: fentaNYL (PF) 50 MCG/ML 2 ML AMP IVP ONE (09:36)
[2017-12-25] MEDS ORDERED: LIDOCAINE 2% INJ 20 MG/ML SQ ONE (09:37)
[2017-12-25] MEDS ORDERED: SODIUM CHLORIDE 0.9% 1,000 ML IV ONE (09:40)
[2017-12-25] MEDS ORDERED: HEPARIN SODIUM 1,000 UN/ML (10ML VL) ONE (09:46)
[2017-12-25] MEDS: ALLOPURINOL 100 MG TAB PO SCH ×2 (10:31→21:50)
[2017-12-25] MEDS: CALCITRIOL 0.25 MCG CAP PO SCH (10:31)
[2017-12-25] MEDS: CHOLECALCIFEROL 1,000 UNIT TAB PO SCH ×2 (10:31→21:50)
[2017-12-25] MEDS: FAMOTIDINE 20 MG TAB PO SCH (10:31)
[2017-12-25] MEDS: METOPROLOL TARTRATE 25 MG TAB PO SCH ×2 (10:31→21:49)
[2017-12-25] MEDS: DOCUSATE 100 MG CAP PO SCH ×2 (10:31→21:49)
[2017-12-25] MEDS: POLYETHYLENE GLYCOL 3350 17 GM POWD.PACK PO SCH (10:35)
--- NOTE | 2017-12-25 11:01 | P.PN ---
Subjective Patient is seen in follow-up for acute kidney injury on chronic kidney disease. He is currently being treated for left lower extremity cellulitis. Patient has chronic kidney disease stage III with baseline creatinine in the range of 1.7-2. Renal function was progressively worsening and he was also uremic and subsequently started on hemodialysis since admission. Feels weak. He is scheduled to go to inpatient rehab. Yesterday his dialysis catheter was malfunctioning and he underwent guidewire exchange this morning. He is scheduled to undergo hemodialysis today. Vital signs are stable. General: The patient appeared well nourished and normally developed. HEENT: Head exam is unremarkable. Neck is without jugular venous distension. LUNGS: Lungs are clear to auscultation and percussion. Breath sounds decreased. HEART: Rate and Rhythm are regular. First and second heart sounds normal. No murmurs, rubs or gallops. ABDOMEN: Abdominal exam reveals normal bowel sounds. Non-tender and non- distended. No evidence of peritonitis. EXTREMITITES: Trace edema. No obvious drainage. Objective - Vital Signs Vital signs: Vital Signs Temp 98.3 F 12/25/17 07:00 Pulse 76 12/25/17 08:48 Resp 18 12/25/17 07:00 BP 118/60 12/25/17 07:00 Pulse Ox 99 12/25/17 07:00 Intake & Output 12/24/17 12/25/17 12/25/17 18:59 06:59 18:59 Intake Total 250 100 Output Total 25 200 Balance 225 -200 100 Weight 66 kg Intake: IV 100 Oral 250 Output: Urine 25 200 Other: Voiding Method Urinal Urinal # Voids 1 - Labs CBC & Chem 7: 12/16/17 06:46 12/23/17 11:00 Labs: Abnormal Lab Results - Last 24 Hours (Table) 12/24/17 12/24/17 12/24/17 Range/Units 11:42 17:18 20:38 POC Glucose (mg/dL) 143 H 157 H 185 H (75-99) mg/dL 12/25/17 Range/Units 07:18 POC Glucose (mg/dL) 126 H (75-99) mg/dL Assessment and Plan Plan: Assessment: 1. Acute kidney injury secondary to ATN secondary to infection. Urinalysis is benign. No evidence of hydronephrosis noted on imaging. Creatinine peaked at 5.2 this admission and he was subsequently started on hemodialysis for uremia. Urine output remains low. 2. Uremia with asterixis improved with hemodialysis. 3. Left lower extremity cellulitis maintained on antibiotics per infectious disease. 4. Systolic CHF with ejection fraction of 45-50%. Currently compensated. 5. 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 6. Chronic kidney disease mineral bone disease maintained on calcitriol. Phosphorus level at goal. 7. Insulin-dependent diabetes mellitus. 8. Malfunctioning permacath status post guidewire exchange this morning. Plan: Hemodialysis today. Encourage oral intake. Plan for IPR upon discharge. Outpatient hemodialysis has been set up.
--- NOTE | 2017-12-25 11:07 | XR ---
EXAMINATION TYPE: XR chest 1V portable DATE OF EXAM: 12/25/2017 HISTORY: permacath placement. REFERENCE: Previous study dated 12/23/2017. FINDINGS: There is a large-bore, double-lumen catheter in place via a right internal jugular approach . Its tip is in the superior vena cava. There has been a midline sternotomy. There is improved aeration of the right upper lobe. The left lung remains clear. There is a prominent right-sided effusion. Heart size is obscured. IMPRESSION: IMPROVED AERATION, RIGHT UPPER LOBE.
[2017-12-25 11:52] LABS: Glucose,Whole Blood 127 mg/dL (75-99)
[2017-12-25 17:27] LABS: Glucose,Whole Blood 94 mg/dL (75-99)
[2017-12-25 20:17] LABS: Glucose,Whole Blood 150 mg/dL (75-99)
[2017-12-25] MEDS: INSULIN DETEMIR 100 UNIT/ML 10 ML VIAL SQ SCH (22:00)
[2017-12-26 07:14] LABS: Glucose,Whole Blood 214 mg/dL (75-99)
[2017-12-26] MEDS: INSULIN ASPART 100 UNIT/ML 1 ML 10 ML VIAL SQ SCH ×4 (07:50→21:22)
--- NOTE | 2017-12-26 08:15 | P.PN ---
Subjective Patient is seen in follow-up for acute kidney injury on chronic kidney disease. He is currently being treated for left lower extremity cellulitis. Patient has chronic kidney disease stage III with baseline creatinine in the range of 1.7-2. Renal function was progressively worsening and he was also uremic and subsequently started on hemodialysis since admission. Feels weak. He is scheduled to go to inpatient rehab. Patient had a new permacath placed on December 25. He tolerated hemodialysis well yesterday. Vital signs are stable. General: The patient appeared well nourished and normally developed. HEENT: Head exam is unremarkable. Neck is without jugular venous distension. LUNGS: Lungs are clear to auscultation and percussion. Breath sounds decreased. HEART: Rate and Rhythm are regular. First and second heart sounds normal. No murmurs, rubs or gallops. ABDOMEN: Abdominal exam reveals normal bowel sounds. Non-tender and non- distended. No evidence of peritonitis. EXTREMITITES: Trace edema. No obvious drainage. Objective - Vital Signs Vital signs: Vital Signs Temp 98.6 F 12/26/17 07:45 Pulse 75 12/26/17 07:45 Resp 18 12/26/17 07:45 BP 103/55 12/26/17 07:45 Pulse Ox 96 12/26/17 07:45 Intake & Output 12/25/17 12/26/17 12/26/17 18:59 06:59 18:59 Intake Total 100 680 Output Total 20 Balance 80 680 Weight 79.6 kg Intake: IV 100 Oral 680 Output: Urine 20 Other: Voiding Method Urinal # Voids 1 - Labs CBC & Chem 7: 12/16/17 06:46 12/23/17 11:00 Labs: Abnormal Lab Results - Last 24 Hours (Table) 12/25/17 12/25/17 12/26/17 Range/Units 11:40 20:05 07:01 POC Glucose (mg/dL) 127 H 150 H 214 H (75-99) mg/dL Assessment and Plan Plan: Assessment: 1. Acute kidney injury secondary to ATN secondary to infection. Urinalysis is benign. No evidence of hydronephrosis noted on imaging. Creatinine peaked at 5.2 this admission and he was subsequently started on hemodialysis for uremia. Urine output remains low. 2. Uremia with asterixis improved with hemodialysis. 3. Left lower extremity cellulitis maintained on antibiotics per infectious disease. 4. Systolic CHF with ejection fraction of 45-50%. Currently compensated. 5. 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 6. Chronic kidney disease mineral bone disease maintained on calcitriol. Phosphorus level at goal. 7. Insulin-dependent diabetes mellitus. 8. Malfunctioning permacath status post guidewire exchange on December 25. Plan: Hemodialysis tomorrow. Encourage oral intake. Plan for IPR upon discharge. Outpatient hemodialysis has been set up.
[2017-12-26] MEDS: IPRATROPIUM-ALBUTEROL 3 ML NEB INHALATION SCH ×4 (08:42→20:10)
[2017-12-26] MEDS: POLYETHYLENE GLYCOL 3350 17 GM POWD.PACK PO SCH (09:38)
[2017-12-26] MEDS: DOCUSATE 100 MG CAP PO SCH ×2 (09:38→21:18)
[2017-12-26] MEDS: CHOLECALCIFEROL 1,000 UNIT TAB PO SCH ×2 (09:44→21:23)
[2017-12-26] MEDS: FAMOTIDINE 20 MG TAB PO SCH (09:44)
[2017-12-26] MEDS: CALCITRIOL 0.25 MCG CAP PO SCH (09:44)
[2017-12-26] MEDS: ALLOPURINOL 100 MG TAB PO SCH ×2 (09:44→21:23)
[2017-12-26] MEDS: FERROUS SULFATE 325 MG TAB PO SCH (09:46)
[2017-12-26] MEDS: METOPROLOL TARTRATE 25 MG TAB PO SCH ×2 (09:46→21:22)
[2017-12-26 13:17] LABS: Glucose,Whole Blood 96 mg/dL (75-99)
--- NOTE | 2017-12-26 14:02 | PCN ---
PROCEDURE NOTE PREOP DIAGNOSIS: Chronic renal failure. Dialysis is nonfunctioning catheter. The patient brought to the microbiological lab technician. Right side of the neck and chest was prepped and draped in a sterile manner. Incision was made in the neck and the catheter was identified and divided. We passed a guidewire through the catheter which was parked in the inferior vena cava. Old catheter was removed. Then the tunnel was created. Through the tunnel we brought 19 cm dialysis catheter and sheath. The sheath and dilator were advanced on the top of the guidewire. Through the sheath we introduced the dialysis catheter. Tip of the catheter in superior vena cava, flushed with heparin saline. There was decent flow and was hep-locked and incision closed with 0 Vicryl. Patient tolerated the procedure well. MMODL / IJN: [id number] /
[2017-12-26 17:41] LABS: Glucose,Whole Blood 149 mg/dL (75-99)
[2017-12-26 19:43] VITALS: RESP 16
[2017-12-26 20:08] LABS: Glucose,Whole Blood 313 mg/dL (75-99)
[2017-12-26] MEDS: INSULIN DETEMIR 100 UNIT/ML 10 ML VIAL SQ SCH (21:22)
[2017-12-26] MEDS: APIXABAN 2.5 MG TABLET PO SCH (21:23)
--- NOTE | 2017-12-27 00:17 | PN ---
PROGRESS NOTE DATE OF SERVICE: 12/26/2017. REASON FOR FOLLOWUP: Left leg venous stasis ulcer and cellulitis. INTERVAL HISTORY: The patient is currently afebrile, has been breathing comfortably. Denies having any chest pain. Occasional cough. No abdominal pain. No diarrhea. EXAMINATION: Blood pressure is 96/53 with a pulse of 68, temperature 97.1. He is 98% on 2 L nasal cannula. General description is an elderly male lying in bed in no distress. Respiratory system: Unlabored breathing with decreased breath sounds in the bases. No wheeze. Heart S1, S2. Regular rate and rhythm soft no tenderness. LABS: Hemoglobin is 10.6. Labs: No new labs have been obtained today. DIAGNOSTIC IMPRESSION AND PLAN: Patient with acute left leg venous stasis ulcer . Lungs have been treated. Continue local wound care with an Aquacel silver dressing. Isacc wrap to keep some of the swelling down. Continue supportive care. MMODL / IJN: [id number] /
--- NOTE | 2017-12-27 00:21 | P.PN ---
Subjective Progress Note Date: 12/24/17 Principal diagnosis: Acute on chronic kidney disease stage III. Currently initiated on hemodialysis Left lower extremities venous stasis ulcer and cellulitis Elevated liver enzymes likely medication induced. Improving now. 72-year-old male with a past medical history significant for coronary artery disease, heart failure, COPD, diabetes, hypertension and hyperlipidemia who presented to the emergency room with a chief complaint of increased pain to the right lower extremities. The patient is somewhat of a poor historian. No family present at the bedside. The patient has had chronic chronic cellulitis to the bilateral lower extremities along with a wound to the posterior aspect of the left lower extremity. The patient states his legs were starting to improve but recently he has been experiencing more pain to the left leg. He decided to come to the emergency room for further evaluation. He patient states he has occasional shortness of breath, but states that is not the main reason he came to the emergency room. He denies chest pain or pressure. Denies nausea or vomiting. He denies fever or chills. Denies difficulty urinating or change in bowel habits. Chest x-ray completed in the emergency room reveals right middle lobe and right lower lobe infiltrates with small right pleural effusion. Pulmonary vascular prominence. Correlate for failure. Laboratory data upon admission reveals white count 8.2. Hemoglobin 11.7. Platelet count 211. Sodium 136. Potassium 5.1. BUN 90. Crit and 3.05. Glucose 281. Lactic acid 1.4. AST 60. ALT 83. Alkaline phosphatase 109. Troponin 0.014. BNP 13,500. The patient was started on IV diuretics and antibiotics and admitted to the hospital under the care of Dr. Adamson. 12/11/2017-Note per Dr. Beasley On-year-old admitted with infected ulcers of the right leg and patient is presently on Unasyn infectious disease evaluated the patient patient also has an pulmonary edema with right-sided pleural effusion patient is on IV Lasix will repeat the chest x-ray tomorrow if there is no significant improvement in pleural effusion patient may need the pleural fluid drainage patient clinically does not appear to have pneumonia. 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 12/12/2017-Note per Dr. Beasley Patient is doing much better and patient is on oral Lasix at this time creatinine mild worsening nephrology evaluated the patient patient is getting an ultrasound of the chest for pleural effusion for possible drainage. His blood sugars are bit low we'll cut down the Lantus as patient is on very low- dose of Lantus probably can be held just use sliding scale insulin. 12/13/2017 Patient seen and examined at the bedside. Patient states he is having some pain in his left lower extremity, although improved. He denies shortness of breath or chest pain. He states he is tired and did not sleep well last night. Patient 's creatinine is 4.05 today up from 3.53 yesterday. His Lasix was discontinued per nephrology. Patient underwent an ultrasound of the kidneys which was unremarkable. Chest x-ray from this morning reveals findings similar to prior exams, chronic. There may be lower lobe pneumonia, effusion, edema or atelectasis. Correlate to exclude interstitial edema. Ultrasound of the chest was completed yesterday revealing right pleural effusion pocket size of 1.7 cm. Patient is being followed by pulmonary during hospitalization. Patient's blood pressure is stable with a recent reading of 121/68. He is afebrile. He is on room air with oxygen saturations greater than 92%. He is being followed by infectious disease. He is currently receiving Unasyn with wound care with Aquacel Silver dressing and ISACC bandage. 12/14/2017 Patient seen and examined at the bedside with Dr. Adamson. Patient states he did not sleep well last night. He reports nausea overnight and an episode of emesis. Patient states he still has some nausea this morning, although improved. Potassium is 5.3. BUN 108. Creatinine 4.41, which is elevated from 4.05 yesterday. Lasix remains on hold per nephrology. Pulmonary believes xray is consistent with right mid and lower lobe pneumonia. Infectious disease is following. He remains on Unasyn. 12/15/2017 Patient seen and examined the bedside with Dr. Adamson. Patient was started on IV fluids yesterday for worsening kidney function. His creatinine today is 5.24. BUN 111. patient does report decreased urine output. Testing for influenza A and B was completed yesterday and was negative. Patient currently denies shortness of breath or chest pain. He reports some nausea still this morning, but no episodes of emesis. He is upset that he can not be discharged home today. 12/16/2017 Patient seen and examined at the bedside. Patient had right femoral dialysis catheter placed yesterday due to worsening kidney function. He received dialysis yesterday evening and is scheduled to have dialysis again this morning. Unsure if patient will require local company [employer] dialysis. If so, patient will need permacath placed and eliquis will need to be held. He reports he feels much after getting dialysis yesterday. Creatinine is 4.07 today. Denies further episodes of nausea or dry heaves. Denies chest pain or pressure. Denies shortness of breath. Vital signs are stable. 12/17/2017 Patient seen and examined at the bedside. Patient has completed two dialysis treatments. Case discussed with Dr. Caputo. Patient will receive dialysis again today and then will remain off dialysis for the weekend. A decision will then be made early next week if patient will be able to come off dialysis or if he will require snf dialysis and permacath placement. Will continue Eliquis for now. Patient denies shortness of breath. Denies chest pain or pressure. Denies nausea or vomiting. Vital signs are stable. He is afebrile. Lab work from this morning is pending. 12/18/2017 - 12/19/2017: Notes per covering provider 12/20/2017 Patient examined at the bedside with Dr. Adamson. Patient is awake and alert. Patient complains of constipation and reports no bowel movement for the last 3- 4 days. Patients creatinine today is 3.52. BUN 61. Awaiting further recommendations from nephrology regarding whether or not patient will require snf access. Patient will need to be off Eliquis if permacath is planned. Patients liver enzymes and bilirubin remain elevated. US of the liver was ordered which revealed small amount of ascites fluid. Enlarged liver. No focal liver defects. No dilated ducts. Patient reports increased weakness and states he is having difficulty ambulating by himself. Patient may require NIKHIL at the time of discharge. 12/21/2017 Patient examined at the bedside with Dr. Adamson. Patient is awake and alert. Patient underwent dialysis yesterday. Vascular has been reconsulted for permacath insertion. His Eliquis has been placed on hold. His last dose was at 9 AM. GI was consulted to evaluate patient's elevated liver function. GI feels that may be medication related. AST 55. ALT 68. Total bilirubin 2.4. Alkaline phosphatase 210. Patient reports he had a large bowel movement yesterday. Voiding without difficulty. Dr. Hall was consulted for inpatient rehab placement. 12/22/2017 Patient examined at the bedside with Dr. dAamson. Patient is awake and alert. Patient denies chest pain, shortness of breath, nausea, vomiting, or pain. He reports continued weakness and difficulty ambulating. He is scheduled for hemodialysis today. He remains off Eliquis. He is scheduled for permacath placement tomorrow. 12/23/2017 Patient denied any complains of chest pain or shortness of breath.. Permacath we will replace her today. Hemodialysis is scheduled for tomorrow. Continue with local wound care as per ID recommendations for the lower extremities venous stasis ulcer and antibiotics were discontinued. nephrology is following. No fever no chills. No nausea vomiting or abdominal pain. Tolerating oral diet. No other acute overnight issues. 12/24/2017 Patient is scheduled for hemodialysis today but he did develop right upper extremity swelling likely IV access extravasation. Permacath to replace tomorrow. Otherwise patient denied any chest pain or shortness of breath. No nausea vomiting or abdominal pain. Tolerating oral diet. Continued on wound care for lower extremities venous stasis ulcers. Nephrology and ID is following Current medications reviewed. Objective - Vital Signs Vital signs: Vital Signs Temp 98.2 F 12/24/17 20:00 Pulse 71 12/24/17 20:00 Resp 18 12/24/17 20:00 BP 121/61 12/24/17 20:00 Pulse Ox 98 12/24/17 20:00 Intake & Output 12/24/17 12/24/17 12/25/17 06:59 18:59 06:59 Intake Total 250 Output Total 200 25 Balance -200 225 Weight 66 kg 66 kg Intake: Oral 250 Output: Urine 200 25 Other: Voiding Method Urinal Urinal # Voids 4 - Exam GENERAL: This is a 72-year-old male in no apparent distress at the time of examination. Pleasant and cooperative. HEENT: Head is atraumatic, normocephalic. Pupils are equal, round, and reactive to light. Sclerae anicteric. Conjunctivae are clear. Mucus membranes of the mouth are moist. Neck is supple. RESPIRATORY: Diminished. No wheezing or rhonchi auscultated. No use of accessory muscles. Patient maintaining oxygen saturation greater than 92%. No chest wall tenderness is noted on palpation or with deep breathing. CARDIOVASCULAR: Regular rate and rhythm. S1 and S2 noted. No JVD noted. No S3 or S4 noted. GASTROINTESTINAL: No distention noted. Abdomen soft and round. Normal active bowel sounds auscultated x 4 quadrants. No pain or tenderness noted upon palpation. INTEGUMENTARY: No cyanosis. No jaundice. Chronic discoloration noted to bilateral lower extremities. Isacc wrap with dressing to left lower extremity. Will defer wound assessment to infectious disease. EXTREMITIES: 1+ peripheral pulses. Right upper extremities swelling mainly at the elbow area NEUROLOGIC: Cranial nerves II-XII intact. PSYCHIATRIC: Awake, alert, and oriented X 3. Appropriate affect. Intact judgement and insight. - Labs CBC & Chem 7: 12/16/17 06:46 12/23/17 11:00 Labs: Abnormal Lab Results - Last 24 Hours (Table) 12/24/17 12/24/17 12/24/17 Range/Units 07:14 11:42 17:18 POC Glucose (mg/dL) 183 H 143 H 157 H (75-99) mg/dL 12/24/17 Range/Units 20:38 POC Glucose (mg/dL) 185 H (75-99) mg/dL Assessment and Plan Assessment: Acute exacerbation of congestive heart failure, diastolic, EF 45-50%, BNP 13,500 , resolved Right middle and right lower lobe infiltrates, pneumonia ruled in per pulmonary progess note 12/15/17, community-acquired. Completed antibiotic course. Right pleural effusion, suspect cardiac in nature Cellulitis of left lower extremity and venous stasis ulcer, present on admission , with chronic wounds History of coronary artery disease with previous stent placement COPD, no evidence of acute exacerbation Acute kidney injury, secondary to diuresis, although worsening off diuretics, started on hemodialysis 11/14/2017 Chronic kidney disease, stage IV Diabetes mellitus, type II Hyperlipidemia Hypertension Paroxysmal atrial fibrillation, on long-term anticoagulation with Eliquis Nausea due to worsening renal function, improved Elevated liver enzymes and bilirubin PLAN: Infectious disease, nephrology, cardiology, and pulmonary on consult. Appreciate recommendations and input Continue wound care with Aquacel silver and isacc wrap per ID recommendations Dr. De Paz on consult for permacath placement. Patient needs to be off Eliquis for 48 hours prior. Last dose 12/20/2017 at 0900. Home meds as appropriate Monitor labs GI prophylaxis: Protonix 40 mg PO Daily DVT prophylaxis: On hold for permacath placement Discharge plan: Inpatient rehab at [facility] at the time of discharge Monitor vital signs and address as appropriate Further recommendations pending patient's course Anticipate discharge to [facility] for inpatient rehab on Wednesday. If not accepted at [facility], then discharge plan will be [facility] Time with Patient: Greater than 30
--- NOTE | 2017-12-27 00:29 | P.PN ---
Subjective Progress Note Date: 12/25/17 Principal diagnosis: Acute on chronic kidney disease stage III. Currently initiated on hemodialysis Left lower extremities venous stasis ulcer and cellulitis Elevated liver enzymes likely medication induced. Improving now. 72-year-old male with a past medical history significant for coronary artery disease, heart failure, COPD, diabetes, hypertension and hyperlipidemia who presented to the emergency room with a chief complaint of increased pain to the right lower extremities. The patient is somewhat of a poor historian. No family present at the bedside. The patient has had chronic chronic cellulitis to the bilateral lower extremities along with a wound to the posterior aspect of the left lower extremity. The patient states his legs were starting to improve but recently he has been experiencing more pain to the left leg. He decided to come to the emergency room for further evaluation. He patient states he has occasional shortness of breath, but states that is not the main reason he came to the emergency room. He denies chest pain or pressure. Denies nausea or vomiting. He denies fever or chills. Denies difficulty urinating or change in bowel habits. Chest x-ray completed in the emergency room reveals right middle lobe and right lower lobe infiltrates with small right pleural effusion. Pulmonary vascular prominence. Correlate for failure. Laboratory data upon admission reveals white count 8.2. Hemoglobin 11.7. Platelet count 211. Sodium 136. Potassium 5.1. BUN 90. Crit and 3.05. Glucose 281. Lactic acid 1.4. AST 60. ALT 83. Alkaline phosphatase 109. Troponin 0.014. BNP 13,500. The patient was started on IV diuretics and antibiotics and admitted to the hospital under the care of Dr. Adamson. 12/11/2017-Note per Dr. Beasley On-year-old admitted with infected ulcers of the right leg and patient is presently on Unasyn infectious disease evaluated the patient patient also has an pulmonary edema with right-sided pleural effusion patient is on IV Lasix will repeat the chest x-ray tomorrow if there is no significant improvement in pleural effusion patient may need the pleural fluid drainage patient clinically does not appear to have pneumonia. 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 12/12/2017-Note per Dr. Beasley Patient is doing much better and patient is on oral Lasix at this time creatinine mild worsening nephrology evaluated the patient patient is getting an ultrasound of the chest for pleural effusion for possible drainage. His blood sugars are bit low we'll cut down the Lantus as patient is on very low- dose of Lantus probably can be held just use sliding scale insulin. 12/13/2017 Patient seen and examined at the bedside. Patient states he is having some pain in his left lower extremity, although improved. He denies shortness of breath or chest pain. He states he is tired and did not sleep well last night. Patient 's creatinine is 4.05 today up from 3.53 yesterday. His Lasix was discontinued per nephrology. Patient underwent an ultrasound of the kidneys which was unremarkable. Chest x-ray from this morning reveals findings similar to prior exams, chronic. There may be lower lobe pneumonia, effusion, edema or atelectasis. Correlate to exclude interstitial edema. Ultrasound of the chest was completed yesterday revealing right pleural effusion pocket size of 1.7 cm. Patient is being followed by pulmonary during hospitalization. Patient's blood pressure is stable with a recent reading of 121/68. He is afebrile. He is on room air with oxygen saturations greater than 92%. He is being followed by infectious disease. He is currently receiving Unasyn with wound care with Aquacel Silver dressing and ISACC bandage. 12/14/2017 Patient seen and examined at the bedside with Dr. Adamson. Patient states he did not sleep well last night. He reports nausea overnight and an episode of emesis. Patient states he still has some nausea this morning, although improved. Potassium is 5.3. BUN 108. Creatinine 4.41, which is elevated from 4.05 yesterday. Lasix remains on hold per nephrology. Pulmonary believes xray is consistent with right mid and lower lobe pneumonia. Infectious disease is following. He remains on Unasyn. 12/15/2017 Patient seen and examined the bedside with Dr. Adamson. Patient was started on IV fluids yesterday for worsening kidney function. His creatinine today is 5.24. BUN 111. patient does report decreased urine output. Testing for influenza A and B was completed yesterday and was negative. Patient currently denies shortness of breath or chest pain. He reports some nausea still this morning, but no episodes of emesis. He is upset that he can not be discharged home today. 12/16/2017 Patient seen and examined at the bedside. Patient had right femoral dialysis catheter placed yesterday due to worsening kidney function. He received dialysis yesterday evening and is scheduled to have dialysis again this morning. Unsure if patient will require watermaster dialysis. If so, patient will need permacath placed and eliquis will need to be held. He reports he feels much after getting dialysis yesterday. Creatinine is 4.07 today. Denies further episodes of nausea or dry heaves. Denies chest pain or pressure. Denies shortness of breath. Vital signs are stable. 12/17/2017 Patient seen and examined at the bedside. Patient has completed two dialysis treatments. Case discussed with Dr. Caputo. Patient will receive dialysis again today and then will remain off dialysis for the weekend. A decision will then be made early next week if patient will be able to come off dialysis or if he will require nursing home dialysis and permacath placement. Will continue Eliquis for now. Patient denies shortness of breath. Denies chest pain or pressure. Denies nausea or vomiting. Vital signs are stable. He is afebrile. Lab work from this morning is pending. 12/18/2017 - 12/19/2017: Notes per covering provider 12/20/2017 Patient examined at the bedside with Dr. Adamson. Patient is awake and alert. Patient complains of constipation and reports no bowel movement for the last 3- 4 days. Patients creatinine today is 3.52. BUN 61. Awaiting further recommendations from nephrology regarding whether or not patient will require nursing home access. Patient will need to be off Eliquis if permacath is planned. Patients liver enzymes and bilirubin remain elevated. US of the liver was ordered which revealed small amount of ascites fluid. Enlarged liver. No focal liver defects. No dilated ducts. Patient reports increased weakness and states he is having difficulty ambulating by himself. Patient may require NIKHIL at the time of discharge. 12/21/2017 Patient examined at the bedside with Dr. Adamson. Patient is awake and alert. Patient underwent dialysis yesterday. Vascular has been reconsulted for permacath insertion. His Eliquis has been placed on hold. His last dose was at 9 AM. GI was consulted to evaluate patient's elevated liver function. GI feels that may be medication related. AST 55. ALT 68. Total bilirubin 2.4. Alkaline phosphatase 210. Patient reports he had a large bowel movement yesterday. Voiding without difficulty. Dr. Hall was consulted for inpatient rehab placement. 12/22/2017 Patient examined at the bedside with Dr. Adamson. Patient is awake and alert. Patient denies chest pain, shortness of breath, nausea, vomiting, or pain. He reports continued weakness and difficulty ambulating. He is scheduled for hemodialysis today. He remains off Eliquis. He is scheduled for permacath placement tomorrow. 12/23/2017 Patient denied any complains of chest pain or shortness of breath.. Permacath we will replace her today. Hemodialysis is scheduled for tomorrow. Continue with local wound care as per ID recommendations for the lower extremities venous stasis ulcer and antibiotics were discontinued. nephrology is following. No fever no chills. No nausea vomiting or abdominal pain. Tolerating oral diet. No other acute overnight issues. 12/24/2017 Patient is scheduled for hemodialysis today but he did develop right upper extremity swelling likely IV access extravasation. Permacath to replace tomorrow. Otherwise patient denied any chest pain or shortness of breath. No nausea vomiting or abdominal pain. Tolerating oral diet. Continued on wound care for lower extremities venous stasis ulcers. Nephrology and ID is following. 12/25/2017 Patient denied any complains of chest pain or shortness of breath. No fever no chills. Yesterday his dialysis catheter was malfunctioning and he underwent guidewire exchange this morning. Patient is getting hemodialysis today. No other acute overnight issues. Right upper extremities swelling is improving. Current medications reviewed. Objective - Vital Signs Vital signs: Vital Signs Temp 98.2 F 12/25/17 15:00 Pulse 79 12/25/17 12:47 Resp 15 12/25/17 15:00 BP 115/52 12/25/17 15:00 Pulse Ox 99 12/25/17 15:00 Intake & Output 12/24/17 12/25/17 12/25/17 18:59 06:59 18:59 Intake Total 250 100 Output Total 25 200 20 Balance 225 -200 80 Weight 66 kg Intake: IV 100 Oral 250 Output: Urine 25 200 20 Other: Voiding Method Urinal Urinal Urinal # Voids 1 1 - Exam GENERAL: This is a 72-year-old male in no apparent distress at the time of examination. Pleasant and cooperative. HEENT: Head is atraumatic, normocephalic. Pupils are equal, round, and reactive to light. Sclerae anicteric. Conjunctivae are clear. Mucus membranes of the mouth are moist. Neck is supple. RESPIRATORY: Diminished. No wheezing or rhonchi auscultated. No use of accessory muscles. Patient maintaining oxygen saturation greater than 92%. No chest wall tenderness is noted on palpation or with deep breathing. CARDIOVASCULAR: Regular rate and rhythm. S1 and S2 noted. No JVD noted. No S3 or S4 noted. GASTROINTESTINAL: No distention noted. Abdomen soft and round. Normal active bowel sounds auscultated x 4 quadrants. No pain or tenderness noted upon palpation. INTEGUMENTARY: No cyanosis. No jaundice. Chronic discoloration noted to bilateral lower extremities. Isacc wrap with dressing to left lower extremity. Will defer wound assessment to infectious disease. EXTREMITIES: 1+ peripheral pulses. Right upper extremities swelling mainly at the elbow area NEUROLOGIC: Cranial nerves II-XII intact. PSYCHIATRIC: Awake, alert, and oriented X 3. Appropriate affect. Intact judgement and insight. - Labs CBC & Chem 7: 12/16/17 06:46 12/23/17 11:00 Labs: Abnormal Lab Results - Last 24 Hours (Table) 12/24/17 12/25/17 12/25/17 Range/Units 20:38 07:18 11:40 POC Glucose (mg/dL) 185 H 126 H 127 H (75-99) mg/dL Assessment and Plan Assessment: Acute exacerbation of congestive heart failure, diastolic, EF 45-50%, BNP 13,500 , resolved Acute kidney injury, secondary to ATN, off diuretics, started on hemodialysis Right middle and right lower lobe infiltrates, pneumonia ruled in per pulmonary progess note 12/15/17, community-acquired. Completed antibiotic course. Right pleural effusion, suspect cardiac in nature Cellulitis of left lower extremity and venous stasis ulcer, present on admission , with chronic wounds History of coronary artery disease with previous stent placement COPD, no evidence of acute exacerbation Chronic kidney disease, stage IV Diabetes mellitus, type II Hyperlipidemia Hypertension Paroxysmal atrial fibrillation, on long-term anticoagulation with Eliquis Nausea due to worsening renal function, improved Elevated liver enzymes and bilirubin PLAN: Infectious disease, nephrology, cardiology, and pulmonary on consult. Appreciate recommendations and input Continue wound care with Aquacel silver and isacc wrap per ID recommendations Status post permacath placement. Patient will be started back on Eliquis. Home meds as appropriate Monitor labs GI prophylaxis: Protonix 40 mg PO Daily DVT prophylaxis: On hold for permacath placement Discharge plan: Inpatient rehab at [facility] at the time of discharge Monitor vital signs and address as appropriate Further recommendations pending patient's course Anticipate discharge to [facility] for inpatient rehab on Wednesday. If not accepted at [facility], then discharge plan will be [facility] [place] Time with Patient: Greater than 30
--- NOTE | 2017-12-27 00:31 | P.PN ---
Subjective Progress Note Date: 12/26/17 Principal diagnosis: Acute on chronic kidney disease stage III. Currently initiated on hemodialysis Left lower extremities venous stasis ulcer and cellulitis Elevated liver enzymes likely medication induced. Improving now. 72-year-old male with a past medical history significant for coronary artery disease, heart failure, COPD, diabetes, hypertension and hyperlipidemia who presented to the emergency room with a chief complaint of increased pain to the right lower extremities. The patient is somewhat of a poor historian. No family present at the bedside. The patient has had chronic chronic cellulitis to the bilateral lower extremities along with a wound to the posterior aspect of the left lower extremity. The patient states his legs were starting to improve but recently he has been experiencing more pain to the left leg. He decided to come to the emergency room for further evaluation. He patient states he has occasional shortness of breath, but states that is not the main reason he came to the emergency room. He denies chest pain or pressure. Denies nausea or vomiting. He denies fever or chills. Denies difficulty urinating or change in bowel habits. Chest x-ray completed in the emergency room reveals right middle lobe and right lower lobe infiltrates with small right pleural effusion. Pulmonary vascular prominence. Correlate for failure. Laboratory data upon admission reveals white count 8.2. Hemoglobin 11.7. Platelet count 211. Sodium 136. Potassium 5.1. BUN 90. Crit and 3.05. Glucose 281. Lactic acid 1.4. AST 60. ALT 83. Alkaline phosphatase 109. Troponin 0.014. BNP 13,500. The patient was started on IV diuretics and antibiotics and admitted to the hospital under the care of Dr. Adamson. 12/11/2017-Note per Dr. Beasley On-year-old admitted with infected ulcers of the right leg and patient is presently on Unasyn infectious disease evaluated the patient patient also has an pulmonary edema with right-sided pleural effusion patient is on IV Lasix will repeat the chest x-ray tomorrow if there is no significant improvement in pleural effusion patient may need the pleural fluid drainage patient clinically does not appear to have pneumonia. 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 12/12/2017-Note per Dr. Beasley Patient is doing much better and patient is on oral Lasix at this time creatinine mild worsening nephrology evaluated the patient patient is getting an ultrasound of the chest for pleural effusion for possible drainage. His blood sugars are bit low we'll cut down the Lantus as patient is on very low- dose of Lantus probably can be held just use sliding scale insulin. 12/13/2017 Patient seen and examined at the bedside. Patient states he is having some pain in his left lower extremity, although improved. He denies shortness of breath or chest pain. He states he is tired and did not sleep well last night. Patient 's creatinine is 4.05 today up from 3.53 yesterday. His Lasix was discontinued per nephrology. Patient underwent an ultrasound of the kidneys which was unremarkable. Chest x-ray from this morning reveals findings similar to prior exams, chronic. There may be lower lobe pneumonia, effusion, edema or atelectasis. Correlate to exclude interstitial edema. Ultrasound of the chest was completed yesterday revealing right pleural effusion pocket size of 1.7 cm. Patient is being followed by pulmonary during hospitalization. Patient's blood pressure is stable with a recent reading of 121/68. He is afebrile. He is on room air with oxygen saturations greater than 92%. He is being followed by infectious disease. He is currently receiving Unasyn with wound care with Aquacel Silver dressing and ISACC bandage. 12/14/2017 Patient seen and examined at the bedside with Dr. Adamson. Patient states he did not sleep well last night. He reports nausea overnight and an episode of emesis. Patient states he still has some nausea this morning, although improved. Potassium is 5.3. BUN 108. Creatinine 4.41, which is elevated from 4.05 yesterday. Lasix remains on hold per nephrology. Pulmonary believes xray is consistent with right mid and lower lobe pneumonia. Infectious disease is following. He remains on Unasyn. 12/15/2017 Patient seen and examined the bedside with Dr. Adamson. Patient was started on IV fluids yesterday for worsening kidney function. His creatinine today is 5.24. BUN 111. patient does report decreased urine output. Testing for influenza A and B was completed yesterday and was negative. Patient currently denies shortness of breath or chest pain. He reports some nausea still this morning, but no episodes of emesis. He is upset that he can not be discharged home today. 12/16/2017 Patient seen and examined at the bedside. Patient had right femoral dialysis catheter placed yesterday due to worsening kidney function. He received dialysis yesterday evening and is scheduled to have dialysis again this morning. 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 If so, patient will need permacath placed and eliquis will need to be held. He reports he feels much after getting dialysis yesterday. Creatinine is 4.07 today. Denies further episodes of nausea or dry heaves. Denies chest pain or pressure. Denies shortness of breath. Vital signs are stable. 12/17/2017 Patient seen and examined at the bedside. Patient has completed two dialysis treatments. Case discussed with Dr. Caputo. Patient will receive dialysis again today and then will remain off dialysis for the weekend. A decision will then be made early next week if patient will be able to come off dialysis or if he will require group home dialysis and permacath placement. Will continue Eliquis for now. Patient denies shortness of breath. Denies chest pain or pressure. Denies nausea or vomiting. Vital signs are stable. He is afebrile. Lab work from this morning is pending. 12/18/2017 - 12/19/2017: Notes per covering provider 12/20/2017 Patient examined at the bedside with Dr. Adamson. Patient is awake and alert. Patient complains of constipation and reports no bowel movement for the last 3- 4 days. Patients creatinine today is 3.52. BUN 61. Awaiting further recommendations from nephrology regarding whether or not patient will require group home access. Patient will need to be off Eliquis if permacath is planned. Patients liver enzymes and bilirubin remain elevated. US of the liver was ordered which revealed small amount of ascites fluid. Enlarged liver. No focal liver defects. No dilated ducts. Patient reports increased weakness and states he is having difficulty ambulating by himself. Patient may require NIKHIL at the time of discharge. 12/21/2017 Patient examined at the bedside with Dr. Adamson. Patient is awake and alert. Patient underwent dialysis yesterday. Vascular has been reconsulted for permacath insertion. His Eliquis has been placed on hold. His last dose was at 9 AM. GI was consulted to evaluate patient's elevated liver function. GI feels that may be medication related. AST 55. ALT 68. Total bilirubin 2.4. Alkaline phosphatase 210. Patient reports he had a large bowel movement yesterday. Voiding without difficulty. Dr. Hall was consulted for inpatient rehab placement. 12/22/2017 Patient examined at the bedside with Dr. Adamson. Patient is awake and alert. Patient denies chest pain, shortness of breath, nausea, vomiting, or pain. He reports continued weakness and difficulty ambulating. He is scheduled for hemodialysis today. He remains off Eliquis. He is scheduled for permacath placement tomorrow. 12/23/2017 Patient denied any complains of chest pain or shortness of breath.. Permacath we will replace her today. Hemodialysis is scheduled for tomorrow. Continue with local wound care as per ID recommendations for the lower extremities venous stasis ulcer and antibiotics were discontinued. nephrology is following. No fever no chills. No nausea vomiting or abdominal pain. Tolerating oral diet. No other acute overnight issues. 12/24/2017 Patient is scheduled for hemodialysis today but he did develop right upper extremity swelling likely IV access extravasation. Permacath to replace tomorrow. Otherwise patient denied any chest pain or shortness of breath. No nausea vomiting or abdominal pain. Tolerating oral diet. Continued on wound care for lower extremities venous stasis ulcers. Nephrology and ID is following. 12/25/2017 Patient denied any complains of chest pain or shortness of breath. No fever no chills. Yesterday his dialysis catheter was malfunctioning and he underwent guidewire exchange this morning. Patient is getting hemodialysis today. No other acute overnight issues. Right upper extremities swelling is improving. 12/26/2017 Patient is lying in the bed comfortable. No complaints of chest pain or shortness of breath. Right upper extremities swelling is improving. No nausea vomiting or abdominal pain. Tolerating oral diet better now. Patient was started back on anticoagulation. Otherwise and spit discharged to rehab on Wednesday. Current medications reviewed. Objective - Vital Signs Vital signs: Vital Signs Temp 98.6 F 12/26/17 07:45 Pulse 82 12/26/17 15:26 Resp 18 12/26/17 07:45 BP 103/55 12/26/17 07:45 Pulse Ox 96 12/26/17 07:45 Intake & Output 12/25/17 12/26/17 12/26/17 18:59 06:59 18:59 Intake Total 100 680 Output Total 20 Balance 80 680 Weight 79.6 kg Intake: IV 100 Oral 680 Output: Urine 20 Other: Voiding Method Urinal Urinal # Voids 1 - Exam GENERAL: This is a 72-year-old male in no apparent distress at the time of examination. Pleasant and cooperative. HEENT: Head is atraumatic, normocephalic. Pupils are equal, round, and reactive to light. Sclerae anicteric. Conjunctivae are clear. Mucus membranes of the mouth are moist. Neck is supple. RESPIRATORY: Diminished. No wheezing or rhonchi auscultated. No use of accessory muscles. Patient maintaining oxygen saturation greater than 92%. No chest wall tenderness is noted on palpation or with deep breathing. CARDIOVASCULAR: Regular rate and rhythm. S1 and S2 noted. No JVD noted. No S3 or S4 noted. GASTROINTESTINAL: No distention noted. Abdomen soft and round. Normal active bowel sounds auscultated x 4 quadrants. No pain or tenderness noted upon palpation. INTEGUMENTARY: No cyanosis. No jaundice. Chronic discoloration noted to bilateral lower extremities. Isacc wrap with dressing to left lower extremity. Will defer wound assessment to infectious disease. EXTREMITIES: 1+ peripheral pulses. Right upper extremities swelling mainly at the elbow area NEUROLOGIC: Cranial nerves II-XII intact. PSYCHIATRIC: Awake, alert, and oriented X 3. Appropriate affect. Intact judgement and insight. - Labs CBC & Chem 7: 12/16/17 06:46 12/23/17 11:00 Labs: Abnormal Lab Results - Last 24 Hours (Table) 12/25/17 12/26/17 Range/Units 20:05 07:01 POC Glucose (mg/dL) 150 H 214 H (75-99) mg/dL Assessment and Plan Assessment: Acute exacerbation of congestive heart failure, diastolic, EF 45-50%, BNP 13,500 , resolved Acute kidney injury, secondary to ATN, off diuretics, started on hemodialysis Right middle and right lower lobe infiltrates, pneumonia ruled in per pulmonary progess note 12/15/17, community-acquired. Completed antibiotic course. Right pleural effusion, suspect cardiac in nature Cellulitis of left lower extremity and venous stasis ulcer, present on admission , with chronic wounds History of coronary artery disease with previous stent placement COPD, no evidence of acute exacerbation Chronic kidney disease, stage IV Diabetes mellitus, type II Hyperlipidemia Hypertension Paroxysmal atrial fibrillation, on long-term anticoagulation with Eliquis Nausea due to worsening renal function, improved Elevated liver enzymes and bilirubin PLAN: Infectious disease, nephrology, cardiology, and pulmonary on consult. Appreciate recommendations and input Continue wound care with Aquacel silver and isacc wrap per ID recommendations Status post permacath placement. Patient was started back on Eliquis. Home meds as appropriate Monitor labs GI prophylaxis: Protonix 40 mg PO Daily DVT prophylaxis: On hold for permacath placement Discharge plan: Inpatient rehab at [facility] at the time of discharge Monitor vital signs and address as appropriate Further recommendations pending patient's course Anticipate discharge to [facility] for inpatient rehab on Wednesday. If not accepted at [facility], then discharge plan will be [facility] [place] Time with Patient: Greater than 30
[2017-12-27 07:21] LABS: Glucose,Whole Blood 117 mg/dL (75-99)
[2017-12-27 07:44] VITALS: TEMP 98
[2017-12-27] MEDS: IPRATROPIUM-ALBUTEROL 3 ML NEB INHALATION SCH ×3 (08:04→15:32)
--- NOTE | 2017-12-27 08:06 | IR ---
EXAMINATION TYPE: IR cvc replace peripheral DATE OF EXAM: 12/25/2017 COMPARISON: NONE HISTORY: Hemo-Cath malfunction Fluoroscopy support supplied to the referring clinician. See dictated report from vascular surgery, 675 intraoperative images, 1.4 minutes fluoroscopy time
--- NOTE | 2017-12-27 08:25 | P.PN ---
Subjective Patient is seen in follow-up for acute kidney injury on chronic kidney disease. He is currently being treated for left lower extremity cellulitis. Patient has chronic kidney disease stage III with baseline creatinine in the range of 1.7-2. Renal function was progressively worsening and he was also uremic and subsequently started on hemodialysis since admission. Feels weak. He is scheduled to go to inpatient rehab. Patient had a new permacath placed on December 25. Currently seeing while undergoing hemodialysis. Vital signs are stable. General: The patient appeared well nourished and normally developed. HEENT: Head exam is unremarkable. Neck is without jugular venous distension. LUNGS: Lungs are clear to auscultation and percussion. Breath sounds decreased. HEART: Rate and Rhythm are regular. First and second heart sounds normal. No murmurs, rubs or gallops. ABDOMEN: Abdominal exam reveals normal bowel sounds. Non-tender and non- distended. No evidence of peritonitis. EXTREMITITES: Trace edema. No obvious drainage. Objective - Vital Signs Vital signs: Vital Signs Temp 98 F 12/27/17 07:00 Pulse 80 12/27/17 08:16 Resp 16 12/27/17 07:00 BP 100/53 12/27/17 07:00 Pulse Ox 97 12/27/17 08:04 Intake & Output 12/26/17 12/27/17 12/27/17 18:59 06:59 18:59 Intake Total 580 Output Total 20 Balance -20 580 Intake: Oral 580 Output: Urine 20 Other: Voiding Method Urinal - Labs CBC & Chem 7: 12/16/17 06:46 12/23/17 11:00 Labs: Abnormal Lab Results - Last 24 Hours (Table) 12/26/17 12/26/17 12/27/17 Range/Units 17:25 19:56 07:04 POC Glucose (mg/dL) 149 H 313 H 117 H (75-99) mg/dL Assessment and Plan Plan: Assessment: 1. Acute kidney injury secondary to ATN secondary to infection. Urinalysis is benign. No evidence of hydronephrosis noted on imaging. Creatinine peaked at 5.2 this admission and he was subsequently started on hemodialysis for uremia. Urine output remains low. 2. Uremia with asterixis improved with hemodialysis. 3. Left lower extremity cellulitis maintained on antibiotics per infectious disease. 4. Systolic CHF with ejection fraction of 45-50%. Currently compensated. 5. 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 6. Chronic kidney disease mineral bone disease maintained on calcitriol. Phosphorus level at goal. 7. Insulin-dependent diabetes mellitus. 8. Malfunctioning permacath status post guidewire exchange on December 25. Plan: Currently seen while undergoing hemodialysis. Next treatment on Wednesday. Encourage oral intake. Plan for IPR upon discharge. Outpatient hemodialysis has been set up.
[2017-12-27] MEDS: INSULIN ASPART 100 UNIT/ML 1 ML 10 ML VIAL SQ SCH ×2 (09:25→12:37)
--- NOTE | 2017-12-27 10:05 | P.DS ---
Providers Date of admission: 12/09/17 16:55 Expected date of discharge: 12/27/17 Attending physician: Bernabe Adamson Consults: 12/10/17 09:33 Consult Physician Routine Consulting Provider: Anu Retana Consult Reason/Comments: elevated BNP Do you want consulting provider notified?: Yes 12/10/17 09:34 Consult Physician Routine Consulting Provider: Luis Connolly Consult Reason/Comments: cellulitis to left lower extremity Do you want consulting provider notified?: Yes 12/11/17 09:14 Consult Physician Routine Consulting Provider: Adrián Caputo Consult Reason/Comments: DIA on CKD Do you want consulting provider notified?: Yes 12/11/17 11:44 Consult Physician Routine Consulting Provider: Amy King Consult Reason/Comments: right sided pleural effusion Do you want consulting provider notified?: Yes 12/15/17 09:53 Consult Physician Routine Consulting Provider: Juan De Paz Consult Reason/Comments: Permacath placement for new dialysis Do you want consulting provider notified?: Yes 12/20/17 12:15 Consult Physician Routine Consulting Provider: Juan De Paz Consult Reason/Comments: reconsult. Permacath needed for care home dialysis Do you want consulting provider notified?: Yes 12/20/17 15:28 Consult Physician Routine Consulting Provider: Arnav Hall Consult Reason/Comments: Inpatient Rehab evaluation Do you want consulting provider notified?: Yes Primary care physician: Bernabe [facility] Course: 72-year-old male with a past medical history significant for coronary artery disease, heart failure, COPD, diabetes, hypertension and hyperlipidemia who presented to the emergency room with a chief complaint of increased pain to the right lower extremities. The patient is somewhat of a poor historian. No family present at the bedside. The patient has had chronic chronic cellulitis to the bilateral lower extremities along with a wound to the posterior aspect of the left lower extremity. The patient states his legs were starting to improve but recently he has been experiencing more pain to the left leg. He decided to come to the emergency room for further evaluation. He patient states he has occasional shortness of breath, but states that is not the main reason he came to the emergency room. He denies chest pain or pressure. Denies nausea or vomiting. He denies fever or chills. Denies difficulty urinating or change in bowel habits. Chest x-ray completed in the emergency room reveals right middle lobe and right lower lobe infiltrates with small right pleural effusion. Pulmonary vascular prominence. Correlate for failure. Laboratory data upon admission reveals white count 8.2. Hemoglobin 11.7. Platelet count 211. Sodium 136. Potassium 5.1. BUN 90. Crit and 3.05. Glucose 281. Lactic acid 1.4. AST 60. ALT 83. Alkaline phosphatase 109. Troponin 0.014. BNP 13,500. The patient was started on antibiotics and infectious disease was consulted. The patient has completed his course of antibiotics during hospitalization and does not require antibiotic time of discharge. Local wound care with Aquacel Silver and Isacc wrap to LLE are to be continued at discharged. The patient was also started on IV Lasix due to his elevated BNP. The patient was diuresed well. Unfortunately his kidney function continued to decline during hospitalization. Ultrasound of the kidneys was unremarkable. Patient's UA was benign. His Lasix was placed on hold at this time, however is kidney function continued to decline. The patient was on Eliquis due to paroxysmal atrial fibrillation, which was put on hold for dialysis catheter insertion. He initially had a right femoral dialysis catheter placed by vascular surgery. This was discontinued and the patient had a right chest permacath placed. His right chest permacath malfunctioned on 12/24/2017. Vascular surgery reevaluated the patient and exchange the patient's permacath on 12/25/2017. He has been receiving dialysis Wednesday. He is tolerating dialysis well. The patient's liver enzymes were elevated during hospitalization. GI was consulted to evaluate patient. Ultrasound of the liver was completed which revealed small amount of ascites fluid. Enlarged liver. No focal liver defects. No dilated ducts. Hepatitis panel was nonreactive. GI believes elevated liver enzymes may be secondary to medication. The patient is stable for discharge. However, he remains very debilitated and requires rehabilitation at time of discharge. Dr. Hall was consulted for evaluation. Patient was accepted into inpatient rehab at [facility]. He may be discharged today after completing dialysis if insurance authorization is obtained. DISCHARGE DIAGNOSIS: Acute exacerbation of congestive heart failure, diastolic, EF 45-50%, BNP 13,500 , resolved Right middle and right lower lobe infiltrates, pneumonia ruled in per pulmonary progess note 12/15/17, community-acquired, completed antibiotic course Right pleural effusion, suspect cardiac in nature Cellulitis of left lower extremity with venous stasis ulcer, present on admission, with chronic wounds, completed antibiotic course History of coronary artery disease with previous stent placement COPD, no evidence of acute exacerbation Acute kidney injury, secondary to diuresis and infection, although worsening off diuretics, started on hemodialysis 11/14/2017 Chronic kidney disease, stage IV Diabetes mellitus, type II Hyperlipidemia Hypertension Paroxysmal atrial fibrillation, on long-term anticoagulation with Eliquis Nausea due to worsening renal function, improved Elevated liver enzymes and bilirubin, secondary to medications Nurse practitioner note has been reviewed by physician. Signing provider agrees with the documented findings, assessment, and plan of care. Patient Condition at Discharge: Stable Plan - Discharge Summary Discharge Rx Participant: No New Discharge Prescriptions: New Docusate [Colace] 100 mg PO BID PRN cap PRN Reason: Constipation Insulin Detemir [Levemir] 5 unit SQ HS syr Metoprolol Tartrate [Lopressor] 25 mg PO BID tab Continue Ipratropium-Albuterol Nebulize [Duoneb 0.5 mg-3 mg/3 ml Soln] 3 ml INHALATION RT-QID Nitroglycerin Sl Tabs [Nitrostat] 0.4 mg SUBLINGUAL Q5M PRN PRN Reason: Chest Pain Apixaban [Eliquis] 2.5 mg PO BID Albuterol Nebulized [Ventolin Nebulized] 2.5 mg INHALATION RT-Q6H PRN PRN Reason: Shortness Of Breath Ferrous Sulfate [Feosol] 325 mg PO Q7D Cholecalciferol [Vitamin D3] 1,000 unit PO BID Calcitriol 0.25 mcg PO DAILY Allopurinol [Zyloprim] 100 mg PO BID Discontinued Metoprolol Tartrate [Lopressor] 50 mg PO BID Lisinopril [Zestril] 5 mg PO BID Insulin Detemir [Levemir Flextouch] 12 unit SQ HS Furosemide [Lasix] 40 mg PO BID Spironolactone 25 mg PO DAILY Discharge Medication List Ipratropium-Albuterol Nebulize [Duoneb 0.5 mg-3 mg/3 ml Soln] 3 ml INHALATION RT -QID 06/27/14 [History] Nitroglycerin Sl Tabs [Nitrostat] 0.4 mg SUBLINGUAL Q5M PRN 06/27/14 [History] Apixaban [Eliquis] 2.5 mg PO BID 05/05/16 [History] Albuterol Nebulized [Ventolin Nebulized] 2.5 mg INHALATION RT-Q6H PRN 12/09/17 [ History] Allopurinol [Zyloprim] 100 mg PO BID 12/09/17 [History] Calcitriol 0.25 mcg PO DAILY 12/09/17 [History] Cholecalciferol [Vitamin D3] 1,000 unit PO BID 12/09/17 [History] Ferrous Sulfate [Feosol] 325 mg PO Q7D 12/09/17 [History] Docusate [Colace] 100 mg PO BID PRN cap 12/24/17 [Rx] Insulin Detemir [Levemir] 5 unit SQ HS syr 12/24/17 [Rx] Metoprolol Tartrate [Lopressor] 25 mg PO BID tab 12/24/17 [Rx] Follow up Appointment(s)/Referral(s): [facility] [Provider Group] - 1 Week Estephania Mendoza MD [STAFF PHYSICIAN] - 1 Week Bernabe Adamson DO [Primary Care Provider] - 12/21/17 2:40 pm (Wednesday) [facility], [NON-STAFF] - Luis Connolly MD [STAFF PHYSICIAN] - 1 Week Patient Instructions/Handouts: Cellulitis (DC), Pleural Effusion (DC) Activity/Diet/Wound Care/Special Instructions: Aquacel silver to wound every [address] up with Dr. Connolly at wound center at [facility] Hemodialysis Wednesday, Wednesday, and Wednesday (Patient to go through [facility] in [place] after discharge from rehab) Discharge Disposition: TRANSFER TO SNF/ECF
[2017-12-27] MEDS: CHOLECALCIFEROL 1,000 UNIT TAB PO SCH (10:36)
[2017-12-27] MEDS: CALCITRIOL 0.25 MCG CAP PO SCH (10:36)
[2017-12-27] MEDS: ALLOPURINOL 100 MG TAB PO SCH (10:36)
[2017-12-27] MEDS: APIXABAN 2.5 MG TABLET PO SCH (10:36)
[2017-12-27] MEDS: DOCUSATE 100 MG CAP PO SCH (10:36)
[2017-12-27] MEDS: FAMOTIDINE 20 MG TAB PO SCH (10:36)
[2017-12-27] MEDS: POLYETHYLENE GLYCOL 3350 17 GM POWD.PACK PO SCH ×2 (10:39→10:44)
[2017-12-27] MEDS: METOPROLOL TARTRATE 25 MG TAB PO SCH (10:39)
[2017-12-27 12:13] LABS: Glucose,Whole Blood 146 mg/dL (75-99)
[2017-12-27 14:55] VITALS: BP 92/73; PULSE 70
--- NOTE | 2017-12-27 19:27 | PN ---
PROGRESS NOTE DATE OF SERVICE: 12/27/2017 REASON FOR FOLLOWUP: Left leg venostasis ulcer. INTERVAL HISTORY: The patient was seen on rounds this afternoon. The patient has been afebrile. He is breathing comfortably. No chest pain. No cough. No abdominal pain or pain to the left leg area. PHYSICAL EXAMINATION: Blood pressure 100/53 with a pulse of 76, temperature 98. He is 93% on 2 L nasal cannula. General description is an elderly male up in the chair in no distress. RESPIRATORY SYSTEM: Unlabored breathing. Clear to auscultation anteriorly. HEART: S1, S2. Regular rate and rhythm. ABDOMEN: Soft. No tenderness. Left leg is currently dressed up. No obvious drainage on the dressing. DIAGNOSTIC IMPRESSION AND PLAN: Patient with left leg venostasis ulcer with secondary cellulitis. Underlying cellulitis has been adequately treated. Plan is to continue local wound care with an Aquacel Silver dressing followed by Isacc wrap to keep the swelling down and follow up in the wound care center next week. Continue with supportive care. present at bedside. Questions were answered. MMODL / IJN: [id number] /
== END 2017-12-27 15:40 | DRG 291 ==
LOC: EC 13:24 → 3SCARD 16:55 → 4SSUR 12-15 14:37
PROVIDERS: ADMIT Family Medicine; ATTEND Family Medicine
PROC: 06HY33Z Insertion of Infusion Device into Lower Vein, Percutaneous Approach (ICD-10-PCS; principal; 2017-12-15 15:20)
PROC: 06PYX3Z Removal of Infusion Device from Lower Vein, External Approach (ICD-10-PCS; 2017-12-15 15:20)
PROC: 02HV33Z Insertion of Infusion Device into Superior Vena Cava, Percutaneous Approach (ICD-10-PCS; 2017-12-23)
PROC: 5A1D70Z Performance of Urinary Filtration, Intermittent, Less than 6 Hours Per Day (ICD-10-PCS; 2017-12-23 15:30)
PROC: 02PYX3Z Removal of Infusion Device from Great Vessel, External Approach (ICD-10-PCS; 2017-12-26)
PROC: 0JH63XZ Insertion of Tunneled Vascular Access Device into Chest Subcutaneous Tissue and Fascia, Percutaneous Approach (ICD-10-PCS; 2017-12-26)
PROC: 02HV33Z Insertion of Infusion Device into Superior Vena Cava, Percutaneous Approach (ICD-10-PCS; 2017-12-26)
DX: I13.0 Hypertensive heart and chronic kidney disease with heart failure and stage 1 through stage 4 chronic kidney disease, or unspecified chronic kidney disease (principal); I50.33 Acute on chronic diastolic (congestive) heart failure; J18.9 Pneumonia, unspecified organism; N17.0 Acute kidney failure with tubular necrosis; K83.1 Obstruction of bile duct; J44.0 Chronic obstructive pulmonary disease with (acute) lower respiratory infection; L03.115 Cellulitis of right lower limb; L03.116 Cellulitis of left lower limb; N18.4 Chronic kidney disease, stage 4 (severe); T82.41XA Breakdown (mechanical) of vascular dialysis catheter, initial encounter; D63.1 Anemia in chronic kidney disease; E11.22 Type 2 diabetes mellitus with diabetic chronic kidney disease; E11.51 Type 2 diabetes mellitus with diabetic peripheral angiopathy without gangrene; E11.622 Type 2 diabetes mellitus with other skin ulcer; E78.5 Hyperlipidemia, unspecified; E87.5 Hyperkalemia; I08.1 Rheumatic disorders of both mitral and tricuspid valves; I25.10 Atherosclerotic heart disease of native coronary artery without angina pectoris; I25.2 Old myocardial infarction; I42.9 Cardiomyopathy, unspecified; I48.0 Paroxysmal atrial fibrillation; K21.9 Gastro-esophageal reflux disease without esophagitis; K59.00 Constipation, unspecified; I87.2 Venous insufficiency (chronic) (peripheral); T50.2X5A Adverse effect of carbonic-anhydrase inhibitors, benzothiadiazides and other diuretics, initial encounter; H26.9 Unspecified cataract; M10.9 Gout, unspecified; R11.2 Nausea with vomiting, unspecified; T36.95XA Adverse effect of unspecified systemic antibiotic, initial encounter; M79.89 Other specified soft tissue disorders; E83.89 Other disorders of mineral metabolism; Z79.01 Long term (current) use of anticoagulants; Z79.4 Long term (current) use of insulin; Z79.899 Other long term (current) drug therapy; Z87.891 Personal history of nicotine dependence; Z88.1 Allergy status to other antibiotic agents; Z88.2 Allergy status to sulfonamides; Z95.5 Presence of coronary angioplasty implant and graft; Z95.1 Presence of aortocoronary bypass graft; Z90.49 Acquired absence of other specified parts of digestive tract; Z82.49 Family history of ischemic heart disease and other diseases of the circulatory system; Y92.9 Unspecified place or not applicable
CPT/HCPCS: 36415; 36556; 36558; 71045; 71046; 76604; 76705; 76770; 76937; 77001; 80048; 80053; 80074; 80076; 81003; 83036; 83605; 83735; 83880; 84100; 84443; 84484; 85025; 85610; 86706; 87040; 87340; 87502; 90935; 93005; 93306; 94640; 94760; 96365; 96366; 96375; 99285